=== PATIENT | male | born 1950 | race Caucasian/White ===

== ENCOUNTER 2017-01-16 10:48 | Emergency (ER) | payer MEDICARE, OTHER ==
[~2017-01-16] VITALS: Ht 167.6 cm; Wt 76.2 kg
[~2017-01-16 10:48] MED LIST: ACET-2267 PO; ALBU0.632 IH; ALBU8.5H2; ALBU8.5H2 INH; AMLO10TA PO; AMLO10TA2 PO; AMLO5TAB2 GT; AZIT250T81; BNZ20T GT; BNZ40T PO; BUDE10.2 IH; BUDE6HFA IH; CEFD300C3 PO; CEFTRIAXONE IV; CETI10CA PO; CHLO25TA22 PO; CLN.2T PO; CLON0.1T PO; DOCU-143 PO; FAMO-119 PO; FAMO20TA5 PO; FAMO40TA6 PO; HCT25T PO; HDRL25T PO; HYDR-3923 PO; IPRA3AMP IH; IPRA4AER IH; L. A1CAP10 PO; LEVO500T80 PO; LOSA100T28 PO; METH4TAB PO; MULT-35 PO; MULT-974 PO; OLME1TAB26 PO; POTA99TA15 PO; POTA99TA21 PO; PRD10T; SODI14.12 TP; TAMS0.4C2; TAMS0.4C98 PO; TIOT18CA2 IH; levoquin PO
--- NOTE | 2017-01-16 11:12 | ED EENT ---
History of Present Illness General Chief Complaint: Allergic Reaction Stated Complaint: ALLERGIC REACTION/FACIAL SWELLING Nursing Triage Note: c/o facial swelling. No tongue swelling. Onset 0500 this morning. Denies abnormal SOA. Source: patient Exam Limitations: no limitations History of Present Illness Time seen by provider: 11:07 Initial Comments to ER with swelling around the lips both upper and lower lips and his cheeks. This began this morning about 5 a.m. all awakening. Denies any trouble swallowing or breathing. No shortness of breath. He has a history of angioedema this will be his fourth or fifth presentation of this. Initially this was thought to be secondary to his MANUEL inhibitor but that was discontinued and his occasional flareups persist.he states that normally A shot of steroids improves these.he denies any worsening shortness of breath or pedal edema Timing/Duration: this morning Severity: moderate Location: facial Associated Symptoms: No cough Allergies and Home Medications Allergies Coded Allergies: sulfamethoxazole (Unverified Allergy, Mild, 04/27/16) trimethoprim (Unverified Allergy, Mild, 04/27/16) Home Medications Albuterol/Ipratropium 4 Gm Aero, 2 PUFF IH TID, (Reported) Amlodipine Besylate 10 Mg Tablet, 10 MG PO DAILY, (Reported) Budesonide/Formoterol Fumarate 10.2 Gm Hfa.aer.ad, 2 PUFF IH BID, (Reported) Clonidine HCl 0.1 Mg Tablet, 0.1 MG PO BID, (Reported) Hydralazine HCl 25 Mg Tablet, 25 MG PO BID, (Reported) Losartan Potassium 100 Mg Tablet, 100 MG PO DAILY, (Reported) Prednisone 10 Mg Tab, #42 (Reported) Prednisone 10 Mg Tab, 10 MG PO UD, #10 30mg today, 30mg tomorrow, 20mg x2 days, then go back to your usual once a day dosing Prescribed by: TRACEY ALICEA on 01/16/17 1113 Sodium Chloride/Aloe Vera 14.1 Gm Gel..gram., 14.1 GM TP DAILY, #1 Prescribed by: TRACEY ALICEA on 04/27/16 1056 Tamsulosin HCl 0.4 Mg Cap, 0.4 MG PO DAILY@NOON, (Reported) Tiotropium [place] 1 Inh Aerp, 1 INH IH DAILY, (Reported) [levoquin] , 500 PO Q48H Prescribed by: ROSALVA ZAPIEN on 06/08/16 0803 Review of Systems Constitutional: see HPI Eyes: No Symptoms Reported Ears: No Symptoms Reported Nose: no symptoms reported Mouth: no symptoms reported Throat: no symptoms reported Respiratory: no symptoms reported Cardiovascular: no symptoms reported Musculoskeletal: no symptoms reported Skin: no symptoms reported Neurological: No Symptoms Reported Hematologic/Lymphatic: No Symptoms Reported Past Boqtrnl-Ajqytj-Ntvfvz Hx Patient Social History Alcohol Use: Occasionally Uses Recreational Drug Use: No Smoking Status: Former Smoker Former Smoker/When Quit: Oct 03, 2014 2nd Hand Smoke Exposure: No Recent Foreign Travel: No Contact w/Someone Who Travel: No Recent Infectious Disease Expo: No Recent Hopitalizations: No Immunizations Up To Date Tetanus Booster (TDap): Less than 5yrs PED Vaccines UTD: No Date of Pneumonia Vaccine: Jun 18, 2015 Date of Influenza Vaccine: Jul 29, 2014 Seasonal Allergies Seasonal Allergies: Yes Surgeries HX Surgeries: Yes (cataracts, RIGHT HIP REPLACEMENT, RIGHT KNEE ARTHROSCOPY X 2 ) Surgeries: Eye Surgery, Joint Replacement, Orthopedic Respiratory Hx Respiratory Disorders: Yes (home O2 at 2.5 TO 3L) Respiratory Disorders: Pneumonia, Chronic Bronchitis, COPD Cardiovascular Hx Cardiac Disorders: Yes Cardiac Disorders: Hypertension, Valvular Heart Disease Neurological Hx Neurological Disorders: No Reproductive System Hx Reproductive Disorders: No Sexually Transmitted Disease: No HIV/AIDS: No Genitourinary Hx Genitourinary Disorders: Yes Genitourinary Disorders: Renal Failure Gastrointestinal Hx Gastrointestinal Disorders: No Musculoskeletal Hx Musculoskeletal Disorders: Yes (TORN CARTILAGE RIGHT KNEE. AVASCULAR NECROSIS RIGHT HIP; bulging disc) Musculoskeletal Disorders: Arthritis, Chronic Back Pain Endocrine Hx Endocrine Disorders: No HEENT HX ENT Disorders: Yes (MULTIPLE EPISODES OF ANGIOEDEMA OF FACE) Loss of Vision: Denies Hearing Impairment: Denies Cancer Hx Cancer: No Psychosocial Hx Psychiatric Problems: No Integumentary HX Skin/Integumentary Disorder: No Blood Transfusions Hx Blood Disorders: No Adverse Reaction to a Blood Tr: No Family Medical History Significant Family History: Heart Disease, Diabetes, Lung Disease, Renal Disease Family Medial History: Cardiovascular disease UNCLE Diabetes mellitus 19 MOTHER Kidney disease [place] GRANDMOTHER (CANCER) Physical Exam Vital Signs Vital Sign - Last 12Hours 01/16/17 11:01 Temp 98.0 B/P (MAP) 160/95 Pulse Ox 96 O2 Delivery Nasal Cannula General Appearance: WD/WN, no apparent distress Eyes: bilateral eye EOMI, bilateral eye PERRL, bilateral eye normal inspection Ears: bilateral ear TM normal, bilateral ear auricle normal, bilateral ear canal normal Nose: normal inspection Mouth/Throat: other (there is circumferential swelling around the mouth involving the cheeks but does not affect the mucocutaneous border of the lips. There is no intraoral swelling) Neck: non-tender, full range of motion Respiratory: normal breath sounds, no respiratory distress, no accessory muscle use Neurologic/Psychiatric: alert, normal mood/affect, oriented x 3 Skin: normal color, warm/dry Progress/Results/Core Measures Results/Orders My Orders Orders - TRACEY ALICEA APRN Saline Lock/Iv-Start (01/16/17 11:06) Methylprednisolone Sod Succ (Solu-Medrol (01/16/17 11:15) Famotidine Injection (Pepcid Injection) (01/16/17 11:15) Diphenhydramine Injection (Benadryl Inje (01/16/17 11:15) Medications Given in ED Current Medications Medications Dose Ordered Sig/Anita Route Start Time Stop Time Status Last Admin Dose Admin Diphenhydramine HCl 25 mg ONCE ONCE IVP 01/16/17 11:15 01/16/17 11:16 DC 01/16/17 11:11 25 MG Famotidine 20 mg ONCE ONCE IVP 01/16/17 11:15 01/16/17 11:16 DC 01/16/17 11:11 20 MG Methylprednisolone Sodium Succinate 125 mg ONCE ONCE IVP 01/16/17 11:15 01/16/17 11:16 DC 01/16/17 11:11 125 MG Vital Signs/I&O Vital Sign - Last 12Hours 01/16/17 11:01 Temp 98.0 B/P (MAP) 160/95 Pulse Ox 96 O2 Delivery Nasal Cannula Blood Pressure Mean: 116 Departure Impression Impression: Primary Impression: facial angioedema Disposition: HOME, SELF-CARE Condition: Stable Departure-Patient Inst. Decision time for Depature: 11:10 Referrals: GLORIA ZAPIEN MD (PCP/Family) Primary Care Physician Patient Instructions: Angioedema Add. Discharge Instructions: 1. Steroids as directed 2. Benadryl one tablet every 6 hours for the remainder of today 3. Return to ER for any worsening 4. See your doctor next week All discharge instructions reviewed with patient and/or family. Voiced understanding. Scripts Prednisone (Prednisone) 10 Mg Tab 10 MG PO UD, #10 TAB 30mg today, 30mg tomorrow, 20mg x2 days, then go back to your usual once a day dosing. Prov: TRACEY ALICEA APRN 01/16/17 TRACEY ALICEA APRN Jan 16, 2017 11:12
[2017-01-16] MEDS ORDERED: PRD10T PO ×2 (11:13→11:42)
[2017-01-16] MEDS ORDERED: FAMOTIDINE 20MG/2ML IV (PEPCID) IVP ONE (11:15)
[2017-01-16] MEDS ORDERED: methylPREDNISolone 125 MG (Solu-MEDROL) VIAL IVP ONE (11:15)
[2017-01-16] MEDS ORDERED: diphenhydrAMINE 50 MG/ML INJ (BENADRYL) IVP ONE (11:15)
[2017-01-16 11:47] VITALS: BP 152/90
== END 2017-01-16 11:47 | disposition home or self-care (01) ==
LOC: EDUNIT# 10:48 → ER 10:49
DX: T78.3XXA Angioneurotic edema, initial encounter (principal); J44.9 Chronic obstructive pulmonary disease, unspecified; Z79.899 Other long term (current) drug therapy
CPT/HCPCS: 96374; 96375

== ENCOUNTER 2018-02-26 00:19 | Emergency (ER) | payer MEDICARE, OTHER ==
[~2018-02-26] VITALS: Ht 167.6 cm; Wt 74.8 kg
[~2018-02-26 00:19] MED LIST changes: +PRD10T PO
[2018-02-26] MEDS ORDERED: OXYMETAZOLINE (AFRIN) 0.05% NA 15 ML BTL ONE (00:50)
--- NOTE | 2018-02-26 02:23 | ED EENT ---
History of Present Illness General Chief Complaint: Nasal Problems Stated Complaint: NOSE BLEED Nursing Triage Note: pt presents to er with complaint of nose bleed. pt reports nose has been bleeding off and on since 2 am yesterday. Source: patient, spouse Exam Limitations: no limitations History of Present Illness Date Seen by Provider: February 26, 2018 Time Seen by Provider: 00:45 Initial Comments The patient presents to ER by private conveyance with a chief complaint is having a nosebleed that will not stop. His been having this for the past 2 or 3 days. He followed up yesterday with Dr. Marks and they were not able to see anything on the left nostril hours having the bleeding but this also irritation on the right nostril. They did not do any intervention at that time. He has Afrin and he used it once earlier today but he has not used it tonight. He has been pinching his nose. He is not having any shortness of breath chest pain or history of anemia. He has no coronary artery disease history either. He has been using nasal saline every hour. He does not use any nasal steroids. He is not on any blood thinners. Allergies and Home Medications Allergies Coded Allergies: sulfamethoxazole (Unverified Allergy, Mild, 04/27/16) trimethoprim (Unverified Allergy, Mild, 04/27/16) Home Medications Albuterol/Ipratropium 4 Gm Aero, 2 PUFF IH TID, (Reported) Amlodipine Besylate 10 Mg Tablet, 10 MG PO DAILY, (Reported) Budesonide/Formoterol Fumarate 10.2 Gm Hfa.aer.ad, 2 PUFF IH BID, (Reported) Clonidine HCl 0.1 Mg Tablet, 0.1 MG PO BID, (Reported) Hydralazine HCl 25 Mg Tablet, 25 MG PO BID, (Reported) Losartan Potassium 100 Mg Tablet, 100 MG PO DAILY, (Reported) Prednisone 10 Mg Tab, 10 MG PO UD 30mg today, 30mg tomorrow, 20mg x2 days, then go back to your usual once a day dosing. Prescribed by: TRACEY ALICEA on 01/16/17 1142 Sodium Chloride/Aloe Vera 14.1 Gm Gel..gram., 14.1 GM TP DAILY Prescribed by: TRACEY ALICEA on 04/27/16 1056 Tamsulosin HCl 0.4 Mg Cap, 0.4 MG PO DAILY@NOON, (Reported) Tiotropium [place] 1 Inh Aerp, 1 INH IH DAILY, (Reported) [levoquin] , 500 PO Q48H Prescribed by: ROSALVA ZAPIEN on 06/08/16 0803 Patient Home Medication List Home Medication List Reviewed: Yes Review of Systems Constitutional: No chills, No diaphoresis Eyes: Denies Blindness, Denies Blurred Vision Ears: Denies Dizziness, Denies Pain Nose: clots, epistaxis Mouth: denies pain, denies swelling Throat: denies pain, denies swelling Respiratory: No cough, No wheezing Cardiovascular: No Hx of Intervention, No vascular heart diseas Past Rmrkbvc-Lgojgz-Wruqgv Hx Patient Social History Alcohol Use: Occasionally Uses Number of Drinks Today: AA Alcohol Beverage of Choice: Beer Recreational Drug Use: No Smoking Status: Former Smoker Former Smoker, Quit: Oct 03, 2014 2nd Hand Smoke Exposure: No Recent Foreign Travel: No Contact w/Someone Who Travel: No Recent Infectious Disease Expo: No Recent Hopitalizations: No Immunizations Up To Date Tetanus Booster (TDap): Less than 5yrs PED Vaccines UTD: No Date of Pneumonia Vaccine: Jun 18, 2015 Date of Influenza Vaccine: Jul 29, 2014 Seasonal Allergies Seasonal Allergies: Yes Past Medical History Surgeries: Yes (cataracts, RIGHT HIP REPLACEMENT, RIGHT KNEE ARTHROSCOPY X 2 ) Eye Surgery, Joint Replacement, Orthopedic Respiratory: Yes (home O2 at 2.5 TO 3L) Pneumonia, Chronic Bronchitis, COPD Currently Using CPAP: No Currently Using BIPAP: No Cardiac: Yes Hypertension, Valvular Heart Disease Neurological: No Reproductive Disorders: No Sexually Transmitted Disease: No HIV/AIDS: No Renal Failure Gastrointestinal: No Musculoskeletal: Yes (TORN CARTILAGE RIGHT KNEE. AVASCULAR NECROSIS RIGHT HIP; bulging disc) Arthritis, Chronic Back Pain Endocrine: No Loss of Vision: Denies Hearing Impairment: Denies Cancer: No Psychosocial: No Integumentary: No Blood Disorders: No Adverse Reaction/Blood Tranf: No Family Medical History Cardiovascular disease UNCLE Diabetes mellitus 19 MOTHER Kidney disease [place] GRANDMOTHER (CANCER) Heart Disease, Diabetes, Lung Disease, Renal Disease Physical Exam Vital Signs Vital Signs - First Documented 02/26/18 00:35 Pulse 100 Resp 20 B/P (MAP) 147/103 (118) Pulse Ox 97 O2 Delivery Nasal Cannula O2 Flow Rate 3.00 General Appearance: WD/WN, no apparent distress Eyes: bilateral eye normal inspection, bilateral eye PERRL, bilateral eye EOMI (is dried and years were driving) Ears: bilateral ear auricle normal ( sugars elevated 10/07/24), bilateral ear canal normal, bilateral ear TM normal Nose: active bleeding, dried blood; No foreign body, No sinus tenderness Mouth/Throat: other (bloody secretions in the oral cavity) Neck: non-tender, supple, normal inspection Cardiovascular: normal peripheral pulses, regular rate, rhythm Respiratory: chest non-tender, lungs clear, normal breath sounds, no respiratory distress, no accessory muscle use Gastrointestinal: normal bowel sounds, non tender, soft Neurologic/Psychiatric: alert, oriented x 3 Skin: normal color, warm/dry Progress/Results/Core Measures Results/Orders My Orders Orders - JAYY SWEET Oxymetazoline 0.05% Nasal [place] (Afrin 0. (02/26/18 09:00) Oxymetazoline 0.05% Nasal [place] (Afrin 0. (02/26/18 00:50) Vital Signs/I&O 02/26/18 00:35 Pulse 100 Resp 20 B/P (MAP) 147/103 (118) Pulse Ox 97 O2 Delivery Nasal Cannula O2 Flow Rate 3.00 Blood Pressure Mean: 118 Progress Progress Note : Time: 02:22 Progress Note After applying Afrin 4 puffs each nostril and some pressure the bleeding slowed down but then it started up a little bit so we applied 4 more puffs of Afrin and this is stopped up his nasal bleeding. His blood pressure is still elevated above 200 despite resting sober any give him an extra dose of losartan and asked him to follow up next week or the following with his primary care doctor to readdress his blood pressure medicines. We will also have him follow-up with Dr. Marks in the clinic. Departure Impression Primary Impression: Epistaxis Disposition: 01 HOME, SELF-CARE Condition: Improved Departure-Patient Inst. Decision time for Depature: 02:22 Referrals: GLORIA ZAPIEN MD (PCP/Family) Primary Care Physician Patient Instructions: Nosebleeds (DC) Add. Discharge Instructions: Continue using the nasal saline. If you have bleeding apply 2-4 puffs each nostril and then direct pressure for 40 minutes. Do not blow your nose or take the pressure off at any time. Plan follow-up with Dr. Marks in the clinic. Discuss your blood pressure with your primary care doctor. Take your blood pressure medicines as prescribed. Do not use the Afrin routinely for more than 4 -5 days in a row without taking a week off to prevent rebound congestion. All discharge instructions reviewed with patient and/or family. Voiced understanding. Copy Copies To 1: KIMBERLY MARKS MD; GLORIA ZAPIEN MD, TITUS J February 26, 2018 02:23
[2018-02-26] MEDS ORDERED: LOSARTAN 50 MG (COZAAR) TAB PO ONE (02:30)
[2018-02-26 02:55] VITALS: BP 147/103
[2018-02-26] MEDS ORDERED: OXYMETAZOLINE (AFRIN) 0.05% NA 15 ML BTL SCH (09:00)
== END 2018-02-26 02:55 | disposition home or self-care (01) ==
LOC: EDUNIT# 00:19 → ER 00:21
DX: R04.0 Epistaxis (principal); I10 Essential (primary) hypertension; J44.9 Chronic obstructive pulmonary disease, unspecified; Z87.891 Personal history of nicotine dependence; Z99.81 Dependence on supplemental oxygen; Z96.641 Presence of right artificial hip joint; Z87.01 Personal history of pneumonia (recurrent); Z79.52 Long term (current) use of systemic steroids; Z88.2 Allergy status to sulfonamides; Z88.1 Allergy status to other antibiotic agents; Z82.49 Family history of ischemic heart disease and other diseases of the circulatory system
CPT/HCPCS: 99283

== ENCOUNTER → 2018-04-21 | Outpatient (CLI) | payer MEDICARE, OTHER ==
[~2018-04-21] MED LIST changes: -IPRA3AMP IH; +IPRA3AMP31 IH
== END ==
LOC: RAD 07:31
PROVIDERS: ATTEND Orthopaedic Surgery
DX: M17.11 Unilateral primary osteoarthritis, right knee (principal); Z53.8 Procedure and treatment not carried out for other reasons

== ENCOUNTER → 2018-05-17 | Outpatient (CLI) | payer MEDICARE, OTHER ==
--- NOTE | 2018-05-17 09:26 | Diagnostic Imaging Report ---
EXAM: CT CHEST SCREENING WO INDICATION: Quit smoking 4 years ago. 40 pack year smoking history. COMPARISON: CT chest without contrast 03/08/2016. FINDINGS: Advanced emphysematous changes in the lungs. Advanced emphysematous changes in the lungs. No suspicious pulmonary nodule or mass. No pleural effusion or pneumothorax. No endobronchial lesions. No mediastinal, hilar or axillary lymphadenopathy. Normal heart size. Advanced atherosclerotic calcifications including coronary and aortic. Partially visualized well-circumscribed low-attenuation lesion in the liver, not appreciably changed since the prior exam, likely represents a benign cyst. No acute osseous findings. IMPRESSION: 1. Advanced emphysematous changes in the lungs. 2. Advanced atherosclerotic calcifications including coronary. 3. No suspicious pulmonary nodule or mass. Recommend continue annual screening with low dose chest CT in 12 months. Lung rads category: One. Modifier: None. Please note that the low-dose technique of this chest CT is of non-diagnostic quality. This study is only intended for lung cancer screening of high risk patients. Dictated by: Dictated on workstation # [id number]
== END ==
LOC: RAD 08:17
PROVIDERS: ATTEND Nurse Practitioner Family
DX: J43.9 Emphysema, unspecified (principal); I25.10 Atherosclerotic heart disease of native coronary artery without angina pectoris; I70.0 Atherosclerosis of aorta; Z87.891 Personal history of nicotine dependence

== ENCOUNTER 2018-12-13 13:21 | Inpatient (IN) | payer MEDICARE, OTHER ==
[~2018-12-13] VITALS: Ht 162.6 cm; Wt 61.6 kg
[~2018-12-13 13:21] MED LIST changes: -AMLO10TA2 PO; +AMLO10TA7 PO; -LOSA100T28 PO; +LOSA100T57 PO
[2018-12-13] MEDS ORDERED: ONDANSETRON 4 MG/2 ML (SDV) Z0FRAN IVP ONE (14:00)
[2018-12-13] MEDS ORDERED: HYOSCYAMINE 0.125 MG (LEVSIN) TAB PO ONE (14:00)
--- NOTE | 2018-12-13 14:00 | ED Abdominal Pain ---
General Chief Complaint: Abdominal/GI Problems Stated Complaint: VOMITTING Source of Information: Patient Exam Limitations: No Limitations History of Present Illness Date Seen by Provider: Dec 13, 2018 Time Seen by Provider: 13:59 Initial Comments To ER with reports of abdominal distention, abdominal cramping nausea and vomiting. He vomited twice this morning. He had a bowel movement this morning but has not passed any gas since then. Timing/Duration: 4-6 Hours Severity/Quality: Moderate Location: Generalized Abdomen Radiation: No Radiation Activities at Onset: None Associated Symptoms: Nausea/Vomiting, Swelling/Mass in Abdomen Allergies and Home Medications Allergies Coded Allergies: sulfamethoxazole (Unverified Allergy, Mild, 12/13/18) trimethoprim (Unverified Allergy, Mild, 12/13/18) Home Medications Albuterol/Ipratropium 4 Gm Aero, 2 PUFF IH TID, (Reported) Amlodipine Besylate 10 Mg Tablet, 10 MG PO DAILY, (Reported) Budesonide/Formoterol Fumarate 10.2 Gm Hfa.aer.ad, 2 PUFF IH BID, (Reported) Clonidine HCl 0.1 Mg Tablet, 0.1 MG PO BID, (Reported) Hydralazine HCl 25 Mg Tablet, 25 MG PO BID, (Reported) Losartan Potassium 100 Mg Tablet, 100 MG PO DAILY, (Reported) Prednisone 10 Mg Tab, 10 MG PO UD 30mg today, 30mg tomorrow, 20mg x2 days, then go back to your usual once a day dosing. Prescribed by: TRACEY ALICEA on 01/16/17 1142 Sodium Chloride/Aloe Vera 14.1 Gm Gel..gram., 14.1 GM TP DAILY Prescribed by: TRACEY ALICEA on 04/27/16 1056 Tamsulosin HCl 0.4 Mg Cap, 0.4 MG PO DAILY@NOON, (Reported) Tiotropium [place] 1 Inh Aerp, 1 INH IH DAILY, (Reported) [levoquin] , 500 PO Q48H Prescribed by: ROSALVA ZAPIEN on 06/08/16 0803 Patient Home Medication List Home Medication List Reviewed: Yes Review of Systems Review of Systems Constitutional: see HPI EENTM: No Symptoms Reported Respiratory: No Symptoms Reported Cardiovascular: No Symptoms Reported Gastrointestinal: See HPI, Abdominal Pain; Denies Constipated, Denies Diarrhea ; Nausea, Vomiting Genitourinary: No Symptoms Reported Musculoskeletal: no symptoms reported Skin: no symptoms reported Psychiatric/Neurological: No Symptoms Reported Endocrine: No Symptoms Reported Past Pihkfxs-Wumqkg-Rojtpv Hx Patient Social History Alcohol Beverage of Choice: Beer Former Smoker, Quit: Oct 03, 2014 2nd Hand Smoke Exposure: No Recent Foreign Travel: No Contact w/Someone Who Travel: No Recent Hopitalizations: No Immunizations Up To Date Tetanus Booster (TDap): Less than 5yrs PED Vaccines UTD: No Date of Pneumonia Vaccine: Jun 18, 2015 Date of Influenza Vaccine: Jul 29, 2014 Seasonal Allergies Seasonal Allergies: Yes Past Medical History Surgeries: Yes (cataracts, RIGHT HIP REPLACEMENT, RIGHT KNEE ARTHROSCOPY X 2 ) Eye Surgery, Joint Replacement, Orthopedic Respiratory: Yes (home O2 at 2.5 TO 3L) Pneumonia, Chronic Bronchitis, COPD Currently Using CPAP: No Currently Using BIPAP: No Cardiac: Yes Hypertension, Valvular Heart Disease Neurological: No Reproductive Disorders: No Sexually Transmitted Disease: No HIV/AIDS: No Renal Failure Gastrointestinal: No Musculoskeletal: Yes (TORN CARTILAGE RIGHT KNEE. AVASCULAR NECROSIS RIGHT HIP; bulging disc) Arthritis, Chronic Back Pain Endocrine: No Loss of Vision: Denies Hearing Impairment: Denies Cancer: No Psychosocial: No Integumentary: No Blood Disorders: No Adverse Reaction/Blood Tranf: No Family Medical History Cardiovascular disease UNCLE Diabetes mellitus 19 MOTHER Kidney disease [place] GRANDMOTHER (CANCER) Heart Disease, Diabetes, Lung Disease, Renal Disease Physical Exam Vital Signs Vital Signs - First Documented 12/13/18 13:42 Temp 96.7 Pulse 70 Resp 16 B/P (MAP) 142/57 (85) Pulse Ox 96 O2 Delivery Nasal Cannula O2 Flow Rate 3.00 Capillary Refill : Height/Weight/BMI Height: 5'6.00" Weight: 165lbs. 7.0oz. 74.055224yc; 26.5 BMI Method:Stated General Appearance: WD/WN, no apparent distress HEENT: PERRL/EOMI, normal ENT inspection Respiratory: no respiratory distress, no accessory muscle use Cardiovascular: regular rate, rhythm, no murmur Gastrointestinal: normal bowel sounds, distended, tenderness Extremities: normal range of motion, non-tender Neurologic/Psychiatric: alert, normal mood/affect, oriented x 3 Skin: normal color, warm/dry Progress/Results/Core Measures Results/Orders Lab Results Laboratory Tests Test 12/13/18 13:57 Range/Units White Blood Count 16.6 H 4.3-11.0 10^3/uL Red Blood Count 4.14 L 4.35-5.85 10^6/uL Hemoglobin 10.3 L 13.3-17.7 G/DL Hematocrit 31 L 40-54 % Mean Corpuscular Volume 74 L 80-99 FL Mean Corpuscular Hemoglobin 25 25-34 PG Mean Corpuscular Hemoglobin Concent 34 32-36 G/DL Red Cell Distribution Width 15.1 H 10.0-14.5 % Platelet Count 440 H 130-400 10^3/uL Mean Platelet Volume 7.9 7.4-10.4 FL Neutrophils (%) (Auto) 94 H 42-75 % Lymphocytes (%) (Auto) 3 L 12-44 % Monocytes (%) (Auto) 4 0-12 % Eosinophils (%) (Auto) 0 0-10 % Basophils (%) (Auto) 0 0-10 % Neutrophils # (Auto) 15.5 H 1.8-7.8 X 10^3 Lymphocytes # (Auto) 0.4 L 1.0-4.0 X 10^3 Monocytes # (Auto) 0.6 0.0-1.0 X 10^3 Eosinophils # (Auto) 0.0 0.0-0.3 10^3/uL Basophils # (Auto) 0.0 0.0-0.1 10^3/uL Neutrophils % (Manual) 91 % Lymphocytes % (Manual) 5 % Monocytes % (Manual) 3 % Eosinophils % (Manual) 0 % Basophils % (Manual) 0 % Band Neutrophils 1 % Anisocytosis SLIGHT Microcytosis SLIGHT Sodium Level 120 *L 135-145 MMOL/L Potassium Level 4.0 3.6-5.0 MMOL/L Chloride Level 85 L 98-107 MMOL/L Carbon Dioxide Level 23 21-32 MMOL/L Anion Gap 12 5-14 MMOL/L Blood Urea Nitrogen 25 H 7-18 MG/DL Creatinine 1.33 H 0.60-1.30 MG/DL Estimat Glomerular Filtration Rate 53 BUN/Creatinine Ratio 19 Glucose Level 164 H 70-105 MG/DL Calcium Level 9.4 8.5-10.1 MG/DL Corrected Calcium 9.1 8.5-10.1 MG/DL Total Bilirubin 0.4 0.1-1.0 MG/DL Aspartate Amino Transf (AST/SGOT) 38 H 5-34 U/L Alanine Aminotransferase (ALT/SGPT) 10 0-55 U/L Alkaline Phosphatase 134 40-136 U/L Total Protein 7.4 6.4-8.2 GM/DL Albumin 4.4 3.2-4.5 GM/DL Lipase 34 8-78 U/L My Orders Orders - TRACEY ALICEA APRN Cbc With Automated Diff (12/13/18 13:52) Lipase (12/13/18 13:52) Comprehensive Metabolic Panel (12/13/18 13:52) Iv Heplock-Insert (Order) (12/13/18 13:52) Hyoscyamine Sl Tablet (Levsin Sl Tablet) (12/13/18 14:00) Ondansetron Injection (Zofran Injectio (12/13/18 14:00) Ct Abdomen/Pelvis Wo (12/13/18 13:52) Manual Differential (12/13/18 13:57) Benzocaine Extension Tube (Hurricaine Ex (12/13/18 14:58) Ng Tube Insert & Assessment (12/13/18 15:11) Medications Given in ED Current Medications Medications Dose Ordered Sig/Anita Route Start Time Stop Time Status Last Admin Dose Admin Benzocaine 1 ea STK-MED ONCE .ROUTE 12/13/18 14:58 12/13/18 15:00 DC 12/13/18 15:03 1 EA Hyoscyamine Sulfate 0.25 mg ONCE ONCE PO 12/13/18 14:00 12/13/18 14:01 DC 12/13/18 14:05 0.25 MG Ondansetron HCl 4 mg ONCE ONCE IVP 12/13/18 14:00 12/13/18 14:01 DC 12/13/18 14:05 4 MG Vital Signs/I&O 12/13/18 13:42 Temp 96.7 Pulse 70 Resp 16 B/P (MAP) 142/57 (85) Pulse Ox 96 O2 Delivery Nasal Cannula O2 Flow Rate 3.00 Diagnostic Imaging Diagonstic Imaging: CT Comments NAME: DORITA OLIVEIRA [facility] REC#: [id number] PT STATUS: REG ER : 1950 PHYSICIAN: TRACEY ALICEA APRN ADMIT DATE: 12/13/18/ER Draft Date of Exam:12/13/18 CT ABDOMEN/PELVIS WO PROCEDURE: CT abdomen and pelvis without contrast. TECHNIQUE: Multiple contiguous axial images were obtained through the abdomen and pelvis without the use of intravenous contrast. INDICATION: Severe abdominal pain with nausea and vomiting. COMPARISON: Comparison is made with prior CT from 02/12/2009. FINDINGS: Lung bases demonstrate linear parenchymal densities suggestive of scarring or subsegmental atelectasis. Multiple hepatic cysts are present, largest in the right lobe 4.5 cm in size, increased since prior exam which measured 2.8 cm. Gallbladder is unremarkable. There is no biliary ductal dilatation. Pancreas and spleen are unremarkable. There is no adrenal mass. Renal cortical low densities are noted, largest upper pole right kidney measuring 3.8 cm. This compares with 2 cm on prior exam. No calculi or hydronephrosis is seen. The aorta and iliac vessels are heavily calcified but nonaneurysmal. The stomach is distended and fluid-filled. There are multiple dilated and fluid-filled small bowel loops throughout the abdomen. There is a thick-walled proximal small bowel loop just beyond the ligament of Treitz which appears to demonstrate some twisting. Bowel loops proximal to this are dilated. Distal to this location, there are also significantly dilated and fluid-filled small bowel loops throughout the abdomen traced to the right lower quadrant where there is a focal transition to normal caliber bowel loops in the terminal ileum suggestive of distal site of obstruction as well. There is free fluid amongst the small bowel loops in the central abdomen. No convincing evidence of free air is seen. No well-formed fluid collection is identified. IMPRESSION: 1. Significant fluid-filled and dilated small bowel loops, as described with thick-walled proximal small bowel loop with twisting as well as a focal transition distally in the right lower quadrant. Features are concerning for a closed loop high-grade obstruction. There is free fluid in the abdomen but no well-formed fluid collection or convincing evidence of pneumoperitoneum is identified. 2. Hepatic and renal cysts. Results were discussed with Tracey nurse practitioner in the Emergency Department prior to this dictation. Dictated on workstation # [id number] Dict: 12/13/18 1435 Trans: 12/13/18 1504 [facility] [id number] Interpreted by: NICO ROBISON MD Electronically signed by: Departure Communication (Admissions) Time/Spoke to Admitting Phy: 15:[address] Franklin, will evaluate the patient later today, admit, NG tube, pain and nausea control. We'll consult medicine Time/Spoke to Consulting Phy: 15:[address] Scruggs, will consult 1515-16 Malay nasogastric tube inserted into the right nostril by me with aspiration of brownish stomach contents totaling about 250 mL. Patient tolerated well with no immediate complaints, no epistaxis at this time though he does report a history of epistaxis. Impression Primary Impression: Small bowel obstruction Additional Impressions: Chronic hyponatremia COPD (chronic obstructive pulmonary disease) Qualified Codes: J44.9 - Chronic obstructive pulmonary disease, unspecified Disposition: ADMITTED INPATIENT Condition: Stable Admissions Decision to Admit Reason: Admit from ER (General) Decision to Admit/Date: Dec 13, 2018 Time/Decision to Admit Time: 15:33 Departure-Patient Inst. Referrals: GLORIA ZAIPEN MD (PCP/Family) Primary Care Physician TRACEY ALICEA APRN Dec 13, 2018 14:00
[2018-12-13 14:04] LABS: BASOPHILS % (AUTO) 0 % (0-10); EOSINOPHILS % (AUTO) 0 % (0-10); HEMATOCRIT 31 % (40-54); HEMOGLOBIN 10.3 G/DL (13.3-17.7); LYMPHOCYTES # (AUTO) 0.4 X 10^3 (1.0-4.0); LYMPHOCYTES % (AUTO) 3 % (12-44); MEAN CORPUSCULAR HEMOGLOBIN 25 PG (25-34); MEAN CORPUSCULAR HGB CONC 34 G/DL (32-36); MEAN CORPUSCULAR VOLUME 74 FL (80-99); MEAN PLATELET VOLUME 7.9 FL (7.4-10.4); MONOCYTES # (AUTO) 0.6 X 10^3 (0.0-1.0); MONOCYTES % (AUTO) 4 % (0-12); NEUTROPHILS # (AUTO) 15.5 X 10^3 (1.8-7.8); NEUTROPHILS % (AUTO) 94 % (42-75); PLATELET COUNT 440 10^3/uL (130-400); RED CELL DISTRIBUTION WIDTH 15.1 % (10.0-14.5); WHITE BLOOD COUNT 16.6 10^3/uL (4.3-11.0)
--- OUTSIDE RECORDS SUMMARY | 2018-12-13 14:07 | XMS REPORT | Continuity of Care Document ---
Author Author [facility] Organization [facility] Address Unknown Phone Unavailable Allergies Active Description Code Type Severity Reaction Onset Reported/Identified Relationship to Patient Clinical Status Yes No Known Drug Allergies [id number] Drug Allergy Unknown N/A 12/27/2008 Yes sulfamethoxazole [id number] Drug Allergy Mild N/A 04/27/2016 Yes trimethoprim [id number] Drug Allergy Mild N/A 04/27/2016 Medications There is no data. Problems Date Dx Coded Attending Type Code Diagnosis Diagnosed By 11/10/2014 BLANCA PIMENTEL Ot 535.50 UNSP GASTRITIS GASTRODUODENITIS W/O ME 11/10/2014 BLANCA PIMENTEL Ot 789.06 ABDOMINAL PAIN, EPIGASTRIC 03/11/2015 CURRY IBARRA, GLORIA R Ot 276.1 HYPOSMOLALITY 03/11/2015 CURRY IBARRA, GLORIA R Ot 276.8 HYPOPOTASSEMIA 03/11/2015 CURRY IBARRA, GLORIA R Ot 401.9 HYPERTENSION NOS 03/11/2015 CURRY IBARRA, GLORIA R Ot 465.9 ACUTE URI NOS 03/11/2015 CURRY IBARRA, GLORIA R Ot 496 CHR AIRWAY OBSTRUCT NEC 03/11/2015 CURRY IBARRA, GLORIA R Ot 586 RENAL FAILURE NOS 03/11/2015 CURRY IBARRA, GLORIA R Ot 995.0 OTHER ANAPHYLACTIC REACTION 03/11/2015 CURRY IBARRA, GLORIA R Ot V15.82 HISTORY OF TOBACCO USE 07/02/2015 JENNIFER DO BRANDEN K Ot 276.1 HYPOSMOLALITY 07/02/2015 JENNIFER DO BRANDEN K Ot 995.1 ANGIONEUROTIC EDEMA 07/02/2015 JENNIFER MICHAELS BRANDEN K Ot E000.8 OTHER EXTERNAL CAUSE STATUS 07/02/2015 EMMANUEL RODRIGUEZ DOA K Ot E928.8 ACCIDENT NEC 08/19/2015 GLORIA ZAPIEN MD R Ot J18.9 08/20/2015 CURRY IBARRA, GLORIA R Ot A41.9 08/20/2015 CURRY IBARRA, GLORIA R Ot E22.2 08/20/2015 CURRY IBARRA, GLORIA R Ot E87.2 08/20/2015 CURRY IBARRA, GLORIA R Ot I10 08/20/2015 CURRY IBARRA, GLORIA R Ot J18.9 08/20/2015 CURRY IBARRA, GLORIA R Ot J44.9 08/20/2015 CURRY IBARRA, GLORIA R Ot J90 08/20/2015 CURRY IBARRA, GLORIA R Ot M79.89 08/20/2015 CURRY IBARRA, GLORIA R Ot N17.9 08/20/2015 CURRY IBARRA, GLORIA R Ot Z87.891 08/20/2015 CURRY IBARRA, GLORIA R Ot B37.1 PULMONARY CANDIDIASIS 08/20/2015 CURRY IBARRA, GLORIA R Ot B37.7 CANDIDAL SEPSIS 08/20/2015 CURRY IBARRA, GLORIA R Ot E22.2 SYNDROME OF INAPPROPRIATE SECRETION OF A 08/20/2015 CURRY IBARRA, GLORIA R Ot E86.9 VOLUME DEPLETION, UNSPECIFIED 08/20/2015 CURRY IBARRA, GLORIA R Ot E87.2 ACIDOSIS 08/20/2015 CURRY IBARRA, GLORIA R Ot I10 ESSENTIAL (PRIMARY) HYPERTENSION 08/20/2015 CURRY IBARRA, GLORIA R Ot J44.9 CHRONIC OBSTRUCTIVE PULMONARY DISEASE, U 08/20/2015 CURRY IBARRA, GLORIA R Ot J90 PLEURAL EFFUSION, NOT ELSEWHERE CLASSIFI 08/20/2015 CURRY IBARRA, GLORIA R Ot M79.89 OTHER SPECIFIED SOFT TISSUE DISORDERS 08/20/2015 CURRY IBARRA, GLORIA R Ot N17.9 ACUTE KIDNEY FAILURE, UNSPECIFIED 08/20/2015 CURRY IBARRA, GLORIA R Ot Z87.891 PERSONAL HISTORY OF NICOTINE DEPENDENCE 08/21/2015 CURRY IBARRA, GLORIA R Ot J18.9 08/22/2015 GLORIA ZAPIEN MD R Ot J18.9 08/23/2015 GLORIA ZAPIEN MD R Ot J18.9 08/24/2015 CAMACHO ZAPIEN MDYD R Ot J18.9 08/25/2015 CURRY IBARRA, GLORIA R Ot J18.9 09/03/2015 CURRY IBARRA, GLORIA R Ot R05 10/09/2015 CURRY IBARRA, GLORIA R Ot J18.9 10/13/2015 CURRY IBARRA, GLORIA R Ot R05 10/13/2015 CURRY IBARRA, GLORIA R Ot J18.9 11/07/2015 JASS SWANSON DO Ot J44.9 CHRONIC OBSTRUCTIVE PULMONARY DISEASE, U 11/07/2015 JASS SWANSON DO Ot J90 PLEURAL EFFUSION, NOT ELSEWHERE CLASSIFI 11/07/2015 JASS SWANSON DO Ot R09.02 HYPOXEMIA 11/10/2015 SUSI CANELA APRN Ot J18.9 11/10/2015 SUSI CANELA APRN Ot J44.9 11/10/2015 SUSI CANELA APRN Ot R09.02 11/13/2015 CURRY IBARRA, GLORIA R Ot J18.9 PNEUMONIA, UNSPECIFIED ORGANISM 11/25/2015 CURRY IBARRA, GLORIA R Ot A46 11/26/2015 CURRY IBARRA, GLORIA R Ot A46 11/26/2015 CURRY IBARRA, GLORIA R Ot A46 11/27/2015 SUSI CANELA APRN Ot J44.9 12/03/2015 JASS SWANSON DO Ot J44.9 12/03/2015 JASS SWANSON DO Ot M79.89 12/03/2015 JASS SWANSON DO Ot Z99.81 12/09/2015 SUSI CANELA APRN Ot J18.9 12/09/2015 SUSI CANELA APRN Ot J44.9 12/09/2015 SUSI CANELA APRN Ot R09.02 12/12/2015 SUSI CANELA APRN Ot J18.9 12/12/2015 SUSI CANELA APRN Ot J44.9 12/12/2015 SUSI CANELA SENIOR ETL DEVELOPER Ot R09.02 12/23/2015 CURRY IBARRA, GLORIA R Ot E87.1 HYPO-OSMOLALITY AND HYPONATREMIA 12/23/2015 CURRY IBARRA, GLORIA R Ot I10 ESSENTIAL (PRIMARY) HYPERTENSION 12/23/2015 CURRY IBARRA, GLORIA R Ot J13 PNEUMONIA DUE TO STREPTOCOCCUS PNEUMONIA 12/23/2015 CURRY IBARRA, GLORIA R Ot J15.0 PNEUMONIA DUE TO KLEBSIELLA PNEUMONIAE 12/23/2015 CURRY IBARRA, GLORIA R Ot J44.1 CHRONIC OBSTRUCTIVE PULMONARY DISEASE W 12/23/2015 CURRY IBARRA, GLORIA R Ot J90 PLEURAL EFFUSION, NOT ELSEWHERE CLASSIFI 12/23/2015 CURRY IBARRA, GLORIA R Ot Z87.891 PERSONAL HISTORY OF NICOTINE DEPENDENCE 12/23/2015 CURRY IBARRA, GLORIA R Ot Z99.81 DEPENDENCE ON SUPPLEMENTAL OXYGEN 12/25/2015 CURRY IBARRA, GLORIA R Ot A46 12/29/2015 SUSI CANELA APRN Ot J44.9 12/29/2015 JASS SWANSON DO Ot J44.9 12/29/2015 JASS SWANSON DO Ot M79.89 12/29/2015 JASS SWANSON DO Ot Z99.81 12/31/2015 SUSI CANELA SENIOR ETL DEVELOPER Ot J18.9 12/31/2015 SUSI CANELA SENIOR ETL DEVELOPER Ot J44.9 12/31/2015 SUSI CANELA SENIOR ETL DEVELOPER Ot R09.02 01/11/2016 SUSI CANELA SENIOR ETL DEVELOPER Ot J18.9 PNEUMONIA, UNSPECIFIED ORGANISM 01/11/2016 SUSI CANELA SENIOR ETL DEVELOPER Ot J44.9 CHRONIC OBSTRUCTIVE PULMONARY DISEASE, U 01/11/2016 SUSI CANELA SENIOR ETL DEVELOPER Ot R09.02 HYPOXEMIA 01/12/2016 SUSI CANELA SENIOR ETL DEVELOPER Ot J18.9 01/12/2016 SUSI CANELA SENIOR ETL DEVELOPER Ot J44.9 01/12/2016 SUSI CANELA SENIOR ETL DEVELOPER Ot R09.02 01/20/2016 CURRY IBARRA, GLORIA R Ot A46 ERYSIPELAS 01/28/2016 SUSI CANELA SENIOR ETL DEVELOPER Ot J18.9 PNEUMONIA, UNSPECIFIED ORGANISM 01/28/2016 SUSI CANELA SENIOR ETL DEVELOPER Ot J44.9 CHRONIC OBSTRUCTIVE PULMONARY DISEASE, U 01/28/2016 SUSI CANELA SENIOR ETL DEVELOPER Ot R09.02 HYPOXEMIA 01/29/2016 SUSI CANELA SENIOR ETL DEVELOPER Ot J18.9 PNEUMONIA, UNSPECIFIED ORGANISM 01/29/2016 SUSI CANELA SENIOR ETL DEVELOPER Ot J44.9 CHRONIC OBSTRUCTIVE PULMONARY DISEASE, U 01/29/2016 SUSI CANELA SENIOR ETL DEVELOPER Ot R09.02 HYPOXEMIA 02/04/2016 SUSI CANELA SENIOR ETL DEVELOPER Ot J44.9 CHRONIC OBSTRUCTIVE PULMONARY DISEASE, U 02/18/2016 CURRY IBARRA, GLORIA R Ot A46 ERYSIPELAS 02/23/2016 SUSI CANELA SENIOR ETL DEVELOPER Ot J18.9 PNEUMONIA, UNSPECIFIED ORGANISM 02/23/2016 SUSI CANELA SENIOR ETL DEVELOPER Ot J44.9 CHRONIC OBSTRUCTIVE PULMONARY DISEASE, U 02/23/2016 SUSI CANELA SENIOR ETL DEVELOPER Ot R09.02 HYPOXEMIA 02/24/2016 SUSI CANELA SENIOR ETL DEVELOPER Ot J44.9 CHRONIC OBSTRUCTIVE PULMONARY DISEASE, U 02/26/2016 SUSI CANELA SENIOR ETL DEVELOPER Ot J18.9 PNEUMONIA, UNSPECIFIED ORGANISM 02/26/2016 SUSI CANELA SENIOR ETL DEVELOPER Ot J44.9 CHRONIC OBSTRUCTIVE PULMONARY DISEASE, U 02/26/2016 SUSI CANELA SENIOR ETL DEVELOPER Ot R09.02 HYPOXEMIA 02/27/2016 SUSI CANELA SENIOR ETL DEVELOPER Ot J44.9 CHRONIC OBSTRUCTIVE PULMONARY DISEASE, U 03/09/2016 SUSI CANELA SENIOR ETL DEVELOPER Ot J44.9 CHRONIC OBSTRUCTIVE PULMONARY DISEASE, U 03/10/2016 SUSI CANELA SENIOR ETL DEVELOPER Ot J44.9 CHRONIC OBSTRUCTIVE PULMONARY DISEASE, U 03/10/2016 SUSI CANELA SENIOR ETL DEVELOPER Ot R06.00 DYSPNEA, UNSPECIFIED 03/10/2016 SUSI CANELA SENIOR ETL DEVELOPER Ot R06.02 SHORTNESS OF BREATH 03/30/2016 SUSI CANELA SENIOR ETL DEVELOPER Ot J44.9 CHRONIC OBSTRUCTIVE PULMONARY DISEASE, U 03/30/2016 SSUI CANELA SENIOR ETL DEVELOPER Ot R06.00 DYSPNEA, UNSPECIFIED 03/30/2016 SUSI CANELA SENIOR ETL DEVELOPER Ot R06.02 SHORTNESS OF BREATH 04/02/2016 SUSI CANELA SENIOR ETL DEVELOPER Ot J44.9 CHRONIC OBSTRUCTIVE PULMONARY DISEASE, U 04/02/2016 SUSI CANELA SENIOR ETL DEVELOPER Ot R06.00 DYSPNEA, UNSPECIFIED 04/02/2016 SUSI CANELA SENIOR ETL DEVELOPER Ot R06.02 SHORTNESS OF BREATH 04/26/2016 SUSI CANELA SENIOR ETL DEVELOPER Ot J18.9 PNEUMONIA, UNSPECIFIED ORGANISM 04/26/2016 SUSI CANELA SENIOR ETL DEVELOPER Ot J44.9 CHRONIC OBSTRUCTIVE PULMONARY DISEASE, U 04/26/2016 SUSI ACNELA SENIOR ETL DEVELOPER Ot R09.02 HYPOXEMIA 04/27/2016 CURRY IBARRA, GLORIA R Ot R05 COUGH 04/27/2016 SUSI CANELA SENIOR ETL DEVELOPER Ot J18.9 PNEUMONIA, UNSPECIFIED ORGANISM 04/27/2016 SUSI CANELA SENIOR ETL DEVELOPER Ot J44.9 CHRONIC OBSTRUCTIVE PULMONARY DISEASE, U 04/27/2016 SUSI CANELA APRN Ot R09.02 HYPOXEMIA 04/27/2016 SUSI CANELA APRN Ot J44.9 CHRONIC OBSTRUCTIVE PULMONARY DISEASE, U 04/27/2016 JASS SWANSON DO Ot J44.9 CHRONIC OBSTRUCTIVE PULMONARY DISEASE, U 04/27/2016 JASS SWANSON DO Ot M79.89 OTHER SPECIFIED SOFT TISSUE DISORDERS 04/27/2016 JASS SWANSON DO Ot Z99.81 DEPENDENCE ON SUPPLEMENTAL OXYGEN 04/27/2016 CURRY IBARRA, GLORIA R Ot J18.9 PNEUMONIA, UNSPECIFIED ORGANISM 04/27/2016 SUSI CANELA SENIOR ETL DEVELOPER Ot J44.9 CHRONIC OBSTRUCTIVE PULMONARY DISEASE, U 04/27/2016 CURRY IBARRA, GLORIA R Ot A46 ERYSIPELAS 04/27/2016 SUSI CANELA APRN Ot J44.9 CHRONIC OBSTRUCTIVE PULMONARY DISEASE, U 04/27/2016 SUSI CANELA APRN Ot R06.00 DYSPNEA, UNSPECIFIED 04/27/2016 SUSI CANELA SENIOR ETL DEVELOPER Ot R06.02 SHORTNESS OF BREATH 04/27/2016 SUSI CANELA SENIOR ETL DEVELOPER Ot J18.9 PNEUMONIA, UNSPECIFIED ORGANISM 04/27/2016 SUSI CANELA SENIOR ETL DEVELOPER Ot J44.9 CHRONIC OBSTRUCTIVE PULMONARY DISEASE, U 04/27/2016 SUSI CANELA APRN Ot R09.02 HYPOXEMIA 04/27/2016 TRACEY ALICEA SENIOR ETL DEVELOPER Ot R04.0 EPISTAXIS 04/27/2016 TRACEY ALICEA SENIOR ETL DEVELOPER Ot R04.0 EPISTAXIS 04/27/2016 CURRY IBARRA, GLORIA R Ot J18.9 PNEUMONIA, UNSPECIFIED ORGANISM 04/27/2016 CURRY IBARRA, GLORIA R Ot A46 ERYSIPELAS 04/27/2016 SUSI CANELA APRN Ot J18.9 PNEUMONIA, UNSPECIFIED ORGANISM 04/27/2016 SUSI CANELA SENIOR ETL DEVELOPER Ot J44.9 CHRONIC OBSTRUCTIVE PULMONARY DISEASE, U 04/27/2016 SUSI CANELA SENIOR ETL DEVELOPER Ot R09.02 HYPOXEMIA 04/27/2016 SUSI CANELA SENIOR ETL DEVELOPER Ot J18.9 PNEUMONIA, UNSPECIFIED ORGANISM 04/27/2016 SUSI CANELA SENIOR ETL DEVELOPER Ot J44.9 CHRONIC OBSTRUCTIVE PULMONARY DISEASE, U 04/27/2016 SUSI CANELA SENIOR ETL DEVELOPER Ot R09.02 HYPOXEMIA 06/05/2016 TRACEY ALICEA APRN Ot E87.1 HYPO-OSMOLALITY AND HYPONATREMIA 06/05/2016 TRACEY ALICEA APRN Ot J84.9 INTERSTITIAL PULMONARY DISEASE, UNSPECIF 06/05/2016 TRACEY ALICEA APRN Ot J90 PLEURAL EFFUSION, NOT ELSEWHERE CLASSIFI 06/05/2016 TRACEY ALICEA APRN Ot N17.9 ACUTE KIDNEY FAILURE, UNSPECIFIED 06/05/2016 TRACEY ALICEA APRN Ot R06.00 DYSPNEA, UNSPECIFIED 06/05/2016 TRACEY ALICEA APRN Ot Z53.29 PROC/TRTMT NOT CRD OUT BEC PT DECISION F 06/05/2016 TRACEY ALICEA APRN Ot Z99.81 DEPENDENCE ON SUPPLEMENTAL OXYGEN 06/08/2016 GLORIA ZAPIEN MD R Ot E87.1 HYPO-OSMOLALITY AND HYPONATREMIA 06/08/2016 GLORIA ZAPIEN MD R Ot I12.9 HYPERTENSIVE CHRONIC KIDNEY DISEASE W ST 06/08/2016 GLORIA ZAPIEN MD R Ot J44.1 CHRONIC OBSTRUCTIVE PULMONARY DISEASE W 06/08/2016 GLORIA ZAPIEN MD R Ot N17.9 ACUTE KIDNEY FAILURE, UNSPECIFIED 06/08/2016 GLORIA ZAPIEN MD R Ot N18.9 CHRONIC KIDNEY DISEASE, UNSPECIFIED 06/08/2016 GLORIA ZAPIEN MD R Ot N40.0 ENLARGED PROSTATE WITHOUT LOWER URINARY 06/08/2016 CURRY IBARRA, GLORIA R Ot R60.0 LOCALIZED EDEMA 06/08/2016 CURRY IBARRA, GLORIA R Ot Z87.891 PERSONAL HISTORY OF NICOTINE DEPENDENCE 06/08/2016 CURRY IBARRA, GLORIA Winter Ot Z99.81 DEPENDENCE ON SUPPLEMENTAL OXYGEN 06/08/2016 TRACEY ALICEA APRN Ot E87.1 HYPO-OSMOLALITY AND HYPONATREMIA 06/08/2016 TRACEY ALICEA APRN Ot J84.9 INTERSTITIAL PULMONARY DISEASE, UNSPECIF 06/08/2016 TRACEY ALICEA APRN Ot J90 PLEURAL EFFUSION, NOT ELSEWHERE CLASSIFI 06/08/2016 TRACEY ALICEA APRN Ot N17.9 ACUTE KIDNEY FAILURE, UNSPECIFIED 06/08/2016 TRACEY ALICEA APRN Ot R06.00 DYSPNEA, UNSPECIFIED 06/08/2016 TRACEY ALICEA APRN Ot Z53.29 PROC/TRTMT NOT CRD OUT BEC PT DECISION F 06/08/2016 TRACEY ALICEA APRN Ot Z99.81 DEPENDENCE ON SUPPLEMENTAL OXYGEN 06/11/2016 TRACEY ALICEA APRN Ot E87.1 HYPO-OSMOLALITY AND HYPONATREMIA 06/11/2016 TRACEY ALICEA APRN Ot J84.9 INTERSTITIAL PULMONARY DISEASE, UNSPECIF 06/11/2016 TRACEY ALICEA APRN Ot J90 PLEURAL EFFUSION, NOT ELSEWHERE CLASSIFI 06/11/2016 TRACEY ALICEA APRN Ot N17.9 ACUTE KIDNEY FAILURE, UNSPECIFIED 06/11/2016 TRACEY ALICEA APRN Ot R06.00 DYSPNEA, UNSPECIFIED 06/11/2016 TRACEY ALICEA APRN Ot Z53.29 PROC/TRTMT NOT CRD OUT BEC PT DECISION F 06/11/2016 TRACEY ALICEA APRN Ot Z99.81 DEPENDENCE ON SUPPLEMENTAL OXYGEN 06/28/2016 JASS SWANSON DO Ot J30.9 ALLERGIC RHINITIS, UNSPECIFIED 06/28/2016 JASS SWANSON DO Ot J44.9 CHRONIC OBSTRUCTIVE PULMONARY DISEASE, U 06/28/2016 JASS SWANSON DO Ot R06.00 DYSPNEA, UNSPECIFIED 06/28/2016 JASS SWANSON DO Ot R09.02 HYPOXEMIA 07/15/2016 JASS SWANSON DO Ot J30.9 ALLERGIC RHINITIS, UNSPECIFIED 07/15/2016 JASS SWANSON DO Ot J44.9 CHRONIC OBSTRUCTIVE PULMONARY DISEASE, U 07/15/2016 JASS SWANSON DO Ot R06.00 DYSPNEA, UNSPECIFIED 07/15/2016 JASS SWANSON DO Ot R09.02 HYPOXEMIA 07/28/2016 JASS SWANSON DO Ot J30.9 ALLERGIC RHINITIS, UNSPECIFIED 07/28/2016 JASS SWANSON DO Ot J44.9 CHRONIC OBSTRUCTIVE PULMONARY DISEASE, U 07/28/2016 JASS SWANSON DO Ot R06.00 DYSPNEA, UNSPECIFIED 07/28/2016 JASS SWANSON DO Ot R09.02 HYPOXEMIA 09/13/2016 CURRY IBARRA, GLORIA R Ot R05 COUGH 09/13/2016 SUSI CANELA APRN Ot J18.9 PNEUMONIA, UNSPECIFIED ORGANISM 09/13/2016 SUSI CANELA APRN Ot J44.9 CHRONIC OBSTRUCTIVE PULMONARY DISEASE, U 09/13/2016 SUSI CANELA APRN Ot R09.02 HYPOXEMIA 09/13/2016 SUSI CANELA APRN Ot J44.9 CHRONIC OBSTRUCTIVE PULMONARY DISEASE, U 09/13/2016 JASS SWANSON DO Ot J44.9 CHRONIC OBSTRUCTIVE PULMONARY DISEASE, U 09/13/2016 JASS SWANSON DO Ot M79.89 OTHER SPECIFIED SOFT TISSUE DISORDERS 09/13/2016 JASS SWANSON DO Ot Z99.81 DEPENDENCE ON SUPPLEMENTAL OXYGEN 09/13/2016 CURRY IBARRA, GLORIA R Ot J18.9 PNEUMONIA, UNSPECIFIED ORGANISM 09/13/2016 SUSI CANELA APRN Ot J44.9 CHRONIC OBSTRUCTIVE PULMONARY DISEASE, U 09/13/2016 CURRY IBARRA, GLORIA R Ot A46 ERYSIPELAS 09/13/2016 SUSI CANELA APRN Ot J44.9 CHRONIC OBSTRUCTIVE PULMONARY DISEASE, U 09/13/2016 SUSI CANELA APRN Ot R06.00 DYSPNEA, UNSPECIFIED 09/13/2016 SUSI CANELA APRN Ot R06.02 SHORTNESS OF BREATH 09/13/2016 SUSI CANELA APRN Ot J18.9 PNEUMONIA, UNSPECIFIED ORGANISM 09/13/2016 SUSI CANELA APRN Ot J44.9 CHRONIC OBSTRUCTIVE PULMONARY DISEASE, U 09/13/2016 SUSI CANELA APRN Ot R09.02 HYPOXEMIA 09/13/2016 JASS SWANSON DO Ot J30.9 ALLERGIC RHINITIS, UNSPECIFIED 09/13/2016 JASS SWANSON DO Ot J44.9 CHRONIC OBSTRUCTIVE PULMONARY DISEASE, U 09/13/2016 JASS SWANSON DO Ot R06.00 DYSPNEA, UNSPECIFIED 09/13/2016 JASS SWANSON DO Ot R09.02 HYPOXEMIA 09/15/2016 SUSI CANELA SENIOR ETL DEVELOPER Ot J44.9 CHRONIC OBSTRUCTIVE PULMONARY DISEASE, U 09/15/2016 ROLA SUSI Claudia SENIOR ETL DEVELOPER Ot J90 PLEURAL EFFUSION, NOT ELSEWHERE CLASSIFI 09/15/2016 ROLARADHASUSI Claudia SENIOR ETL DEVELOPER Ot R06.00 DYSPNEA, UNSPECIFIED 10/12/2016 ROLARADHA PENGINE Claudia SENIOR ETL DEVELOPER Ot J44.9 CHRONIC OBSTRUCTIVE PULMONARY DISEASE, U 10/12/2016 ROLA SUSI Claudia SENIOR ETL DEVELOPER Ot J90 PLEURAL EFFUSION, NOT ELSEWHERE CLASSIFI 10/12/2016 ROLARADHA PENGINE Claudia SENIOR ETL DEVELOPER Ot R06.00 DYSPNEA, UNSPECIFIED 10/12/2016 RADHA CANELAINE Claudia SENIOR ETL DEVELOPER Ot J44.9 CHRONIC OBSTRUCTIVE PULMONARY DISEASE, U 10/12/2016 ROLARADHA PENGINE Claudia SENIOR ETL DEVELOPER Ot J90 PLEURAL EFFUSION, NOT ELSEWHERE CLASSIFI 10/12/2016 SUSI CANELA SENIOR ETL DEVELOPER Ot R06.00 DYSPNEA, UNSPECIFIED 01/16/2017 TRACEY ALICEA APRN Ot J44.9 CHRONIC OBSTRUCTIVE PULMONARY DISEASE, U 01/16/2017 TRACEY ALICEA APRN Ot R22.0 LOCALIZED SWELLING, MASS AND LUMP, HEAD 01/16/2017 TRACEY ALICEA APRN Ot T78.3XXA ANGIONEUROTIC EDEMA, INITIAL ENCOUNTER 01/16/2017 TRACEY ALICEA APRN Ot Z79.899 OTHER LEARNING FACILITATOR (CURRENT) DRUG THERAPY 01/18/2017 TRACEY ALICEA APRN Ot J44.9 CHRONIC OBSTRUCTIVE PULMONARY DISEASE, U 01/18/2017 TRACEY ALICEA APRN Ot R22.0 LOCALIZED SWELLING, MASS AND LUMP, HEAD 01/18/2017 TRACEY ALICEA APRN Ot T78.3XXA ANGIONEUROTIC EDEMA, INITIAL ENCOUNTER 01/18/2017 TRACEY ALICEA APRN Ot Z79.899 OTHER LEARNING FACILITATOR (CURRENT) DRUG THERAPY 03/03/2017 TRACEY ALICEA APRN Ot E87.1 HYPO-OSMOLALITY AND HYPONATREMIA 03/03/2017 TRACEY ALICEA APRN Ot J84.9 INTERSTITIAL PULMONARY DISEASE, UNSPECIF 03/03/2017 TRACEY ALICEA SENIOR ETL DEVELOPER Ot J90 PLEURAL EFFUSION, NOT ELSEWHERE CLASSIFI 03/03/2017 TRACEY ALICEA SENIOR ETL DEVELOPER Ot N17.9 ACUTE KIDNEY FAILURE, UNSPECIFIED 03/03/2017 TRACEY ALICEA APRN Ot R06.00 DYSPNEA, UNSPECIFIED 03/03/2017 TRACEY ALICEA APRN Ot Z53.29 PROC/TRTMT NOT CRD OUT BEC PT DECISION F 03/03/2017 TRACEY ALICEA APRN Ot Z99.81 DEPENDENCE ON SUPPLEMENTAL OXYGEN 02/26/2018 JAYY SWEET MD Ot I10 ESSENTIAL (PRIMARY) HYPERTENSION 02/26/2018 JAYY SWEET MD, Ot J44.9 CHRONIC OBSTRUCTIVE PULMONARY DISEASE, U 02/26/2018 JAYY SWEET MD Ot R04.0 EPISTAXIS 02/26/2018 JAYY SWEET MD Ot Z79.52 PENITENTIARY (CURRENT) USE OF SYSTEMIC STER 02/26/2018 JAYY SWEET MD Ot Z82.49 FAMILY HX OF ISCHEM HEART DIS AND OTH DI 02/26/2018 JAYY SWEET MD Ot Z87.01 PERSONAL HISTORY OF PNEUMONIA (RECURRENT 02/26/2018 JAYY SWEET MD Ot Z87.891 PERSONAL HISTORY OF NICOTINE DEPENDENCE 02/26/2018 JAYY SWEET MD Ot Z88.1 ALLERGY STATUS TO OTHER ANTIBIOTIC AGENT 02/26/2018 JAYY SWEET MD Ot Z88.2 ALLERGY STATUS TO SULFONAMIDES STATUS 02/26/2018 JAYY SWEET MD Ot Z96.641 PRESENCE OF RIGHT ARTIFICIAL HIP JOINT 02/26/2018 JAYY SWEET MD Ot Z99.81 DEPENDENCE ON SUPPLEMENTAL OXYGEN 02/28/2018 JAYY SWEET MD Ot I10 ESSENTIAL (PRIMARY) HYPERTENSION 02/28/2018 JAYY SWEET MD, Ot J44.9 CHRONIC OBSTRUCTIVE PULMONARY DISEASE, U 02/28/2018 JAYY SWEET MD Ot R04.0 EPISTAXIS 02/28/2018 JAYY SWEET MD Ot Z79.52 LEARNING FACILITATOR (CURRENT) USE OF SYSTEMIC STER 02/28/2018 JAYY SWEET MD Ot Z82.49 FAMILY HX OF ISCHEM HEART DIS AND OTH DI 02/28/2018 JAYY SWEET MD Ot Z87.01 PERSONAL HISTORY OF PNEUMONIA (RECURRENT 02/28/2018 JAYY SWEET MD Ot Z87.891 PERSONAL HISTORY OF NICOTINE DEPENDENCE 02/28/2018 JAYY SWEET MD Ot Z88.1 ALLERGY STATUS TO OTHER ANTIBIOTIC AGENT 02/28/2018 JAYY SWEET MD Ot Z88.2 ALLERGY STATUS TO SULFONAMIDES STATUS 02/28/2018 JAYY SWEET MD Ot Z96.641 PRESENCE OF RIGHT ARTIFICIAL HIP JOINT 02/28/2018 JAYY SWEET MD Ot Z99.81 DEPENDENCE ON SUPPLEMENTAL OXYGEN 04/19/2018 CURRY IBARRA, GLORIA R Ot R05 COUGH 04/19/2018 SUSI CANELA APRN Ot J18.9 PNEUMONIA, UNSPECIFIED ORGANISM 04/19/2018 SUSI CANELA APRN Ot J44.9 CHRONIC OBSTRUCTIVE PULMONARY DISEASE, U 04/19/2018 SUSI CANELA APRN Ot R09.02 HYPOXEMIA 04/19/2018 SUSI CANELA APRN Ot J44.9 CHRONIC OBSTRUCTIVE PULMONARY DISEASE, U 04/19/2018 JASS SWANSON DO Ot J44.9 CHRONIC OBSTRUCTIVE PULMONARY DISEASE, U 04/19/2018 JASS SWANSON DO Ot M79.89 OTHER SPECIFIED SOFT TISSUE DISORDERS 04/19/2018 JASS SWANSON DO Ot Z99.81 DEPENDENCE ON SUPPLEMENTAL OXYGEN 04/19/2018 GLORIA ZAPIEN MD R Ot J18.9 PNEUMONIA, UNSPECIFIED ORGANISM 04/19/2018 SUSI CANELA APRN Ot J44.9 CHRONIC OBSTRUCTIVE PULMONARY DISEASE, U 04/19/2018 GLORIA ZAPIEN MD R Ot A46 ERYSIPELAS 04/19/2018 SUSI CANELA APRN Ot J44.9 CHRONIC OBSTRUCTIVE PULMONARY DISEASE, U 04/19/2018 SUSI CANELA APRN Ot R06.00 DYSPNEA, UNSPECIFIED 04/19/2018 SUSI CANELA APRN Ot R06.02 SHORTNESS OF BREATH 04/19/2018 SUSI CANELA APRN Ot J18.9 PNEUMONIA, UNSPECIFIED ORGANISM 04/19/2018 SUSI CANELA APRN Ot J44.9 CHRONIC OBSTRUCTIVE PULMONARY DISEASE, U 04/19/2018 SUSI CANELA APRN Ot R09.02 HYPOXEMIA 04/19/2018 JASS SWANSON DO Ot J30.9 ALLERGIC RHINITIS, UNSPECIFIED 04/19/2018 JASS SWANSON DO Ot J44.9 CHRONIC OBSTRUCTIVE PULMONARY DISEASE, U 04/19/2018 KIKI MICHAELS JASS Staton Ot R06.00 DYSPNEA, UNSPECIFIED 04/19/2018 JOSÉ SWANSON DOTANESHA [place] Ot R09.02 HYPOXEMIA 04/19/2018 SUSI CANELA APRN Ot J44.9 CHRONIC OBSTRUCTIVE PULMONARY DISEASE, U 04/19/2018 SUSI CANELA APRN Ot J90 PLEURAL EFFUSION, NOT ELSEWHERE CLASSIFI 04/19/2018 SUSI CANELA APRN Ot R06.00 DYSPNEA, UNSPECIFIED 04/24/2018 PRABHAKAR WATTS DO Ot M17.11 UNILATERAL PRIMARY OSTEOARTHRITIS, RIGHT 04/24/2018 PRABHAKAR WATTS DO Ot Z53.8 PROCEDURE AND TREATMENT NOT CARRIED OUT 06/21/2018 Ot I25.10 ATHSCL HEART DISEASE OF [place] CORONARY 06/21/2018 Ot I70.0 ATHEROSCLEROSIS OF [place] 06/21/2018 Ot J43.9 EMPHYSEMA, UNSPECIFIED 06/21/2018 Ot Z87.891 PERSONAL HISTORY OF NICOTINE DEPENDENCE Procedures Code Description Performed By Performed On [id number] DRAINAGE OF L PLEURAL CAV WITH DRAIN DEV 08/18/2015 Results Test Result Range Complete blood count (CBC) with automated white blood cell (WBC) differential - 06/05/16 11:13 Blood leukocytes automated count (number/volume) 9.3 10*3/uL 4.3-11.0 Blood erythrocytes automated count (number/volume) 3.75 10*6/uL 4.35-5.85 Venous blood hemoglobin measurement (mass/volume) 11.2 g/dL 13.3-17.7 Blood hematocrit (volume fraction) 31 % 40-54 Automated erythrocyte mean corpuscular volume 82 [foz_us] 80-99 Automated erythrocyte mean corpuscular hemoglobin (mass per erythrocyte) 30 pg 25-34 Automated erythrocyte mean corpuscular hemoglobin concentration measurement ( mass/volume) 36 g/dL 32-36 Automated erythrocyte distribution width ratio 13.0 % 10.0-14.5 Automated blood platelet count (count/volume) 254 10*3/uL 130-400 Automated blood platelet mean volume measurement 8.3 [foz_us] 7.4-10.4 Automated blood neutrophils/100 leukocytes 71 % 42-75 Automated blood lymphocytes/100 leukocytes 13 % 12-44 Blood monocytes/100 leukocytes 14 % 0-12 Automated blood eosinophils/100 leukocytes 2 % 0-10 Automated blood basophils/100 leukocytes 0 % 0-10 Blood neutrophils automated count (number/volume) 6.6 10*3 1.8-7.8 Blood lymphocytes automated count (number/volume) 1.2 10*3 1.0-4.0 Blood monocytes automated count (number/volume) 1.3 10*3 0.0-1.0 Automated eosinophil count 0.2 10*3/uL 0.0-0.3 Automated blood basophil count (count/volume) 0.0 10*3/uL 0.0-0.1 Comprehensive metabolic panel - 06/05/16 11:13 Serum or plasma sodium measurement (moles/volume) 118 mmol/L 135-145 Serum or plasma potassium measurement (moles/volume) 4.9 mmol/L 3.6-5.0 Serum or plasma chloride measurement (moles/volume) 86 mmol/L 98-107 Carbon dioxide 17 mmol/L 21-32 Serum or plasma anion gap determination (moles/volume) 15 mmol/L 5-14 Serum or plasma urea nitrogen measurement (mass/volume) 37 mg/dL 7-18 Serum or plasma creatinine measurement (mass/volume) 2.45 mg/dL 0.60-1.30 Serum or plasma urea nitrogen/creatinine mass ratio 15 NRG Serum or plasma creatinine measurement with calculation of estimated glomerular filtration rate 27 NRG Serum or plasma glucose measurement (mass/volume) 106 mg/dL 70-105 Serum or plasma calcium measurement (mass/volume) 9.1 mg/dL 8.5-10.1 Serum or plasma total bilirubin measurement (mass/volume) 0.7 mg/dL 0.1-1.0 Serum or plasma alkaline phosphatase measurement (enzymatic activity/volume) 93 U/L 40-136 Serum or plasma aspartate aminotransferase measurement (enzymatic activity/ volume) 43 U/L 5-34 Serum or plasma alanine aminotransferase measurement (enzymatic activity/volume ) 17 U/L 0-55 Serum or plasma protein measurement (mass/volume) 7.1 g/dL 6.4-8.2 Serum or plasma albumin measurement (mass/volume) 4.5 g/dL 3.2-4.5 Serum or plasma troponin i.cardiac measurement (mass/volume) - 06/05/16 11:13 Serum or plasma troponin i.cardiac measurement (mass/volume) < ng/ mL <0.30 Serum or plasma lithium measurement (moles/volume) - 06/05/16 11:13 BNP level 458.5 pg/mL <100.0 Complete blood count (CBC) with automated white blood cell (WBC) differential - 06/06/16 15:03 Blood leukocytes automated count (number/volume) 11.5 10*3/uL 4.3-11.0 Blood erythrocytes automated count (number/volume) 3.56 10*6/uL 4.35-5.85 Venous blood hemoglobin measurement (mass/volume) 10.6 g/dL 13.3-17.7 Blood hematocrit (volume fraction) 29 % 40-54 Automated erythrocyte mean corpuscular volume 82 [foz_us] 80-99 Automated erythrocyte mean corpuscular hemoglobin (mass per erythrocyte) 30 pg 25-34 Automated erythrocyte mean corpuscular hemoglobin concentration measurement ( mass/volume) 36 g/dL 32-36 Automated erythrocyte distribution width ratio 12.9 % 10.0-14.5 Automated blood platelet count (count/volume) 294 10*3/uL 130-400 Automated blood platelet mean volume measurement 8.6 [foz_us] 7.4-10.4 Automated blood neutrophils/100 leukocytes 90 % 42-75 Automated blood lymphocytes/100 leukocytes 2 % 12-44 Blood monocytes/100 leukocytes 8 % 0-12 Automated blood eosinophils/100 leukocytes 0 % 0-10 Automated blood basophils/100 leukocytes 0 % 0-10 Blood neutrophils automated count (number/volume) 10.3 10*3 1.8-7.8 Blood lymphocytes automated count (number/volume) 0.3 10*3 1.0-4.0 Blood monocytes automated count (number/volume) 0.9 10*3 0.0-1.0 Automated eosinophil count 0.0 10*3/uL 0.0-0.3 Automated blood basophil count (count/volume) 0.0 10*3/uL 0.0-0.1 Whole blood basic metabolic panel - 06/06/16 15:03 Serum or plasma sodium measurement (moles/volume) 117 mmol/L 135-145 Serum or plasma potassium measurement (moles/volume) 4.8 mmol/L 3.6-5.0 Serum or plasma chloride measurement (moles/volume) 84 mmol/L 98-107 Carbon dioxide 19 mmol/L 21-32 Serum or plasma anion gap determination (moles/volume) 14 mmol/L 5-14 Serum or plasma urea nitrogen measurement (mass/volume) 45 mg/dL 7-18 Serum or plasma creatinine measurement (mass/volume) 2.39 mg/dL 0.60-1.30 Serum or plasma urea nitrogen/creatinine mass ratio 19 NRG Serum or plasma creatinine measurement with calculation of estimated glomerular filtration rate 27 NRG Serum or plasma glucose measurement (mass/volume) 185 mg/dL 70-105 Serum or plasma calcium measurement (mass/volume) 9.4 mg/dL 8.5-10.1 Magnesium - 06/06/16 15:03 Magnesium 2.3 mg/dL 1.8-2.4 Serum or plasma lithium measurement (moles/volume) - 06/06/16 15:03 BNP level 832.1 pg/mL <100.0 Blood manual differential performed detection - 06/06/16 15:03 Blood monocytes/100 leukocytes 4 % NRG Manual blood segmented neutrophils/100 leukocytes 93 % NRG Manual blood lymphocytes/100 leukocytes 3 % NRG Blood poikilocytosis detection by light microscopy SLIGHT NRG Blood nancy cells detection by light microscopy SLIGHT NRG Complete blood count (CBC) with automated white blood cell (WBC) differential - 06/07/16 03:58 Blood leukocytes automated count (number/volume) 11.0 10*3/uL 4.3-11.0 Blood erythrocytes automated count (number/volume) 3.75 10*6/uL 4.35-5.85 Venous blood hemoglobin measurement (mass/volume) 11.0 g/dL 13.3-17.7 Blood hematocrit (volume fraction) 31 % 40-54 Automated erythrocyte mean corpuscular volume 82 [foz_us] 80-99 Automated erythrocyte mean corpuscular hemoglobin (mass per erythrocyte) 29 pg 25-34 Automated erythrocyte mean corpuscular hemoglobin concentration measurement ( mass/volume) 36 g/dL 32-36 Automated erythrocyte distribution width ratio 13.1 % 10.0-14.5 Automated blood platelet count (count/volume) 319 10*3/uL 130-400 Automated blood platelet mean volume measurement 8.4 [foz_us] 7.4-10.4 Automated blood neutrophils/100 leukocytes 96 % 42-75 Automated blood lymphocytes/100 leukocytes 3 % 12-44 Blood monocytes/100 leukocytes 2 % 0-12 Automated blood eosinophils/100 leukocytes 0 % 0-10 Automated blood basophils/100 leukocytes 0 % 0-10 Blood neutrophils automated count (number/volume) 10.5 10*3 1.8-7.8 Blood lymphocytes automated count (number/volume) 0.3 10*3 1.0-4.0 Blood monocytes automated count (number/volume) 0.2 10*3 0.0-1.0 Automated eosinophil count 0.0 10*3/uL 0.0-0.3 Automated blood basophil count (count/volume) 0.0 10*3/uL 0.0-0.1 Whole blood basic metabolic panel - 06/07/16 03:58 Serum or plasma sodium measurement (moles/volume) 121 mmol/L 135-145 Serum or plasma potassium measurement (moles/volume) 4.4 mmol/L 3.6-5.0 Serum or plasma chloride measurement (moles/volume) 87 mmol/L 98-107 Carbon dioxide 18 mmol/L 21-32 Serum or plasma anion gap determination (moles/volume) 16 mmol/L 5-14 Serum or plasma urea nitrogen measurement (mass/volume) 47 mg/dL 7-18 Serum or plasma creatinine measurement (mass/volume) 2.10 mg/dL 0.60-1.30 Serum or plasma urea nitrogen/creatinine mass ratio 22 NRG Serum or plasma creatinine measurement with calculation of estimated glomerular filtration rate 32 NRG Serum or plasma glucose measurement (mass/volume) 149 mg/dL 70-105 Serum or plasma calcium measurement (mass/volume) 9.2 mg/dL 8.5-10.1 Magnesium - 06/07/16 03:58 Magnesium 2.6 mg/dL 1.8-2.4 Sputum Gram stain - 06/07/16 10:45 GRAM STAIN SPUTUM NUMEROUS GRAM NEGATIVE RODS [facility] Bacterial sputum culture - 06/07/16 10:45 FREE TEXT EXTERNAL SENSITIVITY REPORTED 06/10/16 7:35 NRG QUANTITY OF GROWTH Scant Growth [facility] Bacterial sputum culture [id number] [facility] Bacterial susceptibility panel - 06/07/16 10:45 Gentamicin susceptibility test by minimum inhibitory concentration < = NRG Tobramycin susceptibility test by minimum inhibitory concentration < = NRG Piperacillin/tazobactam susceptibility test by minimum inhibitory concentration 8 NRG Ciprofloxacin susceptibility test by minimum inhibitory concentration <= NRG Meropenem susceptibility test by minimum inhibitory concentration < = NRG Cefepime susceptibility test by minimum inhibitory concentration <= NRG Bacterial susceptibility panel - 06/07/16 10:45 Gentamicin susceptibility test by minimum inhibitory concentration < = NRG Trimethoprim/sulfamethoxazole susceptibility test by minimum inhibitoryconcentration <= NRG Ampicillin susceptibility test by minimum inhibitory concentration R NRG Tobramycin susceptibility test by minimum inhibitory concentration < = NRG Cefazolin susceptibility test by minimum inhibitory concentration < = NRG Ceftriaxone susceptibility test by minimum inhibitory concentration <= NRG Ampicillin/sulbactam susceptibility test by minimum inhibitory concentration 4 NRG Piperacillin/tazobactam susceptibility test by minimum inhibitory concentration <= NRG Ciprofloxacin susceptibility test by minimum inhibitory concentration <= NRG Meropenem susceptibility test by minimum inhibitory concentration < = NRG Aztreonam susceptibility test by minimum inhibitory concentration < = NRG Extended spectrum beta lactamase (ESBL) producing bacteria susceptibility test by minimum inhibitory concentration - NRG Automated blood complete blood count (hemogram) panel - 06/08/16 04:24 Blood leukocytes automated count (number/volume) 11.8 10*3/uL 4.3-11.0 Blood erythrocytes automated count (number/volume) 3.60 10*6/uL 4.35-5.85 Venous blood hemoglobin measurement (mass/volume) 10.6 g/dL 13.3-17.7 Blood hematocrit (volume fraction) 30 % 40-54 Automated erythrocyte mean corpuscular volume 83 [foz_us] 80-99 Automated erythrocyte mean corpuscular hemoglobin (mass per erythrocyte) 29 pg 25-34 Automated erythrocyte mean corpuscular hemoglobin concentration measurement ( mass/volume) 36 g/dL 32-36 Automated erythrocyte distribution width ratio 13.2 % 10.0-14.5 Automated blood platelet count (count/volume) 303 10*3/uL 130-400 Automated blood platelet mean volume measurement 8.4 [foz_us] 7.4-10.4 Comprehensive metabolic panel - 06/08/16 04:24 Serum or plasma sodium measurement (moles/volume) 126 mmol/L 135-145 Serum or plasma potassium measurement (moles/volume) 3.3 mmol/L 3.6-5.0 Serum or plasma chloride measurement (moles/volume) 89 mmol/L 98-107 Carbon dioxide 18 mmol/L 21-32 Serum or plasma anion gap determination (moles/volume) 19 mmol/L 5-14 Serum or plasma urea nitrogen measurement (mass/volume) 58 mg/dL 7-18 Serum or plasma creatinine measurement (mass/volume) 1.94 mg/dL 0.60-1.30 Serum or plasma urea nitrogen/creatinine mass ratio 30 NRG Serum or plasma creatinine measurement with calculation of estimated glomerular filtration rate 35 NRG Serum or plasma glucose measurement (mass/volume) 157 mg/dL 70-105 Serum or plasma calcium measurement (mass/volume) 9.3 mg/dL 8.5-10.1 Serum or plasma total bilirubin measurement (mass/volume) 0.4 mg/dL 0.1-1.0 Serum or plasma alkaline phosphatase measurement (enzymatic activity/volume) 68 U/L 40-136 Serum or plasma aspartate aminotransferase measurement (enzymatic activity/ volume) 39 U/L 5-34 Serum or plasma alanine aminotransferase measurement (enzymatic activity/volume ) 17 U/L 0-55 Serum or plasma protein measurement (mass/volume) 7.0 g/dL 6.4-8.2 Serum or plasma albumin measurement (mass/volume) 4.5 g/dL 3.2-4.5 Encounters ACCT No. Visit Date/Time Discharge Status Pt. Type Provider Facility Loc./Unit Complaint [id number] 04/21/2018 07:31:00 04/21/2018 23:59:59 CLS Outpatient PRABHAKAR WATTS DO [facility] RAD OA LEFT KNEE-MMT [id number] 02/26/2018 00:21:00 02/26/2018 02:55:00 DIS Emergency JAYY SWEET MD [facility] ER NOSE BLEED [id number] 01/16/2017 10:49:00 01/16/2017 11:47:00 DIS Emergency TRACEY ALICEA APRN [facility] ER ALLERGIC REACTION/FACIAL SWELLING [id number] 09/13/2016 11:52:00 09/13/2016 23:59:59 CLS Outpatient SUSI CANELA APRN [facility] RAD PLEURAL EFFUSION, DYSPNEA [id number] 06/23/2016 06:53:00 06/23/2016 23:59:59 CLS Outpatient KIKI MICHAELS JASS Staton [facility] RT DYSPNEA,ALLERGIC RHINITIS, COPD [id number] 06/06/2016 16:57:00 06/08/2016 09:30:00 DIS Inpatient GLORIA ZAPIEN MD [facility] ICU FLUID OVERLOAD, HYPONATREMIA,ARF [id number] 06/05/2016 10:55:00 06/05/2016 12:50:00 DIS Emergency TRACEY ALICEA SENIOR ETL DEVELOPER [facility] ER SOA [id number] 04/27/2016 10:15:00 04/27/2016 23:59:59 CLS Preadmit SUSI CANELA SENIOR ETL DEVELOPER [facility] PULM COPD,PNEUMONIA [id number] 04/27/2016 09:18:00 04/27/2016 11:07:00 DIS Emergency TRACEY ALICEA SENIOR ETL DEVELOPER [facility] ER NOSE BLEED [id number] 03/30/2016 09:00:00 04/26/2016 00:01:00 DIS Outpatient SUSI CANELA SENIOR ETL DEVELOPER [facility] PULM COPD,PNEUMONIA [id number] 03/08/2016 14:07:00 03/08/2016 23:59:59 CLS Outpatient SUSI CANELA SENIOR ETL DEVELOPER [facility] RAD COPD DYSPNEA [id number] 02/19/2016 00:08:00 02/19/2016 23:59:59 CLS Preadmit GLORIA ZAPIEN MD R [facility] ERYSIPELAS [id number] 11/26/2015 09:53:00 02/18/2016 00:01:00 DIS Outpatient GLORIA ZAPIEN MD [facility] ERYSIPELAS [id number] 02/03/2016 10:31:00 02/03/2016 23:59:59 CLS Outpatient SUSI CANELA SENIOR ETL DEVELOPER [facility] RAD COPD [id number] 01/08/2016 09:00:00 01/11/2016 00:01:00 DIS Outpatient SUSI CANELA APRN [facility] PULM COPD,PNEUMONIA [id number] 12/21/2015 07:55:00 12/23/2015 08:35:00 DIS Inpatient GLORIA ZAPIEN MD [facility] 4TH PNEUMONIA,HYPERNATREMIA [id number] 11/14/2015 00:07:00 11/14/2015 23:59:59 CLS Preadmit GLORIA ZAPIEN MD [facility] PNEUMONIA [id number] 08/25/2015 09:20:00 11/13/2015 00:01:00 DIS Outpatient GLORIA ZAPIEN MD [facility] PNEUMONIA [id number] 11/11/2015 10:22:00 11/11/2015 23:59:59 CLS Outpatient JASS SWANSON DO [facility] RAD EDEMA [id number] 11/07/2015 07:14:00 11/07/2015 09:50:00 DIS Outpatient JASS SWANSON DO [facility] CARD COPD,HYPOXEMIA REQUIRING OXYGEN [id number] 11/06/2015 09:48:00 11/06/2015 23:59:59 CLS Outpatient SUSI CANELA APRN [facility] RAD DYSPNEA,COPD [id number] 10/16/2015 09:05:00 10/16/2015 23:59:59 CLS Outpatient SUSI CANELA APRN [facility] RAD COPD,PNEUMONIA [id number] 08/18/2015 03:40:00 08/20/2015 20:00:00 DIS Inpatient CURRY IBARRA, GLORIA Winter [facility] 4TH LEFT SIDED PNEUMONIA / PLEURAL EFFUSION W HYPOXIA [id number] 08/14/2015 13:37:00 08/14/2015 23:59:59 CLS Outpatient GLORIA ZAPIEN MD [facility] RAD COUGH,DECREASED BS [id number] 07/02/2015 04:22:00 07/02/2015 08:15:00 DIS Emergency BRANDEN RODRIGUEZ DO [facility] ER POSSIBLE ALLERGIC REACTION [id number] 03/09/2015 09:44:00 03/11/2015 08:45:00 DIS Inpatient GLORIA ZAPIEN MD [facility] SURGICAL RENAL FAILURE/ ANGIOEDEMA [id number] 11/10/2014 19:56:00 11/10/2014 21:16:00 DIS Emergency BLANCA PIMENTEL [facility] ER ABD PAIN [id number] 05/17/2018 08:17:00 Document Registration [id number] 04/27/2016 13:06:00 Document Registration [id number] 07/12/2016 15:34:10 07/12/2016 23:59:59 CLS Outpatient
[2018-12-13 14:22] LABS: ALBUMIN 4.4 GM/DL (3.2-4.5); BILIRUBIN,TOTAL 0.4 MG/DL (0.1-1.0); CALCIUM 9.4 MG/DL (8.5-10.1); CREATININE SERUM 1.33 MG/DL (0.60-1.30); TOTAL PROTEIN 7.4 GM/DL (6.4-8.2)
[2018-12-13 14:30] LABS: ANISOCYTOSIS SLIGHT; BAND NEUTROPHILS 1 %; BASOPHILS % (MANUAL) 0 %; EOSINOPHILS % (MANUAL) 0 %; LYMPHOCYTES % (MANUAL) 5 %; MICROCYTOSIS SLIGHT; MONOCYTES % (MANUAL) 3 %; NEUTROPHILS % (MANUAL) 91 %
[2018-12-13] MEDS ORDERED: HURRICAINE EXT TUBE (BENZOCAINE) ONE (14:58)
--- NOTE | 2018-12-13 15:04 | Diagnostic Imaging Report ---
PROCEDURE: CT abdomen and pelvis without contrast. TECHNIQUE: Multiple contiguous axial images were obtained through the abdomen and pelvis without the use of intravenous contrast. INDICATION: Severe abdominal pain with nausea and vomiting. COMPARISON: Comparison is made with prior CT from 02/12/2009. FINDINGS: Lung bases demonstrate linear parenchymal densities suggestive of scarring or subsegmental atelectasis. Multiple hepatic cysts are present, largest in the right lobe 4.5 cm in size, increased since prior exam which measured 2.8 cm. Gallbladder is unremarkable. There is no biliary ductal dilatation. Pancreas and spleen are unremarkable. There is no adrenal mass. Renal cortical low densities are noted, largest upper pole right kidney measuring 3.8 cm. This compares with 2 cm on prior exam. No calculi or hydronephrosis is seen. The aorta and iliac vessels are heavily calcified but nonaneurysmal. The stomach is distended and fluid-filled. There are multiple dilated and fluid-filled small bowel loops throughout the abdomen. There is a thick-walled proximal small bowel loop just beyond the ligament of Treitz which appears to demonstrate some twisting. Bowel loops proximal to this are dilated. Distal to this location, there are also significantly dilated and fluid-filled small bowel loops throughout the abdomen traced to the right lower quadrant where there is a focal transition to normal caliber bowel loops in the terminal ileum suggestive of distal site of obstruction as well. There is free fluid amongst the small bowel loops in the central abdomen. No convincing evidence of free air is seen. No well-formed fluid collection is identified. IMPRESSION: 1. Significant fluid-filled and dilated small bowel loops, as described with thick-walled proximal small bowel loop with twisting as well as a focal transition distally in the right lower quadrant. Features are concerning for a closed loop high-grade obstruction. There is free fluid in the abdomen but no well-formed fluid collection or convincing evidence of pneumoperitoneum is identified. 2. Hepatic and renal cysts. Results were discussed with Aron nurse practitioner in the Emergency Department prior to this dictation. Dictated by: Dictated on workstation # [id number]
[2018-12-13 15:56] VITALS: BP 168/72
[2018-12-13] MEDS ORDERED: ONDANSETRON 4 MG/2 ML (SDV) Z0FRAN IV PRN (16:00)
[2018-12-13 16:05] VITALS: BP 168/72
[2018-12-13] MEDS ORDERED: PRED2.5T PO (16:16)
[2018-12-13] MEDS ORDERED: FURO40TA4 PO (16:16)
[2018-12-13] MEDS ORDERED: FLUT1BLS3 INH (16:20)
[2018-12-13] MEDS ORDERED: IPRA3AMP31 NEB (16:20)
[2018-12-13] MEDS ORDERED: SODI50SP NS (16:20)
--- NOTE | 2018-12-13 16:24 | NUR ---
SPOKE WITH THE PATIENT AND FAMILY ABOUT MEDICATIONS. THEY HAD A LIST AND I COMPARED IT WITH THE EXT MED HX. HIS CLONIDINE 0.1MG WAS FILLED 12-05-18 #120 FOR 30 DAYS HOWEVER HE STATES HE ONLY TAKES 1 BID. HIS PREDNISONE 2.5MG WAS FILLED #90 FOR 90 DAYS HOWEVER HE ONLY TAKE IT EVERY OTHER DAY. HIS HYDRALAZINE 25MG WAS FILLED #90 FOR 30 DAYS HOWEVER HE ONLY TAKES IT BID. HE USES AYR NASAL SALINE OTC PRN DRY NOSE, HE STATES HE USES THIS PRETTY FREQUENTLY. HE ALSO REPORTS USING DUONEB TID. HE ALSO HAS TRELEGY HE USES DAILY, HE NO LONGER USES SPIRIVA OR SYMBICORT.
[2018-12-13] MEDS: NS IV 1000 ML 1,000 ML IV SCH (16:32)
[2018-12-13] MEDS: fentaNYL INJECTION 100 MCG/2 ML AMP IV PRN ×4 (16:33→21:17)
--- NOTE | 2018-12-13 17:37 | Progress Note-Pre Operative ---
Pre-Operative Progress Note H&P Reviewed The H&P was reviewed, patient examined and no changes noted. Date Seen by Provider: Dec 13, 2018 Time Seen by Provider: 17:30 Date H&P Reviewed: Dec 13, 2018 Time H&P Reviewed: 17:30 Pre-Operative Diagnosis: small bowel obstruction, possible closed loop GRETA METZ MD Dec 13, 2018 17:37
--- NOTE | 2018-12-13 18:05 | HISTORY AND PHYSICAL ---
DATE OF SERVICE: ATTENDING PRIMARY CARE PHYSICIAN: Dr. Domínguez. HISTORY OF PRESENT ILLNESS: The patient is a 68-year-old male who presented to the Emergency Department today with abdominal distention, crampy abdominal pain as well as nausea and vomiting. He states that he woke up this way and he had 2 episodes of emesis. He reports that he has not had these symptoms before in the past. He also reports that he has not had a bowel movement or passed any flatus since last night. A CT scan was performed, which did show us again significant amount of distended loops of small bowel as well as the potential for thickening of a loop of small bowel as well as the transition point, which may indicate some level of a closed loop obstruction. At this time, he does have some discomfort upon palpation; however, no peritoneal signs. He has not had any previous abdominal surgeries in the past. He does have other medical comorbidities including COPD, degenerative joint disease, hypertension and valvular heart disease. PAST MEDICAL HISTORY: Hypertension, COPD, BPH, degenerative joint disease. PAST SURGICAL HISTORY: Right total hip arthroplasty, right knee arthroscopy x2. ALLERGIES: BACTRIM. MEDICATIONS: Albuterol 2 puffs t.i.d., amlodipine 10 mg daily, budesonide 2 puffs b.i.d., clonidine 0.1 mg b.i.d., hydralazine 25 mg b.i.d., losartan 100 mg daily, prednisone 10 mg every other day, tamsulosin 0.4 mg daily, tiotropium bromide 1 aerosol daily, Levaquin 500 mg q.48 hours. SOCIAL HISTORY: Previous smoker, quit in 2015, 40 pack years. He does drink a few beers on a daily basis. FAMILY HISTORY: Mother, diabetes. REVIEW OF SYSTEMS: Well-nourished male, currently in no acute distress. He is not experiencing any shortness of breath or difficulty in breathing. No new cough or sputum production. Since having an NG tube placed, he has not had any nausea nor vomiting. No hematemesis. No coffee ground emesis. He does not report any major issues with diarrhea or constipation; however, has not had a bowel movement or passed flatus since last night. No fever, chills. No recent inadvertent weight loss. All other review of systems negative. PHYSICAL EXAMINATION: VITAL SIGNS: Temperature 96.7, blood pressure 142/57, pulse 70, respirations 16, pulse ox 96% on 3 liters nasal cannula. CHEST: Distant breath sounds and scattered rales bilaterally. HEART: Regular, no murmurs. EXTREMITIES: No lower extremity edema. Negative Homans sign. HEENT: No scleral icterus. NECK: No cervical lymphadenopathy. ABDOMEN: Distended and tympanitic. There is mild discomfort in all 4 quadrants; however, there are no peritoneal signs. No palpable hernias. SKIN: Warm, dry. LABORATORY DATA: WBC 16.6, hemoglobin 10.3, hematocrit 31, platelets 440, BUN 25, creatinine 1.33. ASSESSMENT AND PLAN: A 68-year-old male with small-bowel obstruction as well as possibility of a closed loop obstruction. He has not had any previous abdominal surgeries. This may indicate a possibility of a malignancy. We will proceed with medical clearance and proceed with a diagnostic laparoscopy as well as possible laparotomy and a bowel resection as necessary. Job ID: [id number] DocumentID: [id number] Dictated Date: 12/13/2018 17:36:10 Vending Mechanic Date: 12/13/2018 18:04:11 Dictated By: GRETA METZ MD
[2018-12-13] MEDS ORDERED: FLU QUADRIvalent (5+ YOA) 2018-2019 (AFLURIA) 0.5 ML IM ONE (18:15)
[2018-12-13] MEDS ORDERED: HYDROcodone/APAP 7.5 MG/325 MG (LORTAB, LORCET PLUS) TABLET PO PRN (19:00)
[2018-12-13] MEDS ORDERED: PIPERACILLIN/TAZOBACTAM (BULK) 4.5 GM in NS (IVPB) 100 ML IV NR (19:00)
[2018-12-13] MEDS: RT-ALBUTEROL SULF 2.5 MG/3 ML PRE-MIX VIAL INH SCH (19:57)
[2018-12-13 23:37] VITALS: BP 180/77
[2018-12-14] VITALS (40 sets, daily range): BP systolic 74–186; BP diastolic 46–82
[2018-12-14] MEDS: PIPERACILLIN/TAZOBACTAM (BULK) 4.5 GM in NS (IVPB) 100 ML IV SCH ×3 (01:09→18:32)
[2018-12-14] MEDS: NS IV 1000 ML 1,000 ML IV SCH ×4 (01:09→19:22)
[2018-12-14] MEDS: fentaNYL INJECTION 100 MCG/2 ML AMP IV PRN ×2 (04:45→08:35)
[2018-12-14 05:35] LABS: BASOPHILS % (AUTO) 0 % (0-10); EOSINOPHILS % (AUTO) 0 % (0-10); HEMATOCRIT 29 % (40-54); HEMOGLOBIN 9.6 G/DL (13.3-17.7); LYMPHOCYTES # (AUTO) 0.3 X 10^3 (1.0-4.0); LYMPHOCYTES % (AUTO) 1 % (12-44); MEAN CORPUSCULAR HEMOGLOBIN 24 PG (25-34); MEAN CORPUSCULAR HGB CONC 33 G/DL (32-36); MEAN CORPUSCULAR VOLUME 74 FL (80-99); MEAN PLATELET VOLUME 8.1 FL (7.4-10.4); MONOCYTES # (AUTO) 1.7 X 10^3 (0.0-1.0); MONOCYTES % (AUTO) 8 % (0-12); NEUTROPHILS # (AUTO) 19.6 X 10^3 (1.8-7.8); NEUTROPHILS % (AUTO) 91 % (42-75); PLATELET COUNT 340 10^3/uL (130-400); RED CELL DISTRIBUTION WIDTH 14.9 % (10.0-14.5); WHITE BLOOD COUNT 21.6 10^3/uL (4.3-11.0)
[2018-12-14 06:01] LABS: ALBUMIN 3.8 GM/DL (3.2-4.5); BILIRUBIN,TOTAL 0.5 MG/DL (0.1-1.0); CALCIUM 8.7 MG/DL (8.5-10.1); CREATININE SERUM 2.45 MG/DL (0.60-1.30); POTASSIUM 4.7 MMOL/L (3.6-5.0); TOTAL PROTEIN 6.5 GM/DL (6.4-8.2)
[2018-12-14] MEDS: PANTOPRAZOLE 40 MG (PROTONIX) VIAL IV SCH (08:30)
--- NOTE | 2018-12-14 09:51 | Consultation-Hospitalist ---
HPI History of Present Illness: HPI/Chief Complaint Pt is a 68yoCM with a PMH of CKD, HTN, COPD on 3lpm who presented to the ER due to acute onset abdominal pain. He states he developed sharp upper pain and started vomitiung. He also noticed he was very distended. His pain became very severe and has was not passing flatus so he presented to the ER for evaluation where he was found to have a high grade bowel obstruction. He was asmitted for surgery and I am consulted for medical management. NGT was placed in the ER and that has helped with his nausea and vomiting but he is still having severe pain and bloating. Source: patient Exam Limitations: no limitations Date Seen 12/14/18 Attending Physician Urvashi Franklin MD PCP Wesley Domínguez MD Referring Physician Date of Admission Dec 13, 2018 at 15:21 Home Medications & Allergies Home Medications Reviewed patient Home Medication Reconciliation performed by pharmacy medication reconciliations licensed chemical spray technician and/or nursing. Patients Allergies have been reviewed. Allergies Allergies Coded Allergies sulfamethoxazole (Unverified Allergy, Mild, 12/13/18) trimethoprim (Unverified Allergy, Mild, 12/13/18) Past Lpzeccw-Camakp-Tuhlyx Hx Past Med/Social Hx: Reviewed Nursing Past Med/Soc Hx Patient Social History Marrital Status: Alcohol Use: Regular Use Number of Drinks Today: AA Alcohol Beverage of Choice: Beer Recreational Drug Use: No Smoking Status: Former Smoker Former Smoker, Quit: Oct 03, 2014 2nd Hand Smoke Exposure: No Physical Abuse Screen: No Sexual Abuse: No Recent Foreign Travel: No Contact w/other who traveled: No Recent Hopitalizations: No Recent Infectious Disease Expo: No Immunizations Up To Date Tetanus Booster (TDap): Less than 5yrs Pediatric: No Date of Pneumonia Vaccine: Jun 18, 2015 Date of Influenza Vaccine: Jul 29, 2014 Seasonal Allergies Seasonal Allergies: Yes Past Medical History Surgeries: Eye Surgery, Joint Replacement, Orthopedic Respiratory: COPD Currently Using CPAP: No Currently Using BIPAP: No Cardiac: Hypertension Reproductive: No Sexually Transmitted Disease: No HIV/AIDS: No Genitourinary: Renal Failure Musculoskeletal: Arthritis, Chronic Back Pain HEENT: Cataract Loss of Vision: Denies Hearing Impairment: Denies History of Blood Disorders: No Adverse Reaction to Blood Odell: No Family History Reviewed Nursing Family Hx Cardiovascular disease UNCLE Diabetes mellitus 19 MOTHER Kidney disease [place] GRANDMOTHER (CANCER) Heart Disease, Diabetes, Lung Disease, Renal Disease Review of Systems Constitutional: No chills, No fever EENTM: no symptoms reported Cardiovascular: no symptoms reported Gastrointestinal: see HPI, abdominal pain, nausea, vomiting Genitourinary: no symptoms reported Musculoskeletal: no symptoms reported Skin: no symptoms reported Psychiatric/Neurological: No Symptoms Reported Physical Exam Physical Exam Vital Signs Vital Signs - First Documented 12/13/18 13:42 Temp 96.7 Pulse 70 Resp 16 B/P (MAP) 142/57 (85) Pulse Ox 96 O2 Delivery Nasal Cannula O2 Flow Rate 3.00 Capillary Refill : Less Than 3 SecondsLess Than 3 Seconds Height, Weight, BMI Height: 5'4.00" Weight: 155lbs. 2.0oz. 70.739212lo; 26.6 BMI Method:Stated General Appearance: No Apparent Distress, Cachetic HEENT: Moist Mucous Membranes; No Scleral Icterus (L), No Scleral Icterus (R); Other (NGT in place) Respiratory: Lungs Clear, No Accessory Muscle Use, Other (tachypneic) Cardiovascular: Regular Rate, Rhythm, No Murmur Gastrointestinal: Abnormal Bowel Sounds (absent), Distended; No Guarding; Tenderness Extremity: Normal Capillary Refill, No Calf Tenderness, No Pedal Edema Neurologic/Psychiatric: Alert, Oriented x3, Normal Mood/Affect Skin: Normal Color, Warm/Dry Results Results/Procedures Labs Laboratory Tests 12/13/18 13:57 12/14/18 05:25 Patient resulted labs reviewed. Imaging: Reviewed Imaging Report Assessment/Plan Assessment and Plan Assess & Plan/Chief Complaint High grade bowel obstruction Diagnosis/Problems Diagnosis/Problems (1) Small bowel obstruction Status: Acute Assessment & Plan: Management per primary Moderate risk surgical candidate given elevated creatinine, oxygen dependent COPD, and other comorbidities Defer ultimate risk vs benefit assessment ot surgeon but seems reasonable to proceed with surgery given high grade obtruction NGT in place Fentanyl for pain (2) Acute renal failure Status: Acute Assessment & Plan: Baseline appears around 1.5-2 Creatinine increased from 1.3 to 2.4 today Continue IVF Monitor closely- not acidotic or hyperkalemia Monitor UOP closely Qualifiers: Acute renal failure type: unspecified Qualified Codes: N17.9 - Acute kidney failure, unspecified (3) COPD (chronic obstructive pulmonary disease) Status: Acute Assessment & Plan: 3lpm baseline dependency Pulm consulted, appreciate recs Qualifiers: COPD type: unspecified COPD Qualified Codes: J44.9 - Chronic obstructive pulmonary disease, unspecified (4) Chronic hyponatremia Status: Acute Assessment & Plan: Na 127 today Trend (5) Essential (primary) hypertension Assessment & Plan: Elevated overnight but improved this AM Trend Clinical Quality Measures DVT/VTE Risk/Contraindication: Risk Factor Score Per Nursin RFS Level Per Nursing on Admit: 4+=Very High LANCE SKINNER MD Dec 14, 2018 09:51
[2018-12-14] MEDS: RT-ALBUTEROL SULF 2.5 MG/3 ML PRE-MIX VIAL INH SCH ×2 (09:52→10:06)
[2018-12-14] MEDS ORDERED: NON-FORMULARY MEDICATION 1 EA EA (Fluticasone/Umeclidin/Vilanter (Trelegy Ellipta 100-62.5 INH SCH (11:45)
[2018-12-14] MEDS ORDERED: BUP/EPI 0.5% 1:200,000 (SENSORCAINE) 30 ML VIAL ONE (11:54)
[2018-12-14] MEDS ORDERED: LIDOCAINE PF 2% 5 ML (XYLOCAINE) VIAL ONE (13:42)
[2018-12-14] MEDS ORDERED: proPOfol 200 MG/20 ML (DIPRIVAN) VIAL IV ONE (13:42)
[2018-12-14] MEDS ORDERED: MIDAZOLAM 2 MG/2 ML (VERSED) VIAL ONE (13:42)
[2018-12-14] MEDS ORDERED: ONDANSETRON 4 MG/2 ML (SDV) Z0FRAN ONE (13:42)
[2018-12-14] MEDS ORDERED: DEXAMETHASONE 10 MG/ML (DECADRON) 1 ML VIAL ONE (13:42)
[2018-12-14] MEDS ORDERED: fentaNYL INJECTION 100 MCG/2 ML AMP ONE (13:42)
[2018-12-14] MEDS ORDERED: SEVOFLURANE (ULTANE) 15 ML INHAL SOLN ONE ×9 (13:42→16:33)
--- NOTE | 2018-12-14 14:05 | NUR ---
PATIENT LEFT FLOOR FOR SURGERY. FAMILY WILL WAIT IN THE SURGICAL WAITING ROOM.
[2018-12-14] MEDS: LACTATED RINGERS 1,000 ML IV PRN ×4 (14:09→16:17)
[2018-12-14] MEDS: RT-ALBUTEROL/IPRATROPIUM 3 ML (DUONEB) VIAL INH SCH ×2 (14:12→21:00)
[2018-12-14] MEDS ORDERED: morphine INJ 10 MG/ML 1ML (SYR OR VIAL) ONE (14:17)
[2018-12-14] MEDS ORDERED: HEParin (CENTRAL IV FLUSH) 500 UNIT/5 ML SYR ONE (14:32)
[2018-12-14] MEDS: ceFAZolin INJECTION 1,000 MG ONE (14:50)
[2018-12-14] MEDS ORDERED: ceFAZolin INJECTION 1,000 MG in WATER (STERILE) FOR INJECTION 10 ML IV ONE (14:50)
[2018-12-14] MEDS ORDERED: PHENYLEPHRINE INJ 10 MG/ML (FOR DRIP KITS ONLY) ONE (15:00)
[2018-12-14] MEDS ORDERED: morphine INJ 10 MG/ML 1ML (SYR OR VIAL) IVP ONE (15:30)
[2018-12-14] MEDS ORDERED: fentaNYL INJECTION 100 MCG/2 ML AMP IVP ONE (15:30)
[2018-12-14] MEDS ORDERED: MEPERIDINE (DEMEROL) INJ 50 MG/ML IVP ONE (15:30)
[2018-12-14] MEDS ORDERED: ONDANSETRON 4 MG/2 ML (SDV) Z0FRAN IVP PRN (15:30)
--- NOTE | 2018-12-14 15:45 | Pulmonary Consultation ---
History of Present Illness History of Present Illness Date of Consultation 12/14/18 15:40 Time Seen by Provider: 15:40 Date of Admission History of Present Illness 68yo with PMH of COPD oxygen dependent of 3 liters NC presented to ED secondary to acute onset abdominal pain and vomiting. Pt's abdomen also became very distended. PT was found to have high grade bowel obstruction. I am consulted for pulmonary management. Allergies and Home Medications Allergies Coded Allergies: sulfamethoxazole (Unverified Allergy, Mild, 12/13/18) trimethoprim (Unverified Allergy, Mild, 12/13/18) Home Medications Amlodipine Besylate 10 Mg Tablet, 10 MG PO DAILY, (Reported) Clonidine HCl 0.1 Mg Tablet, 0.1 MG PO BID, (Reported) Fluticasone/Umeclidin/Vilanter 1 Each Blst.w.dev, 1 PUFF INH DAILY, (Reported) Furosemide 40 Mg Tablet, 40 MG PO DAILY, (Reported) Hydralazine HCl 25 Mg Tablet, 25 MG PO BID, (Reported) Ipratropium/Albuterol Sulfate 3 Ml Ampul.neb, 3 ML NEB TID, (Reported) Losartan Potassium 100 Mg Tablet, 100 MG PO DAILY, (Reported) Prednisone 2.5 Mg Tablet, 2.5 MG PO Q48H, (Reported) Sodium Chloride 50 Ml [place], 2 SPRAYS NS Q2H PRN for DRY NOSE, (Reported) Tamsulosin HCl 0.4 Mg Cap, 0.4 MG PO 1730, (Reported) Past Ywwgutb-Vlwvpe-Yybvjk Hx Past Med/Social Hx: Reviewed Nursing Past Med/Soc Hx Patient Social History Alcohol Use: Regular Use Number of Drinks Today: AA Alcohol Beverage of Choice: Beer Recreational Drug Use: No Smoking Status: Former Smoker Former Smoker, Quit: Oct 03, 2014 2nd Hand Smoke Exposure: No Recent Foreign Travel: No Contact w/Someone Who Travel: No Recent Infectious Disease Expo: No Recent Hopitalizations: No Immunizations Up To Date Tetanus Booster (TDap): Less than 5yrs PED Vaccines UTD: No Date of Pneumonia Vaccine: Jun 18, 2015 Date of Influenza Vaccine: Jul 29, 2014 Seasonal Allergies Seasonal Allergies: Yes Past Medical History Surgeries: Yes (cataracts, RIGHT HIP REPLACEMENT, RIGHT KNEE ARTHROSCOPY X 2 ) Eye Surgery, Joint Replacement, Orthopedic Respiratory: Yes (home O2 at 2.5 TO 3L) Pneumonia, Chronic Bronchitis, COPD Currently Using CPAP: No Currently Using BIPAP: No Cardiac: Yes Hypertension Neurological: No Reproductive Disorders: No Sexually Transmitted Disease: No HIV/AIDS: No Renal Failure Gastrointestinal: No Musculoskeletal: Yes (TORN CARTILAGE RIGHT KNEE. AVASCULAR NECROSIS RIGHT HIP; bulging disc) Arthritis, Chronic Back Pain Endocrine: No HEENT: Yes Cataract Loss of Vision: Denies Hearing Impairment: Denies Cancer: No Psychosocial: No Integumentary: No Blood Disorders: No Adverse Reaction/Blood Tranf: No Family Medical History Reviewed Nursing Family Hx Cardiovascular disease UNCLE Diabetes mellitus 19 MOTHER Kidney disease MA GRANDMOTHER (CANCER) Heart Disease, Diabetes, Lung Disease, Renal Disease Sepsis Event Evaluation Height, Weight, BMI Height: 5'4.00" Weight: 155lbs. 2.0oz. 70.520467cz; 26.6 BMI Method:Stated Exam Exam Vital Signs Date Time Temp Pulse Resp B/P (MAP) Pulse Ox O2 Delivery O2 Flow Rate FiO2 12/14/18 13:00 98 12/14/18 12:00 98.5 96 20 122/60 (80) 97 Nasal Cannula 3.00 12/14/18 10:06 95 Nasal Cannula 4.50 12/14/18 09:57 98.4 12/14/18 08:00 95 Nasal Cannula 4.50 12/14/18 08:00 98.4 101 22 151/66 (94) 95 Nasal Cannula 3.00 12/14/18 07:00 105 12/14/18 04:39 98.9 98 20 146/63 (90) 96 Nasal Cannula 4.00 12/14/18 01:00 99 12/13/18 23:37 98.0 96 20 180/77 (111) 94 Nasal Cannula 4.00 12/13/18 20:00 94 Nasal Cannula 4.00 12/13/18 19:58 86 Nasal Cannula 3.00 12/13/18 19:00 94 12/13/18 18:18 100 12/13/18 16:25 96 Nasal Cannula 3.00 12/13/18 16:05 97.7 82 19 168/72 95 Nasal Cannula 3.00 3.00 12/13/18 15:56 97.7 82 19 168/72 (104) 95 Nasal Cannula 3.00 I & O 12/14/18 07:00 Intake Total 1240 ml Output Total 1200 ml Balance 40 ml Height & Weight Height: 5'4.00" Weight: 155lbs. 2.0oz. 70.012962bb; 26.6 BMI Method:Stated General Appearance: No Apparent Distress, Cachetic HEENT: Moist Mucous Membranes; No Scleral Icterus (L), No Scleral Icterus (R); Other (NGT in place) Respiratory: Lungs Clear, No Accessory Muscle Use, Other (tachypneic) Cardiovascular: Regular Rate, Rhythm, No Murmur Capillary Refill: Less Than 3 Seconds Gastrointestinal: normal bowel sounds, distended, tenderness Extremity: Normal Capillary Refill, No Calf Tenderness, No Pedal Edema Neurologic/Psychiatric: Alert, Oriented x3, Normal Mood/Affect Skin: Normal Color, Warm/Dry Results Lab Laboratory Tests 12/13/18 13:57 12/14/18 05:25 Assessment/Plan Assessment/Plan SBO s/p surgery -Dr. Franklin is following Severe oxygen dependent COPD -SVNs -Oxygen Acute renal failure -Monitor Chronic hyponatremia -Monitor HTN JASS SWANSON DO Dec 14, 2018 15:45
[2018-12-14] MEDS ORDERED: PHENYLEPHRINE 100 MCG/ML 10 ML (ANESTHESIA) SYR ONE (16:26)
--- NOTE | 2018-12-14 16:42 | Progress Note-Post Operative ---
Post-Operative Progess Note Surgeon (s)/Watch Train Inspector (s) Surgeon GRETA METZ MD Watch Train Inspector: lacie gilman INTERFACE DEVELOPER Pre-Operative Diagnosis small bowel obstruction, possible closed loop Post-Operative Diagnosis proximal small bowel malrotation and ischemia. Procedure & Operative Findings Date of Procedure 12/14/18 Procedure Performed/Findings exploratory laparotomy, small bowel resection with anastomosis, left subclavian central venous catheter placement. Anesthesia Type GET Estimated Blood Loss Estimated blood loss (mL): minimal Specimens/Packing Specimens Removed small bowel GRETA METZ MD Dec 14, 2018 16:42
--- NOTE | 2018-12-14 17:28 | NUR ---
THIS RN CALLED AND SPOKE WITH DR SWANSON TO NOTIFY HIM THAT PT CAME BACK FROM SURGERY ON THE VENTILATOR AND UPDATED DR ON PT CURRENT STATUS AND VITALS. THIS RN INFORMED DR THAT PT HAD A RIGHT RADIAL ART LINE AND THAT ANESTHESIA HAD SAID THAT PT BLOOD PRESSURE PER ART LINE AND LEFT ARM CUFF WERE VERY DIFFERENT READINGS. BP READINGS GIVEN TO DR SWANSON PER PT LEFT/RIGHT CUFF PRESSURE AND RIGHT ART LINE PRESSURE. DR SWANSON STATED TO CHECK BOTH LEG BLOOD PRESSURES AND BILAT ARM BLOOD PRESSURE MANUALLY AND THEN NOTIFY EICU OF RESULTS.
--- NOTE | 2018-12-14 17:28 | Diagnostic Imaging Report ---
INDICATION: Intubated. COMPARISON: 09/13/2016. FINDINGS: Single view of the chest demonstrates ET tube in the mid trachea. There is a left subclavian central venous catheter with the tip of the catheter in the left innominate SVC junction. NG tube is in the stomach. There are small effusions with dependent atelectasis. The heart is prominent without pulmonary edema. There is no pneumothorax. IMPRESSION: 1. No post procedure pneumothorax. 2. Well-positioned support lines. 3. Basilar atelectasis with trace effusion. Dictated by: Dictated on workstation # [id number]
--- NOTE | 2018-12-14 17:50 | NUR ---
THIS RN SPOKE WITH [facility] REGARDING PT BLOOD PRESSURE READINGS FROM CUFF/ART LINE/BILAT ARMS AND LEGS, MANUAL READINGS AND MY CONCERN WITH ART LINE AND DIFFERENCE IN LEFT/RIGHT ARM READINGS. EICU NURSE STATED SHE WOULD TALK TO AND GET BACK WITH ME. CALL RECEIVED AT [phone] FROM EICParvez REYNAGA AND SHE ADVISED THIS RN TO USE THE AVERAGE OF BLOOD PRESSURES FROM RIGHT/LEFT ARMS.
--- NOTE | 2018-12-14 17:55 | NUR ---
PT IN ICU 11 FROM 1655 IN RECOVER WITH RECOVERY NURSE VIKASH RN FROM 1655 TO 1754. THIS RN IN ROOM HELPING ASSIST VIKASH AND PT. THIS RN ASSUMED CARE OF PT AT 1754.
--- NOTE | 2018-12-14 18:00 | NUR ---
DR METZ HERE TO SEE PT. THIS RN INFORMED DR METZ THAT FROM ORAL SUCTION PT HAD BRIGHT RED BLOOD AND FROM NG TUBE PT HAD DARK RED BLOOD. THIS RN ALSO INFORMED DR METZ OF PT BLOOD PRESSURE RESULTS FROM ART LINE, RIGHT/LEFT ARM MANUAL/AUTOMATIC AND BILAT LEG BLOOD PRESSURES. DR VALERO STATED TO START PT ON NORSYNEPHRINE DUE TO RIGHT ARM ART LINE AND BP RESULTS BEING LOW.
[2018-12-14] MEDS ORDERED: PHENYLEPHRINE INJECTION 10 MG in NS (IVPB) 250 ML IV SCH (18:15)
[2018-12-14] MEDS: PROPOFOL DRIP (ICU) 100 ML IV SCH (18:17)
[2018-12-14] MEDS: DEXMEDETOMIDINE INJECTION 200 MCG in NS (IVPB) 50 ML IV SCH (18:18)
[2018-12-14] MEDS ORDERED: LORazepam INJ 2 MG/ML (ATIVAN) VIAL IVP PRN (18:45)
[2018-12-14] MEDS ORDERED: fentaNYL INJECTION 5,000 MCG in EMPTY IV BAG (PVC) 1 EA IV SCH (18:45)
[2018-12-14 18:49] LABS: ABG BASE EXCESS -5.9 MMOL/L (-2.5-2.5); ABG OXYGEN SATURATION 93 % (94-100); ABG PCO2 55 MMHG (35-45); ABG PO2 76 MMHG (79-93); ABG TCO2 22.8 MMOL/L (21.0-31.0)
[2018-12-14 18:52] LABS: ALLENS TEST ARTLINE; INSPIRED O2 70%; PATIENT TEMP 97.2; VENTILATOR YES
--- NOTE | 2018-12-14 19:30 | NUR ---
Pt's height checked per Dr Fofana's orders, height 5'4".
[2018-12-14] MEDS: fentaNYL 1,250 MCG/NS 250 ML DRIP IV SCH ×2 (19:47)
--- NOTE | 2018-12-14 21:15 | NUR ---
This RN contacted E-ICU r/t significant difference between radial artline pressures and manual/automatic blood pressures on extremities. Dr Fofana recommended to use the cuff pressure if all 3 extremities match the cuff pressure r/t possible subclavian stenosis.
[2018-12-14] MEDS: PHENYLEPHRINE DOUBLE STRENGTH 20MG/ 250 ML IV SCH ×2 (21:36)
[2018-12-14 21:49] LABS: ABG BASE EXCESS -5.3 MMOL/L (-2.5-2.5); ABG OXYGEN SATURATION 100 % (94-100); ABG PCO2 37 MMHG (35-45); ABG PO2 149 MMHG (79-93); ABG TCO2 20.9 MMOL/L (21.0-31.0)
[2018-12-14 22:01] LABS: ALLENS TEST ARTLINE; INSPIRED O2 70% FIO2; PATIENT TEMP 96.8; VENTILATOR YES
[2018-12-14 22:02] LABS: ABG PH 7.34 (7.37-7.43)
--- NOTE | 2018-12-14 22:24 | OPERATIVE REPORT ---
DATE OF SERVICE: 12/14/2018 ATTENDING PRIMARY CARE PHYSICIAN: Dr. Domínguez. PREOPERATIVE DIAGNOSIS: Small-bowel obstruction. POSTOPERATIVE DIAGNOSIS: Proximal small bowel malrotation with ischemia. PROCEDURE: Exploratory laparotomy, small bowel resection with anastomosis, placement of left subclavian central venous catheter. SURGEON: Urvashi Franklin MD CHECKER/STOCKER: Sb Cotter APRN ANESTHESIA: General endotracheal. ESTIMATED BLOOD LOSS: 100 mL. FINDINGS: Intestinal malrotation of the proximal jejunum approximately 150 cm in length with an ischemic bowel. There was no lead point or internal herniations identified as well as no palpable masses. The remainder of the stomach, liver, gallbladder, colon, omentum appeared normal. DISPOSITION: The patient tolerated the procedure well. INDICATIONS: The patient is a 68-year-old male who presented to the Emergency Department yesterday with crampy abdominal pain as well as abdominal distention with associated nausea and vomiting. He states that he woke up and had two episodes of emesis and reports that he had not had these symptoms before in the past. He states he does have normal bowel movements; however, has not one day prior to admission and had not passed flatus since the night before. A CT scan was performed, which did show significant amount of distal loops of small bowel as well as possible thickening of the loop of the small bowel and a transition point, which may indicate some level of a closed loop obstruction. Upon examination, he was found to have abdominal distention; however, no peritoneal signs. He has not had any previous abdominal surgeries in the past. He does have other medical comorbidities including COPD, hypertension, valvular heart disease and degenerative joint disease. DESCRIPTION OF PROCEDURE: The patient was brought to the operating room, laid supine on the table. After adequate IV pain and sedative medications and general endotracheal intubation, the neck and chest were prepped and draped in standard surgical fashion. The left subclavian vein was then cannulated with drawing of venous blood. The guidewire was then inserted without any resistance. The cannulated needle removed and a skin incision made using 11 blade. A tract was then created using a venous dilator and a triple lumen central venous catheter was placed over the guidewire using Seldinger technique. The guidewire was then removed and the catheter sutured to the skin with 3-0 silk sutures. All three ports kimo venous blood and saline pushed in without any resistance. The catheter was then cleaned and covered with Op-Site. The abdomen was then prepped and draped in standard surgical fashion. A supraumbilical midline area was marked and anesthetized using 0.5% Marcaine with epinephrine and a midline incision made using a 10 blade. The subcutaneous tissue was then opened using electrocautery. The fascia was identified and opened using cautery until the peritoneal lining was identified and opened using Metzenbaum scissors. The remainder of the fascia and peritoneal lining were then opened to the length of the skin incision using under direct visualization with electrocautery. Immediately, a distended loop of bowel, which was ischemic and very dark and nonviable identified. This was then eviscerated out of the incision. The small bowel appeared to be malrotated upon itself causing ischemia. There are no internal hernias identified as well as no abdominal hernias as well as no lead points or any malignancies identified. The remainder of the liver, gallbladder, stomach, omentum and colon appeared normal otherwise. The area of ischemic bowel encompass the proximal small bowel several centimeters freed from the ligament of Treitz to approximately the ileum. This was approximately 150 cm in length. A window was then created in the mesentery next to the good viable bowel using electrocautery and we then proceeded with stapled transection using a CARIN 55 mm blue load. The mesentery was then cauterized and cut using the Sonicision. A vessel was identified, clamped proximally, distally and cut with Metzenbaum scissors and tied with 0 silk sutures. The specimen was then sent to pathology. Using the proximal and distal good viable ends of the jejunum and ileum, we then proceeded with a [id number]-im-hepf anastomosis. The sizer line using 3-0 silk sutures and the staple line corners were opened using Cadet scissors and a [id number] anastomosis was created using CARIN 55 mm blue load stapler. The opening was then approximated using 3-0 Vicryl interrupted sutures and stapled together with the same staple load. All four quadrants of the peritoneal cavity were then irrigated and suctioned out. A 19-Setswana Garry-Regalado drain was then placed near the area of the anastomosis and brought out the left lower abdominal quadrant. This was sutured to the skin using 3-0 nylon suture. The fascia and peritoneal lining was then closed using #1 looped PDS suture starting proximally, distally and tied in the middle. The subcutaneous tissue was then reapproximated using 3-0 Vicryl interrupted sutures and the skin was closed using skin shaan. The wound was then cleaned and covered with an island dressing. The patient tolerated the procedure well. We will admit him to the ICU. He does have a significant history of COPD and he will stay intubated overnight. He also did have a closed loop obstruction and due to the release of inflammatory manager reporting systemically after the surgery, he may show signs of septicemia including hypertension and we will continue close monitoring as well as vasopressor drip if necessary. We will also consult pulmonary for weaning off ventilator. The NG tube was left also in place to wait for some bowel function before removing. Job ID: [id number] DocumentID: [id number] Dictated Date: 12/14/2018 17:05:24 Picker Box Operator Date: 12/14/2018 22:22:59 Dictated By: URVASHI FRANKLIN MD
[2018-12-15] VITALS (59 sets, daily range): BP systolic 119–181; BP diastolic 33–76
[2018-12-15] MEDS: PIPERACILLIN/TAZOBACTAM (BULK) 4.5 GM in NS (IVPB) 100 ML IV SCH ×3 (00:32→16:24)
--- NOTE | 2018-12-15 01:25 | NUR ---
Blood pressures rechecked at this time, bilateral legs were similar (110's/50's), right cuff and right radial artline pressure are within 5-10 points of each other (90's/40's) and left lower and upper arm blood pressure are higher (130's/60's), lower left is slightly higher. Will continue to monitor throughout night.
[2018-12-15] MEDS: PHENYLEPHRINE DOUBLE STRENGTH 20MG/ 250 ML IV SCH ×2 (03:01)
[2018-12-15] MEDS: NS IV 1000 ML 1,000 ML IV SCH ×3 (03:08→19:29)
[2018-12-15] MEDS: PROPOFOL DRIP (ICU) 100 ML IV SCH ×4 (03:25→21:25)
[2018-12-15 03:27] LABS: ABG BASE EXCESS -5.8 MMOL/L (-2.5-2.5); ABG OXYGEN SATURATION 98 % (94-100); ABG PCO2 32 MMHG (35-45); ABG PH 7.38 (7.37-7.43); ABG PO2 89 MMHG (79-93); ABG TCO2 19.3 MMOL/L (21.0-31.0)
[2018-12-15 03:28] LABS: BASOPHILS % (AUTO) 0 % (0-10); EOSINOPHILS % (AUTO) 0 % (0-10); HEMATOCRIT 21 % (40-54); LYMPHOCYTES # (AUTO) 0.5 X 10^3 (1.0-4.0); LYMPHOCYTES % (AUTO) 3 % (12-44); MEAN CORPUSCULAR HEMOGLOBIN 25 PG (25-34); MEAN CORPUSCULAR HGB CONC 33 G/DL (32-36); MEAN CORPUSCULAR VOLUME 75 FL (80-99); MEAN PLATELET VOLUME 7.9 FL (7.4-10.4); MONOCYTES % (AUTO) 5 % (0-12); NEUTROPHILS # (AUTO) 17.8 X 10^3 (1.8-7.8); NEUTROPHILS % (AUTO) 92 % (42-75); PLATELET COUNT 312 10^3/uL (130-400); RED CELL DISTRIBUTION WIDTH 15.4 % (10.0-14.5); WHITE BLOOD COUNT 19.3 10^3/uL (4.3-11.0)
[2018-12-15 03:32] LABS: INSPIRED O2 40%; VENTILATOR YES
[2018-12-15 03:37] LABS: HEMOGLOBIN 6.8 G/DL (13.3-17.7)
[2018-12-15 03:58] LABS: CALCIUM 7.6 MG/DL (8.5-10.1); CREATININE SERUM 2.83 MG/DL (0.60-1.30); MAGNESIUM 1.6 MG/DL (1.8-2.4); PHOSPHORUS 5.7 MG/DL (2.3-4.7); POTASSIUM 5.2 MMOL/L (3.6-5.0)
[2018-12-15] MEDS: KCL 20 MEQ TAB (K-DUR) PO SCH (06:02)
[2018-12-15] MEDS: MAGNESIUM 1 GM/100 ML IVPB 100 ML IV SCH ×4 (06:02→20:59)
[2018-12-15] MEDS: POTASSIUM CL 10MEQ/50ML IVPB 50 ML IV SCH (06:02)
--- NOTE | 2018-12-15 06:15 | Pulmonary Consultation ---
History of Present Illness History of Present Illness Date of Consultation 12/15/18 06:08 Date of Admission History of Present Illness 68yo with PMH of COPD oxygen dependent of 3 liters NC presented to ED secondary to acute onset abdominal pain and vomiting. Pt's abdomen also became very distended. PT was found to have high grade bowel obstruction. I am consulted for pulmonary management. Allergies and Home Medications Allergies Coded Allergies: sulfamethoxazole (Unverified Allergy, Mild, 12/13/18) trimethoprim (Unverified Allergy, Mild, 12/13/18) Home Medications Amlodipine Besylate 10 Mg Tablet, 10 MG PO DAILY, (Reported) Clonidine HCl 0.1 Mg Tablet, 0.1 MG PO BID, (Reported) Fluticasone/Umeclidin/Vilanter 1 Each Blst.w.dev, 1 PUFF INH DAILY, (Reported) Furosemide 40 Mg Tablet, 40 MG PO DAILY, (Reported) Hydralazine HCl 25 Mg Tablet, 25 MG PO BID, (Reported) Ipratropium/Albuterol Sulfate 3 Ml Ampul.neb, 3 ML NEB TID, (Reported) Losartan Potassium 100 Mg Tablet, 100 MG PO DAILY, (Reported) Prednisone 2.5 Mg Tablet, 2.5 MG PO Q48H, (Reported) Sodium Chloride 50 Ml [place], 2 SPRAYS NS Q2H PRN for DRY NOSE, (Reported) Tamsulosin HCl 0.4 Mg Cap, 0.4 MG PO 1730, (Reported) Past Qkoadtn-Xhyiem-Xtnamy Hx Past Med/Social Hx: Reviewed Nursing Past Med/Soc Hx Patient Social History Alcohol Use: Regular Use Number of Drinks Today: AA Alcohol Beverage of Choice: Beer Recreational Drug Use: No Smoking Status: Former Smoker Former Smoker, Quit: Oct 03, 2014 2nd Hand Smoke Exposure: No Recent Foreign Travel: No Contact w/Someone Who Travel: No Recent Infectious Disease Expo: No Recent Hopitalizations: No Immunizations Up To Date Tetanus Booster (TDap): Less than 5yrs PED Vaccines UTD: No Date of Pneumonia Vaccine: Jun 18, 2015 Date of Influenza Vaccine: Jul 29, 2014 Seasonal Allergies Seasonal Allergies: Yes Past Medical History Surgeries: Yes (cataracts, RIGHT HIP REPLACEMENT, RIGHT KNEE ARTHROSCOPY X 2 ) Eye Surgery, Joint Replacement, Orthopedic Respiratory: Yes (home O2 at 2.5 TO 3L) Pneumonia, Chronic Bronchitis, COPD Currently Using CPAP: No Currently Using BIPAP: No Cardiac: Yes Hypertension Neurological: No Reproductive Disorders: No Sexually Transmitted Disease: No HIV/AIDS: No Renal Failure Gastrointestinal: No Musculoskeletal: Yes (TORN CARTILAGE RIGHT KNEE. AVASCULAR NECROSIS RIGHT HIP; bulging disc) Arthritis, Chronic Back Pain Endocrine: No HEENT: Yes Cataract Loss of Vision: Denies Hearing Impairment: Denies Cancer: No Psychosocial: No Integumentary: No Blood Disorders: No Adverse Reaction/Blood Tranf: No Family Medical History Reviewed Nursing Family Hx Cardiovascular disease UNCLE Diabetes mellitus 19 MOTHER Kidney disease MA GRANDMOTHER (CANCER) Heart Disease, Diabetes, Lung Disease, Renal Disease Sepsis Event Evaluation Height, Weight, BMI Height: 5'4.00" Weight: 155lbs. 2.0oz. 70.608179pe; 26.6 BMI Method:Stated Exam Exam Vital Signs Date Time Temp Pulse Resp B/P (MAP) Pulse Ox O2 Delivery O2 Flow Rate FiO2 12/15/18 05:00 84 21 123/66 (85) Mechanical Ventilator 40.00 12/15/18 04:45 83 21 126/62 (83) Mechanical Ventilator 40.00 12/15/18 04:30 80 22 136/55 (82) 100 Mechanical Ventilator 40.00 12/15/18 04:15 81 21 138/55 (82) 99 Mechanical Ventilator 40.00 12/15/18 04:00 100 Mechanical Ventilator 40.00 12/15/18 04:00 81 21 151/69 (96) 99 Mechanical Ventilator 40.00 12/15/18 03:45 80 22 146/69 (94) 99 Mechanical Ventilator 40.00 12/15/18 03:30 80 21 176/76 (109) 100 Mechanical Ventilator 40.00 12/15/18 03:25 Mechanical Ventilator 12/15/18 03:15 78 22 150/68 (95) 100 Mechanical Ventilator 40.00 12/15/18 03:02 99.0 12/15/18 03:00 76 22 142/68 (92) 100 Mechanical Ventilator 40.00 12/15/18 02:45 75 21 148/68 (94) 100 Mechanical Ventilator 40.00 12/15/18 02:30 75 21 145/68 (93) 100 Mechanical Ventilator 40.00 12/15/18 02:15 76 21 140/66 (90) 99 Mechanical Ventilator 40.00 12/15/18 02:15 Mechanical Ventilator 40.00 12/15/18 02:00 78 22 131/65 (87) 99 Mechanical Ventilator 50.00 12/15/18 01:45 79 22 134/68 (90) 100 Mechanical Ventilator 50.00 12/15/18 01:34 Mechanical Ventilator 50.00 12/15/18 01:30 78 21 147/68 (94) 100 Mechanical Ventilator 60.00 12/15/18 01:28 77 24 100 60 12/15/18 01:15 Mechanical Ventilator 60.00 12/15/18 01:15 79 22 141/67 (91) 100 Mechanical Ventilator 60.00 12/15/18 01:00 84 21 162/75 (104) 100 Mechanical Ventilator 70.00 12/15/18 00:45 85 21 127/72 (90) 100 Mechanical Ventilator 70.00 12/15/18 00:30 88 22 171/74 (106) 100 Mechanical Ventilator 70.00 12/15/18 00:15 84 22 151/72 (98) 100 Mechanical Ventilator 70.00 12/15/18 00:00 86 22 144/67 (92) 100 Mechanical Ventilator 70.00 12/15/18 00:00 100 Mechanical Ventilator 70.00 12/14/18 23:45 87 22 132/60 (84) 100 Mechanical Ventilator 70.00 12/14/18 23:30 80 22 149/66 (93) 100 Mechanical Ventilator 70.00 12/14/18 23:16 97.5 12/14/18 23:15 79 22 135/62 (86) 100 Mechanical Ventilator 70.00 12/14/18 23:00 81 22 132/62 (85) 100 Mechanical Ventilator 70.00 12/14/18 22:45 81 22 154/70 (98) 100 Mechanical Ventilator 70.00 12/14/18 22:30 87 21 133/68 (89) 100 Mechanical Ventilator 70.00 12/14/18 22:15 85 21 128/64 (85) 100 Mechanical Ventilator 70.00 12/14/18 22:00 86 21 125/63 (83) 100 Mechanical Ventilator 70.00 12/14/18 21:45 85 21 120/58 (78) 100 Mechanical Ventilator 70.00 12/14/18 21:42 87 22 100 70 12/14/18 21:30 88 21 125/65 (85) 100 Mechanical Ventilator 70.00 12/14/18 21:30 96.9 12/14/18 21:15 89 20 121/68 (85) 100 Mechanical Ventilator 70.00 12/14/18 21:00 87 21 142/68 (92) 100 Mechanical Ventilator 70.00 12/14/18 20:45 87 21 131/63 (85) 100 Mechanical Ventilator 70.00 12/14/18 20:30 87 17 138/63 (88) 99 Mechanical Ventilator 70.00 12/14/18 20:25 88 22 100 70 12/14/18 20:15 92 22 118/62 (80) 99 Mechanical Ventilator 70.00 12/14/18 20:00 93 22 136/66 (89) 99 Mechanical Ventilator 70.00 12/14/18 20:00 100 Mechanical Ventilator 70.00 12/14/18 19:45 93 22 129/69 (89) 94 Mechanical Ventilator 70.00 12/14/18 19:45 97.9 12/14/18 19:30 97 13 134/66 (88) 99 Mechanical Ventilator 70.00 12/14/18 19:16 99 12/14/18 19:15 98 10 145/69 (94) 100 Mechanical Ventilator 70.00 12/14/18 19:00 98 14 148/66 (93) 100 Mechanical Ventilator 70.00 12/14/18 18:45 118/60 (79) 12/14/18 18:17 146/68 12/14/18 18:09 93/55 (68) 12/14/18 18:07 146/68 (94) 12/14/18 18:07 111 15 99 70 12/14/18 18:00 113 15 88/69 (75) 100 Mechanical Ventilator 70.00 12/14/18 17:55 Mechanical Ventilator 70 12/14/18 17:45 113 18 145/79 (101) 100 Mechanical Ventilator 70.00 12/14/18 17:42 90/61 (71) 12/14/18 17:40 120/70 (87) 12/14/18 17:34 114/80 (91) 12/14/18 17:32 109/82 (91) 12/14/18 17:30 92/61 (71) 12/14/18 17:30 111 29 92/61 (71) 100 Mechanical Ventilator 70.00 3/14/19 17:20 105/68 (80) 12/14/18 17:15 109 13 97/67 (77) 100 Mechanical Ventilator 70.00 12/14/18 17:12 109 14 100 100 12/14/18 17:10 186/76 (112) 12/14/18 17:00 104 13 167/66 (99) 100 Mechanical Ventilator 70.00 12/14/18 17:00 175/77 (109) 12/14/18 16:55 167/66 (99) 12/14/18 13:00 98 12/14/18 12:00 98.5 96 20 122/60 (80) 97 Nasal Cannula 3.00 12/14/18 10:06 95 Nasal Cannula 4.50 12/14/18 09:57 98.4 12/14/18 08:00 95 Nasal Cannula 4.50 12/14/18 08:00 98.4 101 22 151/66 (94) 95 Nasal Cannula 3.00 12/14/18 07:00 105 I & O 12/15/18 07:00 Intake Total 6733 ml Output Total 2240 ml Balance 4493 ml Height & Weight Height: 5'4.00" Weight: 155lbs. 2.0oz. 70.114747ot; 26.6 BMI Method:Stated General Appearance: No Apparent Distress, Cachetic HEENT: Moist Mucous Membranes; No Scleral Icterus (L), No Scleral Icterus (R); Other (NGT in place) Respiratory: Lungs Clear, No Accessory Muscle Use, Other (tachypneic) Cardiovascular: Regular Rate, Rhythm, No Murmur Capillary Refill: Less Than 3 Seconds Gastrointestinal: normal bowel sounds, distended, tenderness Extremity: Normal Capillary Refill, No Calf Tenderness, No Pedal Edema Neurologic/Psychiatric: Alert, Oriented x3, Normal Mood/Affect Skin: Normal Color, Warm/Dry Results Lab Laboratory Tests 12/13/18 13:57 12/14/18 05:25 12/15/18 03:20 Assessment/Plan Assessment/Plan Respiratory failure s/p surgery -Continue vent -Will leave pt on vent one more day to ensure stability Acute on chronic renal failure with metabolic acidosis and hyperphos with decreased UO -Give 1 liter IVF -Give 2 amps of bicarb -bilateral renal US - negative -Start PO phoslo if ok with Kido for NG meds Hyperkalmeia -Bicarb -Monitor Anemia -S/p 2 unit PRBC -Monitor Hypotension- resolved -IVF - Echocardiogram - normal EF -Monitor SBO s/p surgery -Dr. Franklin is following Severe oxygen dependent COPD -SVNs -Oxygen Chronic hyponatremia -Monitor HTN -Start hydralazine PRN -NO MANUEL/ARB secondary to renal function JASS SWANSON DO Dec 15, 2018 06:15
[2018-12-15] MEDS ORDERED: SODIUM BICARB 8.4% 50 MEQ/50 ML (ABBOTT) SYR IV NR (06:30)
[2018-12-15] MEDS ORDERED: NS IV 1000 ML 1,000 ML IV SCH (06:30)
[2018-12-15] MEDS ORDERED: SODIUM BICARB 8.4% 50 MEQ/50 ML (ABBOTT) SYR ONE (06:31)
[2018-12-15] MEDS: RT-ALBUTEROL/IPRATROPIUM 3 ML (DUONEB) VIAL INH SCH ×5 (07:12→22:38)
[2018-12-15] MEDS ORDERED: RT-ALBUTEROL/IPRATROPIUM 3 ML (DUONEB) VIAL INH PRN (07:15)
--- NOTE | 2018-12-15 07:53 | Progress Note-Hospitalist ---
Subjective HPI/CC On Admission Date Seen by Provider: Dec 15, 2018 Time Seen by Provider: 07:48 Pt is a 68yoCM with a PMH of CKD, HTN, COPD on 3lpm who presented to the ER due to acute onset abdominal pain. He states he developed sharp upper pain and started vomitiung. He also noticed he was very distended. His pain became very severe and has was not passing flatus so he presented to the ER for evaluation where he was found to have a high grade bowel obstruction. He was asmitted for surgery and I am consulted for medical management. NGT was placed in the ER and that has helped with his nausea and vomiting but he is still having severe pain and bloating. Subjective/Events-last exam Pt is intubated and sedated. No ROS possible. Discussed with RN and Dr Bauer about ovenight events. Replacing art line. Transfusion ordered. Objective Exam Vital Signs Vital Signs Date Time Temp Pulse Resp B/P (MAP) Pulse Ox O2 Delivery O2 Flow Rate FiO2 12/15/18 07:14 84 22 100 35 12/15/18 06:45 137/63 (87) Mechanical Ventilator 40.00 12/15/18 03:02 99.0 Capillary Refill : Less Than 3 SecondsLess Than 3 Seconds General Appearance: No Apparent Distress, Cachetic HEENT: Other (central line in place) Respiratory: Rhonci; No Wheezing; Other (on vent) Cardiovascular: Regular Rate, Rhythm, No Murmur Gastrointestinal: Abnormal Bowel Sounds (absent), Distended Genital/Rectal: Other (george in place) Extremity: Normal Capillary Refill, No Calf Tenderness, No Pedal Edema Neurologic/Psychiatric: Other (sedated) Results/Procedures Lab Laboratory Tests 12/15/18 03:20 Patient resulted labs reviewed. Imaging: Reviewed Imaging Report Assessment/Plan Assessment and Plan Assess & Plan/Chief Complaint High grade bowel obstruction Diagnosis/Problems Diagnosis/Problems (1) Small bowel obstruction Status: Acute Assessment & Plan: POD #1 bowel resection Management per primary OG in place On Zosyn (2) Acute respiratory failure Assessment & Plan: Pulm consulted, appreciate recs Maintain on vent today Qualifiers: Respiratory failure complication: hypoxia Qualified Codes: J96.01 - Acute respiratory failure with hypoxia (3) Acute renal failure Status: Acute Assessment & Plan: Baseline appears around 1.5-2 Creatinine up further to 2.8 today Bicarb given this AM for mild hyperkalemia Continue IVF UOP decreased overnight Qualifiers: Acute renal failure type: unspecified Qualified Codes: N17.9 - Acute kidney failure, unspecified (4) COPD (chronic obstructive pulmonary disease) Status: Acute Assessment & Plan: 3lpm baseline dependency Currently on vent post op Pulm consulted, appreciate recs Qualifiers: COPD type: unspecified COPD Qualified Codes: J44.9 - Chronic obstructive pulmonary disease, unspecified (5) Chronic hyponatremia Status: Acute Assessment & Plan: Na 129 today Trend (6) Essential (primary) hypertension Assessment & Plan: Was hypotensive post op and needed pressors Art line and cuff reading very differently Plan to doppler upper extremities Now off pressors Will replace art line (7) Microcytic anemia Assessment & Plan: Mildly anemic at baseline but dropped to 6.8 today likely due to operative losses Transfusion ordered by Dr Bauer this AM Trend Clinical Quality Measures DVT/VTE Risk/Contraindication: Risk Factor Score Per Nursin RFS Level Per Nursing on Admit: 4+=Very High LANCE SKINNER MD Dec 15, 2018 07:53
[2018-12-15] MEDS: PANTOPRAZOLE 40 MG (PROTONIX) VIAL IV SCH (08:24)
[2018-12-15] MEDS ORDERED: NON-FORMULARY MEDICATION 1 EA EA (Fluticasone/Umeclidin/Vilanter (Trelegy Ellipta 100-62.5 INH SCH (09:00)
--- NOTE | 2018-12-15 09:13 | NUR ---
LEFT RADIAL ART LINE PLACED BY ANESTHESIA. RIGHT RADIAL ART LINE REMOVED AT THIS TIME BY THIS RN.
--- NOTE | 2018-12-15 09:15 | Anesthesia-Procedure Note ---
Procedures/Interventions Procedure Start/Stop/Diagnosis Date of Procedure: Dec 15, 2018 Start Time: 08:50 Stop Time: 09:05 Arterial Line Arterial Line Catheter: 20G Type: Radial Location: Right Procedure: prepped, draped in sterile fashion, good wave-form was obtained, patient tolerated procedure well, no immediate complications, post procedure area cleaned, post procedure dressing applied LULA RUBI CRNA Dec 15, 2018 09:15
--- NOTE | 2018-12-15 09:25 | Anesthesia-General Post-Op ---
General Patient Condition Mental Status/LOC: Unreactive Cardiovascular: Satisfactory Nausea/Vomiting: Absent Respiratory: Satisfactory Pain: Controlled Post Op Complications Complications None Follow Up Care/Instructions Patient Instructions Patient Ventilated and Sedated. Will follow up on again tomorrow. Anesthesia/Patient Condition Patient Condition Patient is doing well, stable vital signs, no apparent adverse anesthesia problems. LULA RUBI CRNA Dec 15, 2018 09:25
--- NOTE | 2018-12-15 10:37 | Diagnostic Imaging Report ---
Indication: Ventilator support. Time of exam: 3:31 AM Correlation is made with prior study from one day earlier. Support lines and catheters remain in place. There is some trace left effusion, unchanged. Lungs are fairly clear. No pneumothorax. Impression: Stable chest since one day earlier. Dictated by: Dictated on workstation # [id number]
--- NOTE | 2018-12-15 11:00 | NUR ---
Pastoral care visit, pt intubated, no family present.
--- NOTE | 2018-12-15 11:13 | Diagnostic Imaging Report ---
Indication: Upper extremity swelling and pain. Comparison: None Findings: Visualized deep and superficial venous system of the upper extremities is widely patent. There is no mass, fluid collection or DVT. Impression: No DVT identified. Dictated by: Dictated on workstation # [id number]
--- NOTE | 2018-12-15 11:25 | Diagnostic Imaging Report ---
PROCEDURE: US Renal Bilateral. TECHNIQUE: Multiple real-time grayscale images were obtained over the kidneys in various projections bilaterally. INDICATION: Declining renal function. FINDINGS: Right kidney measures 12.3 x 6.5 x 5.6 cm. Right kidney does contain a cyst in the upper pole measuring approximately 3.8 cm in diameter. No calculi or hydronephrosis is seen. Left kidney was not well visualized. IMPRESSION: Poorly visualized left kidney. Right kidney demonstrates a cyst. No calculi or hydronephrosis is detected. Dictated by: Dictated on workstation # [id number]
--- NOTE | 2018-12-15 11:35 | Diagnostic Imaging Report ---
Indication: Upper extremity pain, abnormal blood pressures. Comparison: None. Technique: Multiple real-time, spectral and color Doppler imaging of the upper extremity arterial system was obtained. Findings: There is some mild atherosclerotic disease scattered throughout the visualized upper extremity arterial system. There is some mild intimal thickening. Monophasic flow pattern is seen primarily throughout the right upper extremity. There is a biphasic triphasic pattern on the left. There is no high-grade stenosis or occlusion. There are diminished velocities throughout the right upper extremity. There may be an unforeseen stenosis involving the proximal right subclavian artery which cannot be visualized with ultrasound. Impression: 1. Mild bilateral diffuse atherosclerosis. 2. Asymmetric diminished velocities involving the right upper extremity which may be secondary to a more proximal stenosis which cannot be visualized with ultrasound. Consider CTA of the chest for additional evaluation. 3. No focal high-grade stenosis or occlusion identified. Dictated by: Dictated on workstation # [id number]
--- NOTE | 2018-12-15 11:55 | Progress Note (SOAP) ---
Subjective Date Seen by a Provider: Dec 15, 2018 Time Seen by a Provider: 10:00 Subjective/Events-last exam on vent and sedated. anemic. WBC trending down. minimal stephanie output. Objective Exam Vital Signs Date Time Temp Pulse Resp B/P (MAP) Pulse Ox O2 Delivery O2 Flow Rate FiO2 12/15/18 11:00 80 22 100 35 12/15/18 11:00 80 21 147/37 (73) 100 Mechanical Ventilator 35.00 12/15/18 10:42 149/38 12/15/18 10:00 86 21 145/37 (73) 99 Mechanical Ventilator 35.00 12/15/18 09:55 98.2 94 15 147/37 99 Mechanical Ventilator 35 12/15/18 09:40 98.2 87 21 149/38 99 Mechanical Ventilator 35 12/15/18 09:00 90 22 148/37 (74) 98 Mechanical Ventilator 35.00 12/15/18 08:37 91 23 98 35 12/15/18 08:00 97.4 12/15/18 08:00 Mechanical Ventilator 40 12/15/18 08:00 92 13 151/68 (95) 99 Mechanical Ventilator 40.00 12/15/18 07:14 84 22 100 35 12/15/18 07:00 87 12/15/18 06:45 80 21 137/63 (87) 100 Mechanical Ventilator 40.00 12/15/18 06:30 80 21 134/62 (86) 100 Mechanical Ventilator 40.00 12/15/18 06:15 82 21 121/64 (83) 100 Mechanical Ventilator 40.00 12/15/18 06:00 83 21 136/68 (90) 100 Mechanical Ventilator 40.00 12/15/18 05:45 85 21 123/63 (83) 100 Mechanical Ventilator 40.00 12/15/18 05:30 84 21 126/64 (84) 100 Mechanical Ventilator 40.00 12/15/18 05:30 85 21 124/62 (82) 100 Mechanical Ventilator 40.00 12/15/18 05:15 85 21 126/64 (84) 100 Mechanical Ventilator 40.00 12/15/18 05:00 84 21 123/66 (85) Mechanical Ventilator 40.00 12/15/18 04:45 83 21 126/62 (83) Mechanical Ventilator 40.00 12/15/18 04:30 80 22 136/55 (82) 100 Mechanical Ventilator 40.00 12/15/18 04:15 81 21 138/55 (82) 99 Mechanical Ventilator 40.00 12/15/18 04:00 100 Mechanical Ventilator 40.00 12/15/18 04:00 81 21 151/69 (96) 99 Mechanical Ventilator 40.00 12/15/18 03:45 80 22 146/69 (94) 99 Mechanical Ventilator 40.00 12/15/18 03:30 80 21 176/76 (109) 100 Mechanical Ventilator 40.00 12/15/18 03:25 Mechanical Ventilator 12/15/18 03:15 78 22 150/68 (95) 100 Mechanical Ventilator 40.00 12/15/18 03:02 99.0 12/15/18 03:00 76 22 142/68 (92) 100 Mechanical Ventilator 40.00 12/15/18 02:45 75 21 148/68 (94) 100 Mechanical Ventilator 40.00 12/15/18 02:30 75 21 145/68 (93) 100 Mechanical Ventilator 40.00 12/15/18 02:15 76 21 140/66 (90) 99 Mechanical Ventilator 40.00 12/15/18 02:15 Mechanical Ventilator 40.00 12/15/18 02:00 78 22 131/65 (87) 99 Mechanical Ventilator 50.00 12/15/18 01:45 79 22 134/68 (90) 100 Mechanical Ventilator 50.00 12/15/18 01:34 Mechanical Ventilator 50.00 12/15/18 01:30 78 21 147/68 (94) 100 Mechanical Ventilator 60.00 12/15/18 01:28 77 24 100 60 12/15/18 01:15 Mechanical Ventilator 60.00 12/15/18 01:15 79 22 141/67 (91) 100 Mechanical Ventilator 60.00 12/15/18 01:00 84 21 162/75 (104) 100 Mechanical Ventilator 70.00 12/15/18 00:45 85 21 127/72 (90) 100 Mechanical Ventilator 70.00 12/15/18 00:30 88 22 171/74 (106) 100 Mechanical Ventilator 70.00 12/15/18 00:15 84 22 151/72 (98) 100 Mechanical Ventilator 70.00 12/15/18 00:00 86 22 144/67 (92) 100 Mechanical Ventilator 70.00 12/15/18 00:00 100 Mechanical Ventilator 70.00 12/14/18 23:45 87 22 132/60 (84) 100 Mechanical Ventilator 70.00 12/14/18 23:30 80 22 149/66 (93) 100 Mechanical Ventilator 70.00 12/14/18 23:16 97.5 12/14/18 23:15 79 22 135/62 (86) 100 Mechanical Ventilator 70.00 12/14/18 23:00 81 22 132/62 (85) 100 Mechanical Ventilator 70.00 12/14/18 22:45 81 22 154/70 (98) 100 Mechanical Ventilator 70.00 12/14/18 22:30 87 21 133/68 (89) 100 Mechanical Ventilator 70.00 12/14/18 22:15 85 21 128/64 (85) 100 Mechanical Ventilator 70.00 12/14/18 22:00 86 21 125/63 (83) 100 Mechanical Ventilator 70.00 12/14/18 21:45 85 21 120/58 (78) 100 Mechanical Ventilator 70.00 12/14/18 21:42 87 22 100 70 12/14/18 21:30 88 21 125/65 (85) 100 Mechanical Ventilator 70.00 12/14/18 21:30 96.9 12/14/18 21:15 89 20 121/68 (85) 100 Mechanical Ventilator 70.00 12/14/18 21:00 87 21 142/68 (92) 100 Mechanical Ventilator 70.00 12/14/18 20:45 87 21 131/63 (85) 100 Mechanical Ventilator 70.00 12/14/18 20:30 87 17 138/63 (88) 99 Mechanical Ventilator 70.00 12/14/18 20:25 88 22 100 70 12/14/18 20:15 92 22 118/62 (80) 99 Mechanical Ventilator 70.00 12/14/18 20:00 93 22 136/66 (89) 99 Mechanical Ventilator 70.00 12/14/18 20:00 100 Mechanical Ventilator 70.00 12/14/18 19:45 93 22 129/69 (89) 94 Mechanical Ventilator 70.00 12/14/18 19:45 97.9 12/14/18 19:30 97 13 134/66 (88) 99 Mechanical Ventilator 70.00 12/14/18 19:16 99 12/14/18 19:15 98 10 145/69 (94) 100 Mechanical Ventilator 70.00 12/14/18 19:00 98 14 148/66 (93) 100 Mechanical Ventilator 70.00 12/14/18 18:45 118/60 (79) 12/14/18 18:17 146/68 12/14/18 18:09 93/55 (68) 12/14/18 18:07 146/68 (94) 12/14/18 18:07 111 15 99 70 12/14/18 18:00 113 15 88/69 (75) 100 Mechanical Ventilator 70.00 12/14/18 17:55 Mechanical Ventilator 70 12/14/18 17:45 113 18 145/79 (101) 100 Mechanical Ventilator 70.00 12/14/18 17:42 90/61 (71) 12/14/18 17:40 120/70 (87) 12/14/18 17:34 114/80 (91) 12/14/18 17:32 109/82 (91) 12/14/18 17:30 92/61 (71) 12/14/18 17:30 111 29 92/61 (71) 100 Mechanical Ventilator 70.00 12/14/18 17:20 105/68 (80) 12/14/18 17:15 109 13 97/67 (77) 100 Mechanical Ventilator 70.00 12/14/18 17:12 109 14 100 100 12/14/18 17:10 186/76 (112) 12/14/18 17:00 104 13 167/66 (99) 100 Mechanical Ventilator 70.00 12/14/18 17:00 175/77 (109) 12/14/18 16:55 167/66 (99) 12/14/18 13:00 98 12/14/18 12:00 98.5 96 20 122/60 (80) 97 Nasal Cannula 3.00 I & O 12/15/18 07:00 Intake Total 6853 ml Output Total 2240 ml Balance 4613 ml Capillary Refill : Less Than 3 SecondsLess Than 3 Seconds General Appearance: No Apparent Distress HEENT: PERRL/EOMI Neck: Full Range of Motion Respiratory: Chest Non Tender, Normal Breath Sounds Cardiovascular: Regular Rate, Rhythm Gastrointestinal: soft, other (wound clean/dry) Extremity: Normal Capillary Refill Neurologic/Psychiatric: Alert, Oriented x3 Skin: Normal Color Lymphatic: No Adenopathy Results Lab Laboratory Tests 12/14/18 17:55: Triglycerides Level 46 12/14/18 18:40: Blood Gas Puncture Site R ARTLINE, Blood Gas Patient Temperature 97.2, Arterial Blood pH 7.20*L, Arterial Blood Partial Pressure CO2 55H, Arterial Blood Partial Pressure O2 76L, Arterial Blood HCO3 21L, Arterial Blood Total CO2 22.8 , Arterial Blood Oxygen Saturation 93L, Arterial Blood Base Excess -5.9L, Waldo Test ART[facility], Blood Gas Ventilator Setting YES, Blood Gas Inspired Oxygen 70% 12/14/18 21:40: Blood Gas Puncture Site R [facility], Blood Gas Patient Temperature 96.8, Arterial Blood pH 7.34*L, Arterial Blood Partial Pressure CO2 37, Arterial Blood Partial Pressure O2 149H, Arterial Blood HCO3 20L, Arterial Blood Total CO2 20.9L, Arterial Blood Oxygen Saturation 100, Arterial Blood Base Excess -5.3L, Waldo Test [facility], Blood Gas Ventilator Setting YES, Blood Gas Inspired Oxygen 70% FIO2 12/15/18 03:19: Blood Gas Puncture Site [facility], Blood Gas Patient Temperature 99.0, Arterial Blood pH 7.38, Arterial Blood Partial Pressure CO2 32L, Arterial Blood Partial Pressure O2 89, Arterial Blood HCO3 18L, Arterial Blood Total CO2 19.3L, Arterial Blood Oxygen Saturation 98, Arterial Blood Base Excess -5.8L, Waldo Test [facility], Blood Gas Ventilator Setting YES, Blood Gas Inspired Oxygen 40% 12/15/18 03:20: White Blood Count 19.3H, Red Blood Count 2.76L, Hemoglobin 6.8#*L, Hematocrit 21L, Mean Corpuscular Volume 75L, Mean Corpuscular Hemoglobin 25, Mean Corpuscular Hemoglobin Concent 33, Red Cell Distribution Width 15.4H, Platelet Count 312, Mean Platelet Volume 7.9, Neutrophils (%) (Auto) 92H, Lymphocytes (% ) (Auto) 3L, Monocytes (%) (Auto) 5, Eosinophils (%) (Auto) 0, Basophils (%) ( Auto) 0, Neutrophils # (Auto) 17.8H, Lymphocytes # (Auto) 0.5L, Monocytes # ( Auto) 1.0, Eosinophils # (Auto) 0.0, Basophils # (Auto) 0.0, Sodium Level 129L, Potassium Level 5.2H, Chloride Level 100, Carbon Dioxide Level 17L, Anion Gap 12 , Blood Urea Nitrogen 44H, Creatinine 2.83H, Estimat Glomerular Filtration Rate 22, BUN/Creatinine Ratio 16, Glucose Level 91, Calcium Level 7.6L, Phosphorus Level 5.7H, Magnesium Level 1.6L Microbiology 12/14/18 MRSA Screen - Final, Complete MRSA not isolated Assessment/Plan Assessment/Plan Assess & Plan/Chief Complaint s/p expl lap, 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 cont vent per pulm another day. cont monitor urine output. await bowel fxn. Clinical Quality Measures DVT/VTE Risk/Contraindication: Risk Factor Score Per Nursin RFS Level Per Nursing on Admit: 4+=Very High GRETA METZ MD Dec 15, 2018 11:55
[2018-12-15 14:40] LABS: BASOPHILS % (AUTO) 0 % (0-10); EOSINOPHILS % (AUTO) 0 % (0-10); LYMPHOCYTES # (AUTO) 0.4 X 10^3 (1.0-4.0); LYMPHOCYTES % (AUTO) 2 % (12-44); MEAN CORPUSCULAR HEMOGLOBIN 26 PG (25-34); MEAN CORPUSCULAR HGB CONC 34 G/DL (32-36); MEAN CORPUSCULAR VOLUME 77 FL (80-99); MONOCYTES # (AUTO) 1.3 X 10^3 (0.0-1.0); MONOCYTES % (AUTO) 8 % (0-12); NEUTROPHILS # (AUTO) 14.4 X 10^3 (1.8-7.8); NEUTROPHILS % (AUTO) 90 % (42-75); PLATELET COUNT 267 10^3/uL (130-400); RED CELL DISTRIBUTION WIDTH 15.9 % (10.0-14.5)
[2018-12-15 14:45] LABS: HEMATOCRIT 20 % (40-54); HEMOGLOBIN 6.8 G/DL (13.3-17.7)
[2018-12-15 15:02] LABS: CALCIUM 7.5 MG/DL (8.5-10.1); CREATININE SERUM 2.5 MG/DL (0.60-1.30); MAGNESIUM 1.5 MG/DL (1.8-2.4); PHOSPHORUS 5.7 MG/DL (2.3-4.7); POTASSIUM 4.5 MMOL/L (3.6-5.0)
--- NOTE | 2018-12-15 17:35 | NUR ---
THIS RN CONTACTED DR SKINNER REGARDING PT BLOOD PRESSURE. NEW ORDER RECEIVED.
[2018-12-15] MEDS: cloNIDine 0.1 MG (CATAPRES) TAB PO SCH ×2 (17:48→21:25)
[2018-12-15] MEDS: fentaNYL 1,250 MCG/NS 250 ML DRIP IV SCH ×2 (20:08)
--- NOTE | 2018-12-15 22:51 | NUR ---
E-ICU contacted r/t decreased urine output and increased AGUSTO drainage (trending). Awaiting orders.
[2018-12-16] VITALS (40 sets, daily range): BP systolic 113–183; BP diastolic 38–79
[2018-12-16] MEDS: PIPERACILLIN/TAZOBACTAM (BULK) 4.5 GM in NS (IVPB) 100 ML IV SCH ×3 (01:09→15:39)
[2018-12-16] MEDS: NS IV 1000 ML 1,000 ML IV SCH (01:54)
[2018-12-16] MEDS: PROPOFOL DRIP (ICU) 100 ML IV SCH ×6 (01:55→21:43)
[2018-12-16] MEDS: RT-ALBUTEROL/IPRATROPIUM 3 ML (DUONEB) VIAL INH SCH ×6 (02:13→22:00)
[2018-12-16 03:04] LABS: ABG BASE EXCESS -6.8 MMOL/L (-2.5-2.5); ABG OXYGEN SATURATION 96 % (94-100); ABG PCO2 32 MMHG (35-45); ABG PH 7.36 (7.37-7.43); ABG PO2 75 MMHG (79-93); ABG TCO2 18.9 MMOL/L (21.0-31.0); BASOPHILS % (AUTO) 0 % (0-10); EOSINOPHILS % (AUTO) 0 % (0-10); HEMATOCRIT 21 % (40-54); HEMOGLOBIN 7.2 G/DL (13.3-17.7); LYMPHOCYTES # (AUTO) 0.5 X 10^3 (1.0-4.0); LYMPHOCYTES % (AUTO) 4 % (12-44); MEAN CORPUSCULAR HEMOGLOBIN 26 PG (25-34); MEAN CORPUSCULAR HGB CONC 34 G/DL (32-36); MEAN CORPUSCULAR VOLUME 76 FL (80-99); MONOCYTES # (AUTO) 1.1 X 10^3 (0.0-1.0); MONOCYTES % (AUTO) 9 % (0-12); NEUTROPHILS # (AUTO) 11.3 X 10^3 (1.8-7.8); NEUTROPHILS % (AUTO) 88 % (42-75); PLATELET COUNT 221 10^3/uL (130-400); RED CELL DISTRIBUTION WIDTH 15.5 % (10.0-14.5); WHITE BLOOD COUNT 12.9 10^3/uL (4.3-11.0)
[2018-12-16 03:06] LABS: ALLENS TEST POSITIVE; INSPIRED O2 35%; PATIENT TEMP 96.8; VENTILATOR YES
[2018-12-16 03:21] LABS: CALCIUM 7.6 MG/DL (8.5-10.1); CREATININE SERUM 2.7 MG/DL (0.60-1.30); MAGNESIUM 2.7 MG/DL (1.8-2.4); PHOSPHORUS 6.1 MG/DL (2.3-4.7); POTASSIUM 4.2 MMOL/L (3.6-5.0)
[2018-12-16] MEDS: POTASSIUM CL 10MEQ/50ML IVPB 50 ML IV SCH (06:17)
[2018-12-16] MEDS: KCL 20 MEQ TAB (K-DUR) PO SCH (06:18)
[2018-12-16] MEDS: MAGNESIUM 1 GM/100 ML IVPB 100 ML IV SCH (06:18)
[2018-12-16] MEDS ORDERED: SODIUM BICARB 8.4% 50 MEQ/50 ML (ABBOTT) SYR IV ONE (06:45)
[2018-12-16] MEDS ORDERED: LACTATED RINGERS 1,000 ML IV SCH (06:45)
[2018-12-16 07:25] LABS: INR 1.3 (0.8-1.4); PROTHROMBIN TIME PATIENT 16.5 SEC (12.2-14.7)
--- NOTE | 2018-12-16 07:29 | Pulmonary Progress Note ---
Subjective Time Seen by a Provider: 07:28 Subjective/Events-last exam Pt sedated on vent Sepsis Event Evaluation Height, Weight, BMI Height: 5'4.00" Weight: 155lbs. 2.0oz. 70.463486ed; 26.6 BMI Method:Stated Focused Exam Lactate Level 12/16/18 07:05: Lactic Acid Level Laboratory Tests Test 12/16/18 07:05 Exam Exam Vital Signs Date Time Temp Pulse Resp B/P (MAP) Pulse Ox O2 Delivery O2 Flow Rate FiO2 12/16/18 07:00 87 12/16/18 06:58 Mechanical Ventilator 30.00 12/16/18 06:55 88 22 100 35 12/16/18 06:29 Mechanical Ventilator 12/16/18 06:00 90 21 151/44 (79) 100 Mechanical Ventilator 35.00 12/16/18 05:00 110 15 176/59 (98) 98 Mechanical Ventilator 35.00 12/16/18 04:27 101 24 100 35 12/16/18 04:00 93 14 173/53 (93) 100 Mechanical Ventilator 35.00 12/16/18 04:00 Mechanical Ventilator 35 12/16/18 03:14 96.8 12/16/18 03:00 77 21 163/44 (83) 100 Mechanical Ventilator 35.00 12/16/18 02:14 72 22 100 35 12/16/18 02:00 72 22 149/42 (77) 100 Mechanical Ventilator 35.00 12/16/18 01:55 Mechanical Ventilator 12/16/18 01:00 69 22 142/41 (74) 100 Mechanical Ventilator 35.00 12/16/18 01:00 69 12/16/18 00:30 70 22 100 35 12/16/18 00:00 73 22 132/40 (70) 100 Mechanical Ventilator 35.00 12/16/18 00:00 Mechanical Ventilator 35 12/15/18 23:51 97.3 12/15/18 23:00 76 21 132/41 (71) 100 Mechanical Ventilator 35.00 12/15/18 22:38 76 22 100 35 12/15/18 22:00 84 15 138/45 (76) 100 Mechanical Ventilator 35.00 12/15/18 21:25 Mechanical Ventilator 12/15/18 21:00 80 21 152/43 (79) 100 Mechanical Ventilator 35.00 12/15/18 20:19 96.9 3/15/19 20:10 80 23 100 35 12/15/18 20:00 Mechanical Ventilator 35 12/15/18 20:00 81 22 149/43 (78) 100 Mechanical Ventilator 35.00 12/15/18 19:32 96.9 82 22 157/45 100 Mechanical Ventilator 35 12/15/18 19:00 82 14 160/45 (83) 100 Mechanical Ventilator 35.00 12/15/18 19:00 84 12/15/18 18:32 84 23 100 35 12/15/18 18:00 86 14 181/51 (94) 100 Mechanical Ventilator 35.00 12/15/18 17:08 98.2 84 14 169/47 100 Mechanical Ventilator 35 12/15/18 17:00 81 13 165/45 (85) 100 Mechanical Ventilator 35.00 12/15/18 16:53 97.3 81 17 167/47 100 Mechanical Ventilator 35 12/15/18 16:52 97.3 12/15/18 16:18 79 22 100 35 12/15/18 16:06 173/52 12/15/18 16:00 Mechanical Ventilator 35 12/15/18 16:00 78 22 158/43 (81) 100 Mechanical Ventilator 35.00 12/15/18 15:00 80 21 152/40 (77) 100 Mechanical Ventilator 35.00 12/15/18 14:00 84 14 119/38 (65) 100 Mechanical Ventilator 35.00 12/15/18 13:45 84 22 100 35 12/15/18 13:00 94 10 155/47 (83) 100 Mechanical Ventilator 35.00 12/15/18 13:00 96 12/15/18 12:32 97.1 12/15/18 12:30 97.1 78 21 132/33 99 Mechanical Ventilator 35 12/15/18 12:23 79 22 99 35 12/15/18 12:00 Mechanical Ventilator 35 12/15/18 12:00 81 17 144/36 (72) 99 Mechanical Ventilator 35.00 12/15/18 11:00 80 22 100 35 12/15/18 11:00 80 21 147/37 (73) 100 Mechanical Ventilator 35.00 12/15/18 10:42 149/38 12/15/18 10:00 86 21 145/37 (73) 99 Mechanical Ventilator 35.00 12/15/18 09:55 98.2 94 15 147/37 99 Mechanical Ventilator 35 12/15/18 09:40 98.2 87 21 149/38 99 Mechanical Ventilator 35 12/15/18 09:00 90 22 148/37 (74) 98 Mechanical Ventilator 35.00 12/15/18 08:37 91 23 98 35 12/15/18 08:00 97.4 12/15/18 08:00 Mechanical Ventilator 40 12/15/18 08:00 92 13 151/68 (95) 99 Mechanical Ventilator 40.00 I & O 12/16/18 07:00 Intake Total 5460 ml Output Total 1485 ml Balance 3975 ml Height & Weight Height: 5'4.00" Weight: 155lbs. 2.0oz. 70.770975ck; 26.6 BMI Method:Stated General Appearance: No Apparent Distress, Cachetic HEENT: Moist Mucous Membranes; No Scleral Icterus (L), No Scleral Icterus (R); Other (NGT in place) Neck: Full Range of Motion Respiratory: Lungs Clear, No Accessory Muscle Use, Other (tachypneic) Cardiovascular: Regular Rate, Rhythm, No Murmur Capillary Refill: Less Than 3 Seconds Gastrointestinal: normal bowel sounds, distended, tenderness Extremity: Normal Capillary Refill, No Calf Tenderness, No Pedal Edema Neurologic/Psychiatric: Alert, Oriented x3, Normal Mood/Affect Skin: Normal Color, Warm/Dry Lymphatic: No Adenopathy Results Lab Laboratory Tests 12/15/18 03:20 12/15/18 14:30 12/16/18 03:00 Assessment/Plan Assessment/Plan Respiratory failure s/p surgery -Continue vent -Will leave pt on vent today secondary to worsening renal failure and possible need transfer for dialysis Acute on chronic renal failure with metabolic acidosis and hyperphos with decreased UO -May need to transfer for HD -Start Bicarb gtt -Give 1 liter IVF LR -Give 2 amps of bicarb -bilateral renal US - negative -Start PO phoslo if ok with Kido for NG meds Anemia -S/p 2 unit PRBC -Monitor Hypotension- resolved -IVF - Echocardiogram - normal EF -Monitor SBO s/p surgery -Dr. Franklin is following Severe oxygen dependent COPD -SVNs -Oxygen Chronic hyponatremia -Monitor HTN -Start hydralazine PRN -NO MANUEL/ARB secondary to renal function Prognosis guarded will leave on vent today. JASS SWANSON DO Dec 16, 2018 07:29
[2018-12-16 07:32] LABS: ALBUMIN 2.4 GM/DL (3.2-4.5); BILIRUBIN,TOTAL 0.4 MG/DL (0.1-1.0); CALCIUM 7.5 MG/DL (8.5-10.1); CREATININE SERUM 2.57 MG/DL (0.60-1.30); TOTAL PROTEIN 4.6 GM/DL (6.4-8.2)
--- NOTE | 2018-12-16 07:32 | Diagnostic Imaging Report ---
INDICATION: Dyspnea. COMPARISON: 12/15/2018. DISCUSSION: Single portable upright view of the chest was obtained. Endotracheal tube, enteric tube, and left-sided central venous catheter are stable. Mild cardiomegaly is stable. Possible small left pleural effusion is stable. No dense consolidation or pneumothorax. No osseous abnormality. IMPRESSION: 1. Stable cardiomegaly and small left pleural effusion. Stable support lines and catheter. Dictated by: Dictated on workstation # [id number]
--- NOTE | 2018-12-16 07:49 | Progress Note-Hospitalist ---
Subjective HPI/CC On Admission Date Seen by Provider: Dec 16, 2018 Time Seen by Provider: 07:44 Pt is a 68yoCM with a PMH of CKD, HTN, COPD on 3lpm who presented to the ER due to acute onset abdominal pain. He states he developed sharp upper pain and started vomitiung. He also noticed he was very distended. His pain became very severe and has was not passing flatus so he presented to the ER for evaluation where he was found to have a high grade bowel obstruction. He was asmitted for surgery and I am consulted for medical management. NGT was placed in the ER and that has helped with his nausea and vomiting but he is still having severe pain and bloating. Subjective/Events-last exam Pt intubated and sedated. Unable to provide ROS. RN reports low urine output overnight. Focused Exam Lactate Level 12/16/18 07:05: Lactic Acid Level 0.83 Lactic Acid Level Laboratory Tests Test 12/16/18 07:05 Lactic Acid Level 0.83 MMOL/L (0.50-2.00) Objective Exam Vital Signs Vital Signs Date Time Temp Pulse Resp B/P (MAP) Pulse Ox O2 Delivery O2 Flow Rate FiO2 12/16/18 07:00 89 21 163/47 (85) 99 Mechanical Ventilator 30.00 12/16/18 06:55 35 12/16/18 03:14 96.8 Capillary Refill : Less Than 3 SecondsLess Than 3 Seconds General Appearance: No Apparent Distress, Chronically ill HEENT: Moist Mucous Membranes; No Scleral Icterus (L), No Scleral Icterus (R); Other (NGT in place) Respiratory: Lungs Clear, Other (tachypneic) Cardiovascular: Regular Rate, Rhythm, No Murmur Gastrointestinal: Abnormal Bowel Sounds (absent), Distended, Other (AGUSTO drain in place with serosanguinous drainage) Genital/Rectal: Other Extremity: No Calf Tenderness, No Pedal Edema, Other (SCDs in place) Neurologic/Psychiatric: Other (sedated) Results/Procedures Lab Laboratory Tests 12/15/18 14:30 12/16/18 03:00 12/16/18 07:05 Patient resulted labs reviewed. Imaging: Reviewed Imaging Report Assessment/Plan Assessment and Plan Assess & Plan/Chief Complaint High grade bowel obstruction Diagnosis/Problems Diagnosis/Problems (1) Small bowel obstruction Status: Acute Assessment & Plan: POD #2 bowel resection Management per primary OG in place On Zosyn (2) Acute respiratory failure Assessment & Plan: Pulm consulted, appreciate recs Maintain on vent today Continue propofol and precedex Qualifiers: Respiratory failure complication: hypoxia Qualified Codes: J96.01 - Acute respiratory failure with hypoxia (3) Acute renal failure Status: Acute Assessment & Plan: Baseline appears around 1.5-2 Creatinine 2.7 Switch to bicarb gtt for acidosis UOP increased during day but dropped again last night If no improvement may need transfer for nephrology evaluation and possible HD Qualifiers: Acute renal failure type: unspecified Qualified Codes: N17.9 - Acute kidney failure, unspecified (4) Microcytic anemia Assessment & Plan: CT Chest from 2018 shows advanced atherosclerotic disease Will transfuse to keep Hgb >8 (5) COPD (chronic obstructive pulmonary disease) Status: Acute Assessment & Plan: 3lpm baseline dependency Currently on vent post op Pulm consulted, appreciate recs Qualifiers: COPD type: unspecified COPD Qualified Codes: J44.9 - Chronic obstructive pulmonary disease, unspecified (6) Chronic hyponatremia Status: Acute Assessment & Plan: Na 138 today (7) Essential (primary) hypertension Assessment & Plan: Replaced art line and now reading appropriately Now off pressors Clinical Quality Measures DVT/VTE Risk/Contraindication: Risk Factor Score Per Nursin RFS Level Per Nursing on Admit: 4+=Very High LANCE SKINNER MD Dec 16, 2018 07:49
[2018-12-16] MEDS ORDERED: NS IV 500 ML 500 ML IV SCH (07:56)
[2018-12-16] MEDS: cloNIDine 0.1 MG (CATAPRES) TAB PO SCH ×2 (08:45→21:44)
[2018-12-16] MEDS: PANTOPRAZOLE 40 MG (PROTONIX) VIAL IV SCH (08:45)
[2018-12-16] MEDS: DEXMEDETOMIDINE INJECTION 200 MCG in NS (IVPB) 50 ML IV SCH (10:19)
[2018-12-16] MEDS: SODIUM BICARBONATE 8.4% VIAL 100 MEQ in D5 1/2 NS 1000 ML IV SOLUTION 1,000 ML IV SCH ×3 (10:22→17:45)
--- NOTE | 2018-12-16 12:03 | Progress Note (SOAP) ---
Subjective Date Seen by a Provider: Dec 16, 2018 Time Seen by a Provider: 11:00 Subjective/Events-last exam worsening renal fxn with slight increase phos. started on D5 with bicarb. no bowel fxn yet. minimal AGUSTO drainage. ABG looks adequate however awaiting renal fxn before extubation. Focused Exam Lactate Level 12/16/18 07:05: Lactic Acid Level 0.83 Objective Exam Vital Signs Date Time Temp Pulse Resp B/P (MAP) Pulse Ox O2 Delivery O2 Flow Rate FiO2 12/16/18 11:00 93 21 139/48 (78) 98 Mechanical Ventilator 30.00 12/16/18 10:45 97.4 93 21 140/49 100 30 12/16/18 10:43 93 22 100 30 12/16/18 10:19 97.1 12/16/18 10:16 96 22 147/51 100 Mechanical Ventilator 30 12/16/18 10:01 97.2 97 21 141/47 100 Mechanical Ventilator 30 12/16/18 10:00 97 21 143/48 (79) 100 Mechanical Ventilator 30.00 12/16/18 09:50 97.1 97 21 153/52 100 Mechanical Ventilator 30 12/16/18 09:46 97.0 96 17 150/52 98 Mechanical Ventilator 30 12/16/18 09:40 97.0 98 21 157/50 100 Mechanical Ventilator 30 12/16/18 09:19 97.6 103 19 164/54 100 Mechanical Ventilator 30 12/16/18 09:00 98 22 153/48 (83) 100 Mechanical Ventilator 30.00 12/16/18 08:00 Mechanical Ventilator 35 12/16/18 08:00 94 21 159/50 (86) 100 Mechanical Ventilator 30.00 12/16/18 07:00 89 21 163/47 (85) 99 Mechanical Ventilator 30.00 12/16/18 07:00 87 12/16/18 06:58 Mechanical Ventilator 30.00 12/16/18 06:55 88 22 100 35 12/16/18 06:29 Mechanical Ventilator 12/16/18 06:00 90 21 151/44 (79) 100 Mechanical Ventilator 35.00 12/16/18 05:00 110 15 176/59 (98) 98 Mechanical Ventilator 35.00 12/16/18 04:27 101 24 100 35 12/16/18 04:00 93 14 173/53 (93) 100 Mechanical Ventilator 35.00 12/16/18 04:00 Mechanical Ventilator 35 12/16/18 03:14 96.8 12/16/18 03:00 77 21 163/44 (83) 100 Mechanical Ventilator 35.00 12/16/18 02:14 72 22 100 35 12/16/18 02:00 72 22 149/42 (77) 100 Mechanical Ventilator 35.00 12/16/18 01:55 Mechanical Ventilator 12/16/18 01:00 69 22 142/41 (74) 100 Mechanical Ventilator 35.00 12/16/18 01:00 69 12/16/18 00:30 70 22 100 35 12/16/18 00:00 73 22 132/40 (70) 100 Mechanical Ventilator 35.00 12/16/18 00:00 Mechanical Ventilator 35 12/15/18 23:51 97.3 12/15/18 23:00 76 21 132/41 (71) 100 Mechanical Ventilator 35.00 12/15/18 22:38 76 22 100 35 12/15/18 22:00 84 15 138/45 (76) 100 Mechanical Ventilator 35.00 12/15/18 21:25 Mechanical Ventilator 12/15/18 21:00 80 21 152/43 (79) 100 Mechanical Ventilator 35.00 12/15/18 20:19 96.9 12/15/18 20:10 80 23 100 35 12/15/18 20:00 Mechanical Ventilator 35 12/15/18 20:00 81 22 149/43 (78) 100 Mechanical Ventilator 35.00 12/15/18 19:32 96.9 82 22 157/45 100 Mechanical Ventilator 35 12/15/18 19:00 82 14 160/45 (83) 100 Mechanical Ventilator 35.00 12/15/18 19:00 84 12/15/18 18:32 84 23 100 35 12/15/18 18:00 86 14 181/51 (94) 100 Mechanical Ventilator 35.00 12/15/18 17:08 98.2 84 14 169/47 100 Mechanical Ventilator 35 12/15/18 17:00 81 13 165/45 (85) 100 Mechanical Ventilator 35.00 12/15/18 16:53 97.3 81 17 167/47 100 Mechanical Ventilator 35 12/15/18 16:52 97.3 12/15/18 16:18 79 22 100 35 12/15/18 16:06 173/52 12/15/18 16:00 Mechanical Ventilator 35 12/15/18 16:00 78 22 158/43 (81) 100 Mechanical Ventilator 35.00 12/15/18 15:00 80 21 152/40 (77) 100 Mechanical Ventilator 35.00 12/15/18 14:00 84 14 119/38 (65) 100 Mechanical Ventilator 35.00 12/15/18 13:45 84 22 100 35 12/15/18 13:00 94 10 155/47 (83) 100 Mechanical Ventilator 35.00 12/15/18 13:00 96 12/15/18 12:32 97.1 12/15/18 12:30 97.1 78 21 132/33 99 Mechanical Ventilator 35 12/15/18 12:23 79 22 99 35 12/15/18 12:00 Mechanical Ventilator 35 12/15/18 12:00 81 17 144/36 (72) 99 Mechanical Ventilator 35.00 I & O 12/16/18 07:00 Intake Total 5460 ml Output Total 1485 ml Balance 3975 ml Capillary Refill : Less Than 3 SecondsLess Than 3 Seconds General Appearance: No Apparent Distress HEENT: PERRL/EOMI Neck: Full Range of Motion Respiratory: Decreased Breath Sounds, Rhonci Cardiovascular: Regular Rate, Rhythm Gastrointestinal: soft, other (incision clean/dry) Extremity: Normal Capillary Refill Neurologic/Psychiatric: Alert, Oriented x3 Skin: Normal Color Lymphatic: No Adenopathy Results Lab Laboratory Tests 12/15/18 14:30: White Blood Count 16.0H, Red Blood Count 2.65L, Hemoglobin 6.8*L, Hematocrit 20* L, Mean Corpuscular Volume 77L, Mean Corpuscular Hemoglobin 26, Mean Corpuscular Hemoglobin Concent 34, Red Cell Distribution Width 15.9H, Platelet Count 267, Mean Platelet Volume 8.0, Neutrophils (%) (Auto) 90H, Lymphocytes (% ) (Auto) 2L, Monocytes (%) (Auto) 8, Eosinophils (%) (Auto) 0, Basophils (%) ( Auto) 0, Neutrophils # (Auto) 14.4H, Lymphocytes # (Auto) 0.4L, Monocytes # ( Auto) 1.3H, Eosinophils # (Auto) 0.0, Basophils # (Auto) 0.0, Sodium Level 134L , Potassium Level 4.5, Chloride Level 105, Carbon Dioxide Level 22, Anion Gap 7 , Blood Urea Nitrogen 46H, Creatinine 2.50H, Estimat Glomerular Filtration Rate 26, BUN/Creatinine Ratio 18, Glucose Level 108H, Calcium Level 7.5L, Phosphorus Level 5.7H, Magnesium Level 1.5L 12/16/18 03:00: White Blood Count 12.9H, Red Blood Count 2.75L, Hemoglobin 7.2L, Hematocrit 21L , Mean Corpuscular Volume 76L, Mean Corpuscular Hemoglobin 26, Mean Corpuscular Hemoglobin Concent 34, Red Cell Distribution Width 15.5H, Platelet Count 221, Mean Platelet Volume 8.0, Neutrophils (%) (Auto) 88H, Lymphocytes (%) (Auto) 4L , Monocytes (%) (Auto) 9, Eosinophils (%) (Auto) 0, Basophils (%) (Auto) 0, Neutrophils # (Auto) 11.3H, Lymphocytes # (Auto) 0.5L, Monocytes # (Auto) 1.1H, Eosinophils # (Auto) 0.0, Basophils # (Auto) 0.0, Sodium Level 132L, Potassium Level 4.2, Chloride Level 104, Carbon Dioxide Level 15L, Anion Gap 13, Blood Urea Nitrogen 51H, Creatinine 2.70H, Estimat Glomerular Filtration Rate 24, BUN/ Creatinine Ratio 19, Glucose Level 112H, Calcium Level 7.6L, Phosphorus Level 6.1H, Magnesium Level 2.7H, Blood Gas Puncture Site LEFT ARTLINE, Blood Gas Patient Temperature 96.8, Arterial Blood pH 7.36L, Arterial Blood Partial Pressure CO2 32L, Arterial Blood Partial Pressure O2 75L, Arterial Blood HCO3 18L, Arterial Blood Total CO2 18.9L, Arterial Blood Oxygen Saturation 96, Arterial Blood Base Excess -6.8L, Waldo Test POSITIVE, Blood Gas Ventilator Setting YES, Blood Gas Inspired Oxygen 35% 12/16/18 07:05: Sodium Level 138, Potassium Level 4.0, Chloride Level 104, Carbon Dioxide Level 22, Anion Gap 12, Blood Urea Nitrogen 51H, Creatinine 2.57H, Estimat Glomerular Filtration Rate 25, BUN/Creatinine Ratio 20, Glucose Level 108H, Calcium Level 7.5L, Prothrombin Time 16.5H, INR Comment 1.3, Activated Partial Thromboplast Time 41H, Lactic Acid Level 0.83, Corrected Calcium 8.8, Total Bilirubin 0.4, Aspartate Amino Transf (AST/SGOT) 32, Alanine Aminotransferase (ALT/SGPT) 12, Alkaline Phosphatase 40, Total Protein 4.6L, Albumin 2.4L Microbiology 12/14/18 MRSA Screen - Final, Complete MRSA not isolated Assessment/Plan Assessment/Plan Assess & Plan/Chief Complaint s/p expl lap, 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 cont vent per pulm another day. cont monitor urine output as well as renal fxn. started on D5 with bicarb to promote diuresis. await bowel fxn. Clinical Quality Measures DVT/VTE Risk/Contraindication: Risk Factor Score Per Nursin RFS Level Per Nursing on Admit: 4+=Very High GRETA METZ MD Dec 16, 2018 12:03
--- NOTE | 2018-12-16 14:50 | Anesthesia-General Post-Op ---
General Patient Condition Mental Status/LOC: Unreactive (SEDATED/ VENTILATED) Cardiovascular: Satisfactory Nausea/Vomiting: Absent (BRAD) Respiratory: Unsatisfactory (VENT DEPENDANT) Pain: Controlled Post Op Complications Complications None Follow Up Care/Instructions Patient Instructions None needed. Anesthesia/Patient Condition Patient Condition Patient is doing well, no complaints, stable vital signs, no apparent adverse anesthesia problems. No complications reported per nursing. ZHANE CAMPOS CRNA Dec 16, 2018 14:50
[2018-12-16] MEDS: fentaNYL 1,250 MCG/NS 250 ML DRIP IV SCH ×2 (15:14)
[2018-12-16 16:00] LABS: HEMOGLOBIN 8.9 G/DL (13.3-17.7)
[2018-12-16] MEDS: fentaNYL INJECTION 100 MCG/2 ML AMP IV PRN (18:25)
[2018-12-17] VITALS (29 sets, daily range): BP systolic 129–189; BP diastolic 36–69
[2018-12-17] MEDS: SODIUM BICARBONATE 8.4% VIAL 100 MEQ in D5 1/2 NS 1000 ML IV SOLUTION 1,000 ML IV SCH ×3 (00:57→16:53)
[2018-12-17] MEDS: PROPOFOL DRIP (ICU) 100 ML IV SCH (01:50)
[2018-12-17] MEDS: RT-ALBUTEROL/IPRATROPIUM 3 ML (DUONEB) VIAL INH SCH ×6 (02:30→23:17)
[2018-12-17 03:19] LABS: BASOPHILS % (AUTO) 0 % (0-10); EOSINOPHILS # (AUTO) 0.1 10^3/uL (0.0-0.3); EOSINOPHILS % (AUTO) 1 % (0-10); HEMATOCRIT 27 % (40-54); HEMOGLOBIN 9.3 G/DL (13.3-17.7); LYMPHOCYTES # (AUTO) 1.1 X 10^3 (1.0-4.0); LYMPHOCYTES % (AUTO) 10 % (12-44); MEAN CORPUSCULAR HEMOGLOBIN 26 PG (25-34); MEAN CORPUSCULAR HGB CONC 34 G/DL (32-36); MEAN CORPUSCULAR VOLUME 76 FL (80-99); MEAN PLATELET VOLUME 8.3 FL (7.4-10.4); MONOCYTES # (AUTO) 0.8 X 10^3 (0.0-1.0); MONOCYTES % (AUTO) 7 % (0-12); NEUTROPHILS # (AUTO) 9.6 X 10^3 (1.8-7.8); NEUTROPHILS % (AUTO) 83 % (42-75); PLATELET COUNT 193 10^3/uL (130-400); RED CELL DISTRIBUTION WIDTH 15.7 % (10.0-14.5); WHITE BLOOD COUNT 11.6 10^3/uL (4.3-11.0)
[2018-12-17 03:20] LABS: ABG BASE EXCESS -1.2 MMOL/L (-2.5-2.5); ABG OXYGEN SATURATION 88 % (94-100); ABG PCO2 32 MMHG (35-45); ABG PH 7.45 (7.37-7.43); ABG PO2 50 MMHG (79-93); ABG TCO2 23.4 MMOL/L (21.0-31.0); ALLENS TEST POSITIVE; INSPIRED O2 21%; PATIENT TEMP 97.6; VENTILATOR YES
[2018-12-17 03:37] LABS: CALCIUM 7.7 MG/DL (8.5-10.1); CREATININE SERUM 2.46 MG/DL (0.60-1.30); MAGNESIUM 2.4 MG/DL (1.8-2.4); PHOSPHORUS 4.6 MG/DL (2.3-4.7); POTASSIUM 3.3 MMOL/L (3.6-5.0)
[2018-12-17] MEDS: fentaNYL 1,250 MCG/NS 250 ML DRIP IV SCH ×2 (03:57)
[2018-12-17] MEDS ORDERED: FUROSEMIDE 40 MG/4 ML INJ (LASIX) IVP ONE (05:00)
[2018-12-17] MEDS ORDERED: FUROSEMIDE 40 MG/4 ML INJ (LASIX) ONE (05:04)
--- NOTE | 2018-12-17 05:04 | Pulmonary Progress Note ---
Subjective Time Seen by a Provider: 05:17 Subjective/Events-last exam Pt sedated on vent. UO has improved. Phos is now normal range. AGUSTO drain has been 520cc over the last 10hours. Sepsis Event Evaluation Height, Weight, BMI Height: 5'4.00" Weight: 155lbs. 2.0oz. [id number]; 26.6 BMI Method:Stated Focused Exam Lactate Level 12/16/18 07:05: Lactic Acid Level 0.83 Exam Exam Vital Signs Date Time Temp Pulse Resp B/P (MAP) Pulse Ox O2 Delivery O2 Flow Rate FiO2 12/17/18 04:00 73 17 155/49 (84) 94 Mechanical Ventilator 21.00 12/17/18 03:28 97.6 12/17/18 03:00 77 21 137/38 (71) 93 Mechanical Ventilator 21.00 12/17/18 02:00 75 14 137/36 (69) 93 Mechanical Ventilator 21.00 12/17/18 01:50 Mechanical Ventilator 21.00 12/17/18 01:00 78 22 93 21 12/17/18 01:00 81 12/17/18 01:00 80 24 140/39 (72) 93 Mechanical Ventilator 21.00 12/17/18 00:01 98.1 Mechanical Ventilator 21.00 12/17/18 00:00 77 21 142/41 (74) 93 Mechanical Ventilator 21.00 12/17/18 00:00 Mechanical Ventilator 21 12/16/18 23:00 77 21 137/38 (71) 93 Mechanical Ventilator 21.00 12/16/18 22:20 76 22 93 21 12/16/18 22:00 82 17 151/43 (79) 92 Mechanical Ventilator 21.00 12/16/18 21:43 Mechanical Ventilator 12/16/18 21:00 77 22 131/41 (71) 95 Mechanical Ventilator 21.00 12/16/18 20:30 80 22 95 21 12/16/18 20:00 Mechanical Ventilator 21 12/16/18 20:00 81 21 131/41 (71) 94 Mechanical Ventilator 21.00 12/16/18 20:00 97.6 12/16/18 19:15 Mechanical Ventilator 21.00 12/16/18 19:00 81 21 137/41 (73) 94 Mechanical Ventilator 21.00 12/16/18 19:00 84 12/16/18 18:20 82 22 97 25 12/16/18 18:00 82 21 113/79 (90) 96 Mechanical Ventilator 30.00 12/16/18 17:46 97.5 12/16/18 17:00 80 21 136/44 (74) 97 Mechanical Ventilator 30.00 12/16/18 16:00 Mechanical Ventilator 35 12/16/18 16:00 83 21 140/46 (77) 97 Mechanical Ventilator 30.00 12/16/18 15:00 85 21 138/45 (76) 97 Mechanical Ventilator 30.00 12/16/18 14:47 84 22 97 25 12/16/18 14:00 84 21 135/45 (75) 98 Mechanical Ventilator 30.00 12/16/18 13:58 97.2 12/16/18 13:00 88 21 133/45 (74) 97 Mechanical Ventilator 30.00 12/16/18 13:00 87 12/16/18 12:00 Mechanical Ventilator 35 12/16/18 12:00 92 21 134/46 (75) 97 Mechanical Ventilator 30.00 12/16/18 11:00 93 21 139/48 (78) 98 Mechanical Ventilator 30.00 12/16/18 10:45 97.4 93 21 140/49 100 30 12/16/18 10:43 93 22 100 30 12/16/18 10:19 97.1 12/16/18 10:16 96 22 147/51 100 Mechanical Ventilator 30 12/16/18 10:01 97.2 97 21 141/47 100 Mechanical Ventilator 30 12/16/18 10:00 97 21 143/48 (79) 100 Mechanical Ventilator 30.00 12/16/18 09:50 97.1 97 21 153/52 100 Mechanical Ventilator 30 12/16/18 09:46 97.0 96 17 150/52 98 Mechanical Ventilator 30 12/16/18 09:40 97.0 98 21 157/50 100 Mechanical Ventilator 30 12/16/18 09:19 97.6 103 19 164/54 100 Mechanical Ventilator 30 12/16/18 09:00 98 22 153/48 (83) 100 Mechanical Ventilator 30.00 12/16/18 08:00 Mechanical Ventilator 35 12/16/18 08:00 94 21 159/50 (86) 100 Mechanical Ventilator 30.00 12/16/18 07:00 89 21 163/47 (85) 99 Mechanical Ventilator 30.00 12/16/18 07:00 87 12/16/18 06:58 Mechanical Ventilator 30.00 12/16/18 06:55 88 22 100 35 12/16/18 06:29 Mechanical Ventilator 12/16/18 06:00 90 21 151/44 (79) 100 Mechanical Ventilator 35.00 12/16/18 05:00 110 15 176/59 (98) 98 Mechanical Ventilator 35.00 I & O 12/17/18 07:00 Intake Total 2095 ml Output Total 1285 ml Balance 810 ml Height & Weight Height: 5'4.00" Weight: 155lbs. 2.0oz. 70.090856jp; 26.6 BMI Method:Stated General Appearance: No Apparent Distress, Other (sedated on vent. Pt has anasarca generalized ) HEENT: PERRL/EOMI Neck: Full Range of Motion Respiratory: Decreased Breath Sounds, Rhonci Cardiovascular: Regular Rate, Rhythm Capillary Refill: Less Than 3 Seconds Gastrointestinal: soft, other (incision clean/dry) Extremity: Normal Capillary Refill, Pedal Edema Neurologic/Psychiatric: Alert, Oriented x3 Skin: Normal Color Lymphatic: No Adenopathy Results Lab Laboratory Tests 12/15/18 14:30 12/16/18 03:00 12/16/18 07:05 12/16/18 15:53 12/17/18 03:15 Assessment/Plan Assessment/Plan Respiratory failure s/p surgery -Continue vent -Will proceed with vent weaning today -AGUSTO drain has had 520 cc of serous fluid out over last 10hours -Pt has anasarca however only requiring 21 % on vent -Will give 40mg of IV lasix x 1 with albumin -Will keep bicarb gtt going for now and repeat labs at 1500. Acute on chronic renal failure with metabolic acidosis -Metabolic acidosis - improving -UO is improved last night it was 29cc/hr. During day shift UO was >30cc/hr -Hyperphos has resolved. -Continue to monitor close -Cont Bicarb gtt and repeat labs at 1500 -bilateral renal US - negative Hypokalemia -Replace Anemia -S/p 3 units RBC -Monitor SBO s/p surgery -Dr. Franklin is following Severe oxygen dependent COPD -SVNs -Oxygen HTN -Start hydralazine PRN -NO MANUEL/ARB secondary to renal function Prognosis guarded will start weaning vent. JASS SWANSON DO Dec 17, 2018 05:04
[2018-12-17] MEDS: DEXMEDETOMIDINE INJECTION 200 MCG in NS (IVPB) 50 ML IV SCH (05:16)
[2018-12-17] MEDS: POTASSIUM CL 10MEQ/50ML IVPB 50 ML IV SCH ×7 (05:17→18:41)
[2018-12-17] MEDS: MAGNESIUM 1 GM/100 ML IVPB 100 ML IV SCH (07:09)
[2018-12-17] MEDS: KCL 20 MEQ TAB (K-DUR) PO SCH (07:09)
[2018-12-17] MEDS ORDERED: PROPOFOL DRIP (ICU) 0 ML IV ONE (07:26)
--- NOTE | 2018-12-17 08:47 | Progress Note-Hospitalist ---
Subjective HPI/CC On Admission Date Seen by Provider: Dec 17, 2018 Time Seen by Provider: 08:42 Pt is a 68yoCM with a PMH of CKD, HTN, COPD on 3lpm who presented to the ER due to acute onset abdominal pain. He states he developed sharp upper pain and started vomitiung. He also noticed he was very distended. His pain became very severe and has was not passing flatus so he presented to the ER for evaluation where he was found to have a high grade bowel obstruction. He was asmitted for surgery and I am consulted for medical management. NGT was placed in the ER and that has helped with his nausea and vomiting but he is still having severe pain and bloating. Subjective/Events-last exam Pt intubated. Undergoing weaning trial. Opens eyes to voice but otherwise ROS unable to be obtained. Discused with RN. Received Lasix this AM. Urine output increased. Focused Exam Lactate Level 12/16/18 07:05: Lactic Acid Level 0.83 Objective Exam Vital Signs Vital Signs Date Time Temp Pulse Resp B/P (MAP) Pulse Ox O2 Delivery O2 Flow Rate FiO2 12/17/18 08:36 97.5 12/17/18 08:25 79 8 95 21 12/17/18 08:00 150/43 (78) Mechanical Ventilator 21.00 Capillary Refill : Less Than 3 SecondsLess Than 3 Seconds General Appearance: No Apparent Distress, Chronically ill, Other (sedated on vent) Respiratory: Decreased Breath Sounds, Rhonci, Other (on vent) Cardiovascular: Regular Rate, Rhythm, No Murmur Gastrointestinal: Abnormal Bowel Sounds (absent), Distended, Other (AGUSTO drain in place with serosanguinous drainage) Genital/Rectal: Other Extremity: Pedal Edema (trace), Other (upper extremity edema) Results/Procedures Lab Laboratory Tests 12/16/18 15:53 12/17/18 03:15 Patient resulted labs reviewed. Imaging: Reviewed Imaging Report Assessment/Plan Assessment and Plan Assess & Plan/Chief Complaint High grade bowel obstruction Diagnosis/Problems Diagnosis/Problems (1) Small bowel obstruction Status: Acute Assessment & Plan: POD #3 bowel resection Management per primary OG in place On Zosyn AGUSTO drain with 520cc out overnight Albumin and lasix given Hemoglobin stabilized Defer Lovenox for DVT ppx to surgery but ok from medical standpoint (2) Acute respiratory failure Assessment & Plan: Pulm consulted, appreciate recs Current undergoing vent weaning trial Qualifiers: Respiratory failure complication: hypoxia Qualified Codes: J96.01 - Acute respiratory failure with hypoxia (3) Acute renal failure Status: Acute Assessment & Plan: Baseline appears around 1.5-2 Creatinine 2.46 today- down from yesterday Continue bicarb gtt for acidosis UOP improved yesterday- continue to monitor closely Received Albumin/Lasix this AM Repeat labs at 1500 Qualifiers: Acute renal failure type: unspecified Qualified Codes: N17.9 - Acute kidney failure, unspecified (4) Microcytic anemia Assessment & Plan: CT Chest from 2018 shows advanced atherosclerotic disease s/p transfusion yesterday Will transfuse to keep Hgb >8 Consider IV iron when over acute illness (5) COPD (chronic obstructive pulmonary disease) Status: Acute Assessment & Plan: 3lpm baseline dependency Currently on vent post op Pulm consulted, appreciate recs Qualifiers: COPD type: unspecified COPD Qualified Codes: J44.9 - Chronic obstructive pulmonary disease, unspecified (6) Chronic hyponatremia Status: Acute Assessment & Plan: Na 137 today (7) Essential (primary) hypertension Assessment & Plan: Replaced art line and now reading appropriately Now off pressors Clinical Quality Measures DVT/VTE Risk/Contraindication: Risk Factor Score Per Nursin RFS Level Per Nursing on Admit: 4+=Very High LANCE SKINNER MD Dec 17, 2018 08:47
[2018-12-17] MEDS: cloNIDine 0.1 MG (CATAPRES) TAB PO SCH ×2 (08:48→22:06)
[2018-12-17] MEDS: PANTOPRAZOLE 40 MG (PROTONIX) VIAL IV SCH (08:48)
[2018-12-17] MEDS: PIPERACILLIN/TAZOBACTAM (BULK) 4.5 GM in NS (IVPB) 100 ML IV SCH ×4 (08:48→15:27)
--- NOTE | 2018-12-17 08:58 | Diagnostic Imaging Report ---
Indication: Shortness of breath Portable chest 4:13 AM There is an NG tube that enters the stomach. There is an ET tube tip near the lucinda. Heart size and pulmonary vascularity are normal. Lungs are clear. Impression: No change in the chest from previous day. Dictated by: Dictated on workstation # [id number]
[2018-12-17 09:15] LABS: ABG BASE EXCESS -0.6 MMOL/L (-2.5-2.5); ABG OXYGEN SATURATION 81 % (94-100); ABG PCO2 36 MMHG (35-45); ABG PH 7.43 (7.37-7.43); ABG PO2 46 MMHG (79-93); ABG TCO2 24.4 MMOL/L (21.0-31.0)
[2018-12-17 09:17] LABS: INSPIRED O2 21%; PATIENT TEMP 97.4; VENTILATOR YES
--- NOTE | 2018-12-17 10:13 | Progress Note (SOAP) ---
Subjective Date Seen by a Provider: Dec 17, 2018 Time Seen by a Provider: 10:00 Subjective/Events-last exam on vent and sedated. starting vent ween today. increase AGUSTO SS drainage however most likely from copious irrigation. adequate UO. Focused Exam Lactate Level 12/16/18 07:05: Lactic Acid Level 0.83 Objective Exam Vital Signs Date Time Temp Pulse Resp B/P (MAP) Pulse Ox O2 Delivery O2 Flow Rate FiO2 12/17/18 09:00 75 10 151/44 (79) 94 Mechanical Ventilator 21.00 12/17/18 08:36 97.5 12/17/18 08:25 79 8 95 21 12/17/18 08:21 83 25 95 21 12/17/18 08:00 Mechanical Ventilator 21 12/17/18 08:00 74 22 150/43 (78) 95 Mechanical Ventilator 21.00 12/17/18 07:06 72 22 94 21 12/17/18 07:00 73 12/17/18 07:00 73 22 157/48 (84) 94 Mechanical Ventilator 21.00 12/17/18 06:00 70 22 157/48 (84) 95 Mechanical Ventilator 21.00 12/17/18 05:00 73 22 157/48 (84) 95 Mechanical Ventilator 21.00 12/17/18 04:00 73 17 155/49 (84) 94 Mechanical Ventilator 21.00 12/17/18 04:00 Mechanical Ventilator 21 12/17/18 03:28 97.6 12/17/18 03:00 77 21 137/38 (71) 93 Mechanical Ventilator 21.00 12/17/18 02:30 74 22 94 21 12/17/18 02:00 75 14 137/36 (69) 93 Mechanical Ventilator 21.00 12/17/18 01:50 Mechanical Ventilator 21.00 12/17/18 01:00 78 22 93 21 12/17/18 01:00 81 12/17/18 01:00 80 24 140/39 (72) 93 Mechanical Ventilator 21.00 12/17/18 00:01 98.1 Mechanical Ventilator 21.00 12/17/18 00:00 77 21 142/41 (74) 93 Mechanical Ventilator 21.00 12/17/18 00:00 Mechanical Ventilator 21 12/16/18 23:00 77 21 137/38 (71) 93 Mechanical Ventilator 21.00 12/16/18 22:20 76 22 93 21 12/16/18 22:00 82 17 151/43 (79) 92 Mechanical Ventilator 21.00 12/16/18 21:43 Mechanical Ventilator 12/16/18 21:00 77 22 131/41 (71) 95 Mechanical Ventilator 21.00 12/16/18 20:30 80 22 95 21 12/16/18 20:00 Mechanical Ventilator 21 12/16/18 20:00 81 21 131/41 (71) 94 Mechanical Ventilator 21.00 12/16/18 20:00 97.6 12/16/18 19:15 Mechanical Ventilator 21.00 12/16/18 19:00 81 21 137/41 (73) 94 Mechanical Ventilator 21.00 12/16/18 19:00 84 12/16/18 18:20 82 22 97 25 12/16/18 18:00 82 21 113/79 (90) 96 Mechanical Ventilator 30.00 12/16/18 17:46 97.5 12/16/18 17:00 80 21 136/44 (74) 97 Mechanical Ventilator 30.00 12/16/18 16:00 Mechanical Ventilator 35 12/16/18 16:00 83 21 140/46 (77) 97 Mechanical Ventilator 30.00 12/16/18 15:00 85 21 138/45 (76) 97 Mechanical Ventilator 30.00 12/16/18 14:47 84 22 97 25 12/16/18 14:00 84 21 135/45 (75) 98 Mechanical Ventilator 30.00 12/16/18 13:58 97.2 12/16/18 13:00 88 21 133/45 (74) 97 Mechanical Ventilator 30.00 12/16/18 13:00 87 12/16/18 12:00 Mechanical Ventilator 35 12/16/18 12:00 92 21 134/46 (75) 97 Mechanical Ventilator 30.00 12/16/18 11:00 93 21 139/48 (78) 98 Mechanical Ventilator 30.00 12/16/18 10:45 97.4 93 21 140/49 100 30 12/16/18 10:43 93 22 100 30 12/16/18 10:19 97.1 12/16/18 10:16 96 22 147/51 100 Mechanical Ventilator 30 I & O 12/17/18 07:00 Intake Total 2247 ml Output Total 1680 ml Balance 567 ml Capillary Refill : Less Than 3 SecondsLess Than 3 Seconds General Appearance: No Apparent Distress HEENT: PERRL/EOMI Neck: Full Range of Motion Respiratory: Chest Non Tender, Decreased Breath Sounds, Rhonci Cardiovascular: Regular Rate, Rhythm Gastrointestinal: soft, other (woind clean/dry) Extremity: Normal Capillary Refill Neurologic/Psychiatric: Other (responds to touch) Skin: Normal Color Lymphatic: No Adenopathy Results Lab Laboratory Tests 12/16/18 15:53: Hemoglobin 8.9#L, Hematocrit 25L, Triglycerides Level 147 12/17/18 03:15: Hemoglobin 9.3L, Hematocrit 27L, White Blood Count 11.6H, Red Blood Count 3.55L , Mean Corpuscular Volume 76L, Mean Corpuscular Hemoglobin 26, Mean Corpuscular Hemoglobin Concent 34, Red Cell Distribution Width 15.7H, Platelet Count 193, Mean Platelet Volume 8.3, Neutrophils (%) (Auto) 83H, Lymphocytes (%) (Auto) 10L , Monocytes (%) (Auto) 7, Eosinophils (%) (Auto) 1, Basophils (%) (Auto) 0, Neutrophils # (Auto) 9.6H, Lymphocytes # (Auto) 1.1, Monocytes # (Auto) 0.8, Eosinophils # (Auto) 0.1, Basophils # (Auto) 0.0, Blood Gas Puncture Site LEFT ARTLINE, Blood Gas Patient Temperature 97.6, Arterial Blood pH 7.45H, Arterial Blood Partial Pressure CO2 32L, Arterial Blood Partial Pressure O2 50L, Arterial Blood HCO3 22L, Arterial Blood Total CO2 23.4, Arterial Blood Oxygen Saturation 88L, Arterial Blood Base Excess -1.2, Waldo Test POSITIVE, Blood Gas Ventilator Setting YES, Blood Gas Inspired Oxygen 21%, Sodium Level 137, Potassium Level 3.3L, Chloride Level 105, Carbon Dioxide Level 20L, Anion Gap 12 , Blood Urea Nitrogen 50H, Creatinine 2.46H, Estimat Glomerular Filtration Rate 26, BUN/Creatinine Ratio 20, Glucose Level 137H, Calcium Level 7.7L, Phosphorus Level 4.6, Magnesium Level 2.4 12/17/18 09:07: Blood Gas Puncture Site L RAD, Blood Gas Patient Temperature 97.4, Arterial Blood pH 7.43, Arterial Blood Partial Pressure CO2 36, Arterial Blood Partial Pressure O2 46L, Arterial Blood HCO3 23, Arterial Blood Total CO2 24.4, Arterial Blood Oxygen Saturation 81L, Arterial Blood Base Excess -0.6, Waldo Test NA, Blood Gas Ventilator Setting YES, Blood Gas Inspired Oxygen 21% Microbiology 12/14/18 Gram Stain - Final, Resulted 12/14/18 Sputum Culture, Resulted Pending Assessment/Plan Assessment/Plan Assess & Plan/Chief Complaint s/p expl lap, 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 cont vent per pulm another day however starting weening process today.. cont monitor urine output as well as renal fxn. started on D5 with bicarb to promote diuresis. await bowel fxn. Clinical Quality Measures DVT/VTE Risk/Contraindication: Risk Factor Score Per Nursin RFS Level Per Nursing on Admit: 4+=Very High GRETA METZ MD Dec 17, 2018 10:12
[2018-12-17] MEDS: hydrALAZINE (APESOLINE) 20 MG/ML VIAL IV PRN (12:00)
[2018-12-17] MEDS: fentaNYL INJECTION 100 MCG/2 ML AMP IV PRN (12:01)
--- NOTE | 2018-12-17 13:11 | Pulmonary Progress Note ---
Standard Progress Note Progress Notes Time Seen by Provider: 13:05 Called back to bedside secondary to pt being hypertensive. PT is now off the vent with Sp02 in the 90's with NC. PT is still sedate. He follows commands and answers questions. He states he is not in pain. Family at bedside and answered all questions and concerns that had. I discussed with RN plan of care. Assessment & Plan Respiratory failure s/p surgery -Pt is now off vent -His lungs are coarse bilaterally and his cough is weak -IS x 10breaths Q2 hours WA -Change SVNs to easy PAP -Will use BiPAP at night Pain control -D/c Fentanyl gtt and will give morphine 1-2mg IV Q 4 -Monitor HTN -Continue Clonidine, start Lopressor, restart hydralazine PO and continue Hydralazine IV - Acute on chronic renal failure with metabolic acidosis -Metabolic acidosis - improving -UO has improved since lasix -Hyperphos has resolved. -Continue to monitor close -Cont Bicarb gtt and repeat labs at 1500 -bilateral renal US - negative Hypokalemia -Replace Anemia -S/p 3 units RBC -Monitor SBO s/p surgery -Dr. Franklin is following Severe oxygen dependent COPD -SVNs -Oxygen HTN -Start hydralazine PRN -NO MANUEL/ARB secondary to renal function Critical Care: Critically Ill Patient Time spent with patient (mins): 30 Focused Exam Lactate Level 12/16/18 07:05: Lactic Acid Level 0.83 JASS SWANSON DO Dec 17, 2018 13:11
[2018-12-17] MEDS: hydrALAZINE (APRESOLINE) 25 MG TAB PO SCH ×2 (15:27→22:06)
[2018-12-17 16:21] LABS: CALCIUM 8.1 MG/DL (8.5-10.1); CREATININE SERUM 2.35 MG/DL (0.60-1.30); MAGNESIUM 2.3 MG/DL (1.8-2.4); PHOSPHORUS 4.8 MG/DL (2.3-4.7); POTASSIUM 3.8 MMOL/L (3.6-5.0)
[2018-12-17] MEDS: meTOprolol TARTRATE 25 MG (LOPRESSOR) TABLET PO SCH (22:06)
--- NOTE | 2018-12-17 23:45 | NUR ---
Pt c/o nausea, NG tube flushed, new connectors and tubing from pt to wall replaced, appears patent at this time. Per RT, pt to be on bipap through night, this RN contacted E-ICU at this time to switch from bipap to vapotherm r/t pt's nausea.
[2018-12-18] VITALS (24 sets, daily range): BP systolic 128–202; BP diastolic 44–98
[2018-12-18] MEDS: PIPERACILLIN/TAZOBACTAM (BULK) 4.5 GM in NS (IVPB) 100 ML IV SCH ×4 (00:32→23:49)
[2018-12-18] MEDS: hydrALAZINE (APESOLINE) 20 MG/ML VIAL IV PRN ×2 (00:35→13:19)
[2018-12-18] MEDS: SODIUM BICARBONATE 8.4% VIAL 100 MEQ in D5 1/2 NS 1000 ML IV SOLUTION 1,000 ML IV SCH (01:48)
[2018-12-18] MEDS: morphine INJ 4 MG/ML 1 ML (VIAL/SYRINGE) IVP PRN ×5 (01:51→15:51)
[2018-12-18 03:10] LABS: ABG BASE EXCESS 3.8 MMOL/L (-2.5-2.5); ABG OXYGEN SATURATION 95 % (94-100); ABG PCO2 39 MMHG (35-45); ABG PH 7.46 (7.37-7.43); ABG PO2 70 MMHG (79-93); ABG TCO2 28.7 MMOL/L (21.0-31.0); BASOPHILS % (AUTO) 0 % (0-10); EOSINOPHILS # (AUTO) 0.1 10^3/uL (0.0-0.3); EOSINOPHILS % (AUTO) 0 % (0-10); HEMATOCRIT 32 % (40-54); HEMOGLOBIN 10.7 G/DL (13.3-17.7); LYMPHOCYTES # (AUTO) 0.9 X 10^3 (1.0-4.0); LYMPHOCYTES % (AUTO) 6 % (12-44); MEAN CORPUSCULAR HEMOGLOBIN 26 PG (25-34); MEAN CORPUSCULAR HGB CONC 34 G/DL (32-36); MEAN CORPUSCULAR VOLUME 78 FL (80-99); MEAN PLATELET VOLUME 8.4 FL (7.4-10.4); MONOCYTES % (AUTO) 12 % (0-12); NEUTROPHILS # (AUTO) 13.9 X 10^3 (1.8-7.8); NEUTROPHILS % (AUTO) 82 % (42-75); PLATELET COUNT 250 10^3/uL (130-400); RED CELL DISTRIBUTION WIDTH 16.8 % (10.0-14.5); WHITE BLOOD COUNT 16.9 10^3/uL (4.3-11.0)
[2018-12-18 03:11] LABS: ALLENS TEST POSITIVE; INSPIRED O2 VAPOTHERM 40L/40%; VENTILATOR NO
[2018-12-18 03:12] LABS: PATIENT TEMP 98.5
[2018-12-18] MEDS: RT-ALBUTEROL/IPRATROPIUM 3 ML (DUONEB) VIAL INH SCH ×6 (03:24→22:10)
[2018-12-18 03:30] LABS: CALCIUM 8.2 MG/DL (8.5-10.1); CREATININE SERUM 2.05 MG/DL (0.60-1.30); MAGNESIUM 2.3 MG/DL (1.8-2.4); PHOSPHORUS 5.1 MG/DL (2.3-4.7); POTASSIUM 3.9 MMOL/L (3.6-5.0)
--- NOTE | 2018-12-18 03:40 | NUR ---
E-ICU contacted r/t pt's elevated blood pressure and tachycardia increasing throughout night. PRN bp and pain medication administered per protocol (see eMAR for times) throughout the night. Orders received.
[2018-12-18] MEDS ORDERED: LABETALOL HCL 20 MG/4 ML VIAL ONE (04:09)
[2018-12-18] MEDS ORDERED: FUROSEMIDE 40 MG/4 ML INJ (LASIX) IVP ONE (05:00)
[2018-12-18] MEDS ORDERED: ANIDULAFUNGIN INJECTION 200 MG in NS (IVPB) 250 ML IV ONE (05:00)
--- NOTE | 2018-12-18 05:07 | Pulmonary Progress Note ---
Subjective Time Seen by a Provider: 05:15 Subjective/Events-last exam Pt on vapotherm appears very weak. Sepsis Event Evaluation Height, Weight, BMI Height: 5'4.00" Weight: 184lbs. 5.0oz. 83.517722rr; 26.6 BMI Method:Stated Focused Exam Lactate Level 12/16/18 07:05: Lactic Acid Level 0.83 Exam Exam Vital Signs Date Time Temp Pulse Resp B/P (MAP) Pulse Ox O2 Delivery O2 Flow Rate FiO2 12/18/18 04:00 105 17 202/64 (110) 97 Vapotherm 30.00 35.00 12/18/18 03:42 Vapotherm 30.00 35.00 12/18/18 03:24 98 Vapotherm 40.00 40 12/18/18 03:19 98.5 12/18/18 03:00 98 25 193/61 (105) 98 Vapotherm 40.00 40.00 12/18/18 02:00 96 26 195/56 (102) 99 Vapotherm 40.00 40.00 12/18/18 01:00 109 12/18/18 01:00 101 19 197/62 (107) 99 Vapotherm 40.00 40.00 12/18/18 00:27 Vapotherm 40.00 40.00 12/18/18 00:15 99.4 Vapotherm 40.00 40.00 12/18/18 00:12 97 Vapotherm 40.00 40 12/18/18 00:00 93 20 199/66 (110) 98 Nasal Cannula 3.00 12/18/18 00:00 Nasal Cannula 3.00 12/17/18 23:18 96 Nasal Cannula 3.00 12/17/18 23:00 101 26 182/69 (106) 95 Nasal Cannula 3.00 12/17/18 22:00 110 21 164/50 (88) 98 Nasal Cannula 3.00 12/17/18 21:00 112 21 169/54 (92) 99 Nasal Cannula 3.00 12/17/18 20:00 108 16 155/47 (83) 100 Nasal Cannula 3.00 12/17/18 20:00 Nasal Cannula 3.00 12/17/18 19:42 99.5 Nasal Cannula 3.00 12/17/18 19:00 108 12/17/18 19:00 106 15 133/41 (71) 100 Nasal Cannula 5.00 12/17/18 18:40 98 Nasal Cannula 3.00 12/17/18 18:00 113 24 162/51 (88) 98 Nasal Cannula 5.00 12/17/18 17:00 114 18 160/50 (86) 95 Nasal Cannula 5.00 12/17/18 16:00 Nasal Cannula 3.00 12/17/18 16:00 112 14 139/43 (75) 97 Nasal Cannula 5.00 12/17/18 15:00 112 16 160/53 (88) 96 Nasal Cannula 5.00 12/17/18 14:28 98 Nasal Cannula 3.00 12/17/18 14:00 114 15 189/54 (99) 94 Nasal Cannula 5.00 12/17/18 13:04 97.3 12/17/18 13:00 106 16 165/49 (87) 96 Nasal Cannula 5.00 12/17/18 13:00 108 12/17/18 12:43 Nasal Cannula 5.00 12/17/18 12:01 97.9 12/17/18 12:00 92 18 132/41 (71) 98 Nasal Cannula 5.00 12/17/18 11:47 96 Nasal Cannula 5.00 12/17/18 11:00 90 13 162/51 (88) 95 Mechanical Ventilator 21.00 12/17/18 10:33 84 10 92 21 12/17/18 10:00 79 10 147/49 (81) 94 Mechanical Ventilator 21.00 12/17/18 09:00 75 10 151/44 (79) 94 Mechanical Ventilator 21.00 12/17/18 08:36 97.5 12/17/18 08:25 79 8 95 21 12/17/18 08:21 83 25 95 21 12/17/18 08:00 Mechanical Ventilator 21 12/17/18 08:00 74 22 150/43 (78) 95 Mechanical Ventilator 21.00 12/17/18 07:06 72 22 94 21 12/17/18 07:00 73 12/17/18 07:00 73 22 157/48 (84) 94 Mechanical Ventilator 21.00 12/17/18 06:00 70 22 157/48 (84) 95 Mechanical Ventilator 21.00 I & O 12/18/18 07:00 Intake Total 2615 ml Output Total 4265 ml Balance -1650 ml Height & Weight Height: 5'4.00" Weight: 184lbs. 5.0oz. 83.663733xx; 26.6 BMI Method:Stated General Appearance: Chronically ill, Mild Distress, Thin HEENT: PERRL/EOMI Neck: Full Range of Motion Respiratory: Chest Non Tender, Decreased Breath Sounds Cardiovascular: Regular Rate, Rhythm Capillary Refill: Less Than 3 Seconds Gastrointestinal: soft, other (woind clean/dry) Extremity: Normal Capillary Refill Neurologic/Psychiatric: Other (responds to touch) Skin: Normal Color Lymphatic: No Adenopathy Results Lab Laboratory Tests 12/16/18 07:05 12/16/18 15:53 12/17/18 03:15 12/17/18 15:43 12/18/18 03:05 Assessment/Plan Assessment/Plan Respiratory failure s/p surgery -Pt off ventilator on vapotherm Pneumonia - sputum is growing S.Aureus and yeast -Start zyvox, and eraxis -Check blood cultures and UA Acute on chronic renal failure with metabolic acidosis - improving -D/C bicarb gtt. Start D5LR at 30cc/hr -Continue to monitor close -bilateral renal US - negative -Avoid MANUEL/ARBS HTN- urgency - hydralazine PRN -PO clonidine, Lopressor -Start Cardene gtt -- Keep SBP <180 -NO MANUEL/ARB secondary to renal function Sinus tach -Check EGK -Consult cardiology Anemia -S/p 4 units RBC -Monitor SBO s/p surgery -Dr. Franklin is following --AGUSTO drain has had 500 over last 10hours Severe oxygen dependent COPD -SVNs -Oxygen Anasarca -Give lasix x 1 40mg -Check BNP Prognosis guarded will start weaning vent. JASS SWANSON DO Dec 18, 2018 05:07
[2018-12-18] MEDS ORDERED: FUROSEMIDE 40 MG/4 ML INJ (LASIX) ONE (05:27)
[2018-12-18] MEDS ORDERED: D5 LR IV SOLUTION 1,000 ML IV ONE (05:28)
[2018-12-18] MEDS ORDERED: niCARdipine IV FOR DRIP 50 MG KIT ONE (05:29)
[2018-12-18] MEDS ORDERED: NS (IVPB) 250 ML ONE (05:29)
[2018-12-18] MEDS ORDERED: LABETALOL HCL 20 MG/4 ML VIAL IV ONE (05:30)
[2018-12-18] MEDS: ALBUMIN 25% 25 GM/100 ML 100 ML IV SCH ×3 (05:58→21:27)
[2018-12-18] MEDS: D5 LR IV SOLUTION 1,000 ML IV SCH (06:01)
[2018-12-18] MEDS: POTASSIUM CL 10MEQ/50ML IVPB 50 ML IV SCH ×3 (06:05→07:17)
[2018-12-18] MEDS: KCL 20 MEQ TAB (K-DUR) PO SCH (06:05)
[2018-12-18] MEDS: MAGNESIUM 1 GM/100 ML IVPB 100 ML IV SCH (06:05)
[2018-12-18] MEDS: hydrALAZINE (APRESOLINE) 25 MG TAB PO SCH ×3 (06:05→21:58)
[2018-12-18] MEDS: niCARdipine IV 50 MG in NS (IVPB) 230 ML IV SCH ×3 (06:07→20:16)
--- NOTE | 2018-12-18 08:15 | Diagnostic Imaging Report ---
Indication: Post extubation. Compared: 12/17 Findings: Lungs have some patchy basilar infiltrates or atelectasis increased from the prior pleural fluid volumes left greater than right, may be mildly increased. There is no pneumothorax. Impression: Decreased lung volumes with increased basilar atelectasis post extubation pleural effusions greater left may have also mildly progressed, no pneumothorax. Dictated by: Dictated on workstation # [id number]
--- NOTE | 2018-12-18 09:26 | Physical Therapy Progress Note ---
Therapy Progress Note No treatment per RN secondary to medical status and decreased SAO2. PT will continue to monitor patient status and will assess when patient is able to actively participate and is medically stable. OPAL MARTIN PT Dec 18, 2018 09:26
[2018-12-18] MEDS ORDERED: amLODIPine 10 MG (NORVASC) TAB ONE (09:39)
[2018-12-18] MEDS: LINEZOLID IVPB 300 ML IV SCH ×2 (09:43→20:23)
[2018-12-18] MEDS: PANTOPRAZOLE 40 MG (PROTONIX) VIAL IV SCH (09:43)
[2018-12-18] MEDS: cloNIDine 0.1 MG (CATAPRES) TAB PO SCH ×3 (09:44→20:23)
[2018-12-18] MEDS: meTOprolol TARTRATE 25 MG (LOPRESSOR) TABLET PO SCH ×2 (09:44→20:23)
[2018-12-18] MEDS: amLODIPine 10 MG (NORVASC) TAB PO SCH (09:45)
--- NOTE | 2018-12-18 10:07 | Consultation-Cardiology ---
HPI-Cardiology Cardiology Consultation: Date of Consultation 12/18/18 Date of Admission Attending Physician Urvashi Franklin MD Admitting Physician Wesley Domínguez MD Consulting Physician Brionna HERNANDEZ MD HPI: Time Seen by a Provider: 08:00 Chief Complaint: Tachycardia, shortness of breath, elevated blood pressure This is a 68-year-old gentleman who had abdominal surgery by Dr. Franklin on 2018 requiring small bowel resection. The patient was intubated, ventilated followed by Dr. Bauer. Recent extubation and the patient is on Vapotherm. The patient looks very weak and short of breath. History is limited. Likely event associated pneumonia as well. Patient has been on DVT prophylaxis and surgery. Review of Systems-Cardiology Review of Systems Constitutional: As described under HPI; No As described under HPI, No no symptoms reported, No chills, No fever, No lightheadedness; malaise, tiredness Eyes: No As described under HPI, No no symptoms reported, No blindness, No blurred vision, No contact lenses, No drainage, No decreased acuity, No foreign body sensation, No pain, No vision change Ears/Nose/Throat: No As described under HPI, No no symptoms reported, No chronic hearing loss, No ear discharge, No ear pain, No nasal drainage, No ulcerations Respiratory: No no symptoms reported; As described under HPI; No As described under HPI, No cough, No orthopnea; shortness of breath; No SOB with excertion Cardiovascular: No no symptoms reported; As described under HPI; No As described under HPI, No chest pain, No edema, No irregular heart rate, No lightheadedness, No palpitations Gastrointestinal: No no symptoms reported; As described under HPI; No abdomen distended, No abdominal pain, No blood streaked bowels, No constipation, No diarrhea, No nausea, No vomiting, No stool coloration changes Genitourinary: No As described under HPI, No burning, No dysuria, No discharge , No frequency, No flank pain, No hematuria, No urgency Skin: No rash, No skin related problems, No ulcerations Psychiatric/Neurological: No anxiety, No depression, No seizure, No focal weakness, No syncope Hematologic: No bleeding abnormalities [id number] Hx Patient Social History Marrital Status: Alcohol Use: Regular Use Recreational Drug Use: No Smoking Status: Former Smoker Former smoker/When Quit: Oct 03, 2014 2nd Hand Smoke Exposure: No Recent Foreign Travel: No Recent Infectious Disease Expo: No Physical Abuse Screen: No Sexual Abuse: No Immunizations Up To Date Tetanus Booster (TDap): Less than 5yrs Date of Pneumonia Vaccine: Jun 18, 2015 Date of Influenza Vaccine: Jul 29, 2014 Past Medical History PMH As described under Assessment. Family Medical History Family History: Cardiovascular disease UNCLE Diabetes mellitus 19 MOTHER Kidney disease [place] GRANDMOTHER (CANCER) Allergies and Home Medications Allergies Coded Allergies: sulfamethoxazole (Unverified Allergy, Mild, 12/13/18) trimethoprim (Unverified Allergy, Mild, 12/13/18) Home Medications Amlodipine Besylate 10 Mg Tablet, 10 MG PO DAILY, (Reported) Clonidine HCl 0.1 Mg Tablet, 0.1 MG PO BID, (Reported) Fluticasone/Umeclidin/Vilanter 1 Each Blst.w.dev, 1 PUFF INH DAILY, (Reported) Furosemide 40 Mg Tablet, 40 MG PO DAILY, (Reported) Hydralazine HCl 25 Mg Tablet, 25 MG PO BID, (Reported) Ipratropium/Albuterol Sulfate 3 Ml Ampul.neb, 3 ML NEB TID, (Reported) Losartan Potassium 100 Mg Tablet, 100 MG PO DAILY, (Reported) Prednisone 2.5 Mg Tablet, 2.5 MG PO Q48H, (Reported) Sodium Chloride 50 Ml Daisy, 2 SPRAYS NS Q2H PRN for DRY NOSE, (Reported) Tamsulosin HCl 0.4 Mg Cap, 0.4 MG PO 1730, (Reported) Patient Home Medication List Home Medication List Reviewed: Yes Physical Exam-Cardiology Physical Exam Vital Signs/I&O 12/17/18 12/18/18 12/18/18 12/18/18 23:18 00:00 00:00 00:12 Pulse 93 Resp 20 B/P (MAP) 199/66 (110) Pulse Ox 96 98 97 O2 Delivery Nasal Cannula Nasal Cannula Nasal Cannula Vapotherm O2 Flow Rate 3.00 3.00 3.00 40.00 FiO2 40 12/18/18 12/18/18 12/18/18 12/18/18 00:15 00:27 01:00 01:00 Temp 99.4 Pulse 101 109 Resp 19 B/P (MAP) 197/62 (107) Pulse Ox 99 O2 Delivery Vapotherm Vapotherm Vapotherm O2 Flow Rate 40.00 40.00 40.00 40.00 40.00 40.00 12/18/18 12/18/18 12/18/18 12/18/18 02:00 03:00 03:19 03:24 Temp 98.5 Pulse 96 98 Resp 26 25 B/P (MAP) 195/56 (102) 193/61 (105) Pulse Ox 99 98 98 O2 Delivery Vapotherm Vapotherm Vapotherm O2 Flow Rate 40.00 40.00 40.00 40.00 40.00 FiO2 40 12/18/18 12/18/18 12/18/18 12/18/18 03:42 04:00 04:00 05:00 Pulse 105 79 Resp 17 20 B/P (MAP) 202/64 (110) 187/61 (103) Pulse Ox 97 97 O2 Delivery Vapotherm Vapotherm Vapotherm Vapotherm O2 Flow Rate 30.00 30.00 35.00 30.00 35.00 35.00 35.00 FiO2 30 12/18/18 12/18/18 12/18/18 12/18/18 06:00 07:00 07:00 07:28 Pulse 85 85 86 Resp 17 19 B/P (MAP) 200/73 (115) 164/54 (90) Pulse Ox 90 96 95 O2 Delivery Vapotherm Vapotherm Vapotherm O2 Flow Rate 30.00 30.00 35.00 35.00 35.00 FiO2 30 12/18/18 12/18/18 12/18/18 12/18/18 08:00 09:00 10:00 11:02 Pulse 85 93 93 Resp 18 15 23 B/P (MAP) 154/53 (86) 156/53 (87) 128/44 (72) Pulse Ox 95 94 95 99 O2 Delivery Vapotherm Vapotherm Vapotherm Vapotherm O2 Flow Rate 30.00 30.00 30.00 35.00 35.00 35.00 35.00 FiO2 30 12/18/18 00:00 Intake Total 1395 ml Output Total 2175 ml Balance -780 ml Capillary Refill : Less Than 3 SecondsLess Than 3 Seconds Constitutional: No appears stated age, No AAO x 3; apparent distress; No PERRL , No well-developed, No well-nourished, No other HEENT: No PERRL, No normal ENT inspection, No TMs normal, No pharynx normal, No scleral icterus (R), No scleral icterus (L), No pale conjunctivae (R), No pale conjunctivae (L), No photophobia, No TM abnormal (R), No TM abnormal (L), No pharyngeal erythema, No tonsillar exudate, No other, No discharge, No EOMI, No hearing is well preserved, No hard of hearing, No oral hygience is good, No ulceration, No xanthelasmas are seen Neck: No non-tender, No full range of motion, No supple, No normal inspection, No carotid bruit, No limited range of motion, No lymphadenopathy (R), No lymphadenopathy (L), No tender lateral, No tender midline, No thyromegaly, No other, No carotid pulses are 2 + bilaterally, No with good upstrokes Respiratory: accessory muscle use, respiratory distress, chest is bilaterally symmetric Cardiovascular: regular rate-rhythm; No irregularly irregular, No extra beats, No parasternal heave is noted, No JVD, No edema, No bradycardia; tachycardia; No point of maximal impulse, No cardiac thrills are palpable; S1 and S2; No gallop/S3, No gallop/S4, No diastolic murmur, No systolic murmur, No friction rub, No click, No other Gastrointestinal: No tender, No soft, No round, No distended, No pulsatile mass , No organomegaly, No guarding, No rebound, No tenderness, No hernia, No mass, No audible bowel sounds, No abnormal bowel sounds, No abdominal bruits, No spleenomegaly, No other Rectal: deferred Extremities: No normal range of motion, No non-tender, No normal inspection, No pedal edema, No calf tenderness, No normal capillary refill, No pelvis stable , No calf tenderness, No inflammation, No pedal edema, No slow capillary refill , No swelling, No other, No abrasion, No clubbing, No cyanosis, No ecchymosis, No laceration, No no lower extremity edema bilateral, No significant edema, No tenderness, No wound Neurologic/Psychiatric: no motor/sensory deficits, other Skin: cool Data Review Labs Laboratory Tests 12/17/18 15:43: Sodium Level 140, Potassium Level 3.8, Chloride Level 105, Carbon Dioxide Level 22, Anion Gap 13, Blood Urea Nitrogen 48H, Creatinine 2.35H, Estimat Glomerular Filtration Rate 28, BUN/Creatinine Ratio 20, Glucose Level 68L, Calcium Level 8.1L, Phosphorus Level 4.8H, Magnesium Level 2.3 12/18/18 03:05: Sodium Level 143, Potassium Level 3.9, Chloride Level 106, Carbon Dioxide Level 25, Anion Gap 12, Blood Urea Nitrogen 42H, Creatinine 2.05H, Estimat Glomerular Filtration Rate 32, BUN/Creatinine Ratio 20, Glucose Level 87, Calcium Level 8.2L, Phosphorus Level 5.1H, Magnesium Level 2.3, White Blood Count 16.9H, Red Blood Count 4.05L, Hemoglobin 10.7L, Hematocrit 32L, Mean Corpuscular Volume 78L , Mean Corpuscular Hemoglobin 26, Mean Corpuscular Hemoglobin Concent 34, Red Cell Distribution Width 16.8H, Platelet Count 250, Mean Platelet Volume 8.4, Neutrophils (%) (Auto) 82H, Lymphocytes (%) (Auto) 6L, Monocytes (%) (Auto) 12, Eosinophils (%) (Auto) 0, Basophils (%) (Auto) 0, Neutrophils # (Auto) 13.9H, Lymphocytes # (Auto) 0.9L, Monocytes # (Auto) 2.0H, Eosinophils # (Auto) 0.1, Basophils # (Auto) 0.0, Blood Gas Puncture Site LEFT ARTLINE, Blood Gas Patient Temperature 98.5, Arterial Blood pH 7.46H, Arterial Blood Partial Pressure CO2 39, Arterial Blood Partial Pressure O2 70L, Arterial Blood HCO3 28H, Arterial Blood Total CO2 28.7, Arterial Blood Oxygen Saturation 95, Arterial Blood Base Excess 3.8H, Waldo Test POSITIVE, Blood Gas Ventilator Setting NO, Blood Gas Inspired Oxygen VAPOTHERM 40L/40%, B-Type Natriuretic Peptide 2754.6H, Albumin 2.6L 12/18/18 05:50: Lactic Acid Level 0.65 Microbiology 12/14/18 Gram Stain - Final, Resulted 12/14/18 Sputum Culture - Preliminary, Resulted Usual upper respiratory justino YEAST Staphylococcus aureus A/P-Cardiology Assessment/Admission Diagnosis Ventilator associated pneumonia, Sinus tachycardia, Acute diastolic congestive heart failure, Severe hypertension, Acute renal failure Plan Ventilator associated pneumonia, on broad spectrum antibiotics. Blood cultures and urinalysis. Defer to Dr. Bauer. Sinus tachycardia, likely due to severe systemic illness. Patient was on DVT prophylaxis. Low suspicion for PE. However we'll defer to Dr. Bauer. Acute diastolic congestive heart failure, anasarca, significantly elevated BNP. Agree with Lasix. Severe hypertension, on Cardene infusion. Blood pressure was 160 systolic when I saw her. I will recommend giving amlodipine 10 mg through the old G-tube and see if he can gradually reduce Cardene infusion. I lateral renal ultrasound was negative. Avoid MANUEL inhibitor and angiotensin receptor blockers. Acute renal failure, Post-abdominal surgery, deferred to Dr. Franklin. Complicated patient with guarded prognosis. Dr. Salamanca to take over cardiology service from tomorrow. Thank you for your consultation. Please call me if you have any questions. Simran Hernandez MD, FACP, FACC, FSCAI, FHRS, CCDS Interventional Cardiology Cardiac Electrophysiology Vascular Medicine and Endovascular Interventions Clinical Quality Measures DVT/VTE Risk/Contraindication: Risk Factor Score Per Nursin RFS Level Per Nursing on Admit: 4+=Very High Brionna HERNANDEZ MD Dec 18, 2018 10:07 am
--- NOTE | 2018-12-18 11:15 | Occ Therapy Progress Note ---
Therapy Progress Note Order received for OT eval and treat. Chart review completed. Attempted therapy at 1040. RN states pt is stable and okay to participate in bed level activity. Pt resting in bed with eyes open. Pt's speech is difficult to understand. Attempted to complete evaluation. Pt does not answer questions and no family present to provide PLOF. Attempted UE ROM assessment. Pt did not participate and resisted all movement. Unable to complete evaluation at this time. Will attempt to complete 12/19/18. 1, visit MARCELLE NOEL OT Dec 18, 2018 11:15
--- NOTE | 2018-12-18 12:55 | Physician Query Clarification ---
PQ-Intro New Diagnosis Admission/Discharge Admission Date: Dec 13, 2018 at 15:21 Discharge Date: The medical record reflects the following clinical scenario: History/Risk Factors: Malrotation of jejunum Ischemia jejunum Clinical Findings: Path report findings: Small bowel, proximal,segmental resection-Hemorrhagic ischemic necrosis with transmural inflammation and acute serositis, negative for perforation, focal subtotal submucosal vascular occlusive calcification, negative for mesenteric thrombosis; one margin appears viable, the opposite margin appears necrotic. Treatment: Excision of proximal jejunum 150 cm in length with an ischemic bowel. Question: Should either of the following conditions from the pathology report be added? Please document below. 1. Hemorrhagic ischemic necrosis of small intestine. 2. Acute serositis, small intestine. 3. Other, with explanation of the clinical findings. 4. Clinically undetermined, no explanation for the clinical findings. PHYSICIAN RESPONSE What condition reflects above: 1 In responding to this query, please exercise your independent professional judgment. The purpose of this communication is to more accurately reflect the complexity of your patients condition. The fact that a question is asked does not imply that any particular answer is desired or expected. Thank you for your timely response to this clarification. Requestors name: Christie Cardoza [facility], [facility] Phone # [phone] or [phone] THIS PHYSICIAN QUERY FORM IS A PERMANENT PART OF THE MEDICAL RECORD CHRISTIE CARDOZA Dec 18, 2018 12:55 GRETA METZ MD Dec 18, 2018 14:11
--- NOTE | 2018-12-18 13:04 | Physician Query Clarification ---
PQ-Further Specificity Admission/Discharge Admission Date: Dec 13, 2018 at 15:21 Discharge Date: The medical record reflects the following clinical scenario: History/Risk Factors: Malrotation jejunum with ischemia Clinical Findings: Malroation of jejunum with ischemia." Immediately, a distended loop of bowel, which was ischemic and very dark and nonviable identified. Treatment: Excision jejunum with side to sided anastamosis. Question: Can you further specify Ischemia, small bowel per the clinical indicators above? Please document below. 1. Acute ischemia small bowel. 2. Chronic ischemia small bowel. 3. Other, with explanation of the clinical findings. 4. Clinically undetermined, no explanation for the clinical findings. PHYSICIAN RESPONSE Can you specify per above: 1 In responding to this query, please exercise your independent professional judgment. The purpose of this communication is to more accurately reflect the complexity of your patients condition. The fact that a question is asked does not imply that any particular answer is desired or expected. Thank you for your timely response to this clarification. Requestors name: Christie Cardoza [facility] Phone # ext [phone] or [phone] THIS PHYSICIAN QUERY FORM IS A PERMANENT PART OF THE MEDICAL RECORD CHRISTIE CARDOZA Dec 18, 2018 13:04 GRETA METZ MD Dec 18, 2018 14:12
--- NOTE | 2018-12-18 14:06 | Progress Note (SOAP) ---
Subjective Date Seen by a Provider: Dec 18, 2018 Time Seen by a Provider: 13:00 Subjective/Events-last exam pt extubated. responsive to voice however fatigued. no bowel fxn yet. anasarca. Focused Exam Lactate Level 12/16/18 07:05: Lactic Acid Level 0.83 12/18/18 05:50: Lactic Acid Level 0.65 Objective Exam Vital Signs Date Time Temp Pulse Resp B/P (MAP) Pulse Ox O2 Delivery O2 Flow Rate FiO2 12/18/18 13:00 86 13 168/56 (93) 98 Vapotherm 30.00 35.00 12/18/18 12:00 79 16 165/52 (89) 99 Vapotherm 30.00 35.00 12/18/18 12:00 Vapotherm 35.00 30 12/18/18 11:02 99 Vapotherm 35.00 30 12/18/18 11:00 82 15 148/52 (84) 99 Vapotherm 30.00 35.00 12/18/18 10:00 93 23 128/44 (72) 95 Vapotherm 30.00 35.00 12/18/18 09:00 93 15 156/53 (87) 94 Vapotherm 30.00 35.00 12/18/18 08:00 85 18 154/53 (86) 95 Vapotherm 30.00 35.00 12/18/18 08:00 Vapotherm 35.00 30 12/18/18 07:28 95 Vapotherm 35.00 30 12/18/18 07:00 86 12/18/18 07:00 85 19 164/54 (90) 96 Vapotherm 30.00 35.00 12/18/18 06:00 85 17 200/73 (115) 90 Vapotherm 30.00 35.00 12/18/18 05:00 79 20 187/61 (103) 97 Vapotherm 30.00 35.00 12/18/18 04:00 Vapotherm 35.00 30 12/18/18 04:00 105 17 202/64 (110) 97 Vapotherm 30.00 35.00 12/18/18 03:42 Vapotherm 30.00 35.00 12/18/18 03:24 98 Vapotherm 40.00 40 12/18/18 03:19 98.5 3/18/19 03:00 98 25 193/61 (105) 98 Vapotherm 40.00 40.00 12/18/18 02:00 96 26 195/56 (102) 99 Vapotherm 40.00 40.00 12/18/18 01:00 109 12/18/18 01:00 101 19 197/62 (107) 99 Vapotherm 40.00 40.00 12/18/18 00:27 Vapotherm 40.00 40.00 12/18/18 00:15 99.4 Vapotherm 40.00 40.00 12/18/18 00:12 97 Vapotherm 40.00 40 12/18/18 00:00 93 20 199/66 (110) 98 Nasal Cannula 3.00 12/18/18 00:00 Nasal Cannula 3.00 12/17/18 23:18 96 Nasal Cannula 3.00 12/17/18 23:00 101 26 182/69 (106) 95 Nasal Cannula 3.00 12/17/18 22:00 110 21 164/50 (88) 98 Nasal Cannula 3.00 12/17/18 21:00 112 21 169/54 (92) 99 Nasal Cannula 3.00 12/17/18 20:00 108 16 155/47 (83) 100 Nasal Cannula 3.00 12/17/18 20:00 Nasal Cannula 3.00 12/17/18 19:42 99.5 Nasal Cannula 3.00 12/17/18 19:00 108 12/17/18 19:00 106 15 133/41 (71) 100 Nasal Cannula 5.00 12/17/18 18:40 98 Nasal Cannula 3.00 12/17/18 18:00 113 24 162/51 (88) 98 Nasal Cannula 5.00 12/17/18 17:00 114 18 160/50 (86) 95 Nasal Cannula 5.00 12/17/18 16:00 Nasal Cannula 3.00 12/17/18 16:00 112 14 139/43 (75) 97 Nasal Cannula 5.00 12/17/18 15:00 112 16 160/53 (88) 96 Nasal Cannula 5.00 12/17/18 14:28 98 Nasal Cannula 3.00 I & O 12/18/18 07:00 Intake Total 3215 ml Output Total 5065 ml Balance -1850 ml Capillary Refill : Less Than 3 SecondsLess Than 3 Seconds General Appearance: No Apparent Distress HEENT: PERRL/EOMI Neck: Full Range of Motion Respiratory: Decreased Breath Sounds, Rhonci Cardiovascular: Regular Rate, Rhythm Gastrointestinal: soft, tenderness, other (inc clean/dry) Extremity: Normal Capillary Refill Neurologic/Psychiatric: Alert, Oriented x3 Skin: Normal Color Lymphatic: No Adenopathy Results Lab Laboratory Tests 12/17/18 15:43: Sodium Level 140, Potassium Level 3.8, Chloride Level 105, Carbon Dioxide Level 22, Anion Gap 13, Blood Urea Nitrogen 48H, Creatinine 2.35H, Estimat Glomerular Filtration Rate 28, BUN/Creatinine Ratio 20, Glucose Level 68L, Calcium Level 8.1L, Phosphorus Level 4.8H, Magnesium Level 2.3 12/18/18 03:05: Sodium Level 143, Potassium Level 3.9, Chloride Level 106, Carbon Dioxide Level 25, Anion Gap 12, Blood Urea Nitrogen 42H, Creatinine 2.05H, Estimat Glomerular Filtration Rate 32, BUN/Creatinine Ratio 20, Glucose Level 87, Calcium Level 8.2L, Phosphorus Level 5.1H, Magnesium Level 2.3, White Blood Count 16.9H, Red Blood Count 4.05L, Hemoglobin 10.7L, Hematocrit 32L, Mean Corpuscular Volume 78L , Mean Corpuscular Hemoglobin 26, Mean Corpuscular Hemoglobin Concent 34, Red Cell Distribution Width 16.8H, Platelet Count 250, Mean Platelet Volume 8.4, Neutrophils (%) (Auto) 82H, Lymphocytes (%) (Auto) 6L, Monocytes (%) (Auto) 12, Eosinophils (%) (Auto) 0, Basophils (%) (Auto) 0, Neutrophils # (Auto) 13.9H, Lymphocytes # (Auto) 0.9L, Monocytes # (Auto) 2.0H, Eosinophils # (Auto) 0.1, Basophils # (Auto) 0.0, Blood Gas Puncture Site LEFT ARTLINE, Blood Gas Patient Temperature 98.5, Arterial Blood pH 7.46H, Arterial Blood Partial Pressure CO2 39, Arterial Blood Partial Pressure O2 70L, Arterial Blood HCO3 28H, Arterial Blood Total CO2 28.7, Arterial Blood Oxygen Saturation 95, Arterial Blood Base Excess 3.8H, Waldo Test POSITIVE, Blood Gas Ventilator Setting NO, Blood Gas Inspired Oxygen VAPOTHERM 40L/40%, B-Type Natriuretic Peptide 2754.6H, Albumin 2.6L 12/18/18 05:50: Lactic Acid Level 0.65 12/18/18 12:10: Lab Scanned Report Transfusion Reaction Form Microbiology 12/14/18 Gram Stain - Final, Complete 12/14/18 Sputum Culture - Final, Complete Usual upper respiratory justino YEAST Staphylococcus aureus Assessment/Plan Assessment/Plan Assess & Plan/Chief Complaint s/p expl lap, 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 extubated today on on high flow vapotherm per pulm. cont monitor urine output as well as renal fxn. started on D5 with bicarb to promote diuresis. await bowel fxn. start reglan and trickle tube feeds. Clinical Quality Measures DVT/VTE Risk/Contraindication: Risk Factor Score Per Nursin RFS Level Per Nursing on Admit: 4+=Very High GRETA METZ MD Dec 18, 2018 14:06
[2018-12-18 15:48] LABS: BILIRUBIN,URINE NEGATIVE (NEGATIVE); CLARITY,URINE CLEAR; COLOR,URINE YELLOW; GLUCOSE, URINE (UA) NEGATIVE (NEGATIVE); KETONES,URINE NEGATIVE (NEGATIVE); LEUKOCYTE ESTERASE ,URINE NEGATIVE (NEGATIVE); NITRITE,URINE NEGATIVE (NEGATIVE); PH,URINE 8 (5-9); PROTEIN,URINE 2+ (NEGATIVE); UROBILINOGEN,URINE NORMAL (NORMAL)
[2018-12-18 15:58] LABS: BACTERIA,URINE TRACE /HPF; RBC,URINE RARE /HPF; WBC,URINE RARE /HPF
--- NOTE | 2018-12-18 17:28 | Progress Note-Hospitalist ---
Progress Note Progress Notes/Assess & Plan Date Seen 12/18/18 Time Seen by Provider: 17:24 Assessment & Plan The patient is a 68-year-old white male who had surgery on Tuesday for a bowel obstruction. His NG tube remains in place and is draining bile-stained liquids. Vital signs are stable he answers all questions only with a ground. Physical exam: He appears absolutely miserable. When asked if he were in pain he shook his head no. Lungs show shallow respirations. CV was regular. Abdomen was tender to touch. Extremities showed no pedal edema. Today's labs shows that his creatinine is 2.05 which is down from the peak in this hospitalization of 2.83. The BNP is 2754. Impression: Status postop day 3 bowel resection. 2.acute on chronic renal failure. Plan: Continue present measures. Focused Exam Lactate Level 12/16/18 07:05: Lactic Acid Level 0.83 12/18/18 05:50: Lactic Acid Level 0.65 KEIKO SORIA MD Dec 18, 2018 17:28
[2018-12-19] VITALS (22 sets, daily range): BP systolic 131–230; BP diastolic 53–76
[2018-12-19] MEDS: RT-ALBUTEROL/IPRATROPIUM 3 ML (DUONEB) VIAL INH SCH ×5 (02:36→18:17)
[2018-12-19 03:20] LABS: ABG BASE EXCESS 2.3 MMOL/L (-2.5-2.5); ABG OXYGEN SATURATION 73 % (94-100); ABG PCO2 39 MMHG (35-45); ABG PH 7.44 (7.37-7.43); ABG PO2 42 MMHG (79-93); ABG TCO2 27.2 MMOL/L (21.0-31.0); BASOPHILS % (AUTO) 0 % (0-10); EOSINOPHILS # (AUTO) 0.1 10^3/uL (0.0-0.3); EOSINOPHILS % (AUTO) 1 % (0-10); HEMATOCRIT 31 % (40-54); LYMPHOCYTES # (AUTO) 1.1 X 10^3 (1.0-4.0); LYMPHOCYTES % (AUTO) 9 % (12-44); MEAN CORPUSCULAR HEMOGLOBIN 26 PG (25-34); MEAN CORPUSCULAR HGB CONC 33 G/DL (32-36); MEAN CORPUSCULAR VOLUME 81 FL (80-99); MEAN PLATELET VOLUME 8.4 FL (7.4-10.4); MONOCYTES # (AUTO) 1.7 X 10^3 (0.0-1.0); MONOCYTES % (AUTO) 13 % (0-12); NEUTROPHILS # (AUTO) 10.3 X 10^3 (1.8-7.8); NEUTROPHILS % (AUTO) 77 % (42-75); PLATELET COUNT 203 10^3/uL (130-400); RED CELL DISTRIBUTION WIDTH 17.2 % (10.0-14.5); WHITE BLOOD COUNT 13.3 10^3/uL (4.3-11.0)
[2018-12-19 03:26] LABS: ALLENS TEST ARTLINE; INSPIRED O2 15L/25% FIO2; PATIENT TEMP 99.6; VENTILATOR NO
[2018-12-19 03:45] LABS: CALCIUM 8.7 MG/DL (8.5-10.1); CREATININE SERUM 1.74 MG/DL (0.60-1.30); PHOSPHORUS 4.4 MG/DL (2.3-4.7); POTASSIUM 3.5 MMOL/L (3.6-5.0)
[2018-12-19] MEDS: KCL 20 MEQ TAB (K-DUR) PO SCH (04:08)
[2018-12-19] MEDS: MAGNESIUM 1 GM/100 ML IVPB 100 ML IV SCH (04:08)
[2018-12-19] MEDS: POTASSIUM CL 10MEQ/50ML IVPB 50 ML IV SCH ×7 (04:08→08:38)
[2018-12-19] MEDS: D5 LR IV SOLUTION 1,000 ML IV SCH ×2 (04:19→20:15)
--- NOTE | 2018-12-19 04:55 | Pulmonary Progress Note ---
Subjective Time Seen by a Provider: 04:59 Subjective/Events-last exam Pt pulled out NG tube. Sepsis Event Evaluation Height, Weight, BMI Height: 5'4.00" Weight: 183lbs. 1.0oz. 83.774191ik; 26.6 BMI Method:Stated Focused Exam Lactate Level 12/16/18 07:05: Lactic Acid Level 0.83 12/18/18 05:50: Lactic Acid Level 0.65 Exam Exam Vital Signs Date Time Temp Pulse Resp B/P (MAP) Pulse Ox O2 Delivery O2 Flow Rate FiO2 12/19/18 03:10 93 Vapotherm 15.00 25 12/19/18 03:05 99.6 Vapotherm 25.00 15.00 12/19/18 03:00 98 15 134/56 (82) 93 Vapotherm 25.00 15.00 12/19/18 02:37 93 Vapotherm 15.00 25 12/19/18 02:00 95 12 138/54 (82) 92 Vapotherm 25.00 15.00 12/19/18 01:00 91 14 134/53 (80) 90 Vapotherm 25.00 15.00 12/19/18 00:59 103 12/19/18 00:00 77 12 145/63 (90) 95 Vapotherm 25.00 15.00 12/18/18 23:45 95 Vapotherm 15.00 25 12/18/18 23:40 97.6 95 Vapotherm 25.00 15.00 12/18/18 23:00 81 13 142/54 (83) 92 Vapotherm 25.00 15.00 12/18/18 22:47 15.00 25 12/18/18 22:11 100 Vapotherm 10.00 30 12/18/18 22:00 85 13 145/58 (87) 96 Vapotherm 30.00 10.00 12/18/18 21:00 90 13 129/62 (84) 92 Vapotherm 30.00 10.00 12/18/18 20:56 Vapotherm 10.00 30 12/18/18 20:55 Vapotherm 30.00 10.00 12/18/18 20:00 100 High Flow N/C 4.00 12/18/18 20:00 98.0 92 11 137/65 (89) 100 High Flow N/C 4.00 12/18/18 19:00 82 9 129/58 (81) 100 Vapotherm 30.00 35.00 12/18/18 19:00 97 12/18/18 18:57 99 High Flow N/C 4.00 12/18/18 18:00 87 13 133/55 (81) 100 Vapotherm 30.00 35.00 12/18/18 17:13 79 8 139/52 (81) 100 Vapotherm 30.00 35.00 12/18/18 16:00 97.8 12/18/18 16:00 High Flow N/C 6.00 12/18/18 16:00 90 16 157/60 (92) 100 Vapotherm 30.00 35.00 12/18/18 15:00 92 14 186/66 (106) 100 Vapotherm 30.00 35.00 12/18/18 14:18 100 Vapotherm 8.00 30 12/18/18 14:00 172/67 (102) 86 Vapotherm 30.00 35.00 12/18/18 13:00 84 12/18/18 13:00 86 13 168/56 (93) 98 Vapotherm 30.00 35.00 12/18/18 12:00 79 16 165/52 (89) 99 Vapotherm 30.00 35.00 12/18/18 12:00 Vapotherm 35.00 30 12/18/18 12:00 97.6 12/18/18 11:02 99 Vapotherm 35.00 30 12/18/18 11:00 82 15 148/52 (84) 99 Vapotherm 30.00 35.00 12/18/18 10:00 93 23 128/44 (72) 95 Vapotherm 30.00 35.00 12/18/18 09:00 93 15 156/53 (87) 94 Vapotherm 30.00 35.00 12/18/18 08:00 85 18 154/53 (86) 95 Vapotherm 30.00 35.00 12/18/18 08:00 Vapotherm 35.00 30 12/18/18 08:00 99.0 12/18/18 07:28 95 Vapotherm 35.00 30 12/18/18 07:00 86 12/18/18 07:00 85 19 164/54 (90) 96 Vapotherm 30.00 35.00 12/18/18 06:00 85 17 200/73 (115) 90 Vapotherm 30.00 35.00 12/18/18 05:00 79 20 187/61 (103) 97 Vapotherm 30.00 35.00 I & O 12/19/18 07:00 Intake Total 915 ml Output Total 5355 ml Balance -4440 ml Height & Weight Height: 5'4.00" Weight: 183lbs. 1.0oz. 83.571190lk; 26.6 BMI Method:Stated General Appearance: No Apparent Distress, Chronically ill, Mild Distress HEENT: PERRL/EOMI Neck: Full Range of Motion Respiratory: Decreased Breath Sounds, Rhonci Cardiovascular: Regular Rate, Rhythm Capillary Refill: Less Than 3 Seconds Gastrointestinal: soft, tenderness, other (inc clean/dry) Extremity: Normal Capillary Refill Neurologic/Psychiatric: Alert, Oriented x3 Skin: Normal Color Lymphatic: No Adenopathy Results Lab Laboratory Tests 12/17/18 15:43 12/18/18 03:05 12/19/18 03:10 Assessment/Plan Assessment/Plan Respiratory failure s/p surgery -Vapotherm -Repeat Lasix 40mg IV X 1 Atelectasis -Increase activity -IS Pneumonia - sputum is growing S.Aureus and yeast - zyvox, and eraxis Acute on chronic renal failure with metabolic acidosis - improving -D/C bicarb gtt. Start D5LR at 30cc/hr -Continue to monitor close -bilateral renal US - negative -Avoid MANUEL/ARBS HTN- urgency - hydralazine PRN -PO clonidine, Lopressor -AGUSTO 380 for past 10hours -Cardene gtt -- Keep SBP <180 -NO MANUEL/ARB secondary to renal function Sinus tach -Check EGK -Consult cardiology Anemia -S/p 4 units RBC -Monitor SBO s/p surgery -Dr. Franklin is following -Start CLD if pt passes bedside swallow eval . Pt pulled out NG. -Start Reglan 10mg BID Severe oxygen dependent COPD -SVNs -Oxygen Anasarca -Give lasix x 1 40mg -Check BNP JASS SWANSON DO Dec 19, 2018 04:55
[2018-12-19] MEDS ORDERED: FUROSEMIDE 40 MG/4 ML INJ (LASIX) ONE (04:57)
[2018-12-19] MEDS ORDERED: FUROSEMIDE 40 MG/4 ML INJ (LASIX) IVP ONE (05:00)
[2018-12-19] MEDS: hydrALAZINE (APRESOLINE) 25 MG TAB PO SCH ×3 (05:05→21:42)
--- NOTE | 2018-12-19 05:12 | NUR ---
Patient dc'd his NG tube, Dr aBuer okayed leaving it out at this time. Offer clear liquids after patient passes bedside swallow test.
--- NOTE | 2018-12-19 05:16 | NUR ---
Patient able to swallow ice chips without signs of aspiration.
[2018-12-19] MEDS: hydrALAZINE (APESOLINE) 20 MG/ML VIAL IV PRN ×3 (06:56→20:15)
--- NOTE | 2018-12-19 07:08 | Cardiology Progress Note ---
Subjective Date Seen by Provider: Dec 19, 2018 Time Seen by Provider: 07:02 Subjective/Events-last exam patient is laying down in bed, lethargic, denied any chest pain, no palpitation. Review of Systems General: No Chills, No Night Sweats; Fatigue, Malaise; No Appetite, No Other HEENT: No Head Aches, No Visual Changes, No Eye Pain, No Ear Pain, No Dysphasia , No Sinus Congestion, No Post Nasal Drip, No Sore Throat, No Other Pulmonary: Dyspnea; No Cough, No Pleuritic Chest Pain, No Other Cardiovascular: No: Chest Pain, Palpitations, Orthopnea, Paroxysmal Noc. Dyspnea, Edema, Lt Headedness, Other Focused Exam Lactate Level 12/18/18 05:50: Lactic Acid Level 0.65 Objective-Cardiology Exam Last Set of Vital Signs Vital Signs 12/19/18 12/19/18 12/19/18 03:05 03:10 06:00 Temp 99.6 Pulse 115 Resp 18 B/P (MAP) 161/67 (98) Pulse Ox 92 O2 Delivery Vapotherm O2 Flow Rate 25.00 15.00 FiO2 25 Capillary Refill : Less Than 3 SecondsLess Than 3 Seconds I&O Intake and Output 12/19/18 00:00 Intake Total 2565 ml Output Total 6565 ml Balance -4000 ml Intake Oral 0 ml IV Total 2520 ml Other 45 ml Output Urine Total 5625 ml Gastric Drainage Total 50 ml Drainage Total 890 ml General: Alert, Cooperative, Moderate Distress HEENT: Atraumatic, PERRLA Neck: Supple, No JVD, No Thyromegaly Lungs: Normal Air Movement, Other (rhonchi) Heart: Regular Rate, Normal S1, Normal S2, No Murmurs Abdomen: Soft, No Tenderness, No Hepatosplenomegaly, No Masses, Other ( distended abdomen with diminished bowel sounds) Extremities: No Clubbing, No Cyanosis, Normal Pulses, No Tenderness/Swelling, Other (jean carlos edema) Skin: No Rashes, No Breakdown, No Significant Lesion Neuro: Normal Tone, Sensation Intact, Other (lethargic) Psych/Mental Status: Mental Status NL, Mood NL Results Lab Laboratory Tests 12/19/18 03:10 A/P-Cardiology Admission Diagnosis Acute respiratory failure Pneumonia Congestive heart failure, acute left ventricular diastolic dysfunction Hypertensive emergency Assessment/Plan Acute respiratory failure post surgery, extubated and improving slowly Pneumonia, receiving broad-spectrum antibiotics. Sputum grew staph aureus and [place]. Managed by Dr. Bauer Status post acute on chronic renal failure, metabolic acidosis, improving. Hypertensive urgency, receiving oral clonidine and Lopressor and when necessary hydralazine, still poorly controlled. Started on clear liquid diet today, I'll start IV Lopressor instead of oral and evaluate tolerance and response. Was on Cardene drip which was discontinued Avoid the use MANUEL inhibitor and/or ARB due to renal failure Sinus tachycardia, secondary to respiratory failure. Continue to monitor Small bowel obstruction, status post surgery, recovering slowly, still having diminished bowel sounds, started on liquid diet today. COPD with oxygen dependent. Anasarca, echocardiogram showed normal LV systolic function with diastolic dysfunction, dilated right atrium and vena cava suggestive of right sided pressure overload. Receiving Lasix. Clinical Quality Measures DVT/VTE Risk/Contraindication: Risk Factor Score Per Nursin RFS Level Per Nursing on Admit: 4+=Very High KAILA JUÁREZ MD Dec 19, 2018 07:08
--- NOTE | 2018-12-19 07:52 | Diagnostic Imaging Report ---
INDICATION: Shortness of breath. COMPARISON: 12/18/2018. FINDINGS: Single view of the chest demonstrate cardiac enlargement with persistent but decreased central vascular congestion. Small effusions with dependent atelectasis persists in both bases. There is no pneumothorax. IMPRESSION: 1. Cardiac enlargement with persistent but decreased central vascular congestion. 2. Unchanged bilateral pleural effusions with dependent atelectasis. Dictated by: Dictated on workstation # [id number]
[2018-12-19] MEDS: ANIDULAFUNGIN INJECTION 100 MG in NS (IVPB) 100 ML IV SCH (08:44)
[2018-12-19] MEDS: METOCLOPRAMIDE INJ 10 MG/2 ML (REGLAN) IVP SCH ×2 (08:44→20:16)
[2018-12-19] MEDS: PIPERACILLIN/TAZOBACTAM (BULK) 4.5 GM in NS (IVPB) 100 ML IV SCH ×3 (08:44→23:56)
[2018-12-19] MEDS: PANTOPRAZOLE 40 MG (PROTONIX) VIAL IV SCH (08:44)
[2018-12-19] MEDS: cloNIDine 0.1 MG (CATAPRES) TAB PO SCH ×3 (08:45→20:15)
[2018-12-19] MEDS: amLODIPine 10 MG (NORVASC) TAB PO SCH (08:45)
--- NOTE | 2018-12-19 09:24 | Physical Therapy Evaluation ---
PT Evaluation-General Medical Diagnosis Admission Date Dec 13, 2018 at 15:21 Medical Diagnosis: closed loop bowl obstruction Onset Date: Dec 13, 2018 Therapy Diagnosis Therapy Diagnosis: generalized weakness/debility Height/Weight Height (Feet): 5 Height (Inches): 4.00 Weight (Pounds): 179 Weight (Ounces): 3.0 Precautions Precautions/Isolations: Fall Prevention, Standard Precautions Referral Physician: Lizette Reason for Referral: Evaluation/Treatment Medical History Pertinent Medical History: COPD, HTN, Renal Insufficiency Current History ER with abdominal distention,cramping, and vomiting/s/p bowel resection Reviewed History: Yes Social History Home: Single Level Current Living Status: Spouse Prior/Core FIM Prior Level of Function Therapy Code Descriptions/Definitions Functional [place] Measure: 0=Not Assessed/NA 4=Minimal Assistance 1=Total Assistance 5=Supervision or Setup 2=Maximal Assistance 6=Modified Izard 3=Moderate Assistance 7=Complete [place] Therapy Quality Codes: 6 Independent with activity with or without an assistive device 5 Patient requires set up or clean up by helper. Patient completes activity by themselves 4 Supervision or touching assist (CGA). [place] provide cues , steadying assist 3 The helper provides less than half the effort to complete the activity 2 The helper provides more than half the effort to complete the activity 1 Dependent. The helper does all the effort to complete an activity 7 Patient refused to complete or attempt activity 9 The patient did not perform the activity before the current illness or injury 88 Not attempted due to Medical conditions or safety concerns Functional Abilities and Goals: Independent: Patient completed the activities by him/herself, with or without an assistive device, with no assistance from a helper. Needed Some Help: Patient needed partial assistance from another person to complete activities. Dependent: A helper completed the activities for the patient. Unknown: Not Applicable: Bed Mobility: 7 Transfers (B,C,W/C) (FIM): 7 Gait: 7 Indoor Mobility (Ambulation): Independent Stairs: Independent Prior Devices Use: None PT Evaluation-Current Subjective Patient agrees to up in recliner. Pain Numeric Pain Scale: 0-No Pain Location: No Pain Reported Objective Patient Orientation: Person, Time, Situation Problem Solving: Fair Attachments: SCD's, Oxygen, Drains, Mondragon Catheter, IV ROM/Strength ROM Lower Extremities bilateral LE WFL Strength Lower Extremities 3-/5 grossly bilaterally from disuse Integumentary/Posture Integumentary refer to nursing notes Bowel Incontinence: Yes Bladder Incontinence: Mondragon Cath Posture mild kyphosis Sensory Vision: Functional Hearing: Functional Sensation Right Lower Extremit: Intact Sensation Left Lower Extremity: Intact Transfers Therapy Code Descriptions/Definitions Functional Izard Measure: 0=Not Assessed/NA 4=Minimal Assistance 1=Total Assistance 5=Supervision or Setup 2=Maximal Assistance 6=Modified Izard 3=Moderate Assistance 7=Complete [place] Transfers (B, C, W/C) (FIM): 1 Scootin Rollin Supine to/from Sit: 1 Sit to/from Stand: 1 dependent x 2 with all mobility due to weaknes Gait Anticipated Mode of Locomotion: Walk Balance Sitting Static: Poor Sitting Dynamic: Poor Standing Static: Poor Standing Dynamic: Poor Assessment/Needs 68 y.o. male, will benefit from skilled PT to address functional strength and mobility to improve current LOF and to safely return to home at maximum LOF. From a PT standpoint, patient may benefit from ARU when medically stable to improve LOF. Rehab Potential: Fair PT Senior Living Goals Senior Living Goals PT Automobile Mechanic Radiator Goals Time Frame: Dec 31, 2018 Transfers (B,C,W/C) (FIM): 4 Gait (FIM): 1 Gait distance (FIM): 1=up to 49 ft Distance: 45' Gait Level of Assist: 4 Gait Assistive Device: FWW PT Plan Problem List Problem List: Activity Tolerance, Functional Strength, Safety, Balance, Gait, Transfer, Bed Mobility Treatment/Plan Treatment Plan: Continue Plan of Care Treatment Plan: Bed Mobility, Education, Functional Activity Rosario, Functional Strength, Gait, Safety, Therapeutic Exercise, Transfers Treatment Duration: Dec 19, 2018 Frequency: 6 times per week Estimated Hrs Per Day: .25 hour per day Patient and/or Family Agrees t: Yes PT will increase frequency as patient tolerated increased activity. Time/GCodes Time In: 810 Time Out: 828 Total Billed Treatment Time: 18 Total Billed Treatment 1 visit EVMod 18 min OPAL MARTIN PT Dec 19, 2018 09:24
[2018-12-19] MEDS: morphine INJ 4 MG/ML 1 ML (VIAL/SYRINGE) IVP PRN ×2 (10:17→13:54)
[2018-12-19] MEDS: meTOprolol 5 MG/5 ML (LOPRESSOR) VIAL IV SCH ×3 (10:17→23:56)
--- NOTE | 2018-12-19 11:38 | ST Dysphagia Evaluation ---
Speech Evaluation-General Medical Diagnosis closed loop bowl obstruction Onset Date: Dec 13, 2018 Therapy Diagnosis Therapy Diagnosis: Oropharyngeal Dysphagia Precautions Precautions: Aspiration Precautions/Isolations: Fall Prevention, Standard Precautions Referral Referring Physician: Dr. Nico Bauer Reason for Referral: Evaluation/Treatment Medical History Pertinent Medical History: COPD, HTN, Renal Insufficiency Reviewed History: Yes Social History Current Living Status: Spouse Speech PLF/Current-Dysphagia Prior Level of Function Patient lived at home with his prior to this hospital admit. The patient was independent with all of his daily needs. He was able to eat and drink without any difficulty. Subjective The patient was compliant with all clinical requests for the Bedside Dysphagia Evaluation Cognitive Status Patient is oriented to all concepts. Oral Motor Skills Dentition: Edentalous Denture Type: Full- Upper & Lower Ability to Follow Directions: Good Patient has been receiving nutrition via NG tube pending the appropriate time for the Bedside Dysphagia Evaluation to be completed. Oral Expression Ability: No Impairment Oral-Facial Assessment Oral-Facial Dentition: Normal Puff Cheeks: Reduced Strength Lingual Protrusion: Normal Lingual ROM: Normal Lingual Strength: Normal Pharynx Velopharyngeal Move.: Normal Volitional Dry Swallow: Yes Voluntary Cough: Yes Can Clear Throat Volitionally: Yes Dysphagia Evaluation Consistencies Presented: Thin Liquid, [place] Thick Liquid, Pureed Oral Phase: Reduced Oral Transit Pharyngeal Phase: Decreased A/P Bolus Transit Dietary Recommendations: Pureed Liquid Recommendations: [place] Consistancy Swallowing Precautions: Alternate Liquids/Solids, Double Swallow, Decreased Bolus 1/2 Tsp, No Straw, Small Bites and Sips, Sitting Upright 90 Degrees, Sitting 90 Degrees 30 Post Intake Dysphagia Evaluation Summary The patient is a 68 year old male who was admitted to the hospital through the ED. He was diagnosed with an obstructed small bowel which required surgery. Patient was placed on the vent s/p surgery, however he is not on the vent at this time. The patient's swallow was assessed per physician's order. A Bedside Dysphagia Evaluation was completed with thin, nectar and puree consistencies presented. He exhibits a mild delay of A-P transfer which may be medically induced at this time. The patient was edentulous during the evaluation. He stated he has dentures at home. He will be placed on a Dysphagia I diet with nectar consistency liquids. This information was provided to his nurse. Patient may be upgraded in diet level as his medical status improves. Barriers to Learning Patient's current medical status. Speech Short Term Goals Short Term Goals Short Term Goals 1) Patient will tolerate least restrictive diet without signs/symptoms of aspiration 2) Patient will recall swallowing strategies, independently. Speech Bit Sander Goals Bit Sander Goals Patient will maintain adequate nutrition/hydration via safe effective swallow function for least restrictive diet level. Speech-Plan Patient/Family Goals Patient/Family Goals: The patient will return home with his upon hospital discharge. Treatment Plan Speech Therapy Treatment Plan: Continue Plan of Care Patient will receive skilled ST therapy for dysphagia. Treatment Duration: Dec 22, 2018 Frequency: 4 times per week Estimated Hrs Per Day: .25 hour per day Rehab Potential: Fair Barriers to Learning: Patient's current medical status Pt/Family Agrees to Plan: Yes Safety Risks/Education Teaching Recipient: Patient Teaching Methods: Discussion Response to Teaching: Verbalize Understanding Education Topics Provided: Safety of oral intake. Time Speech Therapy Time In: 11:30 Speech Therapy Time Out: 11:45 Total Billed Time: 15 Billed Treatment Time 1, YASMEEN Cabral Dec 19, 2018 11:38
--- NOTE | 2018-12-19 12:49 | Progress Note (SOAP) ---
Subjective Date Seen by a Provider: Dec 19, 2018 Time Seen by a Provider: 12:00 Subjective/Events-last exam still has mild abd distention and anasarca. tolerating trickle tube feeds for now. had loose BM. pulm status improving slowly. Focused Exam Lactate Level 12/18/18 05:50: Lactic Acid Level 0.65 Objective Exam Vital Signs Date Time Temp Pulse Resp B/P (MAP) Pulse Ox O2 Delivery O2 Flow Rate FiO2 12/19/18 12:00 93 198/60 (106) 100 Vapotherm 25.00 15.00 12/19/18 11:00 90 187/58 (101) 100 Vapotherm 25.00 15.00 12/19/18 10:31 100 High Flow N/C 8.00 12/19/18 10:05 105 221/76 (124) 100 Vapotherm 25.00 15.00 12/19/18 09:00 109 191/65 (107) 100 Vapotherm 25.00 15.00 12/19/18 08:00 100 High Flow N/C 4.00 12/19/18 08:00 112 23 153/54 (87) 89 Vapotherm 25.00 15.00 12/19/18 07:05 92 Vapotherm 15.00 25 12/19/18 07:00 112 12/19/18 07:00 99.3 104 16 159/68 (98) 96 Vapotherm 25.00 15.00 12/19/18 06:00 115 18 161/67 (98) 92 Vapotherm 25.00 15.00 12/19/18 05:00 93 14 155/69 (97) 94 Vapotherm 25.00 15.00 12/19/18 04:00 97 14 140/62 (88) 91 Vapotherm 25.00 15.00 12/19/18 03:10 93 Vapotherm 15.00 25 12/19/18 03:05 99.6 Vapotherm 25.00 15.00 12/19/18 03:00 98 15 134/56 (82) 93 Vapotherm 25.00 15.00 12/19/18 02:37 93 Vapotherm 15.00 25 12/19/18 02:00 95 12 138/54 (82) 92 Vapotherm 25.00 15.00 12/19/18 01:00 91 14 134/53 (80) 90 Vapotherm 25.00 15.00 12/19/18 00:59 103 12/19/18 00:00 77 12 145/63 (90) 95 Vapotherm 25.00 15.00 12/18/18 23:45 95 Vapotherm 15.00 25 12/18/18 23:40 97.6 95 Vapotherm 25.00 15.00 12/18/18 23:00 81 13 142/54 (83) 92 Vapotherm 25.00 15.00 12/18/18 22:47 15.00 25 12/18/18 22:11 100 Vapotherm 10.00 30 12/18/18 22:00 85 13 145/58 (87) 96 Vapotherm 30.00 10.00 12/18/18 21:00 90 13 129/62 (84) 92 Vapotherm 30.00 10.00 12/18/18 20:56 Vapotherm 10.00 30 12/18/18 20:55 Vapotherm 30.00 10.00 12/18/18 20:00 100 High Flow N/C 4.00 12/18/18 20:00 98.0 92 11 137/65 (89) 100 High Flow N/C 4.00 12/18/18 19:00 82 9 129/58 (81) 100 Vapotherm 30.00 35.00 12/18/18 19:00 97 12/18/18 18:57 99 High Flow N/C 4.00 12/18/18 18:00 87 13 133/55 (81) 100 Vapotherm 30.00 35.00 12/18/18 17:13 79 8 139/52 (81) 100 Vapotherm 30.00 35.00 12/18/18 16:00 97.8 12/18/18 16:00 High Flow N/C 6.00 12/18/18 16:00 90 16 157/60 (92) 100 Vapotherm 30.00 35.00 12/18/18 15:00 92 14 186/66 (106) 100 Vapotherm 30.00 35.00 12/18/18 14:18 100 Vapotherm 8.00 30 12/18/18 14:00 172/67 (102) 86 Vapotherm 30.00 35.00 12/18/18 13:00 84 12/18/18 13:00 86 13 168/56 (93 98 Vapotherm 30.00 35.00 I & O 12/19/18 07:00 Intake Total 1015 ml Output Total 5785 ml Balance -4770 ml Capillary Refill : Less Than 3 SecondsLess Than 3 Seconds General Appearance: No Apparent Distress HEENT: PERRL/EOMI Neck: Full Range of Motion Respiratory: Chest Non Tender, Decreased Breath Sounds, Rhonci Cardiovascular: Regular Rate, Rhythm Gastrointestinal: soft, distended, other (incision clean/dry) Extremity: Normal Capillary Refill Neurologic/Psychiatric: Alert, Oriented x3 Skin: Normal Color Lymphatic: No Adenopathy Results Lab Laboratory Tests 12/18/18 18:11: Triglycerides Level 80 12/19/18 03:10: White Blood Count 13.3H, Red Blood Count 3.81L, Hemoglobin 10.0L, Hematocrit 31L , Mean Corpuscular Volume 81, Mean Corpuscular Hemoglobin 26, Mean Corpuscular Hemoglobin Concent 33, Red Cell Distribution Width 17.2H, Platelet Count 203, Mean Platelet Volume 8.4, Neutrophils (%) (Auto) 77H, Lymphocytes (%) (Auto) 9L , Monocytes (%) (Auto) 13H, Eosinophils (%) (Auto) 1, Basophils (%) (Auto) 0, Neutrophils # (Auto) 10.3H, Lymphocytes # (Auto) 1.1, Monocytes # (Auto) 1.7H, Eosinophils # (Auto) 0.1, Basophils # (Auto) 0.0, Blood Gas Puncture Site LEFT RADIAL ARTLINE, Blood Gas Patient Temperature 99.6, Arterial Blood pH 7.44H, Arterial Blood Partial Pressure CO2 39, Arterial Blood Partial Pressure O2 42L, Arterial Blood HCO3 26, Arterial Blood Total CO2 27.2, Arterial Blood Oxygen Saturation 73L, Arterial Blood Base Excess 2.3, Waldo Test ARTLINE, Blood Gas Ventilator Setting NO, Blood Gas Inspired Oxygen 15L/25% FIO2, Sodium Level 145 , Potassium Level 3.5L, Chloride Level 108H, Carbon Dioxide Level 23, Anion Gap 14, Blood Urea Nitrogen 37H, Creatinine 1.74H, Estimat Glomerular Filtration Rate 39, BUN/Creatinine Ratio 21, Glucose Level 97, Calcium Level 8.7, Phosphorus Level 4.4, Magnesium Level 2.0 Microbiology 12/14/18 Gram Stain - Final, Complete 12/14/18 Sputum Culture - Final, Complete Usual upper respiratory justino YEAST Staphylococcus aureus Assessment/Plan Assessment/Plan Assess & Plan/Chief Complaint s/p expl lap, 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 on high flow vapotherm however titrating down per pulm. cont monitor urine output as well as renal fxn. started on D5 with bicarb to promote diuresis. await bowel fxn. start reglan and trickle tube feeds. swallow eval today. Clinical Quality Measures DVT/VTE Risk/Contraindication: Risk Factor Score Per Nursin RFS Level Per Nursing on Admit: 4+=Very High GRETA METZ MD Dec 19, 2018 12:49
[2018-12-19] MEDS ORDERED: NITROGLYCERIN 2% OINT 1 GM UNIT DOSE PACKET TOP ONE (14:00)
--- NOTE | 2018-12-19 15:19 | Progress Note-Hospitalist ---
Progress Note Progress Notes/Assess & Plan Date Seen 12/19/18 Time Seen by Provider: 15:16 Assessment & Plan The patient looks better than he did yesterday. He apparently sat in the bedside chair for a bit today. Vital signs are stable. he is noted to be hypertensive today. Physical exam he has very thin. Lungs are clear to auscultation. CV is somewhat irregular. Extremities show no pedal edema. Impression: Status post postop small bowel obstruction. Postop day number 4. Plan: Continue present measures. Engage PT and INR F consult. Focused Exam Lactate Level 12/18/18 05:50: Lactic Acid Level 0.65 KEIKO SORIA MD Dec 19, 2018 15:19
[2018-12-19] MEDS ORDERED: LACTATED RINGERS 1,000 ML IV ONE (15:54)
--- NOTE | 2018-12-19 20:17 | NUR ---
LR discontinued, D5LR initiated per order.
[2018-12-20] VITALS (24 sets, daily range): BP systolic 124–195; BP diastolic 2–112
[2018-12-20 03:42] LABS: BASOPHILS % (AUTO) 0 % (0-10); EOSINOPHILS # (AUTO) 0.3 10^3/uL (0.0-0.3); EOSINOPHILS % (AUTO) 3 % (0-10); HEMATOCRIT 33 % (40-54); HEMOGLOBIN 10.8 G/DL (13.3-17.7); LYMPHOCYTES # (AUTO) 1.4 X 10^3 (1.0-4.0); LYMPHOCYTES % (AUTO) 11 % (12-44); MEAN CORPUSCULAR HGB CONC 33 G/DL (32-36); MEAN CORPUSCULAR VOLUME 81 FL (80-99); MEAN PLATELET VOLUME 8.1 FL (7.4-10.4); MONOCYTES # (AUTO) 1.9 X 10^3 (0.0-1.0); MONOCYTES % (AUTO) 15 % (0-12); NEUTROPHILS % (AUTO) 72 % (42-75); PLATELET COUNT 295 10^3/uL (130-400); RED CELL DISTRIBUTION WIDTH 17.9 % (10.0-14.5); WHITE BLOOD COUNT 12.6 10^3/uL (4.3-11.0)
[2018-12-20 03:43] LABS: ABG BASE EXCESS 3.3 MMOL/L (-2.5-2.5); ABG OXYGEN SATURATION 92 % (94-100); ABG PCO2 37 MMHG (35-45); ABG PH 7.48 (7.37-7.43); ABG PO2 68 MMHG (79-93); ABG TCO2 27.7 MMOL/L (21.0-31.0)
[2018-12-20 03:44] LABS: ALLENS TEST YES-POS
[2018-12-20 03:45] LABS: INSPIRED O2 5L; PATIENT TEMP 99.9; VENTILATOR NO
[2018-12-20 03:46] LABS: MEAN CORPUSCULAR HEMOGLOBIN 26 PG (25-34)
[2018-12-20 04:18] LABS: CALCIUM 8.9 MG/DL (8.5-10.1); CREATININE SERUM 1.59 MG/DL (0.60-1.30); MAGNESIUM 1.9 MG/DL (1.8-2.4); POTASSIUM 3.7 MMOL/L (3.6-5.0)
--- NOTE | 2018-12-20 05:28 | Pulmonary Progress Note ---
Subjective Time Seen by a Provider: 05:27 Subjective/Events-last exam Pt has had 2 BMs and is now eating. Sepsis Event Evaluation Height, Weight, BMI Height: 5'4.00" Weight: 173lbs. 0.0oz. [id number]; 26.6 BMI Method:Stated Focused Exam Lactate Level 12/18/18 05:50: Lactic Acid Level 0.65 Exam Exam Vital Signs Date Time Temp Pulse Resp B/P (MAP) Pulse Ox O2 Delivery O2 Flow Rate FiO2 12/20/18 05:01 91 22 141/86 (104) 100 High Flow N/C 5.00 12/20/18 04:00 118 10 145/65 (91) 100 High Flow N/C 5.00 12/20/18 03:40 99 High Flow N/C 5.00 12/20/18 03:30 99.9 High Flow N/C 5.00 12/20/18 03:00 84 16 153/76 (101) 99 High Flow N/C 5.00 12/20/18 02:00 85 8 156/53 (87) 99 High Flow N/C 5.00 12/20/18 01:00 87 12/20/18 01:00 87 13 140/64 (89) 98 High Flow N/C 5.00 12/20/18 00:00 79 10 134/2 (46) 98 High Flow N/C 5.00 12/19/18 23:50 100.2 High Flow N/C 5.00 12/19/18 23:30 99 High Flow N/C 10.00 12/19/18 23:00 97 11 131/71 (91) 99 High Flow N/C 10.00 12/19/18 22:00 104 17 147/65 (92) 98 High Flow N/C 10.00 12/19/18 21:00 102 11 169/59 (95) 100 High Flow N/C 10.00 12/19/18 20:00 98 12 159/67 (97) 100 High Flow N/C 10.00 12/19/18 20:00 100 High Flow N/C 10.00 12/19/18 19:00 92 12/19/18 19:00 98.8 96 16 171/66 (101) 100 High Flow N/C 10.00 12/19/18 18:21 89 High Flow N/C 5.00 12/19/18 16:29 100 High Flow N/C 4.00 12/19/18 16:00 120 155/60 (91) 98 Nasal Cannula 4.00 12/19/18 15:42 100 High Flow N/C 8.00 12/19/18 15:00 94 155/60 (91) 100 Nasal Cannula 4.00 12/19/18 14:00 96 230/66 (120) 100 Nasal Cannula 4.00 12/19/18 13:00 100 12/19/18 13:00 96 190/68 (108) 100 Nasal Cannula 4.00 12/19/18 12:00 100 High Flow N/C 4.00 12/19/18 12:00 93 198/60 (106) 100 Nasal Cannula 4.00 12/19/18 11:00 90 187/58 (101) 100 Nasal Cannula 4.00 12/19/18 10:31 100 High Flow N/C 8.00 12/19/18 10:05 105 221/76 (124) 100 Nasal Cannula 4.00 12/19/18 09:00 109 191/65 (107) 100 Nasal Cannula 4.00 12/19/18 08:00 100 High Flow N/C 4.00 12/19/18 08:00 112 23 153/54 (87) 89 Nasal Cannula 4.00 12/19/18 07:05 92 Vapotherm 15.00 25 12/19/18 07:00 112 12/19/18 07:00 99.3 104 16 159/68 (98) 96 Vapotherm 25.00 15.00 12/19/18 06:00 115 18 161/67 (98) 92 Vapotherm 25.00 15.00 I & O 12/20/18 07:00 Intake Total 500 ml Output Total 7565 ml Balance -7065 ml Height & Weight Height: 5'4.00" Weight: 173lbs. 0.0oz. 78.840307ck; 26.6 BMI Method:Stated General Appearance: No Apparent Distress HEENT: PERRL/EOMI Neck: Full Range of Motion Respiratory: Chest Non Tender, Decreased Breath Sounds, Rhonci Cardiovascular: Regular Rate, Rhythm Capillary Refill: Less Than 3 Seconds Gastrointestinal: soft, distended, other (incision clean/dry) Extremity: Normal Capillary Refill Neurologic/Psychiatric: Alert, Oriented x3 Skin: Normal Color Lymphatic: No Adenopathy Results Lab Laboratory Tests 12/19/18 03:10 12/20/18 03:40 Assessment/Plan Assessment/Plan Respiratory failure s/p surgery -NC - doing well off vapotherm Atelectasis -Increase activity -IS Pneumonia - sputum is growing S.Aureus and yeast - zyvox, and eraxis Acute on chronic renal failure with metabolic acidosis - improving -Continue to monitor close -bilateral renal US - negative -Avoid MANUEL/ARBS Hypernatremia -D/C IVF -Repeat labs tomorrow HTN- urgency - hydralazine PRN -PO clonidine, Lopressor -AGUSTO 380 for past 10hours -NO MANUEL/ARB secondary to renal function Sinus tach -cardiology following Anemia -S/p 4 units RBC -Monitor SBO s/p surgery -S/p swallow eval - pt is on a dysphagia diet -Dr. Franklin is following -Reglan 10mg BID - D/C - pt has had 2 BMs and is now eating Severe oxygen dependent COPD -SVNs -Oxygen Anasarca - improving s/p JASS Rolle DO Dec 20, 2018 05:28
[2018-12-20] MEDS: KCL 20 MEQ TAB (K-DUR) PO SCH (06:16)
[2018-12-20] MEDS: MAGNESIUM 1 GM/100 ML IVPB 100 ML IV SCH (06:16)
[2018-12-20] MEDS: hydrALAZINE (APRESOLINE) 25 MG TAB PO SCH ×3 (06:16→22:16)
[2018-12-20] MEDS: meTOprolol 5 MG/5 ML (LOPRESSOR) VIAL IV SCH ×3 (06:16→17:49)
[2018-12-20] MEDS: POTASSIUM CL 10MEQ/50ML IVPB 50 ML IV SCH (06:17)
[2018-12-20] MEDS: RT-ALBUTEROL/IPRATROPIUM 3 ML (DUONEB) VIAL INH SCH ×4 (07:18→19:21)
--- NOTE | 2018-12-20 08:33 | Diagnostic Imaging Report ---
INDICATION: Shortness of air. TIME OF EXAM: 3:22 AM Correlation is made with prior study one day earlier. FINDINGS: Left-sided central line appears to have tip overlying the left innominate vein. Heart size is stable. Bibasilar infiltrates or atelectasis persists, most consolidated in the left lung base where there is complete obscuration of left hemidiaphragm. Upper lung lawrence are clear. No significant effusion is seen. There is no pneumothorax. IMPRESSION: Stable appearance of chest with bibasilar infiltrate/atelectasis when compared with examination one day earlier. Dictated by: Dictated on workstation # [id number]
--- NOTE | 2018-12-20 09:02 | Cardiology Progress Note ---
Subjective Date Seen by Provider: Dec 20, 2018 Time Seen by Provider: 09:00 Subjective/Events-last exam patient is sitting in a chair, feeling better today. Denied any chest pain. Review of Systems General: No Chills, No Night Sweats; Fatigue, Malaise; No Appetite, No Other HEENT: No Head Aches, No Visual Changes, No Eye Pain, No Ear Pain, No Dysphasia , No Sinus Congestion, No Post Nasal Drip, No Sore Throat, No Other Pulmonary: No Dyspnea, No Cough, No Pleuritic Chest Pain, No Other Cardiovascular: No: Chest Pain, Palpitations, Orthopnea, Paroxysmal Noc. Dyspnea, Edema, Lt Headedness, Other Focused Exam Lactate Level 12/18/18 05:50: Lactic Acid Level 0.65 Objective-Cardiology Exam Last Set of Vital Signs Vital Signs 12/19/18 12/20/18 12/20/18 07:05 03:30 08:00 Temp 99.9 Pulse 89 Resp 14 B/P (MAP) 173/56 (95) Pulse Ox 100 O2 Delivery High Flow N/C O2 Flow Rate 5.00 FiO2 25 Capillary Refill : Less Than 3 SecondsLess Than 3 Seconds I&O Intake and Output 12/20/18 00:00 Intake Total 450 ml Output Total 6320 ml Balance -5870 ml Intake Oral 0 ml IV Total 340 ml Other 110 ml Output Urine Total 5500 ml Drainage Total 820 ml # Bowel Movements 2 General: Alert, Cooperative, Moderate Distress HEENT: Atraumatic, PERRLA Neck: Supple, No JVD, No Thyromegaly Lungs: Normal Air Movement, Other (rhonchi) Heart: Regular Rate, Normal S1, Normal S2, No Murmurs Abdomen: Soft, No Tenderness, No Hepatosplenomegaly, No Masses, Other ( distended abdomen with diminished bowel sounds) Extremities: No Clubbing, No Cyanosis, Normal Pulses, No Tenderness/Swelling, Other (jean carlos edema) Skin: No Rashes, No Breakdown, No Significant Lesion Neuro: Normal Tone, Sensation Intact, Other (lethargic) Psych/Mental Status: Mental Status NL, Mood NL Results Lab Laboratory Tests 12/20/18 03:40 A/P-Cardiology Admission Diagnosis Acute respiratory failure Pneumonia Congestive heart failure, acute left ventricular diastolic dysfunction Hypertensive emergency Assessment/Plan Acute respiratory failure post surgery, extubated and improving slowly Pneumonia, receiving broad-spectrum antibiotics. Sputum grew staph aureus and [place]. Managed by Dr. Bauer Status post acute on chronic renal failure, metabolic acidosis, improving. Hypertensive urgency, receiving oral clonidine and Lopressor and when necessary hydralazine, still poorly controlled. continue on current medications, increase clonidine to 0.2 mg and monitor tolerance and response Avoid the use MANUEL inhibitor and/or ARB due to renal failure Sinus tachycardia, secondary to respiratory failure. Continue to monitor Small bowel obstruction, status post surgery, recovering slowly, still having diminished bowel sounds, started on liquid diet today. COPD with oxygen dependent. Anasarca, echocardiogram showed normal LV systolic function with diastolic dysfunction, dilated right atrium and vena cava suggestive of right sided pressure overload. Receiving Lasix. Clinical Quality Measures DVT/VTE Risk/Contraindication: Risk Factor Score Per Nursin RFS Level Per Nursing on Admit: 4+=Very High KAILA JUÁREZ MD Dec 20, 2018 09:02
--- NOTE | 2018-12-20 09:16 | Progress Note-Hospitalist ---
Subjective HPI/CC On Admission Date Seen by Provider: Dec 20, 2018 Time Seen by Provider: 09:45 Pt is a 68yoCM with a PMH of CKD, HTN, COPD on 3lpm who presented to the ER due to acute onset abdominal pain. He states he developed sharp upper pain and started vomitiung. He also noticed he was very distended. His pain became very severe and has was not passing flatus so he presented to the ER for evaluation where he was found to have a high grade bowel obstruction. He was asmitted for surgery and I am consulted for medical management. NGT was placed in the ER and that has helped with his nausea and vomiting but he is still having severe pain and bloating. Subjective/Events-last exam Pt doing better. Up in a chair today. Does wear home oxygen at home. 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 Candidate for inpatient rehab once he stabilizes. Appears to be very weak. Tolerating clear liquid diet. Review of Systems General: Fatigue Pulmonary: Dyspnea Focused Exam Lactate Level 12/18/18 05:50: Lactic Acid Level 0.65 Objective Exam Vital Signs Vital Signs Date Time Temp Pulse Resp B/P (MAP) Pulse Ox O2 Delivery O2 Flow Rate FiO2 12/20/18 20:00 96 19 182/69 (106) 99 High Flow N/C 3.00 12/20/18 16:30 97.7 12/19/18 07:05 25 Capillary Refill : Less Than 3 SecondsLess Than 3 Seconds General Appearance: No Apparent Distress, WD/WN, Chronically ill, Cachetic HEENT: PERRL/EOMI Neck: Full Range of Motion Respiratory: Chest Non Tender, Crackles, Decreased Breath Sounds, Rhonci Cardiovascular: Regular Rate, Rhythm Gastrointestinal: Abnormal Bowel Sounds (absent), Distended, Other (AGUSTO drain in place with serosanguinous drainage) Genital/Rectal: Other Extremity: Normal Capillary Refill, Pedal Edema Neurologic/Psychiatric: Alert, Oriented x3 Skin: Normal Color Lymphatic: No Adenopathy Results/Procedures Lab Laboratory Tests 12/20/18 03:40 Patient resulted labs reviewed. Imaging: Reviewed Imaging Report Assessment/Plan Assessment and Plan Assess & Plan/Chief Complaint Respiratory failure s/p surgery Atelectasis on CXR Pneumonia - sputum is growing S.Aureus and yeast Acute on chronic renal failure with metabolic acidosis Hypernatremia HTN- urgency Sinus tach Anemia received 4 units of blood SBO s/p surgery Severe oxygen dependent COPD Anasarca Plan: Tx to 4 th soon O2 Monitor BP fragile status Critical Care Critically Ill Patient Diagnosis/Problems Diagnosis/Problems (1) Acute respiratory failure Status: Acute Qualifiers: Respiratory failure complication: hypoxia Qualified Codes: J96.01 - Acute respiratory failure with hypoxia (2) Acute renal failure Status: Acute Qualifiers: Acute renal failure type: unspecified Qualified Codes: N17.9 - Acute kidney failure, unspecified (3) Microcytic anemia Status: Acute (4) Essential (primary) hypertension Status: Chronic (5) CLOSED LOOP BOWEL OBSTRUCTION Status: Acute (6) Chronic hyponatremia Status: Acute (7) COPD (chronic obstructive pulmonary disease) Status: Acute Qualifiers: COPD type: unspecified COPD Qualified Codes: J44.9 - Chronic obstructive pulmonary disease, unspecified (8) Dyspnea on exertion Status: Acute (9) Fluid overload Status: Acute (10) Interstitial lung disease Status: Acute Clinical Quality Measures DVT/VTE Risk/Contraindication: Risk Factor Score Per Nursin RFS Level Per Nursing on Admit: 4+=Very High ALEM MCKEON DO Dec 20, 2018 09:16
--- NOTE | 2018-12-20 09:40 | Occupational Therapy Eval ---
OT Evaluation-General/PLF Medical Diagnosis Admission Date Dec 13, 2018 at 15:21 Medical Diagnosis: closed loop bowl obstruction Onset Date: Dec 13, 2018 Therapy Diagnosis Therapy Diagnosis: Weakness Height/Weight Height (Feet): 5 Height (Inches): 4.00 Weight (Pounds): 173 Weight (Ounces): 0.0 Precautions Precautions/Isolations: Fall Prevention, Standard Precautions Safety Interventions: None Weight Bear Status Weight Bearing Restriction: Full Weight Bearing Location Restriction: L PACO, R PACO Referral Physician: Lizette Referral Reason: Activity Tolerance, Self Care, Evaluation/Treatment, Strengthening/ROM Medical History Pertinent Medical History: COPD, HTN, Renal Insufficiency Additional Medical History PMHx GASTRITIS, PLEURAL EFFUSION, COPD, SMALL BOWL OBSTRUCTION, Acute Respiratory failure, Acute Renal Failure. Current History 68-year-old male who presented to the Emergency Department today with abdominal distention, crampy abdominal pain as well as nausea and vomiting. Reviewed History: Yes Social History Home: Single Level Current Living Status: Spouse Steps Into Home: 4 ADL-Prior Level of Function Therapy Code Descriptions/Definitions Functional Assumption Measure: 0=Not Assessed/NA 4=Minimal Assistance 1=Total Assistance 5=Supervision or Setup 2=Maximal Assistance 6=Modified Assumption 3=Moderate Assistance 7=Complete [place] Therapy Quality Codes: 6 Independent with activity with or without an assistive device 5 Patient requires set up or clean up by helper. Patient completes activity by themselves 4 Supervision or touching assist (CGA). [place] provide cues , steadying assist 3 The helper provides less than half the effort to complete the activity 2 The helper provides more than half the effort to complete the activity 1 Dependent. The helper does all the effort to complete an activity 7 Patient refused to complete or attempt activity 9 The patient did not perform the activity before the current illness or injury 88 Not attempted due to Medical conditions or safety concerns Functional Abilities and Goals: Independent: Patient completed the activities by him/herself, with or without an assistive device, with no assistance from a helper. Needed Some Help: Patient needed partial assistance from another person to complete activities. Dependent: A helper completed the activities for the patient. Unknown: Not Applicable: ADL PLOF Comments 68 yrs old male lives at home with his & was modified Independent in all self care activity as per his statement & was ambulating with 4 wheeled rollator. Pt was O2 dependent 3 liter at home .at present Pt is 5 liters On continuous. Functional Cognition: Needed Some Help DME/Equipment: Bath Bench, Grab Bars, Shower Hose Sexual Assault Counselor Occupation: Retired Drive Self: No OT Current Status Subjective Pt in recliner, alert, oriented & cooperative. Pt agree for therapy. Pain Location: No Pain Reported Mental Status/Objective Patient Orientation: Person, Place, Situation Attachments: Central Line, IV, Oxygen, Saline Lock, SCD's, Telemetry Current Glasses/Contacts: Yes Hearing Aids: No Hand Dominance: Right Upper Extremity ROM Limited forward shoulder flexion 0-80* , Hand manufacturer's representative fair + , Elbow flexion WFL. Upper Extremity Coordination Intact Upper Extremity Sensation Intact Upper Extremity Strength MS in [facility] -4/5 grossly graded. ADL-Treatment ADL-Current Pt needs Max A x 2 for sit to stand from recliner. Min A in grooming, Max A in UB dressing & Dependent in LB dressing. Pt fatigue soon. Endurance -fair. Pt O2 dependent , 5 liters ON continuous. MS in E -4/5 grossly graded. -Fair Endurance. Therapy Code Descriptions/Definitions Functional Assumption Measure: 0=Not Assessed/NA 4=Minimal Assistance 1=Total Assistance 5=Supervision or Setup 2=Maximal Assistance 6=Modified [place] 3=Moderate Assistance 7=Complete Assumption Therapy Quality Codes: 6 Independent with activity with or without an assistive device 5 Patient requires set up or clean up by helper. Patient completes activity by themselves 4 Supervision or touching assist (CGA). [place] provide cues , steadying assist 3 The helper provides less than half the effort to complete the activity 2 The helper provides more than half the effort to complete the activity 1 Dependent. The helper does all the effort to complete an activity 7 Patient refused to complete or attempt activity 9 The patient did not perform the activity before the current illness or injury 88 Not attempted due to Medical conditions or safety concerns Eating (FIM): 6 Grooming (FIM): 4 Bathing (FIM): 0 Upper Body Dressing (FIM): 0 Lower Body Dressing (FIM): 1 Toileting (FIM): 0 Transfers (B, C, W/C) (FIM): 1 (Max A X2) Toilet/Commode Transfer (FIM): 0 Tub Transfer (FIM): 0 Shower Transfer (FIM): 0 Education OT Patient Education: Correct positioning Teaching Recipient: Patient Teaching Methods: Demonstration Response to Teaching: Verbalize Understanding OT Short Term Goals Short Term Goals Time Frame: Jan 03, 2019 Additional Short Term Goals: 1-Demonstrate ADL Tasks, 2-Verbalize Understanding , 3-ImproveStrength/Rosario 1=Demonstrate adherence to instructed precautions during ADL tasks. 2=Patient will verbalize/demonstrate understanding of assistive devices/ modifications for ADL. 3=Patient will improve strength/tolerance for activity to enable patient to perform ADL's. OT Senior Care Goals Knife Blade Polisher Goals Time Frame: Jan 17, 2019 Eating (FIM): 6 Grooming(FIM): 6 Bathing(FIM): 5 Bathing Location: L Arm, R Arm, L Upper Leg, R Upper Leg, L Lower Leg ( including foot), R Lower Leg (including foot), Chest, Abdomen, Buttocks, Perineal Area Upper Body Dressing(FIM): 5 Lower Body Dressing(FIM): 5 Toileting(FIM): 6 Transfers (B,C,W/C) (FIM): 6 Toilet/Commode Transfer(FIM): 6 Tub Transfer(FIM): 0 Shower Transfer(FIM): 6 Additional Goals: 1-Demonstrate ADL Tasks, 2-Verbalize Understanding, 3- ImproveStrength/Rosario 1=Demonstrate adherence to instructed precautions during ADL tasks. 2=Patient will verbalize/demonstrate understanding of assistive devices/ modifications for ADL. 3=Patient will improve strength/tolerance for activity to enable patient to perform ADL's. OT Education/Plan Problem List/Assessment Assessment: Decreased Activ Tolerance, Decreased Safety Aware, Decreased UE Strength, Dependent Transfers, Impaired Bed Mobility, Impaired Funct Balance, Impaired Self-Care Skills Discharge Recommendations Plan/Recommendations: Continue POC Therapy D/C Recommendations: Home w/ Family Support Equpiment Recommendations-D/C: Extended Bath Bench, Extended Shower Sprayer, Talent Program Manager Patient/Family Goals To return home with modified Assumption with . Treatment Plan/Plan of Care Treatment,Training & Education: Yes Patient would benefit from OT for education, treatment and training to promote independence in ADL's, mobility, safety and/or upper extremity function for ADL' s. Plan of Care: ADL Retraining, Functional Mobility, UE Funct Exercise/Act, UE Neuromus Re-Ed/Coord Treatment Duration: Jan 17, 2019 Frequency: 5 times per week Estimated Hrs Per Day: .25 hour per day Agreement: Yes Rehab Potential: Good Time/GCodes Start Time: 09:15 Stop Time: 10:00 Total Time Billed (hr/min): 45 Billed Treatment Time 1, EVM 18 min, FA 14, Ex 13 ELISA TOVAR OT Dec 20, 2018 09:40
[2018-12-20] MEDS: ANIDULAFUNGIN INJECTION 100 MG in NS (IVPB) 100 ML IV SCH (09:56)
[2018-12-20] MEDS: PANTOPRAZOLE 40 MG (PROTONIX) VIAL IV SCH (10:05)
[2018-12-20] MEDS: amLODIPine 10 MG (NORVASC) TAB PO SCH (10:09)
--- NOTE | 2018-12-20 11:20 | NUR ---
Pastoral care visit.
[2018-12-20] MEDS: PIPERACILLIN/TAZOBACTAM (BULK) 4.5 GM in NS (IVPB) 100 ML IV SCH ×2 (11:47→17:49)
[2018-12-20] MEDS: hydrALAZINE (APESOLINE) 20 MG/ML VIAL IV PRN (11:47)
[2018-12-20] MEDS: cloNIDine 0.1 MG (CATAPRES) TAB PO SCH ×2 (13:42→22:16)
--- NOTE | 2018-12-20 15:25 | Progress Note (SOAP) ---
Subjective Date Seen by a Provider: Dec 20, 2018 Time Seen by a Provider: 14:00 Subjective/Events-last exam slowly improving over time. more awake and alert and ambulating more. did well on swallow evaluation. having loose BM's. respiratory status improving. Focused Exam Lactate Level 12/18/18 05:50: Lactic Acid Level 0.65 Objective Exam Vital Signs Date Time Temp Pulse Resp B/P (MAP) Pulse Ox O2 Delivery O2 Flow Rate FiO2 12/20/18 14:49 100 Nasal Cannula 3.00 12/20/18 14:00 110 19 195/97 (129) 100 High Flow N/C 3.00 12/20/18 13:00 101 16 185/87 (119) 100 High Flow N/C 3.00 12/20/18 13:00 104 12/20/18 12:00 87 18 188/63 (104) 100 High Flow N/C 3.00 12/20/18 11:00 117 14 175/70 (105) 100 High Flow N/C 3.00 12/20/18 10:48 High Flow N/C 3.00 12/20/18 10:38 100 Nasal Cannula 5.00 12/20/18 10:00 107 24 170/73 (105) 100 High Flow N/C 5.00 12/20/18 09:00 96 14 188/79 (115) 100 High Flow N/C 5.00 12/20/18 08:00 89 14 173/56 (95) 100 High Flow N/C 5.00 12/20/18 07:21 94 High Flow N/C 7.00 12/20/18 07:00 82 16 160/70 (100) 100 High Flow N/C 5.00 12/20/18 07:00 77 12/20/18 06:00 96 17 156/66 (96) 100 High Flow N/C 5.00 12/20/18 05:01 91 22 141/86 (104) 100 High Flow N/C 5.00 12/20/18 04:00 118 10 145/65 (91) 100 High Flow N/C 5.00 12/20/18 03:40 99 High Flow N/C 5.00 12/20/18 03:30 99.9 High Flow N/C 5.00 12/20/18 03:00 84 16 153/76 (101) 99 High Flow N/C 5.00 12/20/18 02:00 85 8 156/53 (87) 99 High Flow N/C 5.00 12/20/18 01:00 87 12/20/18 01:00 87 13 140/64 (89) 98 High Flow N/C 5.00 12/20/18 00:00 79 10 134/2 (46) 98 High Flow N/C 5.00 12/19/18 23:50 100.2 High Flow N/C 5.00 12/19/18 23:30 99 High Flow N/C 10.00 12/19/18 23:00 97 11 131/71 (91) 99 High Flow N/C 10.00 12/19/18 22:00 104 17 147/65 (92) 98 High Flow N/C 10.00 12/19/18 21:00 102 11 169/59 (95) 100 High Flow N/C 10.00 12/19/18 20:00 98 12 159/67 (97) 100 High Flow N/C 10.00 12/19/18 20:00 100 High Flow N/C 10.00 12/19/18 19:00 92 12/19/18 19:00 98.8 96 16 171/66 (101) 100 High Flow N/C 10.00 12/19/18 18:21 89 High Flow N/C 5.00 12/19/18 16:29 100 High Flow N/C 4.00 12/19/18 16:00 120 155/60 (91) 98 Nasal Cannula 4.00 12/19/18 15:42 100 High Flow N/C 8.00 I & O 12/20/18 07:00 Intake Total 770 ml Output Total 7565 ml Balance -6795 ml Capillary Refill : Less Than 3 SecondsLess Than 3 Seconds General Appearance: No Apparent Distress HEENT: PERRL/EOMI Neck: Full Range of Motion Respiratory: Chest Non Tender, Rhonci Cardiovascular: Regular Rate, Rhythm Gastrointestinal: soft, distended, other (inc clean/dry) Extremity: Normal Capillary Refill Neurologic/Psychiatric: Alert, Oriented x3 Skin: Normal Color Lymphatic: No Adenopathy Results Lab Laboratory Tests 12/20/18 03:40: White Blood Count 12.6H, Red Blood Count 4.08L, Hemoglobin 10.8L, Hematocrit 33L , Mean Corpuscular Volume 81, Mean Corpuscular Hemoglobin 26, Mean Corpuscular Hemoglobin Concent 33, Red Cell Distribution Width 17.9H, Platelet Count 295, Mean Platelet Volume 8.1, Neutrophils (%) (Auto) 72, Lymphocytes (%) (Auto) 11L , Monocytes (%) (Auto) 15H, Eosinophils (%) (Auto) 3, Basophils (%) (Auto) 0, Neutrophils # (Auto) 9.0H, Lymphocytes # (Auto) 1.4, Monocytes # (Auto) 1.9H, Eosinophils # (Auto) 0.3, Basophils # (Auto) 0.0, Blood Gas Puncture Site L RAD , Blood Gas Patient Temperature 99.9, Arterial Blood pH 7.48H, Arterial Blood Partial Pressure CO2 37, Arterial Blood Partial Pressure O2 68L, Arterial Blood HCO3 27, Arterial Blood Total CO2 27.7, Arterial Blood Oxygen Saturation 92L, Arterial Blood Base Excess 3.3H, Waldo Test YES-POS, Blood Gas Ventilator Setting NO, Blood Gas Inspired Oxygen 5L, Sodium Level 151H, Potassium Level 3.7 , Chloride Level 113H, Carbon Dioxide Level 25, Anion Gap 13, Blood Urea Nitrogen 32H, Creatinine 1.59H, Estimat Glomerular Filtration Rate 43, BUN/ Creatinine Ratio 20, Glucose Level 95, Calcium Level 8.9, Phosphorus Level 4.0, Magnesium Level 1.9 Microbiology 12/18/18 Blood Culture - Preliminary, Resulted No growth 12/14/18 Gram Stain - Final, Complete 12/14/18 Sputum Culture - Final, Complete Usual upper respiratory justino YEAST Staphylococcus aureus Assessment/Plan Assessment/Plan Assess & Plan/Chief Complaint s/p expl lap, 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 resp status improving. no on O2 NC. cont monitor urine output as well as renal fxn. started on D5 with bicarb to promote diuresis. passed swallow eval today. start diet and advance as tolerated. Clinical Quality Measures DVT/VTE Risk/Contraindication: Risk Factor Score Per Nursin RFS Level Per Nursing on Admit: 4+=Very High GRETA METZ MD Dec 20, 2018 15:25
--- NOTE | 2018-12-20 15:36 | Physical Therapy Daily Note ---
PT Daily Note-Current Subjective Pt reports feeling ok. States he wants to hurry and get better so he can get out of here. Agreeable to PT session. Pt states he was supposed to have a shot in Left knee, but ended up in the hospital. States he is hoping that the dr can come and give him a shot so that he can move better and recover better because he can hardly move with his L knee pain Pain Comment: unable to rate pain, some in left knee, josi with movement Appearance 1x unsuccessful attempt to treat pt due to stating he had an accident and needs nsg to help clean him up. 2nd attempt, able to treat pt, pt sitting up in chair awake and alert, agreeable to PT session Mental Status Attachments: Oxygen, IV Transfers Therapy Code Descriptions/Definitions Functional [place] Measure: 0=Not Assessed/NA 4=Minimal Assistance 1=Total Assistance 5=Supervision or Setup 2=Maximal Assistance 6=Modified [place] 3=Moderate Assistance 7=Complete [place] Therapy Quality Codes: 6 Independent with activity with or without an assistive device 5 Patient requires set up or clean up by helper. Patient completes activity by themselves 4 Supervision or touching assist (CGA). [place] provide cues , steadying assist 3 The helper provides less than half the effort to complete the activity 2 The helper provides more than half the effort to complete the activity 1 Dependent. The helper does all the effort to complete an activity 7 Patient refused to complete or attempt activity 9 The patient did not perform the activity before the current illness or injury 88 Not attempted due to Medical conditions or safety concerns Transfers (B, C, W/C) (FIM): 2 Sit to/from Stand: 2 Pt requiring mod to max assist to stand due to weakness and report of L knee pain with wt bearing and movement Exercises Seated Therapy Exercises: Ankle pumps, Long arc quads, Chair press-ups, Hip flexion, Hamstring Curls, Hip abd/add, Glut set Seated Reps: 20 ((+) toer curls) Treatments exercises to improve strength, ROM and activity tolerance. Attempted sit to from stands but only able to achieve chair pushups Assessment Pt only willing to perform exercises in chair this afternoon stating knee just isn't good enough right now and that he is awaiting something to eat PT Pocket Secretary Assembler Goals Pocket Secretary Assembler Goals PT Pocket Secretary Assembler Goals Time Frame: Dec 31, 2018 Transfers (B,C,W/C) (FIM): 4 Gait (FIM): 1 Gait distance (FIM): 1=up to 49 ft Distance: 45' Gait Level of Assist: 4 Gait Assistive Device: FWW PT Plan Treatment/Plan Treatment Plan: Continue Plan of Care Treatment Plan: Bed Mobility, Education, Functional Activity Rosario, Functional Strength, Gait, Safety, Therapeutic Exercise, Transfers Treatment Duration: Dec 19, 2018 Frequency: 6 times per week Estimated Hrs Per Day: .25 hour per day Patient and/or Family Agrees t: Yes Safety Risks/Education Patient Education: Safety Issues Teaching Recipient: Patient Teaching Methods: Discussion Response to Teaching: Verbalize Understanding Time/GCodes Time In: 1203 Time Out: 1216 Total Billed Treatment Time: 13 Total Billed Treatment 1 visit, EX x 1 unit HAMLET SALINAS PTA Dec 20, 2018 15:36
[2018-12-20] MEDS ORDERED: hydrALAZINE (APRESOLINE) 25 MG TAB PO SCH (22:00)
[2018-12-21] VITALS (11 sets, daily range): BP systolic 114–186; BP diastolic 57–83
[2018-12-21] MEDS: meTOprolol 5 MG/5 ML (LOPRESSOR) VIAL IV SCH ×2 (00:16→05:38)
[2018-12-21] MEDS: PIPERACILLIN/TAZOBACTAM (BULK) 4.5 GM in NS (IVPB) 100 ML IV SCH ×3 (00:19→15:41)
[2018-12-21 03:54] LABS: BASOPHILS # (AUTO) 0.1 10^3/uL (0.0-0.1); BASOPHILS % (AUTO) 0 % (0-10); EOSINOPHILS # (AUTO) 0.6 10^3/uL (0.0-0.3); EOSINOPHILS % (AUTO) 4 % (0-10); HEMATOCRIT 35 % (40-54); HEMOGLOBIN 10.8 G/DL (13.3-17.7); LYMPHOCYTES # (AUTO) 1.7 X 10^3 (1.0-4.0); LYMPHOCYTES % (AUTO) 11 % (12-44); MEAN CORPUSCULAR HEMOGLOBIN 26 PG (25-34); MEAN CORPUSCULAR HGB CONC 31 G/DL (32-36); MEAN CORPUSCULAR VOLUME 83 FL (80-99); MEAN PLATELET VOLUME 8.5 FL (7.4-10.4); MONOCYTES # (AUTO) 1.6 X 10^3 (0.0-1.0); MONOCYTES % (AUTO) 11 % (0-12); NEUTROPHILS # (AUTO) 10.8 X 10^3 (1.8-7.8); NEUTROPHILS % (AUTO) 74 % (42-75); PLATELET COUNT 309 10^3/uL (130-400); WHITE BLOOD COUNT 14.7 10^3/uL (4.3-11.0)
[2018-12-21 04:19] LABS: CALCIUM 8.7 MG/DL (8.5-10.1); CREATININE SERUM 1.55 MG/DL (0.60-1.30); MAGNESIUM 1.8 MG/DL (1.8-2.4); PHOSPHORUS 4.3 MG/DL (2.3-4.7); POTASSIUM 3.4 MMOL/L (3.6-5.0)
--- NOTE | 2018-12-21 04:32 | Pulmonary Progress Note ---
Subjective Time Seen by a Provider: 07:01 Subjective/Events-last exam Pt complains of diarrhea. SOB is persistent but improved. Sepsis Event Evaluation Height, Weight, BMI Height: 5'4.00" Weight: 173lbs. 0.0oz. [id number]; 26.6 BMI Method:Stated Focused Exam Lactate Level 12/18/18 05:50: Lactic Acid Level 0.65 Exam Exam Vital Signs Date Time Temp Pulse Resp B/P (MAP) Pulse Ox O2 Delivery O2 Flow Rate FiO2 12/21/18 03:00 78 19 167/60 (95) High Flow N/C 3.00 12/21/18 02:00 91 18 164/65 (98) High Flow N/C 3.00 12/21/18 01:00 80 12/21/18 01:00 80 18 164/58 (93) High Flow N/C 3.00 12/21/18 00:00 99 High Flow N/C 5.00 12/21/18 00:00 99.0 12/21/18 00:00 101 18 168/65 (99) 100 High Flow N/C 3.00 12/20/18 23:00 80 12 144/53 (83) 100 High Flow N/C 3.00 12/20/18 22:00 92 16 174/66 (102) 99 High Flow N/C 3.00 12/20/18 21:00 80 14 124/59 (80) 100 High Flow N/C 3.00 12/20/18 20:00 99.5 12/20/18 20:00 96 19 182/69 (106) 99 High Flow N/C 3.00 12/20/18 20:00 99 High Flow N/C 5.00 12/20/18 19:22 98 Nasal Cannula 3.00 12/20/18 19:00 101 12/20/18 19:00 101 12 165/94 (117) 98 High Flow N/C 3.00 12/20/18 18:00 98 18 154/68 (96) 100 High Flow N/C 3.00 12/20/18 17:00 113 14 158/62 (94) 100 High Flow N/C 3.00 12/20/18 16:30 97.7 12/20/18 16:00 128 16 136/60 (85) 98 High Flow N/C 3.00 12/20/18 16:00 99 High Flow N/C 5.00 12/20/18 15:00 90 12 191/112 (138) 100 High Flow N/C 3.00 12/20/18 14:49 100 Nasal Cannula 3.00 12/20/18 14:00 110 19 195/97 (129) 100 High Flow N/C 3.00 12/20/18 13:00 101 16 185/87 (119) 100 High Flow N/C 3.00 12/20/18 13:00 104 12/20/18 12:00 97.4 12/20/18 12:00 87 18 188/63 (104) 100 High Flow N/C 3.00 12/20/18 12:00 97.8 12/20/18 12:00 99 High Flow N/C 5.00 12/20/18 11:00 117 14 175/70 (105) 100 High Flow N/C 3.00 12/20/18 10:48 High Flow N/C 3.00 12/20/18 10:38 100 Nasal Cannula 5.00 12/20/18 10:00 107 24 170/73 (105) 100 High Flow N/C 5.00 12/20/18 09:00 96 14 188/79 (115) 100 High Flow N/C 5.00 12/20/18 08:00 89 14 173/56 (95) 100 High Flow N/C 5.00 12/20/18 08:00 97.8 12/20/18 08:00 99 High Flow N/C 5.00 12/20/18 08:00 97.8 12/20/18 07:21 94 High Flow N/C 7.00 12/20/18 07:00 82 16 160/70 (100) 100 High Flow N/C 5.00 12/20/18 07:00 77 12/20/18 06:00 96 17 156/66 (96) 100 High Flow N/C 5.00 12/20/18 05:01 91 22 141/86 (104) 100 High Flow N/C 5.00 I & O 12/21/18 07:00 Intake Total 1030 ml Output Total 3530 ml Balance -2500 ml Height & Weight Height: 5'4.00" Weight: 173lbs. 0.0oz. [id number]; 26.6 BMI Method:Stated General Appearance: No Apparent Distress, WD/WN, Chronically ill, Cachetic HEENT: PERRL/EOMI Neck: Full Range of Motion Respiratory: Chest Non Tender, Crackles, Decreased Breath Sounds, Rhonci Cardiovascular: Regular Rate, Rhythm Capillary Refill: Less Than 3 Seconds Gastrointestinal: soft, distended, other (inc clean/dry) Extremity: Normal Capillary Refill, Pedal Edema Neurologic/Psychiatric: Alert, Oriented x3 Skin: Normal Color Lymphatic: No Adenopathy Results Lab Laboratory Tests 12/20/18 03:40 12/21/18 03:45 Assessment/Plan Assessment/Plan Respiratory failure s/p surgery -Oxygen -SVNs Atelectasis -Increase activity -IS Pneumonia - sputum is growing S.Aureus and yeast - zosyn , and eraxis -Persistent Leukocytosis - check C diff -Continue daily labs Pulmonary edema -Lasix daily -BNP - is 3017 Diarrhea-- probably secondary to Abx -Check C diff Acute on chronic renal failure with metabolic acidosis - improving -Continue to monitor close -bilateral renal US - negative -Avoid MANUEL/ARBS Hypokalemia -Replace Hypernatremia- secondary to IVF -IVF are hep locked now -Repeat labs tomorrow HTN- - hydralazine PRN -PO clonidine, Lopressor -NO MANUEL/ARB secondary to renal function Sinus tach -cardiology following Anemia -S/p 4 units RBC -Monitor SBO s/p surgery -S/p swallow eval - pt is on a dysphagia diet -Dr. Franklin is following Dysphagia -Pt is on a dysphagia diet -He is tolerating PO intake Severe oxygen dependent COPD -SVNs -Oxygen Anasarca - improving JASS SWANSON DO Dec 21, 2018 04:32
[2018-12-21] MEDS ORDERED: POTASSIUM CL 10MEQ/50ML IVPB 300 ML IV ONE (04:54)
[2018-12-21] MEDS: POTASSIUM CL 10MEQ/50ML IVPB 50 ML IV SCH ×4 (05:01→09:41)
[2018-12-21 05:38] LABS: EOSINOPHILS % (MANUAL) 9 %; LYMPHOCYTES % (MANUAL) 8 %; MONOCYTES % (MANUAL) 11 %; NEUTROPHILS % (MANUAL) 73 %
[2018-12-21] MEDS: hydrALAZINE (APRESOLINE) 25 MG TAB PO SCH ×3 (05:38→21:10)
[2018-12-21] MEDS: RT-ALBUTEROL/IPRATROPIUM 3 ML (DUONEB) VIAL INH SCH ×4 (06:35→19:00)
--- NOTE | 2018-12-21 07:10 | Diagnostic Imaging Report ---
INDICATION: Followup. Shortness of air. COMPARISON: 12/20/2018 FINDINGS: Single frontal radiographic view of the chest was obtained and demonstrates stable mild cardiomegaly. Pulmonary vasculature is within normal limits. There is improved aeration to the right base, but small bibasilar effusions likely persists. Aeration on the left is unchanged. There is some associated left basilar airspace disease. No pneumothorax is seen on either side. Left-sided subclavian central venous catheter is noted. Bony structures show no acute interval change. IMPRESSION: 1. Interval improved aeration of the right base, but with probable persistent small bibasilar effusions with associated left basilar atelectasis and/or infiltrate. 2. Mild cardiomegaly. Dictated by: Dictated on workstation # [id number]
--- NOTE | 2018-12-21 07:10 | Cardiology Progress Note ---
Subjective Date Seen by Provider: Dec 21, 2018 Time Seen by Provider: 07:05 Subjective/Events-last exam patient is sitting in bed, feeling better, denied any chest pain, denied any palpitation, reported history of malignant hypertension and had renal angiogram done about 10 years ago and reported that it was normal Review of Systems General: No Chills, No Night Sweats, No Fatigue, No Malaise, No Appetite, No Other HEENT: No Head Aches, No Visual Changes, No Eye Pain, No Ear Pain, No Dysphasia , No Sinus Congestion, No Post Nasal Drip, No Sore Throat, No Other Pulmonary: No Dyspnea, No Cough, No Pleuritic Chest Pain, No Other Cardiovascular: No: Chest Pain, Palpitations, Orthopnea, Paroxysmal Noc. Dyspnea, Edema, Lt Headedness, Other Objective-Cardiology Exam Last Set of Vital Signs Vital Signs 12/19/18 12/21/18 12/21/18 07:05 06:10 06:38 Pulse 77 Resp 19 B/P (MAP) 178/71 (106) Pulse Ox 92 O2 Delivery Nasal Cannula O2 Flow Rate 3.00 FiO2 25 Capillary Refill : Less Than 3 SecondsLess Than 3 Seconds I&O Intake and Output 12/21/18 00:00 Intake Total 1470 ml Output Total 5075 ml Balance -3605 ml Intake Oral 1080 ml IV Total 390 ml Output Urine Total 4400 ml Drainage Total 675 ml # Bowel Movements 1 General: Alert, Cooperative, Moderate Distress HEENT: Atraumatic, PERRLA Neck: Supple, No JVD, No Thyromegaly Lungs: Normal Air Movement, Other (rhonchi) Heart: Regular Rate, Normal S1, Normal S2, No Murmurs Abdomen: Soft, No Tenderness, No Hepatosplenomegaly, No Masses, Other ( distended abdomen with diminished bowel sounds) Extremities: No Clubbing, No Cyanosis, Normal Pulses, No Tenderness/Swelling, Other (jean carlos edema) Skin: No Rashes, No Breakdown, No Significant Lesion Neuro: Normal Tone, Sensation Intact, Other (lethargic) Psych/Mental Status: Mental Status NL, Mood NL Results Lab Laboratory Tests 12/21/18 03:45 A/P-Cardiology Admission Diagnosis Acute respiratory failure Pneumonia Congestive heart failure, acute left ventricular diastolic dysfunction Hypertensive emergency Assessment/Plan Status post acute respiratory failure postoperatively, currently doing better. Managed by primary care team. Continue to monitor Pneumonia, receiving broad-spectrum antibiotics. Sputum grew staph aureus and Yeast. Managed by Dr. Bauer Status post acute on chronic renal failure, metabolic acidosis, improving. Hypertensive urgency, history of malignant hypertension, had extensive workup done in the past, patient reporting that he had renal angiogram done about 10 years ago, I am concerned about having underlying pheochromocytoma, will consider 24 hour urine collection and evaluate his catecholamine once he is clinically recovered from his surgery. For now I am starting on Coreg instead of IV Lopressor and discontinue A line Elevated BNP, probably secondary to malignant hypertension, diastolic dysfunction and renal failure, had an echocardiogram done on December [address] Hernandez to have left ventricular hypertrophy with normal systolic function, ejection fraction 55-65 percent, pulmonary hypertension with PA pressure 45 mmHg. I will give him one dose of Lasix and monitor tolerance and response Avoid the use MANUEL inhibitor and/or ARB due to renal failure Sinus tachycardia, borderline tachycardic, I am initiating carvedilol instead of IV Lopressor and monitoring tolerance and response Small bowel obstruction, status post surgery, recovering slowly, still having diminished bowel sounds, started on liquid diet today. COPD with oxygen dependent. Anasarca, echocardiogram showed normal LV systolic function with diastolic dysfunction, dilated right atrium and vena cava suggestive of right sided pressure overload. Clinical Quality Measures DVT/VTE Risk/Contraindication: Risk Factor Score Per Nursin RFS Level Per Nursing on Admit: 4+=Very High KAILA JUÁREZ MD Dec 21, 2018 07:09
[2018-12-21] MEDS ORDERED: FUROSEMIDE 40 MG/4 ML INJ (LASIX) IVP NR (07:30)
[2018-12-21] MEDS: KCL 20 MEQ TAB (K-DUR) PO SCH ×2 (07:39→09:44)
[2018-12-21] MEDS: FUROSEMIDE 40 MG/4 ML INJ (LASIX) IVP SCH (07:59)
--- NOTE | 2018-12-21 08:30 | NUR ---
Report given to CLEVE Wright
--- NOTE | 2018-12-21 08:45 | NUR ---
Pt taken down to 4th floor, aide and RN aware of pt arrival.
--- NOTE | 2018-12-21 08:50 | NUR ---
TRANSFERRED FROM ICU TO ROOM 430 PER BED. PT. HAD LARGE AMT. LOOSE BROWN BM. STOOL FOR C-DIFF SENT TO LAB. ALERT WITH SOME CONFUSION. O2 ON AT 3 L PER MIN. SKIN W/D. COLOR PALE. SOME SOA AT REST. AT BEDSIDE. [place] CATH WITH LARGE AMT. CLEAR YELLOW URINE NOTED. LEFT CENTRAL LINE WITH TRIPLE LUMEN IN PLACE. MIDLINE INC. AREA TO ABD. WITH BRANDO IN PLACE.
[2018-12-21] MEDS: PANTOPRAZOLE 40 MG (PROTONIX) VIAL IV SCH (09:43)
--- NOTE | 2018-12-21 09:43 | Progress Note-Hospitalist ---
Subjective HPI/CC On Admission Date Seen by Provider: Dec 21, 2018 Time Seen by Provider: 09:15 Pt is a 68yoCM with a PMH of CKD, HTN, COPD on 3lpm who presented to the ER due to acute onset abdominal pain. He states he developed sharp upper pain and started vomitiung. He also noticed he was very distended. His pain became very severe and has was not passing flatus so he presented to the ER for evaluation where he was found to have a high grade bowel obstruction. He was asmitted for surgery and I am consulted for medical management. NGT was placed in the ER and that has helped with his nausea and vomiting but he is still having severe pain and bloating. Subjective/Events-last exam Pt was transferred from ICU Noted confusion so will monitor that closely Kidney function is satisfactory Will initiate PT and OT Overall very frail status, unsure if he is going to recover or not because if he becomes critically ill again in the near future he will be a hospice candidate Unsure the recovery potential for inpatient rehab but will evaluate Review of Systems General: Fatigue Neurological: Confusion Objective Exam Vital Signs Vital Signs Date Time Temp Pulse Resp B/P (MAP) Pulse Ox O2 Delivery O2 Flow Rate FiO2 12/21/18 20:58 98.4 80 22 122/77 (92) 93 High Flow N/C 3.00 12/19/18 07:05 25 Capillary Refill : Less Than 3 SecondsLess Than 3 Seconds General Appearance: No Apparent Distress, WD/WN, Chronically ill, Cachetic HEENT: PERRL/EOMI Neck: Full Range of Motion Respiratory: Chest Non Tender, Crackles, Decreased Breath Sounds, Rhonci Cardiovascular: Regular Rate, Rhythm Gastrointestinal: Abnormal Bowel Sounds (absent), Distended, Other (AGUSTO drain in place with serosanguinous drainage) Genital/Rectal: Other Extremity: Normal Capillary Refill, Pedal Edema Neurologic/Psychiatric: Alert, Oriented x3, Disoriented Skin: Normal Color Lymphatic: No Adenopathy Results/Procedures Lab Laboratory Tests 12/21/18 03:45 Patient resulted labs reviewed. Imaging: Reviewed Imaging Report Assessment/Plan Assessment and Plan Assess & Plan/Chief Complaint Respiratory failure s/p surgery Atelectasis on CXR Pneumonia - sputum is growing S.Aureus and yeast Acute on chronic renal failure with metabolic acidosis Hypernatremia HTN- urgency Sinus tach Anemia received 4 units of blood SBO s/p surgery Severe oxygen dependent COPD Anasarca Delirium acute Plan: Tx to 4 th today O2 Monitor BP Fragile status Monitor delirium Critical Care Critically Ill Patient Diagnosis/Problems Diagnosis/Problems (1) Acute respiratory failure Status: Resolved Qualifiers: Respiratory failure complication: hypoxia Qualified Codes: J96.01 - Acute respiratory failure with hypoxia Resolution Date/Time: 12/21/18 @ 21:25 (2) Acute renal failure Status: Resolved Qualifiers: Acute renal failure type: unspecified Qualified Codes: N17.9 - Acute kidney failure, unspecified Resolution Date/Time: 12/21/18 @ 21:25 (3) Microcytic anemia Status: Acute (4) Essential (primary) hypertension Status: Chronic (5) CLOSED LOOP BOWEL OBSTRUCTION Status: Acute (6) Chronic hyponatremia Status: Acute (7) COPD (chronic obstructive pulmonary disease) Status: Acute Qualifiers: COPD type: unspecified COPD Qualified Codes: J44.9 - Chronic obstructive pulmonary disease, unspecified (8) Dyspnea on exertion Status: Acute (9) Fluid overload Status: Acute (10) Interstitial lung disease Status: Acute Clinical Quality Measures DVT/VTE Risk/Contraindication: Risk Factor Score Per Nursin RFS Level Per Nursing on Admit: 4+=Very High ALEM MCKEON DO Dec 21, 2018 09:42
[2018-12-21] MEDS: cloNIDine 0.1 MG (CATAPRES) TAB PO SCH ×3 (09:44→21:10)
[2018-12-21] MEDS: amLODIPine 10 MG (NORVASC) TAB PO SCH (09:45)
[2018-12-21] MEDS: CARVEDILOL 12.5 MG (COREG) TABLET PO SCH ×2 (09:45→21:10)
[2018-12-21] MEDS: ANIDULAFUNGIN INJECTION 100 MG in NS (IVPB) 100 ML IV SCH (09:48)
--- NOTE | 2018-12-21 11:11 | Physical Therapy Daily Note ---
PT Daily Note-Current Subjective Patient agrees to PT. Family present. Pain Numeric Pain Scale: 0-No Pain Location: No Pain Reported Mental Status Patient Orientation: Confused Attachments: Oxygen, Mondragon Catheter, IV Transfers Therapy Code Descriptions/Definitions Functional [place] Measure: 0=Not Assessed/NA 4=Minimal Assistance 1=Total Assistance 5=Supervision or Setup 2=Maximal Assistance 6=Modified [place] 3=Moderate Assistance 7=Complete [place] Therapy Quality Codes: 6 Independent with activity with or without an assistive device 5 Patient requires set up or clean up by helper. Patient completes activity by themselves 4 Supervision or touching assist (CGA). Bryant provide cues , steadying assist 3 The helper provides less than half the effort to complete the activity 2 The helper provides more than half the effort to complete the activity 1 Dependent. The helper does all the effort to complete an activity 7 Patient refused to complete or attempt activity 9 The patient did not perform the activity before the current illness or injury 88 Not attempted due to Medical conditions or safety concerns Transfers (B, C, W/C) (FIM): 1 Scootin Supine to/from Sit: 1 Sit to/from Stand: 1 Bed to/from Chair: 1 patient is severely retropulsive with sit to stand and SPT with use of FWW. Exercises Supine Ex: Ankle pumps, Quad Set Supine Reps: 10 Seated Therapy Exercises: Ankle pumps, Long arc quads, Hip flexion Seated Reps: 15 (2 sets) Assessment Patient tolerates minimal activity and is very impulsive and unaware of safety concerns. From a PT standpoint, patient will require extended care facility to regain full functional strength and mobility due to inability to tolerated intensive therapies. PT Table Runner Goals Nursing Home Goals PT Nursing Home Goals Time Frame: Dec 31, 2018 Transfers (B,C,W/C) (FIM): 4 Gait (FIM): 1 Gait distance (FIM): 1=up to 49 ft Distance: 45' Gait Level of Assist: 4 Gait Assistive Device: FWW PT Plan Treatment/Plan Treatment Plan: Continue Plan of Care Treatment Plan: Bed Mobility, Education, Functional Activity Rosario, Functional Strength, Gait, Safety, Therapeutic Exercise, Transfers Treatment Duration: Dec 31, 2018 Frequency: 6 times per week Estimated Hrs Per Day: .25 hour per day Patient and/or Family Agrees t: Yes Time/GCodes Time In: 1005 Time Out: 1023 Total Billed Treatment Time: 18 Total Billed Treatment 1 visit EX 18 min OPAL MARTIN PT Dec 21, 2018 11:11
--- NOTE | 2018-12-21 16:18 | Occupational Ther Daily Note ---
OT Current Status-Daily Note Subjective Pt in recliner, alert, mild confused, cooperative & agree for therapy. Pain Numeric Pain Scale: 0-No Pain Location: No Pain Reported Mental Status/Objective Patient Orientation: Person, Place, Situation, Normal For Age Therapy Code Descriptions/Definitions Functional [place] Measure: 0=Not Assessed/NA 4=Minimal Assistance 1=Total Assistance 5=Supervision or Setup 2=Maximal Assistance 6=Modified [place] 3=Moderate Assistance 7=Complete [place] Attachments: Mondragon Catheter, IV, Saline Lock ADL-Treatment Pt participated in grooming activity, sponge bath UB , & strengthening ex to BUE..Pt completed 30 reps using hand scaffold builder , 20 reps x 2 sets x 2 lb wts, & 20 reps with red theraband to strengthen BUE to participate in all ADLs & to push up from recliner to stand. Eating (FIM): 5 (Pt ate food after 1 week .) Grooming (FIM): 5 Bathing (FIM): 4 (Pt wipes UB , ARMS, FACE with warm wipes.) Bathing Location: L Arm, R Arm Transfers (B, C, W/C) (FIM): 2 Education OT Patient Education: Correct positioning Teaching Recipient: Patient Teaching Methods: Demonstration Response to Teaching: Verbalize Understanding OT Short Term Goals Short Term Goals Time Frame: Jan 03, 2019 Additional Short Term Goals: 1-Demonstrate ADL Tasks, 2-Verbalize Understanding , 3-ImproveStrength/Rosario 1=Demonstrate adherence to instructed precautions during ADL tasks. 2=Patient will verbalize/demonstrate understanding of assistive devices/ modifications for ADL. 3=Patient will improve strength/tolerance for activity to enable patient to perform ADL's. OT Natural Resources Faculty Member Goals [facility] Goals Time Frame: Jan 17, 2019 Eating (FIM): 6 Grooming(FIM): 6 Bathing(FIM): 5 Bathing Location: L Arm, R Arm, L Upper Leg, R Upper Leg, L Lower Leg ( including foot), R Lower Leg (including foot), Chest, Abdomen, Buttocks, Perineal Area Upper Body Dressing(FIM): 5 Lower Body Dressing(FIM): 5 Toileting(FIM): 6 Transfers (B,C,W/C) (FIM): 6 Toilet/Commode Transfer(FIM): 6 Tub Transfer(FIM): 0 Shower Transfer(FIM): 6 Additional Goals: 1-Demonstrate ADL Tasks, 2-Verbalize Understanding, 3- ImproveStrength/Rosario 1=Demonstrate adherence to instructed precautions during ADL tasks. 2=Patient will verbalize/demonstrate understanding of assistive devices/ modifications for ADL. 3=Patient will improve strength/tolerance for activity to enable patient to perform ADL's. OT Education/Plan Problem List/Assessment Assessment: Decreased Activ Tolerance, Decreased Safety Aware, Decreased UE Strength, Dependent Transfers, Impaired Bed Mobility, Impaired Funct Balance, Impaired Self-Care Skills Discharge Recommendations Plan/Recommendations: Continue POC Equpiment Recommendations-D/C: Extended Bath Bench, Extended Shower Sprayer, Field Supervisor Seed Production Treatment Plan/Plan of Care Treatment,Training & Education: Yes Patient would benefit from OT for education, treatment and training to promote independence in ADL's, mobility, safety and/or upper extremity function for ADL' s. Plan of Care: ADL Retraining, Functional Mobility, UE Funct Exercise/Act, UE Neuromus Re-Ed/Coord Treatment Duration: Jan 17, 2019 Frequency: 5 times per week Estimated Hrs Per Day: .25 hour per day Agreement: Yes Rehab Potential: Good Time/GCodes Start Time: 13:00 Stop Time: 13:25 Total Time Billed (hr/min): 25 Billed Treatment Time 1, ADLs 13 min, Ex 12 min. Total 25 min. ELISA TOVAR OT Dec 21, 2018 16:18
--- NOTE | 2018-12-21 17:42 | Progress Note (SOAP) ---
Subjective Date Seen by a Provider: Dec 21, 2018 Time Seen by a Provider: 17:25 Subjective/Events-last exam Patient seen with Dr. Franklin. Patient reports doing better. Denies any N/V as well as no fever/chills. No abdominal pain. Having diarrhea. Tolerating diet and ambulating with PT. Objective Exam Vital Signs Date Time Temp Pulse Resp B/P (MAP) Pulse Ox O2 Delivery O2 Flow Rate FiO2 12/21/18 15:40 99.2 88 22 114/59 (77) 90 High Flow N/C 3.00 12/21/18 14:51 91 Nasal Cannula 3.00 12/21/18 13:00 84 12/21/18 12:00 98.0 86 18 180/83 (115) 95 High Flow N/C 3.00 12/21/18 10:51 94 Nasal Cannula 3.00 12/21/18 08:00 95 High Flow N/C 3.00 12/21/18 07:00 86 12/21/18 07:00 84 20 186/62 (103) Nasal Cannula 3.00 12/21/18 06:38 92 Nasal Cannula 3.00 12/21/18 06:10 77 19 178/71 (106) High Flow N/C 3.00 12/21/18 05:00 93 20 142/57 (85) High Flow N/C 3.00 12/21/18 04:00 95 High Flow N/C 3.00 12/21/18 04:00 99.7 12/21/18 04:00 93 18 184/63 (103) High Flow N/C 3.00 12/21/18 03:00 78 19 167/60 (95) High Flow N/C 3.00 12/21/18 02:00 91 18 164/65 (98) High Flow N/C 3.00 12/21/18 01:00 80 12/21/18 01:00 80 18 164/58 (93) High Flow N/C 3.00 12/21/18 00:00 99 High Flow N/C 5.00 12/21/18 00:00 99.0 12/21/18 00:00 101 18 168/65 (99) 100 High Flow N/C 3.00 12/20/18 23:00 80 12 144/53 (83) 100 High Flow N/C 3.00 12/20/18 22:00 92 16 174/66 (102) 99 High Flow N/C 3.00 12/20/18 21:00 80 14 124/59 (80) 100 High Flow N/C 3.00 12/20/18 20:00 99.5 12/20/18 20:00 96 19 182/69 (106) 99 High Flow N/C 3.00 12/20/18 20:00 99 High Flow N/C 5.00 12/20/18 19:22 98 Nasal Cannula 3.00 12/20/18 19:00 101 12/20/18 19:00 101 12 165/94 (117) 98 High Flow N/C 3.00 12/20/18 18:00 98 18 154/68 (96) 100 High Flow N/C 3.00 I & O 12/21/18 07:00 Intake Total 1105 ml Output Total 4300 ml Balance -3195 ml Capillary Refill : Less Than 3 SecondsLess Than 3 Seconds General Appearance: No Apparent Distress, WD/WN Neck: Full Range of Motion, Normal Inspection, Non Tender, Supple Respiratory: No Accessory Muscle Use, No Respiratory Distress Cardiovascular: Regular Rate, Rhythm, No Edema Gastrointestinal: normal bowel sounds, non tender, soft, other (Abdominal AGUSTO drain with serous fluid.) Extremity: Normal Capillary Refill, Normal Inspection, Normal Range of Motion Neurologic/Psychiatric: Alert, Oriented x3 Skin: Normal Color, Warm/Dry, Other (Midline abdominal incision C/D/I) Results Lab Laboratory Tests 12/21/18 03:45: White Blood Count 14.7H, Red Blood Count 4.16L, Hemoglobin 10.8L, Hematocrit 35L , Mean Corpuscular Volume 83, Mean Corpuscular Hemoglobin 26, Mean Corpuscular Hemoglobin Concent 31L, Red Cell Distribution Width 18.0H, Platelet Count 309, Mean Platelet Volume 8.5, Neutrophils (%) (Auto) 74, Lymphocytes (%) (Auto) 11L , Monocytes (%) (Auto) 11, Eosinophils (%) (Auto) 4, Basophils (%) (Auto) 0, Neutrophils # (Auto) 10.8H, Lymphocytes # (Auto) 1.7, Monocytes # (Auto) 1.6H, Eosinophils # (Auto) 0.6H, Basophils # (Auto) 0.1, Neutrophils % (Manual) 73, Lymphocytes % (Manual) 8, Monocytes % (Manual) 11, Eosinophils % (Manual) 9, Sodium Level 151H, Potassium Level 3.4L, Chloride Level 114H, Carbon Dioxide Level 21, Anion Gap 16H, Blood Urea Nitrogen 28H, Creatinine 1.55H, Estimat Glomerular Filtration Rate 45, BUN/Creatinine Ratio 18, Glucose Level 75, Calcium Level 8.7, Phosphorus Level 4.3, Magnesium Level 1.8, B-Type Natriuretic Peptide 3017.7H Microbiology 12/18/18 Blood Culture - Preliminary, Resulted No growth 12/21/18 C. difficile GDH Antigen & Toxins - Final, Complete 12/14/18 Gram Stain - Final, Complete 12/14/18 Sputum Culture - Final, Complete Usual upper respiratory justino YEAST Staphylococcus aureus Assessment/Plan Assessment/Plan Assess & Plan/Chief Complaint A 68 year old male who is s/p expl lap, 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 resp status improving. on O2 NC. passed swallow eval. VSS Tolerating diet DC george will start Imodium per pt request Rehab eval Clinical Quality Measures DVT/VTE Risk/Contraindication: Risk Factor Score Per Nursin RFS Level Per Nursing on Admit: 4+=Very High JENNIFER HENSLEY CANDLEMAKING LABORER Dec 21, 2018 17:42
[2018-12-21] MEDS ORDERED: LOPERAMIDE 2 MG (IMODIUM) CAP PO PRN (19:45)
[2018-12-22] VITALS: BP 110/77
[2018-12-22] MEDS: PIPERACILLIN/TAZOBACTAM (BULK) 4.5 GM in NS (IVPB) 100 ML IV SCH ×3 (00:43→16:35)
[2018-12-22 04:00] VITALS: BP 169/72
[2018-12-22] MEDS: hydrALAZINE (APRESOLINE) 25 MG TAB PO SCH ×2 (06:08→13:19)
[2018-12-22 06:27] LABS: BASOPHILS # (AUTO) 0.1 10^3/uL (0.0-0.1); BASOPHILS % (AUTO) 0 % (0-10); EOSINOPHILS # (AUTO) 1.3 10^3/uL (0.0-0.3); EOSINOPHILS % (AUTO) 8 % (0-10); HEMATOCRIT 37 % (40-54); HEMOGLOBIN 11.7 G/DL (13.3-17.7); LYMPHOCYTES # (AUTO) 1.6 X 10^3 (1.0-4.0); LYMPHOCYTES % (AUTO) 9 % (12-44); MEAN CORPUSCULAR HEMOGLOBIN 26 PG (25-34); MEAN CORPUSCULAR HGB CONC 32 G/DL (32-36); MEAN CORPUSCULAR VOLUME 84 FL (80-99); MONOCYTES # (AUTO) 1.3 X 10^3 (0.0-1.0); MONOCYTES % (AUTO) 8 % (0-12); NEUTROPHILS # (AUTO) 12.4 X 10^3 (1.8-7.8); NEUTROPHILS % (AUTO) 75 % (42-75); PLATELET COUNT 343 10^3/uL (130-400); WHITE BLOOD COUNT 16.7 10^3/uL (4.3-11.0)
--- NOTE | 2018-12-22 06:46 | Diagnostic Imaging Report ---
Indication: Shortness breath Portable chest 4:17 AM Left upper extremity PICC line tip projects over the left innominate vein. Heart size and pulmonary vascular both mildly increased. There is a small left effusion. Impression: Vascular congestion and small left effusion. No change from previous day. Dictated by: Dictated on workstation # [id number]
[2018-12-22 06:55] LABS: CREATININE SERUM 1.54 MG/DL (0.60-1.30); MAGNESIUM 1.8 MG/DL (1.8-2.4); PHOSPHORUS 4.5 MG/DL (2.3-4.7)
[2018-12-22] MEDS: RT-ALBUTEROL/IPRATROPIUM 3 ML (DUONEB) VIAL INH SCH ×3 (07:43→20:09)
[2018-12-22 08:00] VITALS: BP 179/84
[2018-12-22] MEDS: PANTOPRAZOLE 40 MG (PROTONIX) VIAL IV SCH (08:28)
[2018-12-22] MEDS: amLODIPine 10 MG (NORVASC) TAB PO SCH (08:29)
[2018-12-22] MEDS: CARVEDILOL 12.5 MG (COREG) TABLET PO SCH ×2 (08:29→20:39)
[2018-12-22] MEDS: FUROSEMIDE 40 MG/4 ML INJ (LASIX) IVP SCH (08:29)
[2018-12-22] MEDS: cloNIDine 0.1 MG (CATAPRES) TAB PO SCH ×3 (08:29→20:39)
[2018-12-22] MEDS: fluCOnazole (DIFLUCAN) 100 MG TAB PO SCH (08:30)
--- NOTE | 2018-12-22 10:22 | Cardiology Progress Note ---
Subjective Date Seen by Provider: Dec 22, 2018 Time Seen by Provider: 10:21 Subjective/Events-last exam Patient is sitting in a chair, feeling better, breathing better Review of Systems General: No Chills, No Night Sweats; Fatigue; No Malaise, No Appetite, No Other HEENT: No Head Aches, No Visual Changes, No Eye Pain, No Ear Pain, No Dysphasia , No Sinus Congestion, No Post Nasal Drip, No Sore Throat, No Other Pulmonary: No Dyspnea, No Cough, No Pleuritic Chest Pain, No Other Cardiovascular: No: Chest Pain, Palpitations, Orthopnea, Paroxysmal Noc. Dyspnea, Edema, Lt Headedness, Other Objective-Cardiology Exam Last Set of Vital Signs Vital Signs 12/19/18 12/22/18 07:05 08:00 Temp 96.6 Pulse 81 Resp 20 B/P (MAP) 179/84 (115) Pulse Ox 98 O2 Delivery High Flow N/C O2 Flow Rate 3.00 FiO2 25 Capillary Refill : Less Than 3 SecondsLess Than 3 Seconds I&O Intake and Output 12/22/18 00:00 Intake Total 735 ml Output Total 4660 ml Balance -3925 ml Intake Oral 735 ml Output Urine Total 4400 ml Drainage Total 260 ml # Bowel Movements 1 General: Alert, Cooperative, Moderate Distress HEENT: Atraumatic, PERRLA Neck: Supple, No JVD, No Thyromegaly Lungs: Normal Air Movement, Other (rhonchi) Heart: Regular Rate, Normal S1, Normal S2, No Murmurs Abdomen: Soft, No Tenderness, No Hepatosplenomegaly, No Masses Extremities: No Clubbing, No Cyanosis, Normal Pulses, No Tenderness/Swelling, Other (jean carlos edema) Skin: No Rashes, No Breakdown, No Significant Lesion Neuro: Normal Tone, Sensation Intact, Other (lethargic) Psych/Mental Status: Mental Status NL, Mood NL Results Lab Laboratory Tests 12/22/18 06:10 A/P-Cardiology Admission Diagnosis Acute respiratory failure Pneumonia Congestive heart failure, acute left ventricular diastolic dysfunction Hypertensive emergency Assessment/Plan Status post acute respiratory failure postoperatively, currently doing better. Managed by primary care team. Continue to monitor Pneumonia, receiving broad-spectrum antibiotics. Sputum grew staph aureus and Yeast. Managed by Dr. Bauer Status post acute on chronic renal failure, metabolic acidosis, better at this time. Continue to monitor Hypertensive urgency, history of malignant hypertension, had extensive workup done in the past, patient reporting that he had renal angiogram done about 10 years ago, I am concerned about having underlying pheochromocytoma, will consider 24 hour urine collection and evaluate his catecholamine once he is clinically recovered from his surgery. For now I am starting on Coreg instead of IV Lopressor and discontinue A line Elevated BNP, probably secondary to malignant hypertension, diastolic dysfunction and renal failure, had an echocardiogram done on December [address] Hernandez to have left ventricular hypertrophy with normal systolic function, ejection fraction 55-65 percent, pulmonary hypertension with PA pressure 45 mmHg. currently no signs of congestive heart failure. Continue to monitor Avoid the use MANUEL inhibitor and/or ARB due to renal failure Sinus tachycardia, borderline tachycardic, I am initiating carvedilol instead of IV Lopressor and monitoring tolerance and response Small bowel obstruction, status post surgery, recovering slowly, still having diminished bowel sounds, started on liquid diet today. COPD with oxygen dependent. Clinical Quality Measures DVT/VTE Risk/Contraindication: Risk Factor Score Per Nursin RFS Level Per Nursing on Admit: 4+=Very High KAILA JUÁREZ MD Dec 22, 2018 10:22
--- NOTE | 2018-12-22 10:40 | Progress Note-Hospitalist ---
Subjective HPI/CC On Admission Date Seen by Provider: Dec 22, 2018 Time Seen by Provider: 09:45 Pt is a 68yoCM with a PMH of CKD, HTN, COPD on 3lpm who presented to the ER due to acute onset abdominal pain. He states he developed sharp upper pain and started vomitiung. He also noticed he was very distended. His pain became very severe and has was not passing flatus so he presented to the ER for evaluation where he was found to have a high grade bowel obstruction. He was asmitted for surgery and I am consulted for medical management. NGT was placed in the ER and that has helped with his nausea and vomiting but he is still having severe pain and bloating. Subjective/Events-last exam Patient doing a little better Two-person assist to get out of bed in chair today May need swing bed prior to inpatient rehabilitation Bowels are moving Reviewed labs Patient very debilitated unsure if he is an inpatient rehabilitation candidate Kyphosis and general debility precludes anything other than a guarded prognosis Review of Systems General: Fatigue Objective Exam Vital Signs Vital Signs Date Time Temp Pulse Resp B/P (MAP) Pulse Ox O2 Delivery O2 Flow Rate FiO2 12/22/18 09:00 98 High Flow N/C 3.00 12/22/18 08:00 96.6 81 20 179/84 (115) 12/19/18 07:05 25 Capillary Refill : Less Than 3 SecondsLess Than 3 Seconds General Appearance: No Apparent Distress, WD/WN, Chronically ill, Cachetic HEENT: PERRL/EOMI Neck: Full Range of Motion Respiratory: Chest Non Tender, Crackles, Decreased Breath Sounds, Rhonci Cardiovascular: Regular Rate, Rhythm Gastrointestinal: Abnormal Bowel Sounds (absent), Distended, Other (AGUSTO drain in place with serosanguinous drainage) Genital/Rectal: Other Extremity: Normal Capillary Refill, Pedal Edema Neurologic/Psychiatric: Alert, Oriented x3, Disoriented Skin: Normal Color Lymphatic: No Adenopathy Results/Procedures Lab Laboratory Tests 12/22/18 06:10 Patient resulted labs reviewed. Imaging: Reviewed Imaging Report Assessment/Plan Assessment and Plan Assess & Plan/Chief Complaint Respiratory failure s/p surgery Atelectasis on CXR Pneumonia - sputum is growing S.Aureus and yeast Acute on chronic renal failure with metabolic acidosis Hypernatremia HTN- urgency Sinus tach Anemia received 4 units of blood SBO s/p surgery Severe oxygen dependent COPD Anasarca Delirium acute improved Plan: Continue treatment O2 Monitor BP Fragile status Monitor delirium Will likely need swing bed status prior to inpatient rehabilitation although he may not even be a candidate for inpatient rehabilitation due to chronic debility Critical Care Critically Ill Patient Diagnosis/Problems Diagnosis/Problems (1) Acute respiratory failure Status: Resolved Qualifiers: Respiratory failure complication: hypoxia Qualified Codes: J96.01 - Acute respiratory failure with hypoxia Resolution Date/Time: 12/21/18 @ 21:25 (2) Acute renal failure Status: Resolved Qualifiers: Acute renal failure type: unspecified Qualified Codes: N17.9 - Acute kidney failure, unspecified Resolution Date/Time: 12/21/18 @ 21:25 (3) Microcytic anemia Status: Acute (4) Essential (primary) hypertension Status: Chronic (5) CLOSED LOOP BOWEL OBSTRUCTION Status: Acute (6) Chronic hyponatremia Status: Acute (7) COPD (chronic obstructive pulmonary disease) Status: Acute Qualifiers: COPD type: unspecified COPD Qualified Codes: J44.9 - Chronic obstructive pulmonary disease, unspecified (8) Dyspnea on exertion Status: Acute (9) Fluid overload Status: Acute (10) Interstitial lung disease Status: Acute Clinical Quality Measures DVT/VTE Risk/Contraindication: Risk Factor Score Per Nursin RFS Level Per Nursing on Admit: 4+=Very High ALEM MCKEON DO Dec 22, 2018 10:40
--- NOTE | 2018-12-22 11:25 | NUR ---
PRIOR TO A.M. MEDICATIONS PULSE WAS 81, B/P WAS 179/84
--- NOTE | 2018-12-22 11:29 | Physical Therapy Daily Note ---
PT Daily Note-Current Subjective Patient is sitting in chair and agrees to PT. Mental Status Patient Orientation: Confused Attachments: Oxygen, Drains, IV Transfers Therapy Code Descriptions/Definitions Functional [place] Measure: 0=Not Assessed/NA 4=Minimal Assistance 1=Total Assistance 5=Supervision or Setup 2=Maximal Assistance 6=Modified [place] 3=Moderate Assistance 7=Complete [place] Therapy Quality Codes: 6 Independent with activity with or without an assistive device 5 Patient requires set up or clean up by helper. Patient completes activity by themselves 4 Supervision or touching assist (CGA). [place] provide cues , steadying assist 3 The helper provides less than half the effort to complete the activity 2 The helper provides more than half the effort to complete the activity 1 Dependent. The helper does all the effort to complete an activity 7 Patient refused to complete or attempt activity 9 The patient did not perform the activity before the current illness or injury 88 Not attempted due to Medical conditions or safety concerns Transfers (B, C, W/C) (FIM): 1 Scootin Sit to/from Stand: 1 Bed to/from Chair: 1 sit to stand dependent assist to FWW with standing x 10 min with patient incontinent BM/patient transferred to commode Exercises Seated Therapy Exercises: Ankle pumps, Long arc quads, Hip flexion Seated Reps: 15 (AAROM bilaterally) Assessment Patient continued to be incontinent BM and urine for duration of treatment requiring dependent assist to cleanse and change patient. From a PT standpoint , patient will require extended care facility to assist in regaining functional strength and mobility. Patient is making minimal progress currently. PT Roll Grinder Operator Goals Roll Grinder Operator Goals PT Roll Grinder Operator Goals Time Frame: Dec 31, 2018 Transfers (B,C,W/C) (FIM): 4 Gait (FIM): 1 Gait distance (FIM): 1=up to 49 ft Distance: 45' Gait Level of Assist: 4 Gait Assistive Device: FWW PT Plan Treatment/Plan Treatment Plan: Continue Plan of Care Treatment Plan: Bed Mobility, Education, Functional Activity Rosario, Functional Strength, Gait, Safety, Therapeutic Exercise, Transfers Treatment Duration: Dec 31, 2018 Frequency: 6 times per week Estimated Hrs Per Day: .25 hour per day Patient and/or Family Agrees t: Yes Time/GCodes Time In: 1025 Time Out: 1048 Total Billed Treatment Time: 23 Total Billed Treatment 1 visit FA x 2 23 min OPAL MARTIN PT Dec 22, 2018 11:29
[2018-12-22 12:00] VITALS: BP 156/74
--- NOTE | 2018-12-22 12:01 | NUR ---
IRF Evaluation: Order received to evaluate patient for the ARU. Chart reviewed and discussed with Dr. Weber. Due to patient being critically ill this worker will continue to follow for review of appropriateness. Thank you for this referral. Addendum: 12/25/18 at 1101 by JANUARY Maggy LATIF SS Met with patient and spouse to discuss details of rehabilitation program. Patient stated he prefer to return home; however, patient's spouse verbalized concern in regards to patient's safety. Patient and spouse to further discuss - will follow up.
--- NOTE | 2018-12-22 12:30 | Pulmonary Progress Note ---
Sepsis Event Evaluation Height, Weight, BMI Height: 5'4.00" Weight: 139lbs. 5.0oz. 63.838175ww; 26.6 BMI Method:Stated Exam Exam Vital Signs Date Time Temp Pulse Resp B/P (MAP) Pulse Ox O2 Delivery O2 Flow Rate FiO2 12/22/18 09:00 98 High Flow N/C 3.00 12/22/18 08:00 96.6 81 20 179/84 (115) 98 High Flow N/C 3.00 12/22/18 07:00 86 12/22/18 04:00 98.3 73 22 169/72 (104) 94 Nasal Cannula 3.00 12/22/18 01:00 70 12/22/18 00:00 98.9 76 22 110/77 (88) 96 High Flow N/C 3.00 12/21/18 21:00 High Flow N/C 3.00 12/21/18 20:58 98.4 80 22 122/77 (92) 93 High Flow N/C 3.00 12/21/18 19:00 83 12/21/18 15:40 99.2 88 22 114/59 (77) 90 High Flow N/C 3.00 12/21/18 14:51 91 Nasal Cannula 3.00 12/21/18 13:00 84 I & O 12/22/18 07:00 Intake Total 660 ml Output Total 4010 ml Balance -3350 ml Height & Weight Height: 5'4.00" Weight: 139lbs. 5.0oz. 63.820894xs; 26.6 BMI Method:Stated General Appearance: No Apparent Distress, WD/WN, Chronically ill, Cachetic HEENT: PERRL/EOMI Neck: Full Range of Motion Respiratory: Chest Non Tender, Crackles, Decreased Breath Sounds, Rhonci Cardiovascular: Regular Rate, Rhythm Capillary Refill: Less Than 3 Seconds Gastrointestinal: normal bowel sounds, non tender, soft, other (Abdominal AGUSTO drain with serous fluid.) Extremity: Normal Capillary Refill, Pedal Edema Neurologic/Psychiatric: Alert, Oriented x3, Disoriented Skin: Normal Color Lymphatic: No Adenopathy Results Lab Laboratory Tests 12/21/18 03:45 12/22/18 06:10 Assessment/Plan Assessment/Plan Respiratory failure s/p surgery -Oxygen -SVNs Atelectasis -Increase activity -IS Pneumonia - sputum is growing S.Aureus and yeast - zosyn , and eraxis -Persistent Leukocytosis - check C diff -Continue daily labs Pulmonary edema -Lasix Diarrhea-- probably secondary to Abx -Check C diff Acute on chronic renal failure with metabolic acidosis - improving -Continue to monitor close -bilateral renal US - negative -Avoid MANUEL/ARBS Hypokalemia -Replace Hypernatremia- secondary to IVF -IVF are hep locked now -Repeat labs tomorrow HTN- - hydralazine PRN -PO clonidine, Lopressor -NO MANUEL/ARB secondary to renal function Sinus tach -cardiology following Anemia -S/p 4 units RBC -Monitor SBO s/p surgery -S/p swallow eval - pt is on a dysphagia diet -Dr. Franklin is following Dysphagia -Pt is on a dysphagia diet -He is tolerating PO intake Severe oxygen dependent COPD -SVNs -Oxygen Anasarca - improving JASS SWANSON DO Dec 22, 2018 12:30
--- NOTE | 2018-12-22 13:34 | Diagnostic Imaging Report ---
EXAMINATION: Left knee. INDICATION: Knee pain. FINDINGS: AP and lateral views were obtained. There are no prior studies available for comparison. There is no fracture, dislocation, or acute bony abnormality evident. There is mild narrowing of the medial compartment of the knee joint. The patellofemoral space and the lateral compartment are fairly well maintained although there does appear to be chondrocalcinosis of the lateral meniscus. The lateral view does show that there is a small joint effusion present. The soft tissues are otherwise unremarkable aside from vascular calcifications coursing posterior to the distal tibia, fibula, and femur. IMPRESSION: 1. There is no evidence for an acute bony abnormality. 2. There is only mild degenerative disease involving the knee joint. 3. There is a small joint effusion present. Dictated by: Dictated on workstation # [id number]
--- NOTE | 2018-12-22 14:11 | Occupational Ther Daily Note ---
OT Current Status-Daily Note Mental Status/Objective Therapy Code Descriptions/Definitions Functional [place] Measure: 0=Not Assessed/NA 4=Minimal Assistance 1=Total Assistance 5=Supervision or Setup 2=Maximal Assistance 6=Modified [place] 3=Moderate Assistance 7=Complete [place] ADL-Treatment Pt dependent in supine to sit in bed & EOB to stand . High risk of fall. Patient continued to be incontinent BM and urine for duration of treatment. Patient is making minimal progress currently. Completed 20 reps x 2 sets x 2 lb wts, 30 reps with hand gripper & 20 reps using red theraband to strengthen BUE to push up from supine to sit in bed & from end of bed to stand with FWW. Eating (FIM): 5 Grooming (FIM): 4 Bathing (FIM): 0 Upper Body (FIM): 0 Lower Body Dressing (FIM): 0 Toileting (FIM): 0 Transfers (B, C, W/C) (FIM): 1 Toilet/Commode Transfer (FIM): 0 Tub Transfer(FIM): 0 Shower Transfer(FIM): 0 Education OT Patient Education: Correct positioning Teaching Recipient: Patient Teaching Methods: Demonstration Response to Teaching: Verbalize Understanding OT Short Term Goals Short Term Goals Time Frame: Jan 03, 2019 Additional Short Term Goals: 1-Demonstrate ADL Tasks, 2-Verbalize Understanding , 3-ImproveStrength/Rosario 1=Demonstrate adherence to instructed precautions during ADL tasks. 2=Patient will verbalize/demonstrate understanding of assistive devices/ modifications for ADL. 3=Patient will improve strength/tolerance for activity to enable patient to perform ADL's. OT Fancy Wire Drawer Goals Usp Goals Time Frame: Jan 17, 2019 Eating (FIM): 6 Grooming(FIM): 6 Bathing(FIM): 5 Bathing Location: L Arm, R Arm, L Upper Leg, R Upper Leg, L Lower Leg ( including foot), R Lower Leg (including foot), Chest, Abdomen, Buttocks, Perineal Area Upper Body Dressing(FIM): 5 Lower Body Dressing(FIM): 5 Toileting(FIM): 6 Transfers (B,C,W/C) (FIM): 6 Toilet/Commode Transfer(FIM): 6 Tub Transfer(FIM): 0 Shower Transfer(FIM): 6 Additional Goals: 1-Demonstrate ADL Tasks, 2-Verbalize Understanding, 3- ImproveStrength/Rosario 1=Demonstrate adherence to instructed precautions during ADL tasks. 2=Patient will verbalize/demonstrate understanding of assistive devices/ modifications for ADL. 3=Patient will improve strength/tolerance for activity to enable patient to perform ADL's. OT Education/Plan Problem List/Assessment Assessment: Decreased Activ Tolerance, Decreased Safety Aware, Decreased UE Strength, Dependent Transfers, Impaired Bed Mobility, Impaired Funct Balance, Impaired Self-Care Skills Discharge Recommendations Plan/Recommendations: Continue POC Therapy D/C Recommendations: Long-Term Placement Equpiment Recommendations-D/C: Extended Bath Bench, Extended Shower Sprayer Treatment Plan/Plan of Care Treatment,Training & Education: Yes Patient would benefit from OT for education, treatment and training to promote independence in ADL's, mobility, safety and/or upper extremity function for ADL' s. Plan of Care: ADL Retraining, Functional Mobility, UE Funct Exercise/Act, UE Neuromus Re-Ed/Coord Treatment Duration: Jan 17, 2019 Frequency: 5 times per week Estimated Hrs Per Day: .25 hour per day Agreement: Yes Rehab Potential: Good Time/GCodes Start Time: 13:47 Stop Time: 14:02 Total Time Billed (hr/min): 15 Billed Treatment Time 1, Ex 15 min. ELISA TOVAR OT Dec 22, 2018 14:11
--- NOTE | 2018-12-22 14:22 | Progress Note (SOAP) ---
Subjective Date Seen by a Provider: Dec 22, 2018 Time Seen by a Provider: 14:00 Subjective/Events-last exam doing well from GI standpoint. having diarrhea yet expected. tolerating regular diet. still has SS drainage per AGUSTO however secondary third spacing. will leave in until d/c. Objective Exam Vital Signs Date Time Temp Pulse Resp B/P (MAP) Pulse Ox O2 Delivery O2 Flow Rate FiO2 12/22/18 13:00 72 12/22/18 12:22 90 Nasal Cannula 3.00 12/22/18 12:00 96.6 68 18 156/74 (101) 94 High Flow N/C 3.00 12/22/18 09:00 98 High Flow N/C 3.00 12/22/18 08:00 96.6 81 20 179/84 (115) 98 High Flow N/C 3.00 12/22/18 07:00 86 12/22/18 04:00 98.3 73 22 169/72 (104) 94 Nasal Cannula 3.00 12/22/18 01:00 70 12/22/18 00:00 98.9 76 22 110/77 (88) 96 High Flow N/C 3.00 12/21/18 21:00 High Flow N/C 3.00 12/21/18 20:58 98.4 80 22 122/77 (92) 93 High Flow N/C 3.00 12/21/18 19:00 83 12/21/18 15:40 99.2 88 22 114/59 (77) 90 High Flow N/C 3.00 12/21/18 14:51 91 Nasal Cannula 3.00 I & O 12/22/18 07:00 Intake Total 660 ml Output Total 4010 ml Balance -3350 ml Capillary Refill : Less Than 3 SecondsLess Than 3 Seconds General Appearance: No Apparent Distress HEENT: PERRL/EOMI Neck: Full Range of Motion Respiratory: Chest Non Tender, Decreased Breath Sounds Cardiovascular: Regular Rate, Rhythm Gastrointestinal: normal bowel sounds, soft, other (inc clean.dry) Extremity: Normal Capillary Refill Neurologic/Psychiatric: Alert, Oriented x3 Skin: Normal Color Lymphatic: No Adenopathy Results Lab Laboratory Tests 12/22/18 06:10: White Blood Count 16.7H, Red Blood Count 4.44, Hemoglobin 11.7L, Hematocrit 37L , Mean Corpuscular Volume 84, Mean Corpuscular Hemoglobin 26, Mean Corpuscular Hemoglobin Concent 32, Red Cell Distribution Width 18.0H, Platelet Count 343, Mean Platelet Volume 9.0, Neutrophils (%) (Auto) 75, Lymphocytes (%) (Auto) 9L, Monocytes (%) (Auto) 8, Eosinophils (%) (Auto) 8, Basophils (%) (Auto) 0, Neutrophils # (Auto) 12.4H, Lymphocytes # (Auto) 1.6, Monocytes # (Auto) 1.3H, Eosinophils # (Auto) 1.3H, Basophils # (Auto) 0.1, Sodium Level 153H, Potassium Level 4.0, Chloride Level 115H, Carbon Dioxide Level 27, Anion Gap 11, Blood Urea Nitrogen 26H, Creatinine 1.54H, Estimat Glomerular Filtration Rate 45, BUN/ Creatinine Ratio 17, Glucose Level 107H, Calcium Level 9.0, Phosphorus Level 4.5 , Magnesium Level 1.8 Microbiology 12/18/18 Blood Culture - Preliminary, Resulted No growth 12/21/18 C. 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 resp status improving. no on O2 NC. cont monitor urine output as well as renal fxn. started on D5 with bicarb to promote diuresis. passed swallow evaluation. tolerating reg diet. having loose stools. will leave AGUSTO drain in until d/c home. . Clinical Quality Measures DVT/VTE Risk/Contraindication: Risk Factor Score Per Nursin RFS Level Per Nursing on Admit: 4+=Very High GRETA METZ MD Dec 22, 2018 14:22
[2018-12-22 15:14] VITALS: BP 116/69
[2018-12-22 20:00] VITALS: BP 119/69
--- NOTE | 2018-12-22 20:09 | CONSULTATION REPORT ---
DATE OF SERVICE: 12/22/2018 INPATIENT CONSULTATION REASON FOR CONSULTATION: Left knee pain. HISTORY: The patient is a 68-year-old gentleman, who was admitted for multiple medical problems including a bowel obstruction requiring operative intervention, who complains of left knee pain. He is very debilitated and the hope is to qualify for the inpatient rehabilitation unit. He is very limited currently though because of left knee pain. He reports he has had left knee pain for years and years and undergoes a steroid injection every three months by Dr. Downs and reports he gets good results from this. He reports he is currently overdue for his injection. Radiographs reveal opacification of his menisci. His nonweightbearing radiographs appeared to show degenerative changes diffusely. No acute changes are noted. Slight effusion is noted. PHYSICAL EXAMINATION: EXTREMITIES: On exam, the left knee demonstrates slight effusion. He is tender along his medial femoral condyle and has pain medially with Michelle's as well as with flexion. There is no erythema or warmth. IMPRESSION: Left knee osteoarthritis. PLAN: Under sterile conditions, the left knee was injected with 2 mL of lidocaine, 2 mL Marcaine and 8 mg of Decadron. We will see him as needed. Thank you for the consultation. Job ID: [id number] DocumentID: [id number] Dictated Date: 12/22/2018 16:54:26 [place] Date: 12/22/2018 20:09:11 Dictated By: KIMBERLY SCHULTZ MD
[2018-12-23] VITALS (8 sets, daily range): BP systolic 96–182; BP diastolic 55–84
[2018-12-23] MEDS: hydrALAZINE (APRESOLINE) 25 MG TAB PO SCH ×4 (00:12→22:32)
[2018-12-23] MEDS: PIPERACILLIN/TAZOBACTAM (BULK) 4.5 GM in NS (IVPB) 100 ML IV SCH ×2 (00:13→08:20)
[2018-12-23 04:04] LABS: BASOPHILS % (AUTO) 0 % (0-10); EOSINOPHILS % (AUTO) 0 % (0-10); HEMATOCRIT 34 % (40-54); HEMOGLOBIN 10.6 G/DL (13.3-17.7); LYMPHOCYTES # (AUTO) 0.8 X 10^3 (1.0-4.0); LYMPHOCYTES % (AUTO) 7 % (12-44); MEAN CORPUSCULAR HEMOGLOBIN 26 PG (25-34); MEAN CORPUSCULAR HGB CONC 31 G/DL (32-36); MEAN CORPUSCULAR VOLUME 83 FL (80-99); MEAN PLATELET VOLUME 9.2 FL (7.4-10.4); MONOCYTES # (AUTO) 0.1 X 10^3 (0.0-1.0); MONOCYTES % (AUTO) 1 % (0-12); NEUTROPHILS # (AUTO) 9.6 X 10^3 (1.8-7.8); NEUTROPHILS % (AUTO) 92 % (42-75); PLATELET COUNT 293 10^3/uL (130-400); RED CELL DISTRIBUTION WIDTH 17.5 % (10.0-14.5); WHITE BLOOD COUNT 10.5 10^3/uL (4.3-11.0)
[2018-12-23 04:22] LABS: CALCIUM 8.5 MG/DL (8.5-10.1); CREATININE SERUM 1.56 MG/DL (0.60-1.30); MAGNESIUM 1.6 MG/DL (1.8-2.4); PHOSPHORUS 5.4 MG/DL (2.3-4.7); POTASSIUM 3.9 MMOL/L (3.6-5.0)
[2018-12-23] MEDS: RT-ALBUTEROL/IPRATROPIUM 3 ML (DUONEB) VIAL INH SCH ×4 (07:40→19:43)
--- NOTE | 2018-12-23 08:06 | Pulmonary Progress Note ---
Subjective Time Seen by a Provider: 08:06 Subjective/Events-last exam No complications noted. Sepsis Event Evaluation Height, Weight, BMI Height: 5'4.00" Weight: 142lbs. 5.0oz. 64.399330py; 26.6 BMI Method:Stated Exam Exam Vital Signs Date Time Temp Pulse Resp B/P (MAP) Pulse Ox O2 Delivery O2 Flow Rate FiO2 12/23/18 07:42 90 High Flow N/C 3.00 12/23/18 07:00 8 12/23/18 06:32 83 182/66 (104) 109/74 (86) 12/23/18 04:30 99.2 73 16 100/55 (70) 98 High Flow N/C 3.00 12/23/18 01:49 97 High Flow N/C 7.00 12/23/18 01:00 75 12/23/18 00:50 99.4 94 18 96/62 (73) 96 High Flow N/C 3.00 12/22/18 20:40 High Flow N/C 7.00 12/22/18 20:09 84 High Flow N/C 3.00 12/22/18 20:00 98.3 73 16 119/69 (86) 93 High Flow N/C 3.00 12/22/18 19:00 79 12/22/18 15:14 97.7 72 18 116/69 (85) 91 High Flow N/C 3.00 12/22/18 13:00 72 12/22/18 12:22 90 Nasal Cannula 3.00 12/22/18 12:00 96.6 68 18 156/74 (101) 94 High Flow N/C 3.00 12/22/18 09:00 98 High Flow N/C 3.00 I & O 12/23/18 07:00 Intake Total 2460 ml Output Total 2565 ml Balance -105 ml Height & Weight Height: 5'4.00" Weight: 142lbs. 5.0oz. 64.617497kf; 26.6 BMI Method:Stated General Appearance: No Apparent Distress HEENT: PERRL/EOMI Neck: Full Range of Motion Respiratory: Chest Non Tender, Decreased Breath Sounds Cardiovascular: Regular Rate, Rhythm Capillary Refill: Less Than 3 Seconds Gastrointestinal: normal bowel sounds, soft, other (inc clean.dry) Extremity: Normal Capillary Refill Neurologic/Psychiatric: Alert, Oriented x3 Skin: Normal Color Lymphatic: No Adenopathy Results Lab Laboratory Tests 12/22/18 06:10 12/23/18 03:46 Assessment/Plan Assessment/Plan Respiratory failure s/p surgery - Much improved -Oxygen -SVNs Atelectasis -Increase activity -IS Pneumonia - sputum is growing S.Aureus and yeast - zosyn , and eraxis -Persistent Leukocytosis - check C diff -Continue daily labs Pulmonary edema -Lasix Hypomag -replace Acute on chronic renal failure with metabolic acidosis - improving -Continue to monitor close -bilateral renal US - negative HTN- - hydralazine PRN -PO clonidine, Lopressor -NO MANUEL/ARB secondary to renal function Sinus tach -cardiology following Anemia -S/p 4 units RBC -Monitor SBO s/p surgery -S/p swallow eval - pt is on a dysphagia diet -Dr. Franklin is following Dysphagia -Pt is on a dysphagia diet Severe oxygen dependent COPD -SVNs -Oxygen JASS SWANSON DO Dec 23, 2018 08:06
[2018-12-23] MEDS: amLODIPine 10 MG (NORVASC) TAB PO SCH (08:20)
[2018-12-23] MEDS: CARVEDILOL 12.5 MG (COREG) TABLET PO SCH ×2 (08:20→20:45)
[2018-12-23] MEDS: fluCOnazole (DIFLUCAN) 100 MG TAB PO SCH (08:20)
[2018-12-23] MEDS: MAGNESIUM 1 GM/100 ML IVPB 100 ML IV SCH ×2 (08:20→10:11)
[2018-12-23] MEDS: PANTOPRAZOLE 40 MG (PROTONIX) VIAL IV SCH (08:20)
[2018-12-23] MEDS: KCL 20 MEQ TAB (K-DUR) PO SCH (08:20)
[2018-12-23] MEDS: FUROSEMIDE 40 MG/4 ML INJ (LASIX) IVP SCH (08:20)
[2018-12-23] MEDS: cloNIDine 0.1 MG (CATAPRES) TAB PO SCH ×3 (08:29→20:45)
--- NOTE | 2018-12-23 08:40 | Diagnostic Imaging Report ---
Indication: Shortness of breath. Comparison: 12/22/2018 Findings: Single view of the chest demonstrates stable left subclavian central venous catheter. The heart remains enlarged without overt pulmonary edema. There is persistent but decreasing central vascular congestion. There is persistent but decreased effusion in the left base. There is no pneumothorax. Impression: Improved aeration both lungs. Dictated by: Dictated on workstation # [id number]
--- NOTE | 2018-12-23 08:44 | Physical Therapy Daily Note ---
PT Daily Note-Current Subjective States that he is feeling better today. Transfers Therapy Code Descriptions/Definitions Functional [place] Measure: 0=Not Assessed/NA 4=Minimal Assistance 1=Total Assistance 5=Supervision or Setup 2=Maximal Assistance 6=Modified [place] 3=Moderate Assistance 7=Complete [place] Therapy Quality Codes: 6 Independent with activity with or without an assistive device 5 Patient requires set up or clean up by helper. Patient completes activity by themselves 4 Supervision or touching assist (CGA). [place] provide cues , steadying assist 3 The helper provides less than half the effort to complete the activity 2 The helper provides more than half the effort to complete the activity 1 Dependent. The helper does all the effort to complete an activity 7 Patient refused to complete or attempt activity 9 The patient did not perform the activity before the current illness or injury 88 Not attempted due to Medical conditions or safety concerns Transfers (B, C, W/C) (FIM): 2 Scootin Rollin Supine to/from Sit: 2 Sit to/from Stand: 2 Bed to/from Chair: 2 Exercises Seated Therapy Exercises: LE Protocol Seated Reps: 15 Assessment Current Status: Good Progress Patient's LE's very weak and had difficulty with transfers. PT Nursing Home Goals Family Therapist Goals PT Family Therapist Goals Time Frame: Dec 31, 2018 Transfers (B,C,W/C) (FIM): 4 Gait (FIM): 1 Gait distance (FIM): 1=up to 49 ft Distance: 45' Gait Level of Assist: 4 Gait Assistive Device: FWW PT Plan Treatment/Plan Treatment Plan: Continue Plan of Care Treatment Plan: Bed Mobility, Education, Functional Activity Rosario, Functional Strength, Gait, Safety, Therapeutic Exercise, Transfers Treatment Duration: Dec 31, 2018 Frequency: 6 times per week Estimated Hrs Per Day: .25 hour per day Patient and/or Family Agrees t: Yes Time/GCodes Time In: 0825 Time Out: 0840 Total Billed Treatment Time: 15 Total Billed Treatment 1, FA x 15' LUANA MOLINA PT Dec 23, 2018 08:44
--- NOTE | 2018-12-23 10:00 | Cardiology Progress Note ---
Subjective Date Seen by Provider: Dec 23, 2018 Time Seen by Provider: 09:58 Subjective/Events-last exam patient is sitting in a chair, feeling better. Denied any chest pain Review of Systems General: No Chills, No Night Sweats, No Fatigue, No Malaise, No Appetite, No Other HEENT: No Head Aches, No Visual Changes, No Eye Pain, No Ear Pain, No Dysphasia , No Sinus Congestion, No Post Nasal Drip, No Sore Throat, No Other Pulmonary: Dyspnea; No Cough, No Pleuritic Chest Pain, No Other Cardiovascular: No: Chest Pain, Palpitations, Orthopnea, Paroxysmal Noc. Dyspnea, Edema, Lt Headedness, Other Objective-Cardiology Exam Last Set of Vital Signs Vital Signs 12/19/18 12/23/18 07:05 08:00 Temp 99.6 Pulse 79 Resp 16 B/P (MAP) 180/84 (116) 180/84 (116) Pulse Ox 90 O2 Delivery High Flow N/C O2 Flow Rate 3.00 FiO2 25 Capillary Refill : Less Than 3 SecondsLess Than 3 Seconds I&O Intake and Output 12/23/18 00:00 Intake Total 2140 ml Output Total 3020 ml Balance -880 ml Intake Oral 1850 ml IV Total 290 ml Output Urine Total 2840 ml Drainage Total 180 ml # Bowel Movements 5 Daily Weight Change No General: Alert, Oriented X3, Cooperative HEENT: Atraumatic, PERRLA Neck: Supple, No JVD, No Thyromegaly Lungs: Clear to Auscultation, Normal Air Movement Heart: Regular Rate, Normal S1, Normal S2, No Murmurs Abdomen: Normal Bowel Sounds, Soft, No Tenderness, No Hepatosplenomegaly, No Masses Extremities: No Clubbing, No Cyanosis, Normal Pulses, No Tenderness/Swelling, Other (jean carlos edema) Skin: No Rashes, No Breakdown, No Significant Lesion Neuro: Normal Speech, Normal Tone, Sensation Intact Psych/Mental Status: Mental Status NL, Mood NL Results Lab Laboratory Tests 12/23/18 03:46 A/P-Cardiology Admission Diagnosis Acute respiratory failure Pneumonia Congestive heart failure, acute left ventricular diastolic dysfunction Hypertensive emergency Assessment/Plan Status post acute respiratory failure postoperatively, doing better, managed by primary care team. Pneumonia, receiving broad-spectrum antibiotics. Sputum grew staph aureus and Yeast. Managed by Dr. Bauer Status post acute on chronic renal failure, metabolic acidosis, better at this time. Continue to monitor Hypertensive urgency, history of malignant hypertension, had extensive workup done in the past, patient reporting that he had renal angiogram done about 10 years ago, I am concerned about having underlying pheochromocytoma, will consider 24 hour urine collection and evaluate his catecholamine once he is clinically recovered from his surgery. continue on current medication monitor blood pressure Elevated BNP, probably secondary to malignant hypertension, diastolic dysfunction and renal failure, had an echocardiogram done on December [address] Hernandez to have left ventricular hypertrophy with normal systolic function, ejection fraction 55-65 percent, pulmonary hypertension with PA pressure 45 mmHg. currently no signs of congestive heart failure. Continue to monitor Avoid the use MANUEL inhibitor and/or ARB due to renal failure Sinus tachycardia, borderline tachycardic, I am initiating carvedilol instead of IV Lopressor and monitoring tolerance and response Small bowel obstruction, status post surgery, recovering slowly, still having diminished bowel sounds, started on liquid diet today. COPD with oxygen dependent. Clinical Quality Measures DVT/VTE Risk/Contraindication: Risk Factor Score Per Nursin RFS Level Per Nursing on Admit: 4+=Very High KAILA JUÁREZ MD Dec 23, 2018 10:00
--- NOTE | 2018-12-23 11:15 | Progress Note-Standard ---
Standard Progress Note Progress Notes/Assess & Plan Date Seen by a Provider: Dec 23, 2018 Time Seen by a Provider: 09:58 Progress/Assessment & Plan oral intake improving. Having loose bowel movements. Incision dry. Serous output from the drain, could be removed. Antibiotics could be stopped. Final Diagnosis small bowel obstruction, resolved ASHTYN ROD MD Dec 23, 2018 11:14
--- NOTE | 2018-12-23 13:50 | NUR ---
0900 DR ROD ON FLOOR NEW VERBAL ORDERS RECEIVED TO D/C IV ABX, D/C PROTONIX IV, AND D/C AGUSTO DRAIN. AGUSTO DRAIN D/C WITH PRESSURE DRESSING APPLIED. PT TOLERATED WELL.
[2018-12-24] MEDS: morphine INJ 4 MG/ML 1 ML (VIAL/SYRINGE) IVP PRN (01:56)
[2018-12-24 03:59] LABS: BASOPHILS % (AUTO) 0 % (0-10); EOSINOPHILS # (AUTO) 0.2 10^3/uL (0.0-0.3); EOSINOPHILS % (AUTO) 1 % (0-10); HEMATOCRIT 33 % (40-54); HEMOGLOBIN 10.6 G/DL (13.3-17.7); LYMPHOCYTES % (AUTO) 13 % (12-44); MEAN CORPUSCULAR HEMOGLOBIN 26 PG (25-34); MEAN CORPUSCULAR HGB CONC 32 G/DL (32-36); MEAN CORPUSCULAR VOLUME 82 FL (80-99); MONOCYTES # (AUTO) 1.1 X 10^3 (0.0-1.0); MONOCYTES % (AUTO) 7 % (0-12); NEUTROPHILS % (AUTO) 78 % (42-75); PLATELET COUNT 353 10^3/uL (130-400); RED CELL DISTRIBUTION WIDTH 17.8 % (10.0-14.5); WHITE BLOOD COUNT 15.4 10^3/uL (4.3-11.0)
[2018-12-24 04:30] LABS: CALCIUM 8.5 MG/DL (8.5-10.1); CREATININE SERUM 1.68 MG/DL (0.60-1.30); MAGNESIUM 2.3 MG/DL (1.8-2.4); PHOSPHORUS 3.7 MG/DL (2.3-4.7); POTASSIUM 3.7 MMOL/L (3.6-5.0)
[2018-12-24 04:54] VITALS: BP 166/72
[2018-12-24] MEDS: hydrALAZINE (APRESOLINE) 25 MG TAB PO SCH ×3 (05:19→21:09)
[2018-12-24 08:00] VITALS: BP 160/84
[2018-12-24] MEDS: CARVEDILOL 12.5 MG (COREG) TABLET PO SCH ×2 (08:10→19:50)
[2018-12-24] MEDS: fluCOnazole (DIFLUCAN) 100 MG TAB PO SCH (08:10)
[2018-12-24] MEDS: amLODIPine 10 MG (NORVASC) TAB PO SCH (08:10)
[2018-12-24] MEDS: cloNIDine 0.1 MG (CATAPRES) TAB PO SCH ×3 (08:10→19:50)
[2018-12-24] MEDS: FUROSEMIDE 40 MG (LASIX) TAB PO SCH (08:10)
[2018-12-24] MEDS: KCL 20 MEQ TAB (K-DUR) PO SCH (08:10)
--- NOTE | 2018-12-24 09:49 | Cardiology Progress Note ---
Subjective Date Seen by Provider: Dec 24, 2018 Time Seen by Provider: 09:48 Subjective/Events-last exam Patient is in a chair, feeling better, asking about going home, no chest pain Review of Systems General: No Chills, No Night Sweats, No Fatigue, No Malaise, No Appetite, No Other HEENT: No Head Aches, No Visual Changes, No Eye Pain, No Ear Pain, No Dysphasia , No Sinus Congestion, No Post Nasal Drip, No Sore Throat, No Other Pulmonary: No Dyspnea, No Cough, No Pleuritic Chest Pain, No Other Cardiovascular: No: Chest Pain, Palpitations, Orthopnea, Paroxysmal Noc. Dyspnea, Edema, Lt Headedness, Other Objective-Cardiology Exam Last Set of Vital Signs Vital Signs 12/19/18 12/24/18 12/24/18 12/24/18 07:05 04:54 07:00 08:15 Temp 98.4 Pulse 68 Resp 16 B/P (MAP) 166/72 (103) Pulse Ox 92 O2 Delivery High Flow N/C O2 Flow Rate 4.00 FiO2 25 Capillary Refill : Less Than 3 SecondsLess Than 3 Seconds I&O Intake and Output 12/24/18 00:00 Intake Total 2990 ml Output Total 1000 ml Balance 1990 ml Intake Oral 2750 ml IV Total 240 ml Output Urine Total 950 ml Drainage Total 50 ml # Voids 3 General: Alert, Oriented X3, Cooperative HEENT: Atraumatic, PERRLA Neck: Supple, No JVD, No Thyromegaly Lungs: Clear to Auscultation, Normal Air Movement Heart: Regular Rate, Normal S1, Normal S2, No Murmurs Abdomen: Normal Bowel Sounds, Soft, No Tenderness, No Hepatosplenomegaly, No Masses Extremities: No Clubbing, No Cyanosis, Normal Pulses, No Tenderness/Swelling, Other (jean carlos edema) Skin: No Rashes, No Breakdown, No Significant Lesion Neuro: Normal Speech, Normal Tone, Sensation Intact Psych/Mental Status: Mental Status NL, Mood NL Results Lab Laboratory Tests 12/24/18 03:47 A/P-Cardiology Admission Diagnosis Acute respiratory failure Pneumonia Congestive heart failure, acute left ventricular diastolic dysfunction Hypertensive emergency Assessment/Plan Status post acute respiratory failure postoperatively, doing better, managed by primary care team. Pneumonia, receiving broad-spectrum antibiotics. Managed by Dr. Bauer Status post acute on chronic renal failure, better at this time. Continue to monitor Malignant hypertension, had extensive workup done in the past, patient reporting that he had renal angiogram done about 10 years ago, I am concerned about having underlying pheochromocytoma, will consider 24 hour urine collection and evaluate his catecholamine once he is clinically recovered from his surgery. continue on current medication monitor blood pressure Elevated BNP, probably secondary to malignant hypertension, diastolic dysfunction and renal failure, had an echocardiogram done on December [address] Hernandez to have left ventricular hypertrophy with normal systolic function, ejection fraction 55-65 percent, pulmonary hypertension with PA pressure 45 mmHg. currently no signs of congestive heart failure. Continue to monitor Avoid the use MANUEL inhibitor and/or ARB due to renal failure Sinus tachycardia, borderline tachycardic, I am initiating carvedilol instead of IV Lopressor and monitoring tolerance and response Small bowel obstruction, status post surgery, recovering slowly, still having diminished bowel sounds, started on liquid diet today. COPD with oxygen dependent. Clinical Quality Measures DVT/VTE Risk/Contraindication: Risk Factor Score Per Nursin RFS Level Per Nursing on Admit: 4+=Very High KAILA JUÁREZ MD Dec 24, 2018 09:49
--- NOTE | 2018-12-24 10:52 | Diagnostic Imaging Report ---
INDICATION: Shortness of breath. COMPARISON: 12/23/2018 FINDINGS: Single view of the chest demonstrates increasing central vascular congestion. There is stable cardiac enlargement. Trace effusion remains in both bases. There is no pneumothorax. The central venous catheter on the left is stable. IMPRESSION: Cardiac enlargement with increasing central vascular congestion with trace effusion. Dictated by: Dictated on workstation # [id number]
--- NOTE | 2018-12-24 11:10 | Pulmonary Progress Note ---
Subjective Time Seen by a Provider: 11:09 Subjective/Events-last exam Pt is doing much better. Sepsis Event Evaluation Height, Weight, BMI Height: 5'4.00" Weight: 140lbs. 0.0oz. 63.038030ja; 26.6 BMI Method:Stated Exam Exam Vital Signs Date Time Temp Pulse Resp B/P (MAP) Pulse Ox O2 Delivery O2 Flow Rate FiO2 12/24/18 08:15 High Flow N/C 4.00 12/24/18 08:00 98.4 82 18 160/84 (109) 93 High Flow N/C 3.00 160/84 (109) 12/24/18 07:00 68 12/24/18 04:54 98.4 66 16 166/72 (103) 92 High Flow N/C 4.00 12/24/18 01:00 72 12/23/18 23:05 97.7 61 20 165/67 (99) 93 High Flow N/C 3.00 12/23/18 20:30 High Flow N/C 5.00 12/23/18 20:13 98.9 76 18 158/74 (102) 98 High Flow N/C 3.00 158/74 (102) 12/23/18 19:43 97 High Flow N/C 5.00 12/23/18 19:00 75 12/23/18 15:45 98 High Flow N/C 3.00 12/23/18 15:38 98.2 64 18 119/61 (80) 94 High Flow N/C 3.00 119/61 (80) 12/23/18 13:00 71 12/23/18 12:00 98.8 75 16 142/81 (101) 94 High Flow N/C 3.00 142/81 (101) I & O 12/24/18 07:00 Intake Total 2620 ml Output Total 975 ml Balance 1645 ml Height & Weight Height: 5'4.00" Weight: 140lbs. 0.0oz. 63.258167qk; 26.6 BMI Method:Stated General Appearance: No Apparent Distress HEENT: PERRL/EOMI Neck: Full Range of Motion Respiratory: Chest Non Tender, Decreased Breath Sounds Cardiovascular: Regular Rate, Rhythm Capillary Refill: Less Than 3 Seconds Gastrointestinal: normal bowel sounds, soft, other (inc clean.dry) Extremity: Normal Capillary Refill Neurologic/Psychiatric: Alert, Oriented x3 Skin: Normal Color Lymphatic: No Adenopathy Results Lab Laboratory Tests 12/23/18 03:46 12/24/18 03:47 Assessment/Plan Assessment/Plan Respiratory failure s/p surgery - Much improved -Oxygen -SVNs Atelectasis -Increase activity -IS Pneumonia - sputum is growing S.Aureus and yeast - zosyn , and eraxis -Persistent Leukocytosis - check C diff -Continue daily labs Pulmonary edema -Lasix Acute on chronic renal failure with metabolic acidosis - improving -Continue to monitor close -bilateral renal US - negative HTN- - hydralazine PRN -PO clonidine, Lopressor -NO MANUEL/ARB secondary to renal function Anemia -S/p 4 units RBC -Monitor SBO s/p surgery -S/p swallow eval - pt is on a dysphagia diet -Dr. Franklin is following Dysphagia -Pt is on a dysphagia diet Severe oxygen dependent COPD -SVNs -Oxygen JASS SWANSON DO Dec 24, 2018 11:10
[2018-12-24] MEDS: RT-ALBUTEROL/IPRATROPIUM 3 ML (DUONEB) VIAL INH SCH ×4 (11:45→19:14)
[2018-12-24 12:00] VITALS: BP_SYST 150; BP_SYST 160; BP_DIAS 69; BP_DIAS 84
--- NOTE | 2018-12-24 12:25 | Progress Note-Standard ---
Standard Progress Note Progress Notes/Assess & Plan Date Seen by a Provider: Dec 24, 2018 Time Seen by a Provider: 11:20 Progress/Assessment & Plan oral intake improving. Having loose bowel movements. Incision dry. Serous output from the drain, could be removed. Antibiotics could be stopped. week postoperative concerns. Inpatient rehabilitation expected. Final Diagnosis small bowel obstruction, resolved ASHTYN ROD MD Dec 24, 2018 12:25
[2018-12-24] MEDS: ENOXAPARIN 40 MG/0.4 ML (LOVENOX) SYR SC SCH (12:59)
--- NOTE | 2018-12-24 13:30 | Progress Note-Hospitalist ---
Subjective HPI/CC On Admission Date Seen by Provider: Dec 24, 2018 Time Seen by Provider: 13:23 Pt is a 68yoCM with a PMH of CKD, HTN, COPD on 3lpm who presented to the ER due to acute onset abdominal pain. He states he developed sharp upper pain and started vomitiung. He also noticed he was very distended. His pain became very severe and has was not passing flatus so he presented to the ER for evaluation where he was found to have a high grade bowel obstruction. He was asmitted for surgery and I am consulted for medical management. NGT was placed in the ER and that has helped with his nausea and vomiting but he is still having severe pain and bloating. Subjective/Events-last exam Patient was sitting up eating regular lunch denying abdominal pain or distention. Staff report he is gone from 2 person transfer to one-person transfer and he notes improvement. He reports diminishing cough not aggravated by eating with no sputum production. He's had no night sweats chills or fever. He hasn't noted any benefit from left intra-articular knee injection but denies pain just reports doesn't feel as though it will support him. Staff report however that he is bearing more weight and again is becoming easier to transfer Objective Exam Vital Signs Vital Signs Date Time Temp Pulse Resp B/P (MAP) Pulse Ox O2 Delivery O2 Flow Rate FiO2 12/24/18 11:48 96 High Flow N/C 4.00 12/24/18 08:00 98.4 82 18 160/84 (109) 160/84 (109) 12/19/18 07:05 25 Capillary Refill : Less Than 3 SecondsLess Than 3 Seconds General Appearance: No Apparent Distress HEENT: PERRL/EOMI Neck: Full Range of Motion Respiratory: Chest Non Tender, No Accessory Muscle Use, No Respiratory Distress , Other (I basal rales left greater than right no vesicular breath sounds noted somewhat diminished breath sounds posteriorly) Cardiovascular: Regular Rate, Rhythm, No Murmur Gastrointestinal: Normal Bowel Sounds, No Organomegaly, No Pulsatile Mass, Non Tender, Soft Genital/Rectal: Other Extremity: Normal Capillary Refill, No Pedal Edema Neurologic/Psychiatric: Alert, Oriented x3 Skin: Normal Color Lymphatic: No Adenopathy Results/Procedures Lab Laboratory Tests 12/24/18 03:47 Patient resulted labs reviewed. Imaging: Reviewed Imaging Report Assessment/Plan Assessment and Plan Assess & Plan/Chief Complaint A/P 1. 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 2. Respiratory failure secondary to postoperative pneumonia resolved. While white count was higher today he has no clinical signs for infection with return of normal appetite and no obvious signs of infection exacerbation. 3. Acute knee injury stabilized with GFR around 40 and no metabolic derangements at this time. 4. Delirium secondary to small bowel ischemia or infection yarsanism failure resolved. 5. Multifactorial deconditioning due to the above patient deemed by this practitioner to be a good candidate for acute rehabilitation for which he is amenable after discussion. Order for evaluation in the morning has been written by surgery. Critical Care Critically Ill Patient Clinical Quality Measures DVT/VTE Risk/Contraindication: Risk Factor Score Per Nursin RFS Level Per Nursing on Admit: 4+=Very High MORRIS HUNT MD Dec 24, 2018 13:29
[2018-12-24 15:32] VITALS: BP 165/73
[2018-12-24 20:00] VITALS: BP 176/69
[2018-12-24 23:15] VITALS: BP 157/67
[2018-12-25 04:30] VITALS: BP 178/81
[2018-12-25 05:03] LABS: BASOPHILS % (AUTO) 0 % (0-10); EOSINOPHILS # (AUTO) 0.4 10^3/uL (0.0-0.3); EOSINOPHILS % (AUTO) 3 % (0-10); HEMATOCRIT 33 % (40-54); HEMOGLOBIN 10.3 G/DL (13.3-17.7); LYMPHOCYTES # (AUTO) 1.6 X 10^3 (1.0-4.0); LYMPHOCYTES % (AUTO) 13 % (12-44); MEAN CORPUSCULAR HEMOGLOBIN 26 PG (25-34); MEAN CORPUSCULAR HGB CONC 32 G/DL (32-36); MEAN CORPUSCULAR VOLUME 83 FL (80-99); MEAN PLATELET VOLUME 9.6 FL (7.4-10.4); MONOCYTES # (AUTO) 1.1 X 10^3 (0.0-1.0); MONOCYTES % (AUTO) 10 % (0-12); NEUTROPHILS # (AUTO) 8.6 X 10^3 (1.8-7.8); NEUTROPHILS % (AUTO) 74 % (42-75); PLATELET COUNT 325 10^3/uL (130-400); RED CELL DISTRIBUTION WIDTH 17.4 % (10.0-14.5); WHITE BLOOD COUNT 11.7 10^3/uL (4.3-11.0)
[2018-12-25] MEDS: hydrALAZINE (APRESOLINE) 25 MG TAB PO SCH ×3 (05:18→22:48)
[2018-12-25 05:21] LABS: CALCIUM 8.4 MG/DL (8.5-10.1); CREATININE SERUM 1.5 MG/DL (0.60-1.30); PHOSPHORUS 4.1 MG/DL (2.3-4.7); POTASSIUM 3.7 MMOL/L (3.6-5.0)
--- NOTE | 2018-12-25 06:55 | Pulmonary Progress Note ---
Subjective Time Seen by a Provider: 06:55 Subjective/Events-last exam Pt appears to be doing better. Sepsis Event Evaluation Height, Weight, BMI Height: 5'4.00" Weight: 139lbs. 3.2oz. 63.398033wm; 26.6 BMI Method:Stated Exam Exam Vital Signs Date Time Temp Pulse Resp B/P (MAP) Pulse Ox O2 Delivery O2 Flow Rate FiO2 12/25/18 04:30 98.0 64 20 178/81 (113) 98 High Flow N/C 3.00 12/25/18 01:00 69 12/24/18 23:15 98.2 68 20 157/67 (97) 96 High Flow N/C 3.00 12/24/18 20:00 99.0 74 18 176/69 (104) 95 High Flow N/C 3.00 12/24/18 19:50 High Flow N/C 3.00 12/24/18 19:15 93 High Flow N/C 4.00 12/24/18 19:00 74 12/24/18 15:32 98.4 78 20 165/73 (103) 98 High Flow N/C 3.00 12/24/18 13:19 72 12/24/18 12:00 97.4 86 18 150/69 (96) 96 High Flow N/C 3.00 160/84 (109) 12/24/18 11:48 96 High Flow N/C 4.00 12/24/18 08:15 High Flow N/C 4.00 12/24/18 08:00 98.4 82 18 160/84 (109) 93 High Flow N/C 3.00 160/84 (109) 12/24/18 07:00 68 I & O 12/25/18 07:00 Intake Total 2870 ml Output Total 2050 ml Balance 820 ml Height & Weight Height: 5'4.00" Weight: 139lbs. 3.2oz. 63.540436hq; 26.6 BMI Method:Stated General Appearance: No Apparent Distress HEENT: PERRL/EOMI Neck: Full Range of Motion Respiratory: Chest Non Tender, No Accessory Muscle Use, No Respiratory Distress , Decreased Breath Sounds Cardiovascular: Regular Rate, Rhythm, No Murmur Capillary Refill: Less Than 3 Seconds Gastrointestinal: normal bowel sounds, soft, other (inc clean.dry) Extremity: Normal Capillary Refill, No Pedal Edema Neurologic/Psychiatric: Alert, Oriented x3 Skin: Normal Color Lymphatic: No Adenopathy Results Lab Laboratory Tests 12/24/18 03:47 12/25/18 04:37 Assessment/Plan Assessment/Plan Respiratory failure s/p surgery - Much improved -Oxygen -SVNs -CXR shows improvement. Atelectasis -Increase activity -IS Pneumonia - resolving Pulmonary edema -Lasix -Monitor Acute on chronic renal failure with metabolic acidosis - improving -Continue to monitor close -bilateral renal US - negative HTN- - Monitor Anemia -S/p 4 units RBC -Monitor SBO s/p surgery -S/p swallow eval - pt is on a dysphagia diet -Dr. Franklin is following Dysphagia -Pt is on a dysphagia diet Severe oxygen dependent COPD -SVNs -Oxygen Pt is ok for discharge from pulmonary standpoint. I will f/u with him in 3 wks as out patient. JASS SWANSON DO Dec 25, 2018 06:55
[2018-12-25] MEDS: RT-ALBUTEROL/IPRATROPIUM 3 ML (DUONEB) VIAL INH SCH ×4 (07:52→19:33)
[2018-12-25 08:00] VITALS: BP 138/62
[2018-12-25] MEDS: cloNIDine 0.1 MG (CATAPRES) TAB PO SCH ×3 (09:26→20:20)
[2018-12-25] MEDS: FUROSEMIDE 40 MG (LASIX) TAB PO SCH (09:26)
[2018-12-25] MEDS: amLODIPine 10 MG (NORVASC) TAB PO SCH (09:26)
[2018-12-25] MEDS: fluCOnazole (DIFLUCAN) 100 MG TAB PO SCH (09:26)
[2018-12-25] MEDS: CARVEDILOL 12.5 MG (COREG) TABLET PO SCH ×2 (09:26→20:20)
[2018-12-25] MEDS: KCL 20 MEQ TAB (K-DUR) PO SCH (09:27)
--- NOTE | 2018-12-25 09:28 | Diagnostic Imaging Report ---
INDICATION: Dyspnea. TECHNIQUE: Single view chest at 3:23 AM. CORRELATION STUDY: 12/24/2018. FINDINGS: The heart size, mediastinum, and vasculature are overall generally stable to slightly improved. Chronic, senescent type change about the lung parenchyma. No definitive new infiltrate. Left-sided central line is stable. IMPRESSION: Stable cardiac enlargement with the vasculature slightly prominent but perhaps mildly improved from the prior study. Dictated by: Dictated on workstation # [id number]
--- NOTE | 2018-12-25 10:04 | Physical Therapy Daily Note ---
PT Daily Note-Current Subjective Patient is alert and oriented on this date. Patient states, "My knee is worse since the shot then before. I don't want to walk." PT highly encouraged patient to participate with therapy and attempt to ambulate. Pain Numeric Pain Scale: 8 Location: Left Location Body Site: Knee Pain Description: Chronic Mental Status Patient Orientation: Normal For Age Attachments: Oxygen (3L HF) Transfers Therapy Code Descriptions/Definitions Functional [place] Measure: 0=Not Assessed/NA 4=Minimal Assistance 1=Total Assistance 5=Supervision or Setup 2=Maximal Assistance 6=Modified [place] 3=Moderate Assistance 7=Complete [place] Therapy Quality Codes: 6 Independent with activity with or without an assistive device 5 Patient requires set up or clean up by helper. Patient completes activity by themselves 4 Supervision or touching assist (CGA). [place] provide cues , steadying assist 3 The helper provides less than half the effort to complete the activity 2 The helper provides more than half the effort to complete the activity 1 Dependent. The helper does all the effort to complete an activity 7 Patient refused to complete or attempt activity 9 The patient did not perform the activity before the current illness or injury 88 Not attempted due to Medical conditions or safety concerns Transfers (B, C, W/C) (FIM): 4 Scootin Sit to/from Stand: 4 CGA from low chair Gait Training Gait (FIM): 1 Distance (FIM): 1=up to 49 ft Distance: 45' x 2 Gait Level of Assist: 4 Gait Persons Needed: 1 Gait Assistive Device: FWW CGA for safety/very slow gait sequence, kyphotic posture with FWW use Exercises Seated Therapy Exercises: Ankle pumps, Long arc quads, Hip flexion Seated Reps: 20 Assessment Patient much improved on this date. Patient is declining to participate with therapy in ARU and voices he want to go home and have home health. PT informed physician about wishes. PT Train Crew Member Goals Train Crew Member Goals PT Alf Goals Time Frame: Dec 31, 2018 Transfers (B,C,W/C) (FIM): 4 Gait (FIM): 1 Gait distance (FIM): 1=up to 49 ft Distance: 45' Gait Level of Assist: 4 Gait Assistive Device: FWW PT Plan Treatment/Plan Treatment Plan: Continue Plan of Care Treatment Plan: Bed Mobility, Education, Functional Activity Rosario, Functional Strength, Gait, Safety, Therapeutic Exercise, Transfers Treatment Duration: Dec 31, 2018 Frequency: 6 times per week Estimated Hrs Per Day: .25 hour per day Patient and/or Family Agrees t: Yes Time/GCodes Time In: 913 Time Out: 930 Total Billed Treatment Time: 17 Total Billed Treatment 1 visit GT 17 min OPAL MARTIN PT Dec 25, 2018 10:04
--- NOTE | 2018-12-25 10:33 | Cardiology Progress Note ---
Subjective Date Seen by Provider: Dec 25, 2018 Time Seen by Provider: 10:32 Subjective/Events-last exam Patient is sitting in a chair, feeling better, no new complaint Review of Systems General: No Chills, No Night Sweats, No Fatigue, No Malaise, No Appetite, No Other HEENT: No Head Aches, No Visual Changes, No Eye Pain, No Ear Pain, No Dysphasia , No Sinus Congestion, No Post Nasal Drip, No Sore Throat, No Other Pulmonary: No Dyspnea, No Cough, No Pleuritic Chest Pain, No Other Cardiovascular: No: Chest Pain, Palpitations, Orthopnea, Paroxysmal Noc. Dyspnea, Edema, Lt Headedness, Other Objective-Cardiology Exam Last Set of Vital Signs Vital Signs 12/19/18 12/25/18 07:05 08:00 Temp 98.2 Pulse 84 Resp 18 B/P (MAP) 138/62 (87) Pulse Ox 92 O2 Delivery High Flow N/C O2 Flow Rate 3.00 FiO2 25 Capillary Refill : Less Than 3 SecondsLess Than 3 Seconds I&O Intake and Output 12/25/18 00:00 Intake Total 2620 ml Output Total 1850 ml Balance 770 ml Intake Oral 2620 ml Output Urine Total 1850 ml # Bowel Movements 6 General: Alert, Oriented X3, Cooperative HEENT: Atraumatic, PERRLA Neck: Supple, No JVD, No Thyromegaly Lungs: Clear to Auscultation, Normal Air Movement Heart: Regular Rate, Normal S1, Normal S2, No Murmurs Abdomen: Normal Bowel Sounds, Soft, No Tenderness, No Hepatosplenomegaly, No Masses Extremities: No Clubbing, No Cyanosis, Normal Pulses, No Tenderness/Swelling, Other (jean carlos edema) Skin: No Rashes, No Breakdown, No Significant Lesion Neuro: Normal Speech, Normal Tone, Sensation Intact Psych/Mental Status: Mental Status NL, Mood NL Results Lab Laboratory Tests 12/25/18 04:37 A/P-Cardiology Admission Diagnosis Acute respiratory failure Pneumonia Congestive heart failure, acute left ventricular diastolic dysfunction Hypertensive emergency Assessment/Plan Status post acute respiratory failure postoperatively, doing better, managed by primary care team. Pneumonia, receiving broad-spectrum antibiotics. Managed by Dr. Bauer Status post acute on chronic renal failure, better at this time. Continue to monitor Malignant hypertension, had extensive workup done in the past, patient reporting that he had renal angiogram done about 10 years ago, I am concerned about having underlying pheochromocytoma, will consider 24 hour urine collection and evaluate his catecholamine once he is clinically recovered from his surgery. continue on current medication monitor blood pressure Elevated BNP, probably secondary to malignant hypertension, diastolic dysfunction and renal failure, had an echocardiogram done on December [address] Hernandez to have left ventricular hypertrophy with normal systolic function, ejection fraction 55-65 percent, pulmonary hypertension with PA pressure 45 mmHg. currently no signs of congestive heart failure, okay for discharge and follow-up with Dr. Hernandez as an outpatient Avoid the use MANUEL inhibitor and/or ARB due to renal failure Sinus tachycardia, borderline tachycardic, I am initiating carvedilol instead of IV Lopressor and monitoring tolerance and response Small bowel obstruction, status post surgery, recovering slowly, still having diminished bowel sounds, started on liquid diet today. COPD with oxygen dependent. Clinical Quality Measures DVT/VTE Risk/Contraindication: Risk Factor Score Per Nursin RFS Level Per Nursing on Admit: 4+=Very High KAILA JUÁREZ MD Dec 25, 2018 10:33 am
[2018-12-25 12:00] VITALS: BP 109/74
[2018-12-25] MEDS: ENOXAPARIN 40 MG/0.4 ML (LOVENOX) SYR SC SCH (12:08)
--- NOTE | 2018-12-25 12:57 | NUR ---
Follow up: patient states he is returning home with outpatient therapy. Dr. Esparza and Dr. Weber notified.
--- NOTE | 2018-12-25 13:15 | Occupational Ther Daily Note ---
OT Current Status-Daily Note Subjective Pt in shower , brought out on Shower chair by Nurse Assistance. alert, social, cooperative & oriented . Pain Numeric Pain Scale: 5-Moderate Pain Location: Joint Location Body Site: Knee Pain Description: Stabbing Mental Status/Objective Patient Orientation: Person, Place Therapy Code Descriptions/Definitions Functional [place] Measure: 0=Not Assessed/NA 4=Minimal Assistance 1=Total Assistance 5=Supervision or Setup 2=Maximal Assistance 6=Modified [place] 3=Moderate Assistance 7=Complete [place] Attachments: IV, Saline Lock, SCD's, Telemetry ADL-Treatment Pt got up from shower chair with FWW with Mod A . Pt ambulate with FWW 7 feet & turned around & sit in the chair. He did'nt want to sit in recliner. Completed 20 reps x 2 sets x 2 lb wts , both elbow flexion/ext , 15 reps both shoulder forward flexion, 20 reps with red theraband & 30 reps with hand gripper to strengthen BUE to participate in all self care tasks & to push up from chair or EOB to stand with FWW.. Pt dependent in all self care tasks. Eating (FIM): 5 Upper Body (FIM): 1 Lower Body Dressing (FIM): 1 Transfers (B, C, W/C) (FIM): 3 Education OT Patient Education: Correct positioning Teaching Recipient: Patient Teaching Methods: Demonstration Response to Teaching: Verbalize Understanding OT Short Term Goals Short Term Goals Time Frame: Jan 03, 2019 Additional Short Term Goals: 1-Demonstrate ADL Tasks, 2-Verbalize Understanding , 3-ImproveStrength/Rosario 1=Demonstrate adherence to instructed precautions during ADL tasks. 2=Patient will verbalize/demonstrate understanding of assistive devices/ modifications for ADL. 3=Patient will improve strength/tolerance for activity to enable patient to perform ADL's. OT Assisted Goals Assisted Goals Time Frame: Jan 17, 2019 Eating (FIM): 6 Grooming(FIM): 6 Bathing(FIM): 5 Bathing Location: L Arm, R Arm, L Upper Leg, R Upper Leg, L Lower Leg ( including foot), R Lower Leg (including foot), Chest, Abdomen, Buttocks, Perineal Area Upper Body Dressing(FIM): 5 Lower Body Dressing(FIM): 5 Toileting(FIM): 6 Transfers (B,C,W/C) (FIM): 6 Toilet/Commode Transfer(FIM): 6 Tub Transfer(FIM): 0 Shower Transfer(FIM): 6 Additional Goals: 1-Demonstrate ADL Tasks, 2-Verbalize Understanding, 3- ImproveStrength/Rosario 1=Demonstrate adherence to instructed precautions during ADL tasks. 2=Patient will verbalize/demonstrate understanding of assistive devices/ modifications for ADL. 3=Patient will improve strength/tolerance for activity to enable patient to perform ADL's. OT Education/Plan Problem List/Assessment Assessment: Decreased Activ Tolerance, Decreased Safety Aware, Decreased UE Strength, Dependent Transfers, Impaired Bed Mobility, Impaired Cognition, Impaired Funct Balance, Impaired Self-Care Skills Discharge Recommendations Plan/Recommendations: Continue POC Therapy D/C Recommendations: Home w/ Family Support Equpiment Recommendations-D/C: Extended Bath Bench, Extended Shower Sprayer, Fabrication Machine Operator, Hip Kit Patient/Family Goals To return home with Independently . Treatment Plan/Plan of Care Treatment,Training & Education: Yes Patient would benefit from OT for education, treatment and training to promote independence in ADL's, mobility, safety and/or upper extremity function for ADL' s. Plan of Care: ADL Retraining, Functional Mobility, UE Funct Exercise/Act, UE Neuromus Re-Ed/Coord Treatment Duration: Jan 17, 2019 Frequency: 5 times per week Estimated Hrs Per Day: .25 hour per day Agreement: Yes Rehab Potential: Good Time/GCodes Start Time: 10:35 Stop Time: 11:00 Total Time Billed (hr/min): 25 Billed Treatment Time 1, FA 13 min, Ex 12 min . Total 25 minutes ELISA TOVAR OT Dec 25, 2018 13:15
[2018-12-25 13:47] VITALS: BP 138/62
[2018-12-25 16:00] VITALS: BP 100/60
--- NOTE | 2018-12-25 16:11 | Progress Note (SOAP) ---
Subjective Date Seen by a Provider: Dec 25, 2018 Time Seen by a Provider: 16:00 Subjective/Events-last exam doing ok. tolerating diet. having loose. physical capacity slowly increasing. Objective Exam Vital Signs Date Time Temp Pulse Resp B/P (MAP) Pulse Ox O2 Delivery O2 Flow Rate FiO2 12/25/18 13:47 98.2 84 18 138/62 (87) 92 High Flow N/C 3.00 12/25/18 12:00 98.0 73 18 109/74 (86) 97 High Flow N/C 3.00 109/74 (86) 12/25/18 11:48 96 Nasal Cannula 3.00 12/25/18 08:00 High Flow N/C 3.00 12/25/18 08:00 98.2 84 18 138/62 (87) 92 High Flow N/C 3.00 12/25/18 07:55 93 Nasal Cannula 3.00 12/25/18 07:00 76 12/25/18 04:30 98.0 64 20 178/81 (113) 98 High Flow N/C 3.00 12/25/18 01:00 69 12/24/18 23:15 98.2 68 20 157/67 (97) 96 High Flow N/C 3.00 12/24/18 20:00 99.0 74 18 176/69 (104) 95 High Flow N/C 3.00 12/24/18 19:50 High Flow N/C 3.00 12/24/18 19:15 93 High Flow N/C 4.00 12/24/18 19:00 74 I & O 12/25/18 07:00 Intake Total 2870 ml Output Total 2050 ml Balance 820 ml Capillary Refill : Less Than 3 SecondsLess Than 3 Seconds General Appearance: No Apparent Distress HEENT: PERRL/EOMI Respiratory: Chest Non Tender, Decreased Breath Sounds Cardiovascular: Regular Rate, Rhythm Gastrointestinal: normal bowel sounds, soft, other (inc clean/dry) Extremity: Normal Capillary Refill Neurologic/Psychiatric: Alert, Oriented x3 Skin: Normal Color Lymphatic: No Adenopathy Results Lab Laboratory Tests 12/25/18 04:37: White Blood Count 11.7H, Red Blood Count 3.95L, Hemoglobin 10.3L, Hematocrit 33L , Mean Corpuscular Volume 83, Mean Corpuscular Hemoglobin 26, Mean Corpuscular Hemoglobin Concent 32, Red Cell Distribution Width 17.4H, Platelet Count 325, Mean Platelet Volume 9.6, Neutrophils (%) (Auto) 74, Lymphocytes (%) (Auto) 13, Monocytes (%) (Auto) 10, Eosinophils (%) (Auto) 3, Basophils (%) (Auto) 0, Neutrophils # (Auto) 8.6H, Lymphocytes # (Auto) 1.6, Monocytes # (Auto) 1.1H, Eosinophils # (Auto) 0.4H, Basophils # (Auto) 0.0, Sodium Level 144, Potassium Level 3.7, Chloride Level 110H, Carbon Dioxide Level 22, Anion Gap 12, Blood Urea Nitrogen 39H, Creatinine 1.50H, Estimat Glomerular Filtration Rate 46, BUN/ Creatinine Ratio 26, Glucose Level 96, Calcium Level 8.4L, Phosphorus Level 4.1 , Magnesium Level 2.0 Microbiology 12/18/18 Blood Culture - Final, Complete No growth 12/21/18 C. 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 resp status improving. no on O2 NC. cont monitor urine output as well as renal fxn. started on D5 with bicarb to promote diuresis. passed swallow evaluation. tolerating reg diet. having loose stools. cont PT/OT. home when able. Clinical Quality Measures DVT/VTE Risk/Contraindication: Risk Factor Score Per Nursin RFS Level Per Nursing on Admit: 4+=Very High GRETA METZ MD Dec 25, 2018 16:11
[2018-12-25 20:00] VITALS: BP 162/71
[2018-12-26 00:54] VITALS: BP 170/75
[2018-12-26 04:00] VITALS: BP 185/80
[2018-12-26 04:46] LABS: HEMOGLOBIN 10.1 G/DL (13.3-17.7); MEAN PLATELET VOLUME 9.3 FL (7.4-10.4); RED CELL DISTRIBUTION WIDTH 17.3 % (10.0-14.5); WHITE BLOOD COUNT 9.2 10^3/uL (4.3-11.0)
[2018-12-26 05:07] LABS: ALBUMIN 3.2 GM/DL (3.2-4.5); BILIRUBIN,TOTAL 0.5 MG/DL (0.1-1.0); CALCIUM 8.5 MG/DL (8.5-10.1); CREATININE SERUM 1.4 MG/DL (0.60-1.30); MAGNESIUM 1.9 MG/DL (1.8-2.4); PHOSPHORUS 3.9 MG/DL (2.3-4.7); TOTAL PROTEIN 6.1 GM/DL (6.4-8.2)
[2018-12-26] MEDS: hydrALAZINE (APRESOLINE) 25 MG TAB PO SCH (05:15)
--- NOTE | 2018-12-26 07:25 | Pulmonary Progress Note ---
Subjective Time Seen by a Provider: 07:25 Subjective/Events-last exam No complications noted. Sepsis Event Evaluation Height, Weight, BMI Height: 5'4.00" Weight: 135lbs. 11.2oz. 61.506998xx; 26.6 BMI Method:Stated Exam Exam Vital Signs Date Time Temp Pulse Resp B/P (MAP) Pulse Ox O2 Delivery O2 Flow Rate FiO2 12/26/18 04:00 98.6 76 18 185/80 (115) 96 High Flow N/C 3.00 12/26/18 01:00 70 12/26/18 00:54 98.5 73 22 170/75 (106) 97 High Flow N/C 3.00 12/25/18 20:20 High Flow N/C 3.00 12/25/18 20:00 99.0 74 16 162/71 (101) 97 High Flow N/C 3.00 12/25/18 19:33 97 Nasal Cannula 3.00 12/25/18 19:00 83 12/25/18 16:17 93 Nasal Cannula 3.00 12/25/18 16:00 99.0 74 18 100/60 (73) 96 High Flow N/C 3.00 12/25/18 13:47 98.2 84 18 138/62 (87) 92 High Flow N/C 3.00 12/25/18 12:00 98.0 73 18 109/74 (86) 97 High Flow N/C 3.00 109/74 (86) 12/25/18 11:48 96 Nasal Cannula 3.00 12/25/18 08:00 High Flow N/C 3.00 12/25/18 08:00 98.2 84 18 138/62 (87) 92 High Flow N/C 3.00 12/25/18 07:55 93 Nasal Cannula 3.00 I & O 12/26/18 07:00 Intake Total 1730 ml Output Total 1550 ml Balance 180 ml Height & Weight Height: 5'4.00" Weight: 135lbs. 11.2oz. 61.584958mz; 26.6 BMI Method:Stated General Appearance: No Apparent Distress HEENT: PERRL/EOMI Neck: Full Range of Motion Respiratory: Chest Non Tender, Decreased Breath Sounds Cardiovascular: Regular Rate, Rhythm Capillary Refill: Less Than 3 Seconds Gastrointestinal: normal bowel sounds, soft, other (inc clean/dry) Extremity: Normal Capillary Refill Neurologic/Psychiatric: Alert, Oriented x3 Skin: Normal Color Lymphatic: No Adenopathy Results Lab Laboratory Tests 12/25/18 04:37 12/26/18 04:35 Assessment/Plan Assessment/Plan Respiratory failure s/p surgery - Much improved -Oxygen -SVNs -CXR shows improvement. Atelectasis -Increase activity -IS Pneumonia - resolving Pulmonary edema -Lasix -Monitor Acute on chronic renal failure with metabolic acidosis - improving -Continue to monitor close -bilateral renal US - negative HTN- - Monitor Anemia -S/p 4 units RBC -Monitor SBO s/p surgery -S/p swallow eval - pt is on a dysphagia diet -Dr. Franklin is following Dysphagia -Pt is on a dysphagia diet Severe oxygen dependent COPD -SVNs -Oxygen Plan is for in pt rehab today. JASS SWANSON DO Dec 26, 2018 07:25
[2018-12-26] MEDS: RT-ALBUTEROL/IPRATROPIUM 3 ML (DUONEB) VIAL INH SCH (07:46)
[2018-12-26 08:00] VITALS: BP 181/82
--- NOTE | 2018-12-26 08:09 | NUR ---
prior to a,.,m. [id number] pulse was 78 b/p was 181/82
[2018-12-26] MEDS: FUROSEMIDE 40 MG (LASIX) TAB PO SCH (08:11)
[2018-12-26] MEDS: amLODIPine 10 MG (NORVASC) TAB PO SCH (08:11)
[2018-12-26] MEDS: cloNIDine 0.1 MG (CATAPRES) TAB PO SCH (08:11)
[2018-12-26] MEDS: CARVEDILOL 12.5 MG (COREG) TABLET PO SCH (08:11)
[2018-12-26] MEDS: KCL 20 MEQ TAB (K-DUR) PO SCH (08:11)
[2018-12-26] MEDS: fluCOnazole (DIFLUCAN) 100 MG TAB PO SCH (08:11)
--- NOTE | 2018-12-26 10:30 | Progress Note-Hospitalist ---
Subjective HPI/CC On Admission Date Seen by Provider: Dec 26, 2018 Time Seen by Provider: 10:26 Pt is a 68yoCM with a PMH of CKD, HTN, COPD on 3lpm who presented to the ER due to acute onset abdominal pain. He states he developed sharp upper pain and started vomitiung. He also noticed he was very distended. His pain became very severe and has was not passing flatus so he presented to the ER for evaluation where he was found to have a high grade bowel obstruction. He was asmitted for surgery and I am consulted for medical management. NGT was placed in the ER and that has helped with his nausea and vomiting but he is still having severe pain and bloating. Subjective/Events-last exam Pt reports doing well. Plan for DC to IRU today. No complaints. Objective Exam Vital Signs Vital Signs Date Time Temp Pulse Resp B/P (MAP) Pulse Ox O2 Delivery O2 Flow Rate FiO2 12/26/18 09:00 97 Nasal Cannula 3.00 12/26/18 08:00 98.3 78 20 181/82 (115) 181/82 (115) Capillary Refill : Less Than 3 SecondsLess Than 3 Seconds General Appearance: No Apparent Distress, Chronically ill Respiratory: Lungs Clear, No Accessory Muscle Use, No Respiratory Distress Cardiovascular: Regular Rate, Rhythm Gastrointestinal: Normal Bowel Sounds, Other (midline scar consistent with recent surgery, shaan in places) Genital/Rectal: Other Neurologic/Psychiatric: Alert, Oriented x3 Skin: Normal Color Results/Procedures Lab Laboratory Tests 12/26/18 04:35 Patient resulted labs reviewed. Imaging: Reviewed Imaging Report Assessment/Plan Assessment and Plan Assess & Plan/Chief Complaint High grade bowel obstruction Critical Care Critically Ill Patient Diagnosis/Problems Diagnosis/Problems (1) Small bowel obstruction Status: Acute Assessment & Plan: s/p bowel resection Tolerating diet, having BMs Discharging to Rehab today (2) Acute respiratory failure Status: Resolved Assessment & Plan: Now extubated On baseline oxygen Qualifiers: Respiratory failure complication: hypoxia Qualified Codes: J96.01 - Acute respiratory failure with hypoxia Resolution Date/Time: 12/21/18 @ 21:25 (3) Acute renal failure Status: Resolved Assessment & Plan: Now resolved and back to baseline Needs nephrology follow up as an outpatient Qualifiers: Acute renal failure type: unspecified Qualified Codes: N17.9 - Acute kidney failure, unspecified Resolution Date/Time: 12/21/18 @ 21:25 (4) Microcytic anemia Status: Acute Assessment & Plan: Stable around 10 Consider IV iron (5) COPD (chronic obstructive pulmonary disease) Status: Acute Assessment & Plan: 3lpm baseline dependency Pulm consulted, appreciate recs Qualifiers: COPD type: unspecified COPD Qualified Codes: J44.9 - Chronic obstructive pulmonary disease, unspecified (6) Chronic hyponatremia Status: Acute Assessment & Plan: 141 today- has been stable (7) Essential (primary) hypertension Status: Chronic Assessment & Plan: Continue current meds, elevated before AM meds Will increase Coreg Trend Clinical Quality Measures DVT/VTE Risk/Contraindication: Risk Factor Score Per Nursin RFS Level Per Nursing on Admit: 4+=Very High LANCE SKINNER MD Dec 26, 2018 10:30
--- NOTE | 2018-12-26 10:35 | NUR ---
REPORT GIVEN TO Mohinder ANDERSON RN AT THIS TIME. PATIENT TO REHAB ALSO AT THIS TIME.
--- NOTE | 2018-12-26 10:54 | Progress Note (SOAP) ---
Subjective Date Seen by a Provider: Dec 26, 2018 Time Seen by a Provider: 10:30 Subjective/Events-last exam doing well. tolerating diet and having BM's. physical capacity slowly improving. slight area redness and hardness mid-incision. Objective Exam Vital Signs Date Time Temp Pulse Resp B/P (MAP) Pulse Ox O2 Delivery O2 Flow Rate FiO2 12/26/18 09:00 97 Nasal Cannula 3.00 12/26/18 08:00 98.3 78 20 181/82 (115) 97 Nasal Cannula 3.00 181/82 (115) 12/26/18 07:46 96 Nasal Cannula 3.00 12/26/18 07:00 76 12/26/18 04:00 98.6 76 18 185/80 (115) 96 High Flow N/C 3.00 12/26/18 01:00 70 12/26/18 00:54 98.5 73 22 170/75 (106) 97 High Flow N/C 3.00 12/25/18 20:20 High Flow N/C 3.00 12/25/18 20:00 99.0 74 16 162/71 (101) 97 High Flow N/C 3.00 12/25/18 19:33 97 Nasal Cannula 3.00 12/25/18 19:00 83 12/25/18 16:17 93 Nasal Cannula 3.00 12/25/18 16:00 99.0 74 18 100/60 (73) 96 High Flow N/C 3.00 12/25/18 13:47 98.2 84 18 138/62 (87) 92 High Flow N/C 3.00 12/25/18 12:00 98.0 73 18 109/74 (86) 97 High Flow N/C 3.00 109/74 (86) 12/25/18 11:48 96 Nasal Cannula 3.00 I & O 12/26/18 07:00 Intake Total 1730 ml Output Total 1550 ml Balance 180 ml Capillary Refill : Less Than 3 SecondsLess Than 3 Seconds General Appearance: No Apparent Distress HEENT: PERRL/EOMI Neck: Full Range of Motion Respiratory: Chest Non Tender, Decreased Breath Sounds Cardiovascular: Regular Rate, Rhythm Gastrointestinal: normal bowel sounds, soft Extremity: Normal Capillary Refill Neurologic/Psychiatric: Alert, Oriented x3 Skin: Normal Color Lymphatic: No Adenopathy Results Lab Laboratory Tests 12/26/18 04:35: White Blood Count 9.2, Red Blood Count 3.86L, Hemoglobin 10.1L, Hematocrit 32L, Mean Corpuscular Volume 82, Mean Corpuscular Hemoglobin 26, Mean Corpuscular Hemoglobin Concent 32, Red Cell Distribution Width 17.3H, Platelet Count 309, Mean Platelet Volume 9.3, Sodium Level 141, Potassium Level 4.0, Chloride Level 109H, Carbon Dioxide Level 23, Anion Gap 9, Blood Urea Nitrogen 32H, Creatinine 1.40H, Estimat Glomerular Filtration Rate 50, BUN/Creatinine Ratio 23, Glucose Level 97, Calcium Level 8.5, Corrected Calcium 9.1, Phosphorus Level 3.9, Magnesium Level 1.9, Total Bilirubin 0.5, Aspartate Amino Transf (AST/SGOT) 49H , Alanine Aminotransferase (ALT/SGPT) 17, Alkaline Phosphatase 77, Total Protein 6.1L, Albumin 3.2 Microbiology 12/18/18 Blood Culture - Final, Complete No growth 12/21/18 C. 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 tolerating reg diet. having loose stools. will proceed with IRU. will continue to monitor wound for potential developing abscess. Clinical Quality Measures DVT/VTE Risk/Contraindication: Risk Factor Score Per Nursin RFS Level Per Nursing on Admit: 4+=Very High GRETA METZ MD Dec 26, 2018 10:54
[2018-12-26] MEDS ORDERED: CARVEDILOL 12.5 MG (COREG) TABLET PO SCH (21:00)
== END 2018-12-26 10:35 | DRG 329 ==
LOC: EDUNIT# 13:21 → ER 13:23 → 4TH 15:21 → ICU 12-14 15:19 → 4TH 12-21 08:42
PROVIDERS: ADMIT Surgery; ATTEND Surgery
PROC: 5A1945Z Respiratory Ventilation, 24-96 Consecutive Hours (ICD-10-PCS; 2018-12-14)
PROC: 0DBA0ZZ Excision of Jejunum, Open Approach (ICD-10-PCS; principal; 2018-12-14 14:25)
DX: K56.2 Volvulus (principal); K55.011 Focal (segmental) acute (reversible) ischemia of small intestine; K55.021 Focal (segmental) acute infarction of small intestine; J95.89 Other postprocedural complications and disorders of respiratory system, not elsewhere classified; J96.01 Acute respiratory failure with hypoxia; J15.211 Pneumonia due to Methicillin susceptible Staphylococcus aureus; B37.1 Pulmonary candidiasis; N17.9 Acute kidney failure, unspecified; I13.0 Hypertensive heart and chronic kidney disease with heart failure and stage 1 through stage 4 chronic kidney disease, or unspecified chronic kidney disease; I50.31 Acute diastolic (congestive) heart failure; N18.9 Chronic kidney disease, unspecified; E87.1 Hypo-osmolality and hyponatremia; I38 Endocarditis, valve unspecified; D62 Acute posthemorrhagic anemia; E87.2 Acidosis; J98.11 Atelectasis; I16.1 Hypertensive emergency; F05 Delirium due to known physiological condition; J84.9 Interstitial pulmonary disease, unspecified; J44.9 Chronic obstructive pulmonary disease, unspecified; R13.12 Dysphagia, oropharyngeal phase; R00.0 Tachycardia, unspecified; E83.42 Hypomagnesemia; M17.12 Unilateral primary osteoarthritis, left knee; E87.6 Hypokalemia; R19.7 Diarrhea, unspecified; R60.1 Generalized edema; Z87.891 Personal history of nicotine dependence; Z99.81 Dependence on supplemental oxygen
CPT/HCPCS: 36415; 71045; 73560; 74176; 76770; 80048; 80053; 81000; 82040; 82805; 83605; 83690; 83735; 83880; 84100; 84478; 85007; 85014; 85018; 85025; 85027; 85610; 85730; 86850; 86900; 86901; 86920; 87040; 87070; 87077; 87081; 87186; 87205; 87324; 87449; 88307; 93005; 93306; 93930; 93970; 94002; 94003; 94640; 94760; 94799; 96374

== ENCOUNTER 2018-12-26 10:11 | Inpatient (IN) | payer MEDICARE, OTHER ==
[~2018-12-26] VITALS: Ht 162.6 cm; Wt 64.9 kg
[~2018-12-26 10:11] MED LIST changes: +FLUT1BLS3 INH; +FURO40TA4 PO; +IPRA3AMP31 NEB; +PRED2.5T PO; +SODI50SP NS
--- NOTE | 2018-12-26 10:29 | PM&R H&P / Post Admit Assess ---
History of Present Illness HPI/Chief Complaint CC: Debility with critical illness myopathy HPI: This is a 68yoWM with multiple medical issues prior to admit on 12/13/18 which include COPD O2 dependent, HTN, CRI and kyphosis with chronic debility who presents to the IRF after a 13 days hospital course following a bowel obstruction requiring urgent surgical intervention by Dr Franklin along with VDRF w/ vent associated pneumonia and acute diastolic heart failure with volume overload and elevated BNP and 4 units blood transfusion along with close monitoring of renal function. Patient remained in ICU for several days then transferred to 4th floor and continued strengthening and participating in PT/ OT. He was in need of intensive therapy in order to return home with his . Currently he is feeling well and denies pain and his bowels are moving well. Currently Cardiology, Pulmonology and General surgery will continue following this complex patient. Source: patient, RN/MD, old records Exam Limitations: no limitations Date Seen 12/26/18 Time Seen by a Provider: 11:00 Attending Physician Kaylie Weber Floyd R MD Referring Physician Date of Admission Home Medications & Allergies Home Medications Reviewed patient Home Medication Reconciliation performed by pharmacy medication reconciliations internetworking technician and/or nursing. Patients Allergies have been reviewed. Allergies Allergies Coded Allergies sulfamethoxazole (Unverified Allergy, Mild, 12/13/18) trimethoprim (Unverified Allergy, Mild, 12/13/18) Past Ovrsaxs-Pkmuuy-Rmldgy Hx Past Med/Social Hx: Reviewed Nursing Past Med/Soc Hx, Reviewed and Corrections made Patient Social History Marrital Status: Employed/Student: retired Alcohol Beverage of Choice: Beer Smoking Status: Former Smoker (2014) Former Smoker, Quit: Oct 03, 2014 2nd Hand Smoke Exposure: No Recent Hopitalizations: No Immunizations Up To Date Tetanus Booster (TDap): Less than 5yrs Pediatric: No Date of Pneumonia Vaccine: Jun 18, 2015 Date of Influenza Vaccine: Jul 29, 2014 Seasonal Allergies Seasonal Allergies: Yes Past Medical History Surgeries: Eye Surgery, Joint Replacement, Orthopedic Respiratory: COPD, Pneumonia Currently Using CPAP: No Currently Using BIPAP: No Cardiac: Hypertension Reproductive: No Sexually Transmitted Disease: No HIV/AIDS: No Genitourinary: Renal Failure Musculoskeletal: Arthritis, Chronic Back Pain HEENT: Cataract Loss of Vision: Denies Hearing Impairment: Denies History of Blood Disorders: No Adverse Reaction to Blood Odell: No Family History Cardiovascular disease UNCLE Diabetes mellitus 19 MOTHER Kidney disease MA GRANDMOTHER (CANCER) Heart Disease, Diabetes, Lung Disease, Renal Disease Review of Systems Constitutional: see HPI, dizziness, weakness EENTM: no symptoms reported Respiratory: cough, dyspnea on exertion Cardiovascular: no symptoms reported Gastrointestinal: no symptoms reported Genitourinary: no symptoms reported Musculoskeletal: back pain, joint pain Skin: no symptoms reported Psychiatric/Neurological: No Symptoms Reported All Other Systems Reviewed Negative Unless Noted: Yes Physical Exam Exam Vital Signs Vital Signs Date Time Temp Pulse Resp B/P (MAP) Pulse Ox O2 Delivery O2 Flow Rate FiO2 12/26/18 20:42 74 187/70 (109) 12/26/18 17:13 98.3 20 100 Nasal Cannula 2.00 Capillary Refill : General Appearance: No Apparent Distress, WD/WN, Chronically ill, Thin HEENT: PERRL/EOMI, Normal ENT Inspection, Pharynx Normal, Moist Mucous Membranes Neck: Full Range of Motion, Normal Inspection, Non Tender, Supple Respiratory: Chest Non Tender, Lungs Clear, No Accessory Muscle Use, No Respiratory Distress, Decreased Breath Sounds Cardiovascular: Regular Rate, Rhythm, No Edema, No Gallop, No JVD, No Murmur Gastrointestinal: Normal Bowel Sounds, No Organomegaly, No Pulsatile Mass, Non Tender, Soft Back: Normal Inspection, No CVA Tenderness, No Vertebral Tenderness Extremity: Normal Capillary Refill, Normal Inspection, Normal Range of Motion, Non Tender, No Calf Tenderness, No Pedal Edema Neurologic/Psychiatric: Alert, Oriented x3, No Motor/Sensory Deficits, Normal Mood/Affect Skin: Normal Color, Warm/Dry Lymphatic: No Adenopathy Results Results/Procedures Labs Patient resulted labs reviewed. Assessment/Plan Assessment and Plan Assess & Plan/Chief Complaint Assessment: Critical illness myopathy s/p respiratory failure s/p surgery VDRF s/p Vent associated pneumonia Acute on chronic renal failure with metabolic acidosis Hyperkalemia Anemia s/p 4 units of blood while hospitalized Hypotension SBO s/p surgery Dr Franklin POD # 13 Severe oxygen dependent COPD maintained on 3L/min at home Chronic hyponatremia HTN Diastolic heart failure with elevated BNP Plan: Intensive rehab Appreciate Pulmonology, Cardiology and general surgery consultations Monitor incision that appears slightly pink today Monitor labs (1) CLOSED LOOP BOWEL OBSTRUCTION (2) Debility (3) Interstitial lung disease (4) Microcytic anemia (5) Hyponatremia (6) Dyspnea on exertion (7) Renal insufficiency (8) Kyphosis (9) Anemia (10) Transfusion of blood during current hospitalization (11) Former smoker (12) Diastolic CHF (13) Elevated brain natriuretic peptide (BNP) level Post Admission Physician Asses Date seen by provider: Dec 26, 2018 Time seen by provider: 11:00 The preadmission screen agrees with the post admission assessment that the patient is a good candidate for inpatient rehabilitation. The patient will have a comprehensive program of inpatient rehabilitation with a goal of maximizing level of functional independence prior to discharge home with family. The patient will have PT/OT ninety minutes per day, each discipline, five days a week for gait, strengthening, conditioning, balance, ADLs, any patient/family/caregiver training as necessary. Speech therapy to do cognitive assessment and treat as indicated. Rehabilitation nursing to assist with bowel, bladder, skin, wound care, medication administration, pain management. Power Technician to assist with discharge planning, community reentry. SCD's for DVT prophylaxis. He appears to be well motivated to participate in three hours of therapy a day. He should be able to tolerate three hours of therapy a day from a medical standpoint. He should benefit from the three hours of therapy a day. He has a reasonable discharge plan, reasonable discharge rehabilitation goals and a supportive family. He has various comorbidities that need to be closely monitored with medications and treatments adjusted on a daily basis as needed. These include: Barriers to discharge for this patient who had been independent prior to this are for him to be modified independent to supervision for ADLs and mobility skills prior to discharge home with [family], so as to lessen the burden of the caregivers. Risks for this patient include: 1. Fall 2. Fracture 3. DVT 4. Pulmonary embolism 5. Wound infection 6. Skin breakdown 7. Contractures 8. Poorly controlled pain 9. Urinary retention 10. UTI 11. Respiratory infection 12. Aspiration Estimated Length of Stay: 10 days Prognosis: Rehab prognosis appears good for goal of discharge home with family modified independent to supervision for ADLs and mobility skills. General: Alert, Oriented X3, Cooperative, No Acute Distress HEENT: Atraumatic, PERRLA Neck: Supple, No JVD, No Thyromegaly, +2 Carotid Pulse No Bruit, No LAD Lungs: Clear to Auscultation, Normal Air Movement Heart: Regular Rate, Normal S1, Normal S2, No Murmurs Abdomen: Normal Bowel Sounds, Soft, No Tenderness, No Hepatosplenomegaly, No Masses Extremities: No Clubbing, No Cyanosis, No Edema, Normal Pulses, No Tenderness/ Swelling Skin: No Rashes, No Breakdown, No Significant Lesion Neuro: Normal Speech, Strength at 5/5 X4 Ext (4/5 all extremities), Normal Tone , Sensation Intact, Cranial Nerves 3-12 NL, Reflexes 2+, Other (kyphotic gait with slowed and unstable ambulation with walker and assist) Psych/Mental Status: Mental Status NL, Mood NL KAYLIE WEBER DO Dec 26, 2018 10:29
--- NOTE | 2018-12-26 10:45 | NUR ---
Pt admitted to room 224, with an admitting diagnosis of Critical illness Myopathy from 4th floor, via w/c, accompanied by staff,& PT. DORITA OLIVEIRA introduced to surroundings, call light, bed controls, phone, TV, temperature control, lights, meal times, smoking policy, visitor policy, side rail policy, bathrooms and showers. Patient Rights given to patient in the handbook. DORITA OLIVEIRA acknowledges understanding that [facility] is not responsible for the loss or damage to any personal effects or valuables that are kept in the patients posession during their hospitalization. The following Patient Care Plans were discussed with the pt: Discharge Planning, Impaired Mobility, Self Care Deficit, Potential for fall/injury, Alteration in air exchange. DORITA OLIVEIRA acknowledges understanding of Interdisciplinary Patient Education. Patient and/or family were informed about the Rapid Response Team and its purpose. Patient received Patient Rights Booklet, which includes Privacy Act Statement and Data Collection Information Summary. Pt working w PT upon admission to unit.
[2018-12-26] MEDS ORDERED: hydrALAZINE (APESOLINE) 20 MG/ML VIAL IV PRN (12:30)
[2018-12-26] MEDS ORDERED: ONDANSETRON 4 MG/2 ML (SDV) Z0FRAN IV PRN (12:30)
[2018-12-26] MEDS ORDERED: morphine INJ 4 MG/ML 1 ML (VIAL/SYRINGE) IVP PRN (12:30)
[2018-12-26] MEDS ORDERED: LOPERAMIDE 2 MG (IMODIUM) CAP PO PRN (12:30)
--- NOTE | 2018-12-26 12:32 | Physical Therapy Evaluation ---
PT Evaluation-General Medical Diagnosis Admission Date Dec 26, 2018 at 10:45 Medical Diagnosis: closed loop bowl obstruction Onset Date: Dec 13, 2018 Therapy Diagnosis Therapy Diagnosis: impaired mobility, strength, endurance Height/Weight Height (Feet): 5 Height (Inches): 4.00 Weight (Pounds): 135 Weight (Ounces): 11.2 Precautions Precautions/Isolations: Fall Prevention, Standard Precautions, Pressure Ulcer Referral Physician: Kaylie Weber DO Reason for Referral: Evaluation/Treatment Medical History Pertinent Medical History: COPD, HTN, Renal Insufficiency Current History ER with abdominal distention,cramping, and vomiting/s/p bowel resection Reviewed History: Yes Social History Home: Single Level Current Living Status: Spouse Entry Into Home: Stairs With Railing PT Steps Into Home: 4 Prior/Core FIM Prior Level of Function Therapy Code Descriptions/Definitions Functional [place] Measure: 0=Not Assessed/NA 4=Minimal Assistance 1=Total Assistance 5=Supervision or Setup 2=Maximal Assistance 6=Modified [place] 3=Moderate Assistance 7=Complete [place] Therapy Quality Codes: 6 Independent with activity with or without an assistive device 5 Patient requires set up or clean up by helper. Patient completes activity by themselves 4 Supervision or touching assist (CGA). [place] provide cues , steadying assist 3 The helper provides less than half the effort to complete the activity 2 The helper provides more than half the effort to complete the activity 1 Dependent. The helper does all the effort to complete an activity 7 Patient refused to complete or attempt activity 9 The patient did not perform the activity before the current illness or injury 88 Not attempted due to Medical conditions or safety concerns Functional Abilities and Goals: Independent: Patient completed the activities by him/herself, with or without an assistive device, with no assistance from a helper. Needed Some Help: Patient needed partial assistance from another person to complete activities. Dependent: A helper completed the activities for the patient. Unknown: Not Applicable: Bed Mobility: 6 Transfers (B,C,W/C) (FIM): 6 Gait: 6 Stairs: 6 Indoor Mobility (Ambulation): Independent Stairs: Independent Patient states that previously he was using a single point cane and a 4 wheeled walker. PT Evaluation-Current Subjective Patient in bed pre tx, agrees to PT, has 6/10 pain in his left knee (states his knee pain is much worse than his abdomen). Pt/Family Goals to be independent at home Objective Patient Orientation: Person, Place, Situation Attachments: Oxygen 3L of O2 nasal canula ROM/Strength ROM Lower Extremities limited both knees Strenght Lower Extremities 3+/5 gross bilateral lower extremities Neuromuscular (Tone, Coordination, Reflexes) NT Sensory Vision: Wears Glasses Hearing: Functional Sensation Right Lower Extremit: Intact Sensation Left Lower Extremity: Intact Transfers Therapy Code Descriptions/Definitions Functional [place] Measure: 0=Not Assessed/NA 4=Minimal Assistance 1=Total Assistance 5=Supervision or Setup 2=Maximal Assistance 6=Modified [place] 3=Moderate Assistance 7=Complete [place] Therapy Quality Codes: 6 Independent with activity with or without an assistive device 5 Patient requires set up or clean up by helper. Patient completes activity by themselves 4 Supervision or touching assist (CGA). [place] provide cues , steadying assist 3 The helper provides less than half the effort to complete the activity 2 The helper provides more than half the effort to complete the activity 1 Dependent. The helper does all the effort to complete an activity 7 Patient refused to complete or attempt activity 9 The patient did not perform the activity before the current illness or injury 88 Not attempted due to Medical conditions or safety concerns Transfers (B, C, W/C) (FIM): 3 Scootin Rollin Roll Left to Right (QC): 4 (4) Supine to/from Sit: 3 Sit to/from Stand: 4 Sit to Lying (QC): 2 Lying to Sitting/Side of Bed(Q: 2 Sit to Stand (QC): 3 Chair/Lah-zg-Srwni Xfer(QC): 4 Car Transfer (QC): 4 Patient performs bed mobility with SBA, supine to sit with mod assist, sit to stand with min assist, transfers with CGA, car transfer CGA. Occasional cues for hand placement and positioning. Gait Does the Patient Walk?: Yes Mode of Locomotion: Walk Anticipated Mode of Locomotion: Walk Gait (FIM): 1 Walk 10 feet (QC): 4 Walking 10ft/uneven surface-QC: 4 Distance: 20'x4 Gait Level of Assist: 4 Gait Persons Needed: 1 Gait Assistive Device: FWW Comments/Gait Description Paitent can ambulate 20' with a rolling walker with CGA (including 10' over an uneven surface). Antalgic gait, extreme crepitus in left knee, very slow, fatigues quickly. Wheelchair Training Does the Pt Use a Wheelchair?: No Stairs Stairs (FIM): 1 #of Steps: 1 Level of Assist: 4 1 Step (curb) (QC): 4 Assistive Device: Walker Patient can go up and down 1 step using a rolling walker with CGA. Needs cues for foot placement. Balance Sitting Static: Normal Sitting Dynamic: Normal Standing Static: Good Standing Dynamic: Fair Treatment Patient was toileted once for a small BM, needs assist with pants up and down. He performed NuStep for 15 min level 4. Seated exercises BLE x20 (AP, LAQ, hip flexion, hip abd/add) Assessment/Needs Patient has impaired mobility, strength, endurance. He fatigues quickly and needs frequent rest breaks. He has a lot of pain and crepitus in left knee. 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 Time Frame: Jan 16, 2019 Transfers (B,C,W/C) (FIM): 5 Sit to Lying (QC): 4 Lying-Sitting on Side/Bed(QC): 4 Sit to Stand (QC): 4 Rollin Roll Left to Right (QC): 4 Chair/Hwk-sj-Fxxim Xfer(QC): 4 Car Transfer (QC): 4 Gait (FIM): 5 Distance: 150' Walk 10 feet (QC): 4 Walk 10ft-Uneven Surface(QC): 4 Walk 50ft with 2 Turns (QC): 4 Walk 150 ft (QC): 4 Gait Level of Assist: 5 Gait Assistive Device: FWW Stairs (FIM): 2 # of Steps: 4 1 Step (curb) (QC): 4 4 Steps (QC): 4 Stairs Level Of Assist: 4 PT Plan Problem List Problem List: Activity Tolerance, Functional Strength, Safety, Balance, Gait, Transfer, Bed Mobility, ROM Treatment/Plan Treatment Plan: Continue Plan of Care Treatment Plan: Bed Mobility, Concurrent Therapy, Education, Functional Activity Rosario, Functional Strength, Group Therapy, Gait, Safety, Therapeutic Exercise, Transfers Treatment Duration: Jan 16, 2019 Frequency: At least 5 of 7 days/Wk (IRF) Estimated Hrs Per Day: 1.5 hours per day Patient and/or Family Agrees t: Yes Safety Risks/Education Patient Education: Gait Training, Transfer Techniques, Steps, Correct Positioning, Safety Issues Teaching Recipient: Patient Teaching Methods: Demonstration, Discussion Response to Teaching: Reinforcement Needed Discharge Recommendations Plan Patient will perform bed mobility and transfer training, balance and endurance training, functional strengthening, stair training, gait training, and education , to improve functional mobility and independence at home. Therapy D/C Recommendations: Home w/ Family Support Time/GCodes Time In: 1035 Time Out: 1155 Total Billed Treatment Time: 80 Total Billed Treatment 1 visit GT 30' FA 50' JOHANA HERNÁNDEZ PT Dec 26, 2018 12:32
[2018-12-26] MEDS ORDERED: RT-ALBUTEROL/IPRATROPIUM 3 ML (DUONEB) VIAL INH PRN (12:45)
[2018-12-26] MEDS: hydrALAZINE (APRESOLINE) 25 MG TAB PO SCH ×2 (13:29→23:01)
[2018-12-26] MEDS: cloNIDine 0.1 MG (CATAPRES) TAB PO SCH ×2 (13:29→20:44)
[2018-12-26] MEDS: ENOXAPARIN 40 MG/0.4 ML (LOVENOX) SYR SC SCH (13:29)
--- NOTE | 2018-12-26 13:36 | Cardiology Progress Note ---
Cardiology SOAP Progress Note Subjective: Improved clinical situation. Objective: I&O/Vital Signs 12/27/18 12/27/18 12/27/18 04:50 07:36 08:06 Temp 99.8 Pulse 63 Resp 16 B/P (MAP) 155/66 (95) Pulse Ox 96 97 O2 Delivery Nasal Cannula Nasal Cannula Nasal Cannula O2 Flow Rate 2.00 2.00 2.00 12/27/18 00:00 Intake Total 1320 ml Output Total 950 ml Balance 370 ml Weight (Pounds): 135 Weight (Ounces): 11.2 Weight (Calculated Kilograms): 61.371731 Constitutional: No appears stated age; AAO x 3; No apparent distress, No PERRL , No well-developed, No well-nourished, No other Respiratory: No accessory muscle use, No respiratory distress, No chest tender , No chest expansion is symmetric; chest is bilaterally symmetric; No lungs clear to percussion; lungs clear to auscultation; No crackles, No rhonchi, No rales, No stridor, No wheezing, No pleural rub, No other Cardiovascular: regular rate-rhythm; No irregularly irregular, No extra beats, No parasternal heave is noted, No JVD, No edema, No bradycardia, No tachycardia , No point of maximal impulse, No cardiac thrills are palpable; S1 and S2; No gallop/S3, No gallop/S4, No diastolic murmur, No systolic murmur, No friction rub, No click, No other Gastrointestional: tender, round, audible bowel sounds, other (surgical scar.) Extremities: No normal range of motion, No non-tender, No normal inspection, No pedal edema, No calf tenderness, No normal capillary refill, No pelvis stable , No calf tenderness, No inflammation, No pedal edema, No slow capillary refill , No swelling, No other, No abrasion, No clubbing, No cyanosis, No ecchymosis, No laceration, No no lower extremity edema bilateral, No significant edema, No tenderness, No wound Neurologic/Psychiatric: no motor/sensory deficits, alert, normal mood/affect Results/Procedures: Labs Laboratory Tests 12/27/18 05:06: White Blood Count 11.1H, Red Blood Count 4.00L, Hemoglobin 10.3L, Hematocrit 33L , Mean Corpuscular Volume 82, Mean Corpuscular Hemoglobin 26, Mean Corpuscular Hemoglobin Concent 32, Red Cell Distribution Width 17.3H, Platelet Count 386, Mean Platelet Volume 9.8, Neutrophils (%) (Auto) 72, Lymphocytes (%) (Auto) 13, Monocytes (%) (Auto) 12, Eosinophils (%) (Auto) 3, Basophils (%) (Auto) 1, Neutrophils # (Auto) 8.0H, Lymphocytes # (Auto) 1.5, Monocytes # (Auto) 1.3H, Eosinophils # (Auto) 0.3, Basophils # (Auto) 0.1, Sodium Level 142, Potassium Level 4.1, Chloride Level 107, Carbon Dioxide Level 20L, Anion Gap 15H, Blood Urea Nitrogen 35H, Creatinine 1.73H, Estimat Glomerular Filtration Rate 39, BUN/ Creatinine Ratio 20, Glucose Level 100, Calcium Level 8.6, Corrected Calcium 9.0 , Total Bilirubin 0.5, Aspartate Amino Transf (AST/SGOT) 50H, Alanine Aminotransferase (ALT/SGPT) 18, Alkaline Phosphatase 87, Total Protein 6.4, Albumin 3.5 A/P: Assessment/Dx: Ventilator associated pneumonia, resolved. Sinus tachycardia, much improved. Acute diastolic congestive heart failure, resolved. Severe hypertension, much better controlled. 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 Ventilator associated pneumonia, previously on broad spectrum antibiotics. Resolved. Sinus tachycardia, resolved. Previously due to severe systemic illness. Acute diastolic congestive heart failure, anasarca, significantly elevated BNP. Much better now. Lasix when necessary. hypertension, continue amlodipine. Acute renal failure, Post-abdominal surgery, deferred to Dr. Franklin. Thank you for your consultation. Please call me if you have any questions. Simran Hernandez MD, FACP, FACC, FSCAI, FHRS, CCDS Interventional Cardiology Cardiac Electrophysiology Vascular Medicine and Endovascular Interventions Brionna HERNANDEZ MD Dec 26, 2018 13:36
--- NOTE | 2018-12-26 14:19 | Occupational Therapy Eval ---
OT Evaluation-General/PLF Medical Diagnosis Admission Date Dec 26, 2018 at 10:45 Medical Diagnosis: closed loop bowl obstruction Onset Date: Dec 13, 2018 Therapy Diagnosis Therapy Diagnosis: Weakness Height/Weight Height (Feet): 5 Height (Inches): 4.00 Weight (Pounds): 135 Weight (Ounces): 11.2 Precautions Precautions/Isolations: Fall Prevention, Standard Precautions, Pressure Ulcer Weight Bear Status Weight Bearing Restriction: Weight Bearing/Tolerated Referral Physician: Kaylie Weber DO Referral Reason: Activity Tolerance, Self Care, Evaluation/Treatment, Strengthening/ROM Medical History Pertinent Medical History: COPD, HTN, Renal Insufficiency Additional Medical History DJD, Right TELLO, Right knee arthroscopy Current History Pt. came to ER with abdominal pain. Reviewed History: Yes Social History Home: Single Level Current Living Status: Spouse Entry Into Home: Stairs With Railing Steps Into Home: 4 ADL-Prior Level of Function Therapy Code Descriptions/Definitions Functional [place] Measure: 0=Not Assessed/NA 4=Minimal Assistance 1=Total Assistance 5=Supervision or Setup 2=Maximal Assistance 6=Modified [place] 3=Moderate Assistance 7=Complete [place] Therapy Quality Codes: 6 Independent with activity with or without an assistive device 5 Patient requires set up or clean up by helper. Patient completes activity by themselves 4 Supervision or touching assist (CGA). [place] provide cues , steadying assist 3 The helper provides less than half the effort to complete the activity 2 The helper provides more than half the effort to complete the activity 1 Dependent. The helper does all the effort to complete an activity 7 Patient refused to complete or attempt activity 9 The patient did not perform the activity before the current illness or injury 88 Not attempted due to Medical conditions or safety concerns Functional Abilities and Goals: Independent: Patient completed the activities by him/herself, with or without an assistive device, with no assistance from a helper. Needed Some Help: Patient needed partial assistance from another person to complete activities. Dependent: A helper completed the activities for the patient. Unknown: Not Applicable: ADL PLOF Comments Pt. states that he could do all of his ADLs independently, except donning left sock and shoe. Pt. states that he has had issues with this for some time, due to arthritis. His spouse assists him with this. Self Care: Needed Some Help Functional Cognition: Independent DME/Equipment: Tub/Shower DME/Equipment Comments Pt. has walker and cane at home, and is on oxygen at home. Drive Self: Yes OT Current Status Subjective No pain reported. Appearance Pt. up in chair. Agrees to work with OT. Mental Status/Objective Patient Orientation: Person, Place, Time, Situation Attachments: Oxygen Current Glasses/Contacts: Yes Upper Extremity ROM Limited. Pt. is very kyphotic and has difficulty with upright posture. This, therefore, limits shoulder ROM. ADL-Treatment Eating (FIM): 5 (Set up) Eating (QC): 5 Bathing (FIM): 3 (Pt. requires assistance to wash bilateral feet and LE. Pt. is able to wash carlos areas.) Shower/Bathe Self (QC): 3 Upper Body Dressing (FIM): 4 Lower Body Dressing (FIM): 2 (Pt. requires max assist to don underwear and pants over feet, as well as socks, and shoes. Pt. is able to crop puller hips in stance.) Lower Body Dressing (QC): 2 On/Off Footwear (QC): 2 Transfers (B, C, W/C) (FIM): 3 (Mod assist sit-stand from wheelchair.) Other Treatments Pt. seen twice today. First time for seated eval. Second time for ADLs. At end of second treatment, OT/PT completed short co-treat to work on proper stance and balance techniques, as well as safety techniques. OT worked on hand placement, chair placement, while PT facilitated sit to stand and balance in stance. Pt. stood 3 times at bars. Before this, pt. tolerated 9 minutes on armbike at min resistance, with several rest breaks. After overall treatment, pt. taken back to room. Requests to sit up in chair. All needs met. Education OT Patient Education: Correct positioning, Exercise program, Modified ADL techniques, Progress toward Goal/Update tx plan, Purpose of tx/functional activities, Reviewed precautions, Rehab process, Transfer techniques Teaching Recipient: Patient Teaching Methods: Demonstration, Discussion Response to Teaching: Verbalize Understanding, Return Demonstration OT Short Term Goals Short Term Goals Time Frame: Jan 02, 2019 Eating(FIM): 6 Grooming(FIM): 5 Bathing(FIM): 4 Upper Body Dressing(FIM): 5 Lower Body Dressing(FIM): 4 Toileting(FIM): 4 Transfers (B,C,W/C) (FIM): 4 Toilet/Commode Transfer(FIM): 4 Shower Transfer(FIM): 4 Additional Short Term Goals: 1-Demonstrate ADL Tasks, 2-Verbalize Understanding , 3-ImproveStrength/Rosario 1=Demonstrate adherence to instructed precautions during ADL tasks. 2=Patient will verbalize/demonstrate understanding of assistive devices/ modifications for ADL. 3=Patient will improve strength/tolerance for activity to enable patient to perform ADL's. OT [facility] Goals Roll Line Operator Goals Time Frame: Jan 09, 2019 Eating (FIM): 6 Eating (QC): 6 Groomin Oral Hygiene (QC): 5 Bathing(FIM): 5 Shower/Bathe Self (QC): 5 Upper Body Dressing(FIM): 5 Upper Body Dressing (QC): 5 Lower Body Dressing(FIM): 5 Lower Body Dressing (QC): 5 On/Off Footwear (QC): 5 Toileting(FIM): 6 Toileting Hygiene (QC): 6 Transfers (B,C,W/C) (FIM): 6 Toilet/Commode Transfer(FIM): 6 Toilet/Commode Transfer (QC): 6 Shower Transfer(FIM): 5 Additional Goals: 1-Demonstrate ADL Tasks, 2-Verbalize Understanding, 3- ImproveStrength/Rosario 1=Demonstrate adherence to instructed precautions during ADL tasks. 2=Patient will verbalize/demonstrate understanding of assistive devices/ modifications for ADL. 3=Patient will improve strength/tolerance for activity to enable patient to perform ADL's. OT Education/Plan Problem List/Assessment Assessment: Decreased Activ Tolerance, Decreased UE Strength, Dependent Transfers, Impaired Funct Balance, Impaired I ADL's, Impaired Self-Care Skills, Restricted Funct UE ROM Discharge Recommendations Plan/Recommendations: Continue POC Therapy D/C Recommendations: Home w/ Family Support, Occupational Therapy Home Care Equpiment Recommendations-D/C: Extended Bath Bench, Hip Kit Treatment Plan/Plan of Care Treatment,Training & Education: Yes Patient would benefit from OT for education, treatment and training to promote independence in ADL's, mobility, safety and/or upper extremity function for ADL' s. Plan of Care: ADL Retraining, Functional Mobility, Group Exercise/Act as Ind, UE Funct Exercise/Act Treatment Duration: Jan 09, 2019 Frequency: At least 5 of 7 days/Wk (IRF) Estimated Hrs Per Day: 1.5 hours per day Agreement: Yes Rehab Potential: Fair Time/GCodes Start Time: 11:55 Stop Time: 14:10 Total Time Billed (hr/min): 90 Billed Treatment Time 2368-1168 1, EVM [id number] 1, ADL x 45minutes, Ex x 15minutes, FA x 15minutes NAVIN PENA OT Dec 26, 2018 14:19
--- NOTE | 2018-12-26 14:22 | Physical Therapy Daily Note ---
PT Daily Note-Current Subjective Patient in therapy gym pre tx, agrees to PT, will be co-treating with OT due to progressive fatigue during OT treatment. Appearance Patient in wheelchair at bedside post tx with nurse call, phone, tray, all needs met. Mental Status Patient Orientation: Person, Place, Situation Attachments: Oxygen Transfers Therapy Code Descriptions/Definitions Functional [place] Measure: 0=Not Assessed/NA 4=Minimal Assistance 1=Total Assistance 5=Supervision or Setup 2=Maximal Assistance 6=Modified [place] 3=Moderate Assistance 7=Complete [place] Therapy Quality Codes: 6 Independent with activity with or without an assistive device 5 Patient requires set up or clean up by helper. Patient completes activity by themselves 4 Supervision or touching assist (CGA). [place] provide cues , steadying assist 3 The helper provides less than half the effort to complete the activity 2 The helper provides more than half the effort to complete the activity 1 Dependent. The helper does all the effort to complete an activity 7 Patient refused to complete or attempt activity 9 The patient did not perform the activity before the current illness or injury 88 Not attempted due to Medical conditions or safety concerns min assist for sit to stand, practiced sit to stand x3 at the parallel bars and educated patient on floor transfers Treatments exercises, education, transfers Assessment Current Status: Fair Progress patient fatigued very quickly, co-treated with OT for the last 10 min due to progressive fatigue. PT worked on sit to stand with assist from OT and both educated and demonstrated a floor transfer. PT Short Term Goals Short Term Goals Time Frame: Jan 02, 2019 Transfers (B,C,W/C) (FIM): 4 Gait (FIM): 2 Gait Distance Comment: 50' Gait Level of Assist: 5 Gait Assistive Device: FWW PT Patrol Community Service Officer Goals Patrol Community Service Officer Goals PT Shelter Goals Time Frame: Jan 16, 2019 Transfers (B,C,W/C) (FIM): 5 Sit to Lying (QC): 4 Lying-Sitting on Side/Bed(QC): 4 Sit to Stand (QC): 4 Rollin Roll Left to Right (QC): 4 Chair/Spi-ov-Exelx Xfer(QC): 4 Car Transfer (QC): 4 Gait (FIM): 5 Distance: 150' Walk 10 feet (QC): 4 Walk 10ft-Uneven Surface(QC): 4 Walk 50ft with 2 Turns (QC): 4 Walk 150 ft (QC): 4 Gait Level of Assist: 5 Gait Assistive Device: FWW Stairs (FIM): 2 # of Steps: 4 1 Step (curb) (QC): 4 4 Steps (QC): 4 Stairs Level Of Assist: 4 PT Plan Problem List Problem List: Activity Tolerance, Functional Strength, Safety, Balance, Gait, Transfer, Bed Mobility, ROM Treatment/Plan Treatment Plan: Continue Plan of Care Treatment Plan: Bed Mobility, Concurrent Therapy, Education, Functional Activity Rosario, Functional Strength, Group Therapy, Gait, Safety, Therapeutic Exercise, Transfers Treatment Duration: Jan 16, 2019 Frequency: At least 5 of 7 days/Wk (IRF) Estimated Hrs Per Day: 1.5 hours per day Patient and/or Family Agrees t: Yes Safety Risks/Education Patient Education: Transfer Techniques, Correct Positioning, Safety Issues Teaching Recipient: Patient Teaching Methods: Demonstration, Discussion Response to Teaching: Reinforcement Needed Time/GCodes Time In: 1400 Time Out: 1410 Total Billed Treatment Time: 10 Total Billed Treatment 1 visit EX JOHANA RENEE PT Dec 26, 2018 14:22
[2018-12-26] MEDS: RT-ALBUTEROL/IPRATROPIUM 3 ML (DUONEB) VIAL INH SCH (14:26)
[2018-12-26 15:06] VITALS: BP 154/74
[2018-12-26] MEDS ORDERED: FLU QUADRIvalent (5+ YOA) 2018-2019 (AFLURIA) 0.5 ML IM ONE (15:30)
--- NOTE | 2018-12-26 15:51 | ST Cognitive Linguistic Eval ---
Speech Evaluation-General Medical Diagnosis closed loop bowl obstruction Onset Date: Dec 13, 2018 Therapy Diagnosis Therapy Diagnosis: Cognitive-communication Precautions Precautions/Isolations: Fall Prevention, Standard Precautions, Pressure Ulcer Medical History Pertinent Medical History: COPD, HTN, Renal Insufficiency Reviewed History: Yes Social History Current Living Status: Spouse Speech PLF-Current Status Prior Level of Function Patient lived at home with his and was independent with his daily needs. Subjective Patient was pleasant and cooperative with the evaluation process. Language Eval: Auditory Comprehends Simple Yes/No Ques: Functional Indent/Objects [place]: Functional Ident/Pics in [place]: Functional Follows 1-Step Commands: Functional Follows Complex Directions: Functional Follows General Conversations: Functional Language Eval: Verbal Language Completes Spontaneous Greeting: Functional Produces Auto, Serial Info: Functional Imitates Simple Words/Phrases: Functional Word Finding: Functional Requests Basic Needs: Functional States Basic Personal Info: Functional Expresses Complex Ideas: Functional Objective Cognitive Domain Attention: WNL Memory: WNL Problem Solving: Functional Executive Functions: WNL Visuospatial Skills: WNL Clock Drawing Severity Rating: WNL Objective Formal/Standardized Tests Michael Cognitive Assessment (MOCA) Results Visuospatial/Executive: 5/5, Namin/3, Memory: Immediate 5/5, Delayed with cues 5/5, Attention: 6/6, Language: 2/2, Abstraction: 2/2, Orientation: 6/6 Oral Motor/Speech Production Within Functional Limits Impression Patient is a pleasant 68 year old male who was admitted to the ARU following a medical history of bowel removal. The patient was given the MOCA in his room with results of WNL for all areas tested. The patient does not require skilled ST services at this time. Communication/Social Cognition Comprehension: 7 Expression: 7 Social Interaction: 7 Problem Solvin Memory: 7 Speech Patient Assess Expression of Ideas/Wants: Expression (4) Understanding Verbal Content: Understands (4) Brief Interview-Mental Status: Yes Repetition of Three Words: Three (3) Temporal Orientation: Year: Correct (3) Temporal Orientation: Month: Accurate within 5 days(2) Temporal Orientation: Day: Correct (1) Recall : Wear to say "Sock": Yes, no cue required (2) Recall : Color: Yes, no cue required (2) Recall : Bed: Yes, no cue required (2) Memory/Recall Ability: Current season, Location of own room, That he or she is in a [facility] unit Speech-Plan Patient/Family Goals Patient/Family Goals: Patient plans to return to his home post rehab. Treatment Plan Speech Therapy Treatment Plan: Discontinue ST The patient does not require ST services at this time. Treatment Duration: Dec 26, 2018 Frequency: 1 time per week Estimated Hrs Per Day: .25 hour per day Rehab Potential: Fair Barriers to Learning: None identified Pt/Family Agrees to Plan: Yes Safety Risks/Education Teaching Recipient: Patient Teaching Methods: Discussion Response to Teaching: Verbalize Understanding Education Topics Provided: Safety within his room Time Speech Therapy Time In: 15:30 Speech Therapy Time Out: 15:45 Total Billed Time: 15 Billed Treatment Time 1, SPSNDCOMP YASMEEN Steel Dec 26, 2018 15:51
--- NOTE | 2018-12-26 16:31 | NUR ---
Pt strongly refuses flu shot, states, "I get sick every time after I have taken it, also states, "I got pneumonia after I got the pneumonia shot."
[2018-12-26 17:13] VITALS: BP 139/76
[2018-12-26 20:42] VITALS: BP 187/70
[2018-12-26] MEDS: CARVEDILOL 12.5 MG (COREG) TABLET PO SCH (20:44)
--- NOTE | 2018-12-26 21:11 | Individualized Plan of Care ---
Individualized Plan of Care Rehab Nursing IPOC Order Admission Date Dec 26, 2018 at 10:45 Current Orders Orders Admission Order(Inpt,Obs,Sdc) (12/26/18 10:23) Shower Room Attendant-Inpt Rehab Con (12/26/18 10:23) Rehab Nursing Orders-Ipoc (12/26/18 10:23) Physical Therapy Rehab Orders (12/26/18 10:23) Occupational Therapy Rehab Ord (12/26/18 10:23) Speech Therapy Rehab Orders (12/26/18 10:23) General/Regular (12/26/18 Lunch) Weekly Weight (Lbs) WEEK (12/26/18 10:23) Rehab-Intensity Of Therapy (12/26/18 10:23) Code/Resuscitation (12/26/18 10:23) Initiate Admission Nursing Pro .admission (12/26/18 10:23) Consult Physician (12/26/18 10:23) Admission Arrival Bed Request (12/26/18 10:45) Code/Resuscitation (12/26/18 12:26) Incentive Spirometry (Nursing) Q2H (12/26/18 12:26) General/Regular (12/26/18 Dinner) Albuterol/Ipra Inhalation Soln (Duoneb I (12/26/18 15:00) Carvedilol Tablet (Coreg Tablet) (12/26/18 21:00) Fluconazole Tablet (Diflucan Tablet) (12/27/18 09:00) Furosemide Tablet (Lasix Tablet) (12/27/18 09:00) Loperamide Capsule (Imodium Capsule) (12/26/18 12:30) Ondansetron Injection (Zofran Injectio (12/26/18 12:30) Potassium Chloride (Tablet) (K Dur Table (12/27/18 09:00) Amlodipine Tablet (Norvasc Tablet) (12/27/18 09:00) Clonidine Tablet (Catapres Tablet) (12/26/18 13:00) Hydralazine Injection (Apresoline Inject (12/26/18 12:30) Hydralazine Tablet (Apresoline Tablet) (12/26/18 14:00) Morphine Injection (Morphine Injection (12/26/18 12:30) Consult Cardiology (12/26/18 12:26) Consult Physician (12/26/18 12:26) Consult Pulmonology (12/26/18 12:26) Svn Small Volume Nebulizer (12/26/18 12:26) Enoxaparin Injection (Lovenox Injection) (12/26/18 12:37) Albuterol/Ipra Inhalation Soln (Duoneb I (12/26/18 12:45) Patient Visit (12/26/18 ) Functional Activities, Ea 15 (12/26/18 ) Gait Training, Ea 15 Min (12/26/18 ) Exercise Therap, Ea 15 Min (12/26/18 ) Sequential Compression Device 08,20 (12/26/18 15:17) Dvt/Vte Risk - Notifiy Physici 08 (12/26/18 15:17) Influenza Quad (5+Yoa) (Afluria (12/26/18 15:30) Patient Visit (12/26/18 ) Speech Sound Lang Comp (12/26/18 ) Cbc With Automated Diff (12/27/18 06:00) Comprehensive Metabolic Panel (12/27/18 06:00) Acetaminophen Tablet (Tylenol Tablet) (12/27/18 08:45) Hydrocodone/Apap 5/325 Tablet (Lortab 5 (12/27/18 08:45) Diclofenac 1% Gel (Voltaren 1% Gel) (12/27/18 09:00) Chest Pa/Lat (2 View) (12/27/18 12:14) Nursing Communication (Order) (12/27/18 12:15) Urinalysis (12/27/18 13:11) Lactic Acid Analyzer (12/27/18 13:11) Cbc With Automated Diff (12/27/18 13:11) Comprehensive Metabolic Panel (12/27/18 13:11) Patient Visit (12/27/18 ) Functional Activities, Ea 15 (12/27/18 ) Exercise Therap, Ea 15 Min (12/27/18 ) Manual Differential (12/27/18 13:46) Arterial Blood Gas (12/27/18 14:04) Cpoe Transfer Order Process (12/27/18 14:21) Nursing Communication (Order) (12/27/18 14:23) Rehab Nursing Orders: Ongoing Assess. of Function Status Intensity of Therapy to be met Patient to be seen: Min.3h per day/5 of 7d PT IPOC Problem List: Activity Tolerance, Functional Strength, Safety, Balance, Gait, Transfer, Bed Mobility, ROM Bed Mobility, Concurrent Therapy, Education, Functional Activity Rosario, Functional Strength, Group Therapy, Gait, Safety, Therapeutic Exercise, Transfers Treatment Duration: Jan 16, 2019 Frequency: At least 5 of 7 days/Wk (IRF) Estimated Hrs Per Day: 1.5 hours per day OT IPOC Problems: Decreased Activ Tolerance, Decreased UE Strength, Dependent Transfers , Impaired Funct Balance, Impaired I ADL's, Impaired Self-Care Skills, Restricted Funct UE ROM OT Treatment, Training and Edu: Yes Plan of Care: ADL Retraining, Functional Mobility, Group Exercise/Act as Ind, UE Funct Exercise/Act Treatment Duration: Jan 09, 2019 Frequency: At least 5 of 7 days/Wk (IRF) Estimated Hrs Per Day: 1.[address] IPOC Speech Therapy Treatment Plan: Discontinue ST Treatment Duration: Dec 26, 2018 Frequency: 1 time per week Estimated Hrs Per Day: .25 hour per day Shower Room Attendant/Case Mgmt Shower Room Attendant/Case Managemen: Discharge Planning Dietitian/Car Lubricator Dietitian/Car Lubricator to monitor nutritional status and make changes and/or recommendations as needed and work with speech pathology on dietary upgrades as the occur. Physician IPOC Medical Issues being managed closely and that require the 24 hour availability of a physician: Brief Synthesis of Preadmission Screen, Post-Admission Evaluation, and Therapy Evaluations: ALEM MCKEON DO Dec 26, 2018 21:11
[2018-12-27] VITALS (8 sets, daily range): BP systolic 105–163; BP diastolic 52–71
[2018-12-27 05:19] LABS: BASOPHILS # (AUTO) 0.1 10^3/uL (0.0-0.1); BASOPHILS % (AUTO) 1 % (0-10); EOSINOPHILS # (AUTO) 0.3 10^3/uL (0.0-0.3); EOSINOPHILS % (AUTO) 3 % (0-10); HEMATOCRIT 33 % (40-54); HEMOGLOBIN 10.3 G/DL (13.3-17.7); LYMPHOCYTES # (AUTO) 1.5 X 10^3 (1.0-4.0); LYMPHOCYTES % (AUTO) 13 % (12-44); MEAN CORPUSCULAR HEMOGLOBIN 26 PG (25-34); MEAN CORPUSCULAR HGB CONC 32 G/DL (32-36); MEAN CORPUSCULAR VOLUME 82 FL (80-99); MEAN PLATELET VOLUME 9.8 FL (7.4-10.4); MONOCYTES # (AUTO) 1.3 X 10^3 (0.0-1.0); MONOCYTES % (AUTO) 12 % (0-12); NEUTROPHILS % (AUTO) 72 % (42-75); PLATELET COUNT 386 10^3/uL (130-400); RED CELL DISTRIBUTION WIDTH 17.3 % (10.0-14.5); WHITE BLOOD COUNT 11.1 10^3/uL (4.3-11.0)
[2018-12-27 05:33] LABS: ALBUMIN 3.5 GM/DL (3.2-4.5); BILIRUBIN,TOTAL 0.5 MG/DL (0.1-1.0); CALCIUM 8.6 MG/DL (8.5-10.1); CREATININE SERUM 1.73 MG/DL (0.60-1.30); POTASSIUM 4.1 MMOL/L (3.6-5.0); TOTAL PROTEIN 6.4 GM/DL (6.4-8.2)
[2018-12-27] MEDS: hydrALAZINE (APRESOLINE) 25 MG TAB PO SCH ×2 (05:45→14:41)
[2018-12-27] MEDS: RT-ALBUTEROL/IPRATROPIUM 3 ML (DUONEB) VIAL INH SCH ×2 (07:34→11:26)
--- NOTE | 2018-12-27 08:32 | NUR ---
REVIEWED MEDICATIONS THEY WERE REPORTED UPON ADMISSION TO 4TH FLOOR.
[2018-12-27] MEDS ORDERED: HYDROcodone/APAP 5 MG/325 MG (LORTAB) TAB PO PRN (08:45)
[2018-12-27] MEDS ORDERED: ACETAMINOPHEN 500 MG TAB (TYLENOL) PO PRN (08:45)
--- NOTE | 2018-12-27 08:54 | PM&R Progress Note ---
Subjective HPI/CC On Admission Date Seen by Provider: Dec 27, 2018 Time Seen by Provider: 08:30 CC: Debility with critical illness myopathy HPI: This is a 68yoWM with multiple medical issues prior to admit on 12/13/18 which include COPD O2 dependent, HTN, CRI and kyphosis with chronic debility who presents to the IRF after a 13 days hospital course following a bowel obstruction requiring urgent surgical intervention by Dr Franklin along with VDRF w/ vent associated pneumonia and acute diastolic heart failure with volume overload and elevated BNP and 4 units blood transfusion along with close monitoring of renal function. Patient remained in ICU for several days then transferred to 4th floor and continued strengthening and participating in PT/ OT. He was in need of intensive therapy in order to return home with his . Currently he is feeling well and denies pain and his bowels are moving well. Currently Cardiology, Pulmonology and General surgery will continue following this complex patient. Subjective/Events-last exam Pt was doing well today but felt a little bit fatigued Pt still had incision redness but Dr. Franklin was consulted Overall I was concerned enough about the pt to check CBC, CMP, Lactic acid, Urine, and chest xray but upon further assessment after called to the bedside by the nurse an ABG was ordered and Dr. Bauer was consulted. He was to have evidence of sepsis on clinical exam and required transfer up to ICU with consideration for severe sepsis and respiratory failure and no longer an inpatient rehab candidate. Overall Pt had such severe comorbidities that it was uncertain of his prognosis to begin with but he had insisted on going home before his recommended inpatient rehab of which he reluctantly agreed and now that this has happened we will monitor closely in the ICU but overall prognosis is extremely poor. Review of Systems General: Fatigue, Malaise Focused Exam Lactate Level 12/27/18 13:46: Lactic Acid Level 0.90 Lactic Acid Level Objective Exam Vital Signs Vital Signs Date Time Temp Pulse Resp B/P (MAP) Pulse Ox O2 Delivery O2 Flow Rate FiO2 12/27/18 14:37 99.6 12/27/18 14:34 73 20 131/63 (85) 95 Nasal Cannula 2.00 Capillary Refill : General Appearance: No Apparent Distress, WD/WN, Chronically ill, Cachetic, Thin HEENT: PERRL/EOMI, Normal ENT Inspection, Pharynx Normal, Moist Mucous Membranes Neck: Full Range of Motion, Normal Inspection, Non Tender, Supple Respiratory: Chest Non Tender, Lungs Clear, No Accessory Muscle Use, No Respiratory Distress, Decreased Breath Sounds Cardiovascular: Regular Rate, Rhythm, No Edema, No Gallop, No JVD, No Murmur Gastrointestinal: Normal Bowel Sounds, No Organomegaly, No Pulsatile Mass, Non Tender, Soft Back: Normal Inspection, No CVA Tenderness, No Vertebral Tenderness Extremity: Normal Capillary Refill, Normal Inspection, Normal Range of Motion, Non Tender, No Calf Tenderness, No Pedal Edema Neurologic/Psychiatric: Alert, Oriented x3, No Motor/Sensory Deficits, Normal Mood/Affect, Disoriented Skin: Normal Color, Warm/Dry Lymphatic: No Adenopathy Results/Procedures Lab Laboratory Tests 12/27/18 05:06 12/27/18 13:46 Patient resulted labs reviewed. Assessment/Plan Assessment and Plan Assess & Plan/Chief Complaint Assessment: Critical illness myopathy s/p respiratory failure s/p surgery VDRF s/p Vent associated pneumonia Acute on chronic renal failure with metabolic acidosis Hyperkalemia Anemia s/p 4 units of blood while hospitalized Hypotension SBO s/p surgery Dr Franklin POD # 14 Severe oxygen dependent COPD maintained on 3L/min at home Chronic hyponatremia HTN Diastolic heart failure with elevated BNP Lethargy with fever high risk for sepsis transferring to ICU Plan: ICU transfer Appreciate Pulmonology, Cardiology and general surgery consultations Monitor incision Dr Franklin will eval Monitor labs (1) CLOSED LOOP BOWEL OBSTRUCTION (2) Debility (3) Interstitial lung disease (4) Microcytic anemia (5) Hyponatremia (6) Dyspnea on exertion (7) Renal insufficiency (8) Kyphosis (9) Anemia (10) Transfusion of blood during current hospitalization (11) Former smoker (12) Diastolic CHF (13) Elevated brain natriuretic peptide (BNP) level Clinical Quality Measures DVT/VTE Risk/Contraindication: Risk Factor Score Per Nursin RFS Level Per Nursing on Admit: 4+=Very High ALEM MCKEON DO Dec 27, 2018 08:54
[2018-12-27] MEDS ORDERED: FUROSEMIDE 40 MG (LASIX) TAB PO SCH (09:00)
[2018-12-27] MEDS ORDERED: fluCOnazole (DIFLUCAN) 100 MG TAB PO SCH (09:00)
[2018-12-27] MEDS ORDERED: amLODIPine 10 MG (NORVASC) TAB PO SCH (09:00)
[2018-12-27] MEDS ORDERED: KCL 20 MEQ TAB (K-DUR) PO SCH (09:00)
[2018-12-27] MEDS: cloNIDine 0.1 MG (CATAPRES) TAB PO SCH ×2 (09:04→12:07)
[2018-12-27] MEDS: CARVEDILOL 12.5 MG (COREG) TABLET PO SCH (09:04)
[2018-12-27] MEDS: DICLOFENAC 1% GEL 100 GM (VOLTAREN) TUBE TOP SCH ×2 (09:42→13:01)
--- NOTE | 2018-12-27 09:58 | Physical Therapy Daily Note ---
PT Daily Note-Current Subjective Pt. and as well as nurse present in room. Pt. up in recliner. Pt. with head nearly laying on his chest and tilted to right wit his eyes closed. Pts. states he had a really good day yesterday and worked very hard and apparently did not sleep last night and now is c/o of 10/10 pain in his neck and upper back. Pt. awakens with stimuli and states she needs to urinate. This CHILI POWDER MIXER encouraged him to try to stand to urinate. Pain Numeric Pain Scale: 10-Worst Possible Pain Location: Medial, Upper Location Body Site: Neck Pain Description: Stabbing Appearance posture in recliner very flexed (kyphotic) with head tilted right and near laying on chest, states this is his typical seated posture, does not sleep in bed. Pt appears much older than his age Mental Status Patient Orientation: Person Attachments: Oxygen (2L) pt. unable to state time or place, says he is not sure. very difficult to understand the very little he spoke Transfers Therapy Code Descriptions/Definitions Functional [place] Measure: 0=Not Assessed/NA 4=Minimal Assistance 1=Total Assistance 5=Supervision or Setup 2=Maximal Assistance 6=Modified [place] 3=Moderate Assistance 7=Complete [place] Therapy Quality Codes: 6 Independent with activity with or without an assistive device 5 Patient requires set up or clean up by helper. Patient completes activity by themselves 4 Supervision or touching assist (CGA). [place] provide cues , steadying assist 3 The helper provides less than half the effort to complete the activity 2 The helper provides more than half the effort to complete the activity 1 Dependent. The helper does all the effort to complete an activity 7 Patient refused to complete or attempt activity 9 The patient did not perform the activity before the current illness or injury 88 Not attempted due to Medical conditions or safety concerns Transfers (B, C, W/C) (FIM): 3 Scootin Sit to/from Stand: 3 Exercises Supine Ex: Ankle pumps, Quad Set, Glut sets, Heel Slides, Hip abd/add Supine Reps: 12 Treatments sit to stand and attempt to urinate at request . Max assist clothes down and up , max assist for urinal held, pt. stood with hands on FWW, did not void. Pts. chief c/o is 10/10 pain in his neck. shares that at home he addresses pain in neck with heat and pain in knee with ice. MHP well padded and applied to pts neck for 15 m with one on one supervision as pt. is so very lethargic Assessment Current Status: Fair Progress apparent pain greatly limited pts function this date. present and reports pts usual activity and posture etc. PT Short Term Goals Short Term Goals Time Frame: Jan 02, 2019 Transfers (B,C,W/C) (FIM): 4 Gait (FIM): 2 Gait Distance Comment: 50' Gait Level of Assist: 5 Gait Assistive Device: FWW PT Vibrator Operator Goals Vibrator Operator Goals PT Vibrator Operator Goals Time Frame: Jan 16, 2019 Transfers (B,C,W/C) (FIM): 5 Sit to Lying (QC): 4 Lying-Sitting on Side/Bed(QC): 4 Sit to Stand (QC): 4 Rollin Roll Left to Right (QC): 4 Chair/Jpo-cy-Psorv Xfer(QC): 4 Car Transfer (QC): 4 Gait (FIM): 5 Distance: 150' Walk 10 feet (QC): 4 Walk 10ft-Uneven Surface(QC): 4 Walk 50ft with 2 Turns (QC): 4 Walk 150 ft (QC): 4 Gait Level of Assist: 5 Gait Assistive Device: FWW Stairs (FIM): 2 # of Steps: 4 1 Step (curb) (QC): 4 4 Steps (QC): 4 Stairs Level Of Assist: 4 PT Plan Treatment/Plan Treatment Plan: Continue Plan of Care Treatment Plan: Bed Mobility, Concurrent Therapy, Education, Functional Activity Rosario, Functional Strength, Group Therapy, Gait, Safety, Therapeutic Exercise, Transfers Treatment Duration: Jan 16, 2019 Frequency: At least 5 of 7 days/Wk (IRF) Estimated Hrs Per Day: 1.5 hours per day Patient and/or Family Agrees t: Yes Safety Risks/Education Patient Education: Transfer Techniques, Correct Positioning, Disease Process, Safety Issues Teaching Recipient: Patient, Family Teaching Methods: Demonstration Response to Teaching: Unable to Return Demonstration, Unable to Comprehend, Reinforcement Needed much education shared between (caregiver) and this CHILI POWDER MIXER regarding posture, gait and functional mobility etc Time/GCodes Time In: 900 Time Out: 1000 Total Billed Treatment Time: 60 Total Billed Treatment 1,FA45m,EX15m G Codes Necessary: No RODERICK DENNIS CHILI POWDER MIXER Dec 27, 2018 09:58
--- NOTE | 2018-12-27 10:05 | Cardiology Progress Note ---
Cardiology SOAP Progress Note Subjective: No cardiac symptoms. Objective: I&O/Vital Signs 12/27/18 12/27/18 12/27/18 04:50 07:36 08:06 Temp 99.8 Pulse 63 Resp 16 B/P (MAP) 155/66 (95) Pulse Ox 96 97 O2 Delivery Nasal Cannula Nasal Cannula Nasal Cannula O2 Flow Rate 2.00 2.00 2.00 12/27/18 00:00 Intake Total 1320 ml Output Total 950 ml Balance 370 ml Weight (Pounds): 143 Weight (Ounces): 3.0 Weight (Calculated Kilograms): [id number] Constitutional: No appears stated age; AAO x 3; No apparent distress, No PERRL , No well-developed, No well-nourished, No other Respiratory: No accessory muscle use, No respiratory distress, No chest tender , No chest expansion is symmetric; chest is bilaterally symmetric; No lungs clear to percussion; lungs clear to auscultation; No crackles, No rhonchi, No rales, No stridor, No wheezing, No pleural rub, No other Cardiovascular: regular rate-rhythm; No irregularly irregular, No extra beats, No parasternal heave is noted, No JVD, No edema, No bradycardia, No tachycardia , No point of maximal impulse, No cardiac thrills are palpable; S1 and S2; No gallop/S3, No gallop/S4, No diastolic murmur, No systolic murmur, No friction rub, No click, No other Gastrointestional: tender, round, audible bowel sounds, other (surgical scar.) Extremities: No normal range of motion, No non-tender, No normal inspection, No pedal edema, No calf tenderness, No normal capillary refill, No pelvis stable , No calf tenderness, No inflammation, No pedal edema, No slow capillary refill , No swelling, No other, No abrasion, No clubbing, No cyanosis, No ecchymosis, No laceration, No no lower extremity edema bilateral, No significant edema, No tenderness, No wound Neurologic/Psychiatric: no motor/sensory deficits, alert, normal mood/affect Results/Procedures: Labs Laboratory Tests 12/27/18 05:06: White Blood Count 11.1H, Red Blood Count 4.00L, Hemoglobin 10.3L, Hematocrit 33L , Mean Corpuscular Volume 82, Mean Corpuscular Hemoglobin 26, Mean Corpuscular Hemoglobin Concent 32, Red Cell Distribution Width 17.3H, Platelet Count 386, Mean Platelet Volume 9.8, Neutrophils (%) (Auto) 72, Lymphocytes (%) (Auto) 13, Monocytes (%) (Auto) 12, Eosinophils (%) (Auto) 3, Basophils (%) (Auto) 1, Neutrophils # (Auto) 8.0H, Lymphocytes # (Auto) 1.5, Monocytes # (Auto) 1.3H, Eosinophils # (Auto) 0.3, Basophils # (Auto) 0.1, Sodium Level 142, Potassium Level 4.1, Chloride Level 107, Carbon Dioxide Level 20L, Anion Gap 15H, Blood Urea Nitrogen 35H, Creatinine 1.73H, Estimat Glomerular Filtration Rate 39, BUN/ Creatinine Ratio 20, Glucose Level 100, Calcium Level 8.6, Corrected Calcium 9.0 , Total Bilirubin 0.5, Aspartate Amino Transf (AST/SGOT) 50H, Alanine Aminotransferase (ALT/SGPT) 18, Alkaline Phosphatase 87, Total Protein 6.4, Albumin 3.5 A/P: Assessment/Dx: Ventilator associated pneumonia, resolved. Sinus tachycardia, much improved. Acute diastolic congestive heart failure, resolved. Severe hypertension, much better controlled. 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 Ventilator associated pneumonia, previously on broad spectrum antibiotics. Resolved. Sinus tachycardia, resolved. Previously due to severe systemic illness. Acute diastolic congestive heart failure, anasarca, significantly elevated BNP. Much better now. Lasix when necessary. hypertension, continue amlodipine. Acute renal failure, Post-abdominal surgery, deferred to Dr. Franklin. Thank you for your consultation. Please call me if you have any questions. Simran Hernandez MD, FACP, FACC, FSCAI, FHRS, CCDS Interventional Cardiology Cardiac Electrophysiology Vascular Medicine and Endovascular Interventions Brionna HERNANDEZ MD Dec 27, 2018 10:05
[2018-12-27] MEDS: ENOXAPARIN 40 MG/0.4 ML (LOVENOX) SYR SC SCH (11:57)
--- NOTE | 2018-12-27 12:13 | NUR ---
Notified Dr. Weber of fever. Rec'd orders for CXR, & to give Tylenol.
--- NOTE | 2018-12-27 12:13 | Occ Therapy Progress Note ---
Therapy Progress Note Attempted to see pt. twice this date. Pt. asleep in chair, very groggy, and hard to arouse. At first attempt, OT attempts to wake by pt. holding hand, and slightly repositioning him. Pt. does wake up some, but intermittently falls right back asleep. OT encourages him to wake up. Offered to assist him in shower, to bed, etc... Pt. unable to stay awake. Attempted back at another time , with no results. Pt. wakes again slightly, but falls asleep. 1, FA x 15minutes [phone] 1, visit x 5minutes no charge [phone] NAVIN PENA OT Dec 27, 2018 12:12
--- NOTE | 2018-12-27 13:36 | Diagnostic Imaging Report ---
INDICATION: Fever. TIME OF EXAM: 01:08 p.m. Correlation is made with prior study from 12/25/2018. FINDINGS: The heart size is stable. No infiltrates are seen. There is no evidence of congestive failure. Left-sided line has tip overlying the left innominate vein. No effusion or pneumothorax is seen. IMPRESSION: No acute cardiopulmonary process is detected. Dictated by: Dictated on workstation # [id number]
--- NOTE | 2018-12-27 13:42 | Physical Therapy Daily Note ---
PT Daily Note-Current Subjective Pt. continues with head down and not awake, when awakened pt. very lethargic and does not really respond to suggestion of activity/therapy except to slightly shake his head no. Transfers Therapy Code Descriptions/Definitions Functional [place] Measure: 0=Not Assessed/NA 4=Minimal Assistance 1=Total Assistance 5=Supervision or Setup 2=Maximal Assistance 6=Modified [place] 3=Moderate Assistance 7=Complete [place] Therapy Quality Codes: 6 Independent with activity with or without an assistive device 5 Patient requires set up or clean up by helper. Patient completes activity by themselves 4 Supervision or touching assist (CGA). [place] provide cues , steadying assist 3 The helper provides less than half the effort to complete the activity 2 The helper provides more than half the effort to complete the activity 1 Dependent. The helper does all the effort to complete an activity 7 Patient refused to complete or attempt activity 9 The patient did not perform the activity before the current illness or injury 88 Not attempted due to Medical conditions or safety concerns Assessment unable to rouse pt. enough for activity, nursing states pt. continues to c/o high level pain in neck PT Short Term Goals Short Term Goals Time Frame: Jan 02, 2019 Transfers (B,C,W/C) (FIM): 4 Gait (FIM): 2 Gait Distance Comment: 50' Gait Level of Assist: 5 Gait Assistive Device: FWW PT Chcf Goals Centrifugal Separator Goals PT Chcf Goals Time Frame: Jan 16, 2019 Transfers (B,C,W/C) (FIM): 5 Sit to Lying (QC): 4 Lying-Sitting on Side/Bed(QC): 4 Sit to Stand (QC): 4 Rollin Roll Left to Right (QC): 4 Chair/Nka-yr-Ugcox Xfer(QC): 4 Car Transfer (QC): 4 Gait (FIM): 5 Distance: 150' Walk 10 feet (QC): 4 Walk 10ft-Uneven Surface(QC): 4 Walk 50ft with 2 Turns (QC): 4 Walk 150 ft (QC): 4 Gait Level of Assist: 5 Gait Assistive Device: FWW Stairs (FIM): 2 # of Steps: 4 1 Step (curb) (QC): 4 4 Steps (QC): 4 Stairs Level Of Assist: 4 PT Plan Treatment/Plan Treatment Plan: Continue Plan of Care Treatment Plan: Bed Mobility, Concurrent Therapy, Education, Functional Activity Rosario, Functional Strength, Group Therapy, Gait, Safety, Therapeutic Exercise, Transfers Treatment Duration: Jan 16, 2019 Frequency: At least 5 of 7 days/Wk (IRF) Estimated Hrs Per Day: 1.5 hours per day Patient and/or Family Agrees t: Yes Time/GCodes Time In: 1339 Time Out: 1340 Total Billed Treatment Time: 0 Total Billed Treatment 1,no Rx, No chg G Codes Necessary: No RODERICK DENNIS CLOSED CIRCUIT SCREEN WATCHER Dec 27, 2018 13:42
[2018-12-27 13:59] LABS: BASOPHILS % (AUTO) 0 % (0-10); EOSINOPHILS # (AUTO) 0.1 10^3/uL (0.0-0.3); EOSINOPHILS % (AUTO) 0 % (0-10); HEMATOCRIT 31 % (40-54); HEMOGLOBIN 9.9 G/DL (13.3-17.7); LYMPHOCYTES # (AUTO) 0.9 X 10^3 (1.0-4.0); LYMPHOCYTES % (AUTO) 5 % (12-44); MEAN CORPUSCULAR HEMOGLOBIN 26 PG (25-34); MEAN CORPUSCULAR HGB CONC 32 G/DL (32-36); MEAN CORPUSCULAR VOLUME 82 FL (80-99); MONOCYTES # (AUTO) 1.5 X 10^3 (0.0-1.0); MONOCYTES % (AUTO) 9 % (0-12); NEUTROPHILS # (AUTO) 13.8 X 10^3 (1.8-7.8); NEUTROPHILS % (AUTO) 85 % (42-75); PLATELET COUNT 363 10^3/uL (130-400); RED CELL DISTRIBUTION WIDTH 17.6 % (10.0-14.5); WHITE BLOOD COUNT 16.2 10^3/uL (4.3-11.0)
--- NOTE | 2018-12-27 13:59 | Occ Therapy Progress Note ---
Therapy Progress Note Attempted one more time in p.m. to encourage pt., work with pt. Pt. having labs drawn. Pt. in chair asleep, but does wake up for OT. OT asks pt. if he would like to take a walk after labs. Pt. states, "not today." Will continue to monitor pt. 1, visit 1350 NAVIN PENA OT Dec 27, 2018 13:59
[2018-12-27 14:16] LABS: ALBUMIN 3.3 GM/DL (3.2-4.5); BILIRUBIN,TOTAL 0.4 MG/DL (0.1-1.0); CALCIUM 8.3 MG/DL (8.5-10.1); CREATININE SERUM 1.98 MG/DL (0.60-1.30); POTASSIUM 3.8 MMOL/L (3.6-5.0); TOTAL PROTEIN 6.2 GM/DL (6.4-8.2)
--- NOTE | 2018-12-27 14:16 | NUR ---
Dr. Bauer in to see pt. He spoke w pt, states that he will transfer pt to ICU for overnight to monitor. Call placed to , Emilie, & notified. She states that she has to pickle solution maker the grandkids, but, they will be out later.
[2018-12-27 14:31] LABS: ABG BASE EXCESS -2.6 MMOL/L (-2.5-2.5); ABG OXYGEN SATURATION 96 % (94-100); ABG PCO2 34 MMHG (35-45); ABG PH 7.41 (7.37-7.43); ABG PO2 78 MMHG (79-93); ABG TCO2 22.2 MMOL/L (21.0-31.0); ALLENS TEST POSITIVE; INSPIRED O2 3 L; PATIENT TEMP 99.6; VENTILATOR NO
--- NOTE | 2018-12-27 14:31 | NUR ---
Call to ICU, pt will be going in ICU 9. They are discharging a pt now, & will call back.
[2018-12-27 14:36] LABS: ANISOCYTOSIS SLIGHT; BAND NEUTROPHILS 2 %; BASOPHILS % (MANUAL) 0 %; EOSINOPHILS % (MANUAL) 0 %; LYMPHOCYTES % (MANUAL) 7 %; MONOCYTES % (MANUAL) 6 %; NEUTROPHILS % (MANUAL) 85 %
--- NOTE | 2018-12-27 14:45 | NUR ---
Pt transferred per bed to ICU 9 w 02 on 2 L n/c per portable 02, accomp by this RN, & Maria Ines Richardson RN. Report given to CLEVE Prasad. Have called , Emilie, & notified of transfer to ICU.
--- NOTE | 2018-12-28 10:23 | Therapy Team Discharge Summary ---
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 Upon evaluation patient performed bed mobility with SBA, supine to sit with mod assist, sit to stand with min assist, transfers with CGA, car transfer CGA, ambulated 20' with a rolling walker with CGA (including 10' over an uneven surface), and went up and down 1 step using a rolling walker with CGA. Patient has been performing bed mobility and transfer training, balance and endurance training, functional strengthening, stair training, gait training, and education. Patient has made poor progress and ended up being transferred to ICU. No last measurements were obtained. Patient is not being readmitted to rehab and he will be discharged from PT at this time. Occupational Therapy Decreased Activ Tolerance, Decreased UE Strength, Dependent Transfers, Impaired Bed Mobility, Impaired Funct Balance, Impaired I ADL's, Impaired Self-Care Skills, Restricted Funct UE ROM PT Fdc Goals Fdc Goals PT Fdc Goals Time Frame: Jan 16, 2019 Transfers (B,C,W/C) (FIM): 5 Roll Left to Right (QC): 4 Sit to Lying (QC): 4 Lying-Sitting on Side/Bed(QC): 4 Sit to Stand (QC): 4 Chair/Jit-br-Whrlx Xfer(QC): 4 Car Transfer (QC): 4 Gait (FIM): 5 Distance: 150' Walk 10 feet (QC): 4 Walk 10ft-Uneven Surface(QC): 4 Walk 50ft with 2 Turns (QC): 4 Walk 150 ft (QC): 4 Gait Level of Assist: 5 Gait Assistive Device: FWW Stairs (FIM): 2 # of Steps: 4 1 Step (curb) (QC): 4 4 Steps (QC): 4 Stairs Level Of Assist: 4 OT Fdc Goals Fdc Goals Time Frame: Jan 09, 2019 Eating (FIM): 6 Eating (QC): 6 Oral Hygiene (QC): 5 Grooming(FIM): 6 Bathing(FIM): 5 Shower/Bathe Self (QC): 5 Upper Body Dressing(FIM): 5 Upper Body Dressing (QC): 5 Lower Body Dressing(FIM): 5 Lower Body Dressing (QC): 5 On/Off Footwear (QC): 5 Toileting(FIM): 5 Toileting Hygiene (QC): 6 Transfers (B,C,W/C) (FIM): 6 Toilet/Commode Transfer(FIM): 6 Toilet/Commode Transfer (QC): 6 Shower Transfer(FIM): 5 Comprehension(FIM): 6 Expression (FIM): 6 Social Interaction(FIM): 6 Problem Solving(FIM): 6 Memory(FIM): 6 Additional Goals: 1-Demonstrate ADL Tasks, 2-Verbalize Understanding, 3- ImproveStrength/Rosario 1=Demonstrate adherence to instructed precautions during ADL tasks. 2=Patient will verbalize/demonstrate understanding of assistive devices/ modifications for ADL. 3=Patient will improve strength/tolerance for activity to enable patient to perform ADL's. Speech Fdc Goals Guest Relations Executive Goals Comprehension: 6 Expression: 6 Social Interaction: 6 Problem Solvin Memory: 6 JOHANA HERNÁNDEZ PT Dec 28, 2018 10:23
--- NOTE | 2018-12-28 10:42 | Discharge Summary ---
Diagnosis/Chief Complaint Date of Admission Dec 26, 2018 at 10:45 Date of Discharge Discharge Diagnosis Assessment: Clinical decompensation requiring transfer to ICU Critical illness myopathy s/p respiratory failure s/p surgery VDRF s/p Vent associated pneumonia Acute on chronic renal failure with metabolic acidosis Hyperkalemia Anemia s/p 4 units of blood while hospitalized Hypotension SBO s/p surgery Dr Franklin POD # 13 Severe oxygen dependent COPD maintained on 3L/min at home Chronic hyponatremia HTN Diastolic heart failure with elevated BNP Discharge Summary Discharge Physical Examination Allergies: Coded Allergies: sulfamethoxazole (Unverified Allergy, Mild, 12/13/18) trimethoprim (Unverified Allergy, Mild, 12/13/18) Vitals & I&Os Vital Signs Date Time Temp Pulse Resp B/P (MAP) Pulse Ox O2 Delivery O2 Flow Rate FiO2 12/27/18 14:37 99.6 12/27/18 14:34 73 20 131/63 (85) 95 Nasal Cannula 2.00 Hospital Course Was the Problem List Reviewed?: Yes Hospital course: patient had a brief hospital course after he decompensated after IRF 24 hour stay and required ICU admit to r/o sepsis due to abdominal wall abscess so he was placed on broad spectrum abx after Dr Franklin removed sutures and evacuated small amount of put that was send to culture. Pt became stable during the ICU stay and Dr Bauer saw him in consultation. IVF given and patient improved although labs did not reveal any significant changes except increased creat from baseline of 2.0 to 2.8 so Vanc was DC and maintained on Zosyn and culture was reviewed and then transitioned to PO abx. Pt was deemed stable for residential admit and a bed became available and he was agreeable for DC along with other physicians but he had such severe co-morbidities he has a very poor prognosis at baseline which was stated multiple times in the past 3 weeks and was DC in stable condition to [place] on Dr Domínguez service. Labs (last 24 hrs) Laboratory Tests 12/27/18 05:06: White Blood Count 11.1H, Red Blood Count 4.00L, Hemoglobin 10.3L, Hematocrit 33L , Mean Corpuscular Volume 82, Mean Corpuscular Hemoglobin 26, Mean Corpuscular Hemoglobin Concent 32, Red Cell Distribution Width 17.3H, Platelet Count 386, Mean Platelet Volume 9.8, Neutrophils (%) (Auto) 72, Lymphocytes (%) (Auto) 13, Monocytes (%) (Auto) 12, Eosinophils (%) (Auto) 3, Basophils (%) (Auto) 1, Neutrophils # (Auto) 8.0H, Lymphocytes # (Auto) 1.5, Monocytes # (Auto) 1.3H, Eosinophils # (Auto) 0.3, Basophils # (Auto) 0.1, Sodium Level 142, Potassium Level 4.1, Chloride Level 107, Carbon Dioxide Level 20L, Anion Gap 15H, Blood Urea Nitrogen 35H, Creatinine 1.73H, Estimat Glomerular Filtration Rate 39, BUN/ Creatinine Ratio 20, Glucose Level 100, Calcium Level 8.6, Corrected Calcium 9.0 , Total Bilirubin 0.5, Aspartate Amino Transf (AST/SGOT) 50H, Alanine Aminotransferase (ALT/SGPT) 18, Alkaline Phosphatase 87, Total Protein 6.4, Albumin 3.5 12/27/18 13:46: White Blood Count 16.2H, Red Blood Count 3.79L, Hemoglobin 9.9L, Hematocrit 31L , Mean Corpuscular Volume 82, Mean Corpuscular Hemoglobin 26, Mean Corpuscular Hemoglobin Concent 32, Red Cell Distribution Width 17.6H, Platelet Count 363, Mean Platelet Volume 10.0, Neutrophils (%) (Auto) 85H, Lymphocytes (%) (Auto) 5L , Monocytes (%) (Auto) 9, Eosinophils (%) (Auto) 0, Basophils (%) (Auto) 0, Neutrophils # (Auto) 13.8H, Lymphocytes # (Auto) 0.9L, Monocytes # (Auto) 1.5H, Eosinophils # (Auto) 0.1, Basophils # (Auto) 0.0, Sodium Level 142, Potassium Level 3.8, Chloride Level 108H, Carbon Dioxide Level 21, Anion Gap 13, Blood Urea Nitrogen 36H, Creatinine 1.98H, Estimat Glomerular Filtration Rate 34, BUN/ Creatinine Ratio 18, Glucose Level 99, Calcium Level 8.3L, Corrected Calcium 8.9 , Total Bilirubin 0.4, Aspartate Amino Transf (AST/SGOT) 44H, Alanine Aminotransferase (ALT/SGPT) 19, Alkaline Phosphatase 79, Total Protein 6.2L, Albumin 3.3, Neutrophils % (Manual) 85, Lymphocytes % (Manual) 7, Monocytes % ( Manual) 6, Eosinophils % (Manual) 0, Basophils % (Manual) 0, Band Neutrophils 2 , Anisocytosis SLIGHT, Lactic Acid Level 0.90 12/27/18 14:20: Blood Gas Puncture Site LEFT RADIAL, Blood Gas Patient Temperature 99.6, Arterial Blood pH 7.41, Arterial Blood Partial Pressure CO2 34L, Arterial Blood Partial Pressure O2 78L, Arterial Blood HCO3 21L, Arterial Blood Total CO2 22.2 , Arterial Blood Oxygen Saturation 96, Arterial Blood Base Excess -2.6L, Wal[place] Test POSITIVE, Blood Gas Ventilator Setting NO, Blood Gas Inspired Oxygen 3 L Pending Labs Laboratory Tests 12/27/18 05:06: White Blood Count 11.1, Red Blood Count 4.00, Hemoglobin 10.3, Hematocrit 33, Mean Corpuscular Volume 82, Mean Corpuscular Hemoglobin 26, Mean Corpuscular Hemoglobin Concent 32, Red Cell Distribution Width 17.3, Platelet Count 386, Mean Platelet Volume 9.8, Neutrophils (%) (Auto) 72, Lymphocytes (%) (Auto) 13, Monocytes (%) (Auto) 12, Eosinophils (%) (Auto) 3, Basophils (%) (Auto) 1, Neutrophils # (Auto) 8.0, Lymphocytes # (Auto) 1.5, Monocytes # (Auto) 1.3, Eosinophils # (Auto) 0.3, Basophils # (Auto) 0.1, Sodium Level 142, Potassium Level 4.1, Chloride Level 107, Carbon Dioxide Level 20, Anion Gap 15, Blood Urea Nitrogen 35, Creatinine 1.73, Estimat Glomerular Filtration Rate 39, BUN/ Creatinine Ratio 20, Glucose Level 100, Calcium Level 8.6, Corrected Calcium 9.0 , Total Bilirubin 0.5, Aspartate Amino Transf (AST/SGOT) 50, Alanine Aminotransferase (ALT/SGPT) 18, Alkaline Phosphatase 87, Total Protein 6.4, Albumin 3.5 12/27/18 13:46: White Blood Count 16.2, Red Blood Count 3.79, Hemoglobin 9.9, Hematocrit 31, Mean Corpuscular Volume 82, Mean Corpuscular Hemoglobin 26, Mean Corpuscular Hemoglobin Concent 32, Red Cell Distribution Width 17.6, Platelet Count 363, Mean Platelet Volume 10.0, Neutrophils (%) (Auto) 85, Lymphocytes (%) (Auto) 5, Monocytes (%) (Auto) 9, Eosinophils (%) (Auto) 0, Basophils (%) (Auto) 0, Neutrophils # (Auto) 13.8, Lymphocytes # (Auto) 0.9, Monocytes # (Auto) 1.5, Eosinophils # (Auto) 0.1, Basophils # (Auto) 0.0, Sodium Level 142, Potassium Level 3.8, Chloride Level 108, Carbon Dioxide Level 21, Anion Gap 13, Blood Urea Nitrogen 36, Creatinine 1.98, Estimat Glomerular Filtration Rate 34, BUN/ Creatinine Ratio 18, Glucose Level 99, Calcium Level 8.3, Corrected Calcium 8.9 , Total Bilirubin 0.4, Aspartate Amino Transf (AST/SGOT) 44, Alanine Aminotransferase (ALT/SGPT) 19, Alkaline Phosphatase 79, Total Protein 6.2, Albumin 3.3, Neutrophils % (Manual) 85, Lymphocytes % (Manual) 7, Monocytes % ( Manual) 6, Eosinophils % (Manual) 0, Basophils % (Manual) 0, Band Neutrophils 2 , Anisocytosis SLIGHT, Lactic Acid Level 0.90 12/27/18 14:20: Blood Gas Puncture Site LEFT RADIAL, Blood Gas Patient Temperature 99.6, Arterial Blood pH 7.41, Arterial Blood Partial Pressure CO2 34, Arterial Blood Partial Pressure O2 78, Arterial Blood HCO3 21, Arterial Blood Total CO2 22.2, Arterial Blood Oxygen Saturation 96, Arterial Blood Base Excess -2.6, Waldo Test POSITIVE, Blood Gas Ventilator Setting NO, Blood Gas Inspired Oxygen 3 L Discharge Home Medications: Active Scripts Active Prednisone 10 Mg Tab.ds.pk 10 Mg PO DAILY Take 6 tabs(60mg)daily,decrease by 1 tab(10MG)daily. Cefdinir 300 Mg Capsule 300 Mg PO BID Lasix (Furosemide) 20 Mg Tablet 20 Mg PO Q48H 14 Days Carvedilol 12.5 Mg Tablet 25 Mg PO BID 30 Days Hydralazine HCl 25 Mg Tablet 25 Mg PO Q8HR 30 Days Clonidine HCl 0.1 Mg Tablet 0.2 Mg PO TID 30 Days Enoxaparin Sodium 30 Mg/0.3 Ml Syringe 30 Mg SC DAILY@1200 14 Days Reported [place] Saline (Sodium Chloride) 50 Ml [place] 2 Sprays NS Q2H PRN Iprat-Albut 0.5-3(2.5) mg/3 ml (Ipratropium/Albuterol Sulfate) 3 Ml Ampul.neb 3 Ml NEB TID Trelegy Ellipta 100-62.5-25 (Fluticasone/Umeclidin/Vilanter) 1 Each Blst.w.dev 1 Puff INH DAILY Prednisone 2.5 Mg Tablet 2.5 Mg PO Q48H Flomax (Tamsulosin HCl) 0.4 Mg Cap 0.4 Mg PO 1730 Amlodipine Besylate 10 Mg Tablet 10 Mg PO DAILY Instructions to patient/family Please see electronic discharge instructions given to patient. Diagnosis/Problems Diagnosis/Problems (1) CLOSED LOOP BOWEL OBSTRUCTION Status: Acute (2) Debility Status: Chronic (3) Interstitial lung disease Status: Chronic (4) Microcytic anemia Status: Chronic (5) Hyponatremia Status: Acute (6) Dyspnea on exertion Status: Chronic (7) Renal insufficiency Status: Chronic (8) Kyphosis Status: Chronic (9) Anemia Status: Chronic (10) Transfusion of blood during current hospitalization (11) Former smoker (12) Diastolic CHF Status: Chronic (13) Elevated brain natriuretic peptide (BNP) level Clinical Quality Measures DVT/VTE Risk/Contraindication: Risk Factor Score Per Nursin RFS Level Per Nursing on Admit: 4+=Very High ALEM MCKEON DO Dec 28, 2018 10:42
--- NOTE | 2018-12-28 14:02 | Therapy Team Discharge Summary ---
Therapy Discharge Summary Discharge Recommendations Date of Discharge 12-27-18 Therapy D/C Recommendations: 24 hr Supervision Occupational Therapy Pt. was evaluated and seen with goals of increasing overall independence. Pt. began having a change in medical status, and eventually became difficult to arouse. Pt. has transferred to ICU due to change in medical status. No goals met at this time. Decreased Activ Tolerance, Decreased UE Strength, Dependent Transfers, Impaired Bed Mobility, Impaired Cognition, Impaired Coordination, Impaired Funct Balance , Impaired I ADL's, Impaired Self-Care Skills, Restricted Funct UE ROM PT Lead Instructor/Flight Attendant Goals Nursing Home Goals PT Lead Instructor/Flight Attendant Goals Time Frame: Jan 16, 2019 Transfers (B,C,W/C) (FIM): 5 Roll Left to Right (QC): 4 Sit to Lying (QC): 4 Lying-Sitting on Side/Bed(QC): 4 Sit to Stand (QC): 4 Chair/Grr-ed-Yyjob Xfer(QC): 4 Car Transfer (QC): 4 Gait (FIM): 5 Distance: 150' Walk 10 feet (QC): 4 Walk 10ft-Uneven Surface(QC): 4 Walk 50ft with 2 Turns (QC): 4 Walk 150 ft (QC): 4 Gait Level of Assist: 5 Gait Assistive Device: FWW Stairs (FIM): 2 # of Steps: 4 1 Step (curb) (QC): 4 4 Steps (QC): 4 Stairs Level Of Assist: 4 OT Nursing Home Goals Lead Instructor/Flight Attendant Goals Time Frame: Jan 09, 2019 Eating (FIM): 6 (not met) Eating (QC): 6 (not met) Oral Hygiene (QC): 5 (not met) Grooming(FIM): 6 (not met) Bathing(FIM): 5 (not met) Shower/Bathe Self (QC): 5 (not met) Upper Body Dressing(FIM): 5 (not met) Upper Body Dressing (QC): 5 (not met) Lower Body Dressing(FIM): 5 (not met) Lower Body Dressing (QC): 5 (not met) On/Off Footwear (QC): 5 (not met) Toileting(FIM): 5 (not met) Toileting Hygiene (QC): 6 (not met) Transfers (B,C,W/C) (FIM): 6 (not met) Toilet/Commode Transfer(FIM): 6 (not met) Toilet/Commode Transfer (QC): 6 (not met) Shower Transfer(FIM): 5 (not met) Comprehension(FIM): 6 Expression (FIM): 6 Social Interaction(FIM): 6 Problem Solving(FIM): 6 Memory(FIM): 6 Additional Goals: 1-Demonstrate ADL Tasks, 2-Verbalize Understanding, 3- ImproveStrength/Rosario 1=Demonstrate adherence to instructed precautions during ADL tasks. 2=Patient will verbalize/demonstrate understanding of assistive devices/ modifications for ADL. 3=Patient will improve strength/tolerance for activity to enable patient to perform ADL's. Speech Nursing Home Goals Nursing Home Goals Comprehension: 6 Expression: 6 Social Interaction: 6 Problem Solvin Memory: 6 NAVIN PENA OT Dec 28, 2018 14:02
[2018-12-29] MEDS ORDERED: CARV12.53 PO (12:19)
[2018-12-29] MEDS ORDERED: CEFD300C3 PO (12:19)
[2018-12-29] MEDS ORDERED: ENOX30DI4 SC (12:19)
[2018-12-29] MEDS ORDERED: HYDR-3923 PO (12:19)
[2018-12-29] MEDS ORDERED: FURO-125 PO (12:19)
[2018-12-29] MEDS ORDERED: PRED10TA22 PO (12:19)
[2018-12-29] MEDS ORDERED: CLON0.1T PO (12:19)
== END 2018-12-27 14:40 | disposition short-term general hospital (02) | DRG 92 ==
LOC: UNDOLOA 12-27 14:40
PROVIDERS: ADMIT Internal Medicine; ATTEND Internal Medicine
DX: G72.81 Critical illness myopathy (principal); N17.9 Acute kidney failure, unspecified; I50.30 Unspecified diastolic (congestive) heart failure; J84.9 Interstitial pulmonary disease, unspecified; E87.1 Hypo-osmolality and hyponatremia; I12.9 Hypertensive chronic kidney disease with stage 1 through stage 4 chronic kidney disease, or unspecified chronic kidney disease; N18.9 Chronic kidney disease, unspecified; J44.9 Chronic obstructive pulmonary disease, unspecified; E87.5 Hyperkalemia; D64.9 Anemia, unspecified; I95.9 Hypotension, unspecified; R53.83 Other fatigue; R50.9 Fever, unspecified; Z99.81 Dependence on supplemental oxygen; Z87.01 Personal history of pneumonia (recurrent); Z87.891 Personal history of nicotine dependence
CPT/HCPCS: 36415; 71046; 80053; 82805; 83605; 85007; 85025; 85027; 94640

== ENCOUNTER 2018-12-27 14:41 | Observation (INO) | payer MEDICARE, OTHER | END 2018-12-29 14:15 | disposition home or self-care (01) | LOC: ICU 14:41 ==

== ENCOUNTER 2018-12-29 16:57 | Inpatient (IN) | payer MEDICARE, OTHER ==
[~2018-12-29] VITALS: Ht 162.6 cm; Wt 66.3 kg
[~2018-12-29 16:57] MED LIST changes: +CARV12.53 PO; +ENOX30DI4 SC; +FURO-125 PO; +PRED10TA22 PO
[2018-12-29] MEDS ORDERED: RT-ALBUTEROL/IPRATROPIUM 3 ML (DUONEB) VIAL ONE (17:13)
[2018-12-29] MEDS ORDERED: NS IV 1000 ML 1,000 ML ONE (17:14)
[2018-12-29] MEDS ORDERED: NS IV 1000 ML 1,000 ML IV ONE (17:17)
[2018-12-29] MEDS ORDERED: RT-ALBUTEROL/IPRATROPIUM 3 ML (DUONEB) VIAL INH ONE ×2 (17:30)
[2018-12-29 17:37] LABS: ABG BASE EXCESS -1.9 MMOL/L (-2.5-2.5); ABG OXYGEN SATURATION 91 % (94-100); ABG PCO2 39 MMHG (35-45); ABG PH 7.38 (7.37-7.43); ABG PO2 61 MMHG (79-93); ABG TCO2 23.6 MMOL/L (21.0-31.0)
[2018-12-29 17:38] LABS: BASOPHILS % (AUTO) 0 % (0-10); EOSINOPHILS # (AUTO) 0.1 10^3/uL (0.0-0.3); EOSINOPHILS % (AUTO) 1 % (0-10); HEMATOCRIT 25 % (40-54); HEMOGLOBIN 8.1 G/DL (13.3-17.7); LYMPHOCYTES # (AUTO) 0.9 X 10^3 (1.0-4.0); LYMPHOCYTES % (AUTO) 7 % (12-44); MEAN CORPUSCULAR HEMOGLOBIN 27 PG (25-34); MEAN CORPUSCULAR HGB CONC 32 G/DL (32-36); MEAN CORPUSCULAR VOLUME 82 FL (80-99); MEAN PLATELET VOLUME 9.8 FL (7.4-10.4); MONOCYTES # (AUTO) 1.7 X 10^3 (0.0-1.0); MONOCYTES % (AUTO) 14 % (0-12); NEUTROPHILS # (AUTO) 9.6 X 10^3 (1.8-7.8); NEUTROPHILS % (AUTO) 78 % (42-75); PLATELET COUNT 393 10^3/uL (130-400); RED CELL DISTRIBUTION WIDTH 18.5 % (10.0-14.5); WHITE BLOOD COUNT 12.2 10^3/uL (4.3-11.0)
[2018-12-29 17:40] LABS: ALLENS TEST YES-POS; INSPIRED O2 10L; PATIENT TEMP 99.1; VENTILATOR NO
[2018-12-29 17:57] LABS: ANISOCYTOSIS MODERATE; BAND NEUTROPHILS 0 %; EOSINOPHILS % (MANUAL) 2 %; LYMPHOCYTES % (MANUAL) 4 %; MONOCYTES % (MANUAL) 11 %; NEUTROPHILS % (MANUAL) 83 %
[2018-12-29 18:01] LABS: ALBUMIN 2.7 GM/DL (3.2-4.5); BILIRUBIN,TOTAL 0.5 MG/DL (0.1-1.0); CALCIUM 8.7 MG/DL (8.5-10.1); CREATININE SERUM 3.61 MG/DL (0.60-1.30); POTASSIUM 4.6 MMOL/L (3.6-5.0); TOTAL PROTEIN 5.9 GM/DL (6.4-8.2)
--- NOTE | 2018-12-29 18:52 | NUR ---
report given to CLEVE Menendez
--- NOTE | 2018-12-29 18:55 | ED Respiratory ---
General Chief Complaint: Respiratory Problems Stated Complaint: SOB Nursing Triage Note: Pt to ED via EMS. EMS reports pt was discharged to [facility] one hour MOLDER HAND. PT c/o SOB and O2 sat of 88-91%. Pt given duoneb enroute to ED. Upon arrival to ED pt's O2 86% on 5 L oxymask. RT called. Pt denies pain at this time. When Dr. Khan checked pt's abdomen; pt has a vertical incision that has shaan. The center of the incision has dehisced. Telfa placed over incision by Dr. Khan and this nurse. Source: patient, family, EMS Exam Limitations: clinical condition History of Present Illness Date Seen by Provider: Dec 29, 2018 Time Seen by Provider: 17:00 Initial Comments This 68 year old gentleman presents to the ER with hypoxia and hypotension. He had just been discharged this afternoon from this hospital and was sent to the halfway. He was not doing well by the time he got there. He had been treated for urinary tract infection and an abdominal incisional wound. The wound was opened in the Center by removing some shaan to allow abscess drainage. Patient has significant COPD and acute on chronic renal failure as well. In talking to Dr. Mckeon, I have discovered that patient was transferred from acute inpatient care to the rehabilitation unit. He did not fare well there and ended up being readmitted to acute care. He then did not transition well to the halfway either. The case at length with Dr. Mckeon and Dr. Bauer. Both of these providers are under the impression that this patient's condition is not compatible with sustaining life outside the ICU. Patient was placed on a high flow oxymask and DuoNeb therapy was administered. While the above conversations were taking place, septic workup was initiated. Allergies and Home Medications Allergies Coded Allergies: sulfamethoxazole (Unverified Allergy, Mild, 12/13/18) trimethoprim (Unverified Allergy, Mild, 12/13/18) Home Medications Amlodipine Besylate 10 Mg Tablet, 10 MG PO DAILY, (Reported) Carvedilol 12.5 Mg Tablet, 25 MG PO BID Prescribed by: ALEM MCKEON on 12/29/18 1219 Cefdinir 300 Mg Capsule, 300 MG PO BID Prescribed by: ALEM MCKEON on 12/29/18 1219 Clonidine HCl 0.1 Mg Tablet, 0.2 MG PO TID Prescribed by: ALEM MCKEON on 12/29/181218 Enoxaparin Sodium 30 Mg/0.3 Ml Syringe, 30 MG SC DAILY@1200 Prescribed by: ALEM MCKEON on 12/29/18 121 Fluticasone/Umeclidin/Vilanter 1 Each Blst.w.dev, 1 PUFF INH DAILY, (Reported) Furosemide 20 Mg Tablet, 20 MG PO Q48H Prescribed by: ALEM MCKEON on 12/29/181218 Hydralazine HCl 25 Mg Tablet, 25 MG PO Q8HR Prescribed by: ALEM MCKEON on 12/29/18 121 Ipratropium/Albuterol Sulfate 3 Ml Ampul.neb, 3 ML NEB TID, (Reported) Prednisone 2.5 Mg Tablet, 2.5 MG PO Q48H, (Reported) Prednisone 10 Mg Tab.ds.pk, 10 MG PO DAILY Take 6 tabs(60mg)daily,decrease by 1 tab(10MG)daily. Prescribed by: ALEM MCKEON on 12/29/181218 Sodium Chloride 50 Ml [place], 2 SPRAYS NS Q2H PRN for DRY NOSE, (Reported) Tamsulosin HCl 0.4 Mg Cap, 0.4 MG PO 1730, (Reported) Patient Home Medication List Home Medication List Reviewed: Yes Review of Systems Review of Systems Constitutional: see HPI EENTM: no symptoms reported Respiratory: see HPI Cardiovascular: see HPI Genitourinary: see HPI Musculoskeletal: no symptoms reported Skin: no symptoms reported Psychiatric/Neurological: Other (confused, cognition dulled) Hematologic/Lymphatic: No Symptoms Reported Immunological/Allergic: no symptoms reported Past Ylyvqrf-Mmiesn-Muofkv Hx Past Med/Social Hx: Reviewed and Corrections made Patient Social History Alcohol Use: Denies Use Number of Drinks Today: AA Alcohol Beverage of Choice: Beer Recreational Drug Use: No Former Smoker, Quit: Oct 03, 2014 2nd Hand Smoke Exposure: No Recent Foreign Travel: No Contact w/Someone Who Travel: No Recent Infectious Disease Expo: No Recent Hopitalizations: Yes Physical Abuse: No Sexual Abuse: No Immunizations Up To Date Tetanus Booster (TDap): Less than 5yrs PED Vaccines UTD: No Date of Pneumonia Vaccine: Jun 18, 2015 Date of Influenza Vaccine: Jul 29, 2014 Seasonal Allergies Seasonal Allergies: Yes Past Medical History Surgeries: Yes (cataracts, RIGHT HIP REPLACEMENT, RIGHT KNEE ARTHROSCOPY X 2 ) Abdominal, Eye Surgery, Joint Replacement, Orthopedic Respiratory: Yes (home O2 at 2.5 TO 3L) Pneumonia, Chronic Bronchitis, COPD Currently Using CPAP: No Currently Using BIPAP: No Cardiac: Yes Hypertension Neurological: No Reproductive Disorders: No Sexually Transmitted Disease: No HIV/AIDS: No Genitourinary: Yes Renal Failure Gastrointestinal: Yes Obstructive Bowel Musculoskeletal: Yes (TORN CARTILAGE RIGHT KNEE. AVASCULAR NECROSIS RIGHT HIP; bulging disc) Arthritis, Chronic Back Pain Endocrine: No HEENT: Yes Cataract Loss of Vision: Denies Hearing Impairment: Denies Cancer: No Psychosocial: No Integumentary: Yes (FRAGILE, THIN SKIN) Blood Disorders: No Adverse Reaction/Blood Tranf: No Family Medical History Cardiovascular disease UNCLE Diabetes mellitus 19 MOTHER Kidney disease MA GRANDMOTHER (CANCER) Heart Disease, Diabetes, Lung Disease, Renal Disease Physical Exam Vital Signs - First Documented 12/29/18 16:58 Temp 99.1 Pulse 80 Resp 27 B/P (MAP) 60/30 (40) Pulse Ox 86 O2 Delivery OxyMask O2 Flow Rate 5.00 Capillary Refill : Less Than 3 Seconds Height: 5'4.00" Weight: 135lbs. 6.0oz. [id number]; 24.2 BMI Method:Stated General Appearance: WD/WN, mild distress HEENT: PERRL/EOMI, normal ENT inspection Neck: normal inspection Respiratory: accessory muscle use, wheezing Cardiovascular: regular rate, rhythm, no edema, no murmur Gastrointestinal: soft, tenderness, other (ventral abdominal incision with shaan. Central portion of the incision is open were shaan have been removed.) Extremities: pedal edema, swelling Neurologic/Psychiatric: other (decreased level of alertness. Intermittently confused conversation. Moves all extremities but is generally weak.) Skin: normal color, warm/dry Severely kyphotic spine Progress/Results/Core Measures Suspected Sepsis Recent Fever Within 48 Hours: No Infection Criteria Present: Suspected New Infection New/Unexplained Altered Menta: No Sepsis Screen: No Definite Risk SIRS Temperature:99.1 Pulse: 80 Respiratory Rate: 27 Laboratory Tests 12/29/18 17:26: White Blood Count 12.2H Blood Pressure 60 /30 Mean: 40 Laboratory Tests 12/29/18 17:26: Creatinine 3.61#H, Platelet Count 393, Total Bilirubin 0.5 Results/Orders Lab Results Laboratory Tests Test 12/29/18 17:26 Range/Units White Blood Count 12.2 H 4.3-11.0 10^3/uL Red Blood Count 3.05 L 4.35-5.85 10^6/uL Hemoglobin 8.1 L 13.3-17.7 G/DL Hematocrit 25 L 40-54 % Mean Corpuscular Volume 82 80-99 FL Mean Corpuscular Hemoglobin 27 25-34 PG Mean Corpuscular Hemoglobin Concent 32 32-36 G/DL Red Cell Distribution Width 18.5 H 10.0-14.5 % Platelet Count 393 130-400 10^3/uL Mean Platelet Volume 9.8 7.4-10.4 FL Neutrophils (%) (Auto) 78 H 42-75 % Lymphocytes (%) (Auto) 7 L 12-44 % Monocytes (%) (Auto) 14 H 0-12 % Eosinophils (%) (Auto) 1 0-10 % Basophils (%) (Auto) 0 0-10 % Neutrophils # (Auto) 9.6 H 1.8-7.8 X 10^3 Lymphocytes # (Auto) 0.9 L 1.0-4.0 X 10^3 Monocytes # (Auto) 1.7 H 0.0-1.0 X 10^3 Eosinophils # (Auto) 0.1 0.0-0.3 10^3/uL Basophils # (Auto) 0.0 0.0-0.1 10^3/uL Neutrophils % (Manual) 83 % Lymphocytes % (Manual) 4 % Monocytes % (Manual) 11 % Eosinophils % (Manual) 2 % Band Neutrophils 0 % Anisocytosis MODERATE Blood Gas Puncture Site RR Blood Gas Patient Temperature 99.1 Arterial Blood pH 7.38 7.37-7.43 Arterial Blood Partial Pressure CO2 39 35-45 MMHG Arterial Blood Partial Pressure O2 61 L 79-93 MMHG Arterial Blood HCO3 23 23-27 MMOL/L Arterial Blood Total CO2 23.6 21.0-31.0 MMOL/L Arterial Blood Oxygen Saturation 91 L 94-100 % Arterial Blood Base Excess -1.9 -2.5-2.5 MMOL/L Waldo Test YES-POS Blood Gas Ventilator Setting NO Blood Gas Inspired Oxygen 10L Sodium Level 150 H 135-145 MMOL/L Potassium Level 4.6 3.6-5.0 MMOL/L Chloride Level 114 H 98-107 MMOL/L Carbon Dioxide Level 21 21-32 MMOL/L Anion Gap 15 H 5-14 MMOL/L Blood Urea Nitrogen 77 H 7-18 MG/DL Creatinine 3.61 #H 0.60-1.30 MG/DL Estimat Glomerular Filtration Rate 17 BUN/Creatinine Ratio 21 Glucose Level 108 H 70-105 MG/DL Calcium Level 8.7 8.5-10.1 MG/DL Corrected Calcium 9.7 8.5-10.1 MG/DL Total Bilirubin 0.5 0.1-1.0 MG/DL Aspartate Amino Transf (AST/SGOT) 51 H 5-34 U/L Alanine Aminotransferase (ALT/SGPT) 19 0-55 U/L Alkaline Phosphatase 64 40-136 U/L C-Reactive Protein High Sensitivity 30.61 H 0.00-0.50 MG/DL B-Type Natriuretic Peptide 346.4 H <100.0 PG/ML Total Protein 5.9 L 6.4-8.2 GM/DL Albumin 2.7 L 3.2-4.5 GM/DL My Orders Orders - ROBERT KHAN MD Albuterol/Ipra Inhalation Soln (Duoneb I (12/29/18 17:30) Svn Small Volume Nebulizer (12/29/18 17:16) Albuterol/Ipra Inhalation Soln (Duoneb I (12/29/18 17:13) Ns Iv 1000 Ml (Sodium Chloride 0.9%) (12/29/18 17:14) Hs C Reactive Protein (12/29/18 17:17) Albuterol/Ipra Inhalation Soln (Duoneb I (12/29/18 17:30) Svn Small Volume Nebulizer (12/29/18 17:17) Saline Lock/Iv-Start (12/29/18 17:17) Ns Iv 1000 Ml (Sodium Chloride 0.9%) (12/29/18 17:17) Arterial Blood Gas (12/29/18 17:22) Medications Given in ED Vital Signs/I&O 12/29/18 12/29/18 16:58 17:18 Temp 99.1 Pulse 80 Resp 27 B/P (MAP) 60/30 (40) Pulse Ox 86 91 O2 Delivery OxyMask Simple Mask O2 Flow Rate 5.00 10.00 Capillary Refill : Less Than 3 Seconds Blood Pressure Mean: 40 Progress Note : Progress Note I had a long conversation with the patient and his family. I explained his worsening conditions including renal failure, respiratory failure, and infections. I explained that my interpretation of his condition is that he was actively in the dying process. Patient and family were all accepting of this and agreed that comfort care was the best approach. Family preferred to do comfort care in the hospital as opposed to hospice at the halfway. Case was discussed with Dr. Esparza and comfort care orders were written. Patient did receive a liter of IV fluid while in the ER. He remained hypotensive. ECG Initial ECG Impression Date: Dec 29, 2018 Initial ECG Impression Time: 17:55 Initial ECG Rate: 79 Initial ECG Rhythm: Normal Sinus Comment Sinus rhythm. No ST elevation or depression. No abnormal intervals. Right axis deviation. Departure Communication (Admissions) Time/Spoke to Admitting Phy: 18:30 Dr. Esparza Impression Primary Impression: Acute respiratory failure Qualified Codes: J96.01 - Acute respiratory failure with hypoxia Additional Impressions: Acute hypotension Acute on chronic renal failure Qualified Codes: N17.9 - Acute kidney failure, unspecified; N18.9 - Chronic kidney disease, unspecified Disposition: 09 ADMITTED INPATIENT Condition: Unchanged Admissions Decision to Admit Reason: Admit from ER (General) Decision to Admit/Date: Dec 29, 2018 Time/Decision to Admit Time: 18:15 Departure-Patient Inst. Referrals: GLORIA ZAPIEN MD (PCP/Family) Primary Care Physician ROBERT KHAN MD Dec 29, 2018 18:55
[2018-12-29 19:00] VITALS: BP 62/43
[2018-12-29] MEDS ORDERED: morphine INJ 10 MG/ML 1ML (SYR OR VIAL) IVP ONE (19:15)
[2018-12-29 19:45] VITALS: BP 61/44
--- NOTE | 2018-12-29 19:45 | NUR ---
Dorita Oliveira admitted to room 420-1, with an admitting diagnosis of SOA, comfort care, on 12/29/18 from ED via cart, accompanied by family et staff.DORITA OLIVEIRA introduced to surroundings, call light, bed controls, phone, TV, temperature control, lights, meal times, smoking policy, visitor policy, side rail policy, bathrooms and showers. Patient Rights given to patient in the handbook.DORITA OLIVEIRA verbalizes understanding that [facility] is not responsible for the loss or damage to any personal effects or valuables that are kept in the patients posession during their hospitalization. The Patient Care Plans were discussed with the pt et family. DORITA OLIVEIRA verbalizes understanding of Interdisciplinary Patient Education. Patient and/or family were informed about the Rapid Response Team and its purpose.
[2018-12-29] MEDS ORDERED: BISACODYL 10 MG SUPP (DULCOLAX) PR PRN (20:15)
[2018-12-29] MEDS ORDERED: morphine (ROXINOL) 10 MG/0.5 ML oral conc 0.5 ML PO PRN (20:15)
[2018-12-29] MEDS ORDERED: GLYCOPYRROLATE 0.2 MG/ML (ROBINUL) 2 ML VIAL IV PRN (20:15)
[2018-12-29] MEDS ORDERED: ACETAMINOPHEN 650 MG SUPP (TYLENOL) PR PRN (20:15)
[2018-12-29] MEDS ORDERED: LORazepam ORAL CONCENTRATE 2 MG/ML 30 ML (ATIVAN) PO PRN (20:15)
[2018-12-29] MEDS ORDERED: ONDANSETRON 4 MG/2 ML (SDV) Z0FRAN IV PRN (20:15)
[2018-12-29] MEDS ORDERED: RT-ALBUTEROL/IPRATROPIUM 3 ML (DUONEB) VIAL INH PRN (20:15)
[2018-12-29] MEDS ORDERED: ATROPINE 1% OPHTHALMIC SOLN 2 ML SL PRN (20:15)
[2018-12-29] MEDS ORDERED: morphine IMMEDIATE RELEASE 15 MG TABLET PO PRN (20:15)
[2018-12-29] MEDS ORDERED: PROMETHAZINE INJ 25 MG/ML (PHENERGAN) AMP IV PRN (20:15)
[2018-12-29] MEDS ORDERED: ARTIFICAL TEARS 0.4 ML UNIT DOSE (REFRESH PLUS) OU PRN (20:15)
[2018-12-29] MEDS ORDERED: SALIVA STIMULANT MOUTH SPRAY (BIOTENE) 1.5 OZ MM PRN (20:15)
[2018-12-29] MEDS ORDERED: SCOPOLAMINE 1.5 MG (TRANSDERM-SCOP) PATCH TOP SCH (20:30)
[2018-12-29] MEDS ORDERED: CATHETER FLUSH 10 ML SYR IV PRN (20:30)
[2018-12-29] MEDS: CATHETER FLUSH 10 ML SYR IV SCH (20:39)
[2018-12-29] MEDS: LORazepam INJ 2 MG/ML (ATIVAN) VIAL IV PRN (20:47)
[2018-12-29] MEDS: morphine INJ 4 MG/ML 1 ML (VIAL/SYRINGE) IV PRN (23:26)
[2018-12-30] MEDS: LORazepam INJ 2 MG/ML (ATIVAN) VIAL IV PRN ×3 (01:04→17:01)
[2018-12-30] MEDS: CATHETER FLUSH 10 ML SYR IV SCH ×2 (06:04→12:56)
--- NOTE | 2018-12-30 10:01 | History & Physical-Hospitalist ---
History of Present Illness HPI/Chief Complaint Pt is a 68yoCM known to be from recent admission where he was admitted for high grade bowel obstruction and underwent colon resection. He developed respiratory failure and LYUBOV postoperatively but slowly improved. He was transferred to IRU for rehab and was unable to tolerate therapy and quickly transferred back to the ICU for respiratory failure on 12/28. He was discharged to a SNF on 12/29 and within a couple of hours there became hypoxic, hypotensive, and confused prompting return to the ER. On arrival family and patient elected comfort care only given his rapid decline and inability to maintain any quality of life. This morning that state he is doing well and appears very comfortable. He is unresponsive and unable to provide any history. Source: family Exam Limitations: clinical condition Date Seen 12/30/18 Time Seen by a Provider: 09:56 Attending Physician Lance Esparza MD PCP Wesley Domínguez MD Referring Physician Date of Admission Dec 29, 2018 at 18:42 Home Medications & Allergies Home Medications Reviewed patient Home Medication Reconciliation performed by pharmacy medication reconciliations equipment engineering technician and/or nursing. Patients Allergies have been reviewed. Allergies Allergies Coded Allergies sulfamethoxazole (Unverified Allergy, Mild, 12/13/18) trimethoprim (Unverified Allergy, Mild, 12/13/18) Past Fejdfnh-Ppbzxl-Qvracc Hx Past Med/Social Hx: Reviewed Nursing Past Med/Soc Hx, Reviewed and Corrections made Patient Social History Marrital Status: Alcohol Use: Denies Use Alcohol Beverage of Choice: Beer Recreational Drug Use: No Former Smoker, Quit: Oct 03, 2014 2nd Hand Smoke Exposure: No Recent Foreign Travel: No Contact w/other who traveled: No Recent Hopitalizations: Yes Recent Infectious Disease Expo: No Immunizations Up To Date Tetanus Booster (TDap): Less than 5yrs Pediatric: No Date of Pneumonia Vaccine: Jun 18, 2015 Date of Influenza Vaccine: Dec 28, 2018 Seasonal Allergies Seasonal Allergies: Yes Past Medical History Surgeries: Abdominal, Eye Surgery, Joint Replacement, Orthopedic Respiratory: COPD, Pneumonia Currently Using CPAP: No Currently Using BIPAP: No Cardiac: Hypertension Reproductive: No Sexually Transmitted Disease: No HIV/AIDS: No Genitourinary: Renal Failure Gastrointestinal: Obstructive Bowel Musculoskeletal: Arthritis, Chronic Back Pain HEENT: Cataract Loss of Vision: Denies Hearing Impairment: Denies History of Blood Disorders: No Adverse Reaction to Blood [place]: No Family History Cardiovascular disease UNCLE Diabetes mellitus 19 MOTHER Kidney disease MA GRANDMOTHER (CANCER) Heart Disease, Diabetes, Lung Disease, Renal Disease Review of Systems ROS-Unable to Obtain: Obtunded Constitutional: see HPI Physical Exam Physical Exam Vital Signs Vital Signs - First Documented 12/29/18 16:58 Temp 99.1 Pulse 80 Resp 27 B/P (MAP) 60/30 (40) Pulse Ox 86 O2 Delivery OxyMask O2 Flow Rate 5.00 Capillary Refill : Less Than 3 Seconds Height, Weight, BMI Height: 5'4.00" Weight: 146lbs. 1.0oz. [id number]; 25.1 BMI Method:Stated General Appearance: Chronically ill, Cachetic, Other (resting comfortably) HEENT: Moist Mucous Membranes; No Scleral Icterus (L), No Scleral Icterus (R); Other (thinning ears form my previous exam) Neck: Normal Inspection; No Thyromegaly Respiratory: Lungs Clear, No Accessory Muscle Use, No Respiratory Distress Cardiovascular: Regular Rate, Rhythm, No Murmur Gastrointestinal: Normal Bowel Sounds, Non Tender, Soft, Other (surgical dressing in place) Extremity: Normal Capillary Refill, Normal Inspection, No Calf Tenderness, No Pedal Edema Neurologic/Psychiatric: Alert, Other (unresponsive) Skin: Normal Color, Warm/Dry; No Mottled Results Results/Procedures Labs Laboratory Tests 12/29/18 17:26 Patient resulted labs reviewed. Assessment/Plan Admission Diagnosis Comfort Care Admission Status: Inpatient Order (span 2 midnights) Reason for Inpatient Admission: Symptoms unable to be managed currently as an outpatient Diagnosis/Problems Diagnosis/Problems (1) Comfort measures only status Status: Acute Assessment & Plan: Resting comfortably Family denies any needs Continue current measures Comfort measures order set placed Clinical Quality Measures DVT/VTE Risk/Contraindication: Risk Factor Score Per Nursin RFS Level Per Nursing on Admit: 4+=Very High LANCE ESPRAZA MD Dec 30, 2018 10:01
[2018-12-30] MEDS: morphine INJ 4 MG/ML 1 ML (VIAL/SYRINGE) IV PRN ×2 (11:27→15:32)
--- NOTE | 2018-12-30 17:20 | NUR ---
NO RESP. NO HEART BEAT. 2ND NURSE CHECKED HEART SOUNDS. FAMILY MEMBERS AT BEDSIDE. SIGNED RELEASE OF BODY FORM.
--- NOTE | 2018-12-30 17:40 | NUR ---
[employer] DONOR NOTIFIED AND INFORMATION GIVEN.
--- NOTE | 2018-12-30 17:45 | NUR ---
SALINE GTTS APPLIED TO EYES AND SMALL ICE PACK TO EYES.
--- NOTE | 2018-12-30 18:00 | NUR ---
BODY CLEANED. FAMILY LEFT. DENTURES AT BEDSIDE. FAMILY TOOK ALL OTHER BELONGINGS.
--- NOTE | 2018-12-30 18:51 | Discharge Summary-Hospitalist ---
Discharge Summary Date of Admission Dec 29, 2018 at 18:42 Date of Discharge Admission Diagnosis Comfort Care Comfort Measures/ End of Life Care: Comfort Measures Pt was admitted following a complicated hospital course after being unable to tolerate SNF stay for less than 3 hours. He returned returned in respiratory distress and hypotension. He and his family elected to pursue comfort measures only given his very complex course, chronic medical conditions, and poor prognosis for quality of life. He was admitted for comfort measures and on 12/30/18. Discharge Diagnosis (1) Comfort measures only status Status: Acute Assessment & Plan: Resting comfortably Family denies any needs Continue current measures Comfort measures order set placed LANCE SKINNER MD Dec 30, 2018 18:51
--- NOTE | 2018-12-30 19:01 | NUR ---
NEMO MATA NOTIFIED THAT [facility] STATED TO HOLD PT. HERE UNTIL THEY NOTIFY FAMILY ABOUT DONATING. Addendum: 12/30/18 at 1908 by KIRTI BOND RN TISSUE AND EYES
--- NOTE | 2018-12-31 01:41 | NUR ---
[facility] transport team here to worm picker the patient.
[2019-01-01] MEDS ORDERED: SCOPOLAMINE PATCH REMOVAL TP SCH (20:29)
== END 2018-12-30 17:20 | disposition expired | DRG 951 ==
LOC: EDUNIT# 16:57 → ER 16:59 → 4TH 18:42
PROVIDERS: ADMIT Family Medicine; ATTEND Family Medicine
DX: Z51.5 Encounter for palliative care (principal); J96.01 Acute respiratory failure with hypoxia; T81.41XA Infection following a procedure, superficial incisional surgical site, initial encounter; N39.0 Urinary tract infection, site not specified; J44.9 Chronic obstructive pulmonary disease, unspecified; N17.9 Acute kidney failure, unspecified; I12.9 Hypertensive chronic kidney disease with stage 1 through stage 4 chronic kidney disease, or unspecified chronic kidney disease; N18.9 Chronic kidney disease, unspecified
CPT/HCPCS: 36415; 36600; 80053; 82805; 83880; 85007; 85027; 86141; 93005; 94640